=== PATIENT | male | born 1945 | race Caucasian/White ===

== ENCOUNTER → 2023-09-24 | Outpatient (CLI) | payer MEDICARE, SELFPAY ==
--- NOTE | 2023-09-24 07:38 | CT_ITS ---
STUDY: CT CHEST, ABDOMEN T PELVIS WITH CONTRAST REASON FOR EXAM: Male, 77 years old. STAGING BLADDER CANCER RADIATION DOSAGE (If Supplied By Facility): CTDIvol = ( 22.68 ) mGy, DLP = ( 3220.61 ) mGycm TECHNIQUE: Transaxial imaging was performed following intravenous administration of IV 100mL [id number], Oral-Readicat. Individualized dose optimization techniques were used for this CT. COMPARISON: No relevant prior comparison study available FINDINGS: CHEST Hyperinflated lungs and centrilobular emphysema. No focal infiltrate is seen. No evidence of pulmonary nodules. There is no demonstrated pleural abnormality. Normal heart and pericardium. There are calcifications of the coronary arteries. Normal mediastinum. Normal hilar regions. Grossly unremarkable pulmonary arteries. There is atherosclerotic calcification of the aortic arch with mild tortuosity and elongation of the aortic arch and descending thoracic aorta without evidence of aneurysm. There are multi-level degenerative changes of the thoracic spine. ABDOMEN Normal liver. There is non-visualization of the gallbladder, which may be secondary to either contraction or a prior cholecystectomy. Normal spleen. Normal pancreas. Normal bilateral adrenal glands. Moderate right hydronephrosis and hydroureter extending to the right ureterovesical junction with mild right perinephric stranding. Small low-density lesion/cyst in right kidney for which no further follow-up is needed. Unremarkable left kidney. Normal visualized stomach. Normal small intestine. Diffuse colonic diverticulosis without evidence of acute diverticulitis. Mild thickening of the transverse colon. The appendix is visualized and appears normal. There is diffuse atherosclerotic calcification of the abdominal aorta with elongation and tortuosity, but without a demonstrated aneurysm. Normal inferior vena cava. Normal retroperitoneum. Small umbilical hernia containing fat. Degenerative changes of the spine. PELVIS The bladder is not well distended. Thickening of the right lateral wall of the bladder and the bladder base which may reflect a normal bladder cancer. There is no pelvic fluid. There is no pelvic lymphadenopathy or mass lesion. There is enlargement of the prostate gland. CT/CT Chest, Abd, Pel w/Contrast IMPRESSION: 1. Thickening of the base and right lateral wall of the bladder which may reflect the known bladder cancer. 2. Obstruction of the distal right ureter likely due to the bladder mass associated with moderate right hydronephrosis and hydroureter. 3. No evidence of metastatic disease. 4. Prostatomegaly. 5. Diffuse diverticulosis without evidence of acute diverticulitis. Electronically Signed: Alo Rowell MD at 9:35 EST ,
--- OUTSIDE RECORDS SUMMARY | 2023-09-24 07:46 | XMS RPT_ITS | CCD ---
Author Name Unknown Address [address] [place] [address] Organization [facility] Care Team Providers Care Electrical Engineering Professor Name Role Phone AAMIR LEVIN DO Primary Care Physician AAMIR LEVIN DO Primary Care Unavailable AAMIR LEVIN DO Attending Unavailable AAMIR LEVIN DO Primary Care Unavailable EDMUNDO MARIANO, DR LINCOLN JONES Attending AAMIR Espinoza DO Primary Care Unavailable EDMUNDO MARIANO, DR LINCOLN JONES Referring Obie WYATT MD, DR LINCOLN JONES Attending Obie WYATT MD, DR LINCOLN JONES Admitting Obie ALDRICH MD FACP, HELGA Duron Consulting Unavail able AAMIR LEVIN DO Primary Care Unavailable BO SCHULER MD Attending Unavailable AAMIR LEVIN DO Primary Care Unavailable AAMIR LEVIN DO Attending Unavailable AAMIR LEVIN DO Primary Care Unavailable AAMIR LEVIN DO Attending Unavailable AAMIR LEVIN DO Primary Care Unavailable FIELDING JASMINA LUZ Attending MARYSE Ray MD Attending Unavailable AAMIR LEVIN DO Primary Care Unavailable AAMIR LEVIN DO Primary Care Unavailable FIELDING JASMINA LUZ Attending UnavailAAMIR Young DO Primary Care Unavailable AAMIR LEVIN DO Attending Unavailable Allergies Allergy Classification Reported Allergen(s) Allergy Type Date of Onset Reaction(s) Facility (11 sources) metFORMIN; Translations: [metformin] Drug Allergy Abdominal pain [facility] Medications Current Medications Medication Drug Class(es) Dates Sig (Normalized) Sig (Original) acetaminophen 500 mg oral tablet (1 source) Start: 08-30-2022 End: 09-13-2022 take 1 tablet by mouth once daily acetaminophen 500 mg oral tablet Dose : 1,000 mg = 2 tab(s), Oral, TID, PRN as needed for pain, not to exceed 3000 mg/day, # 100 tab(s), 0 Refill(s), 09/13/22 8:02:00 EST, Pharmacy: [facility]/pharmacy #[id number], 172.7, cm, 08/29/22 12:22:00 EST, Height Start Date: 08/30/22 Stop Date: 09/13/22 Status: Ordered Allergy (Diphenhydramine HCl) 25 mg oral capsule (9 sources) Start: 08-14-2022 Allergy (Diphenhydramine HCl) 25 mg oral capsule Dose : 25 mg = 1 cap(s), Oral, qAM, 0 Refill(s) Start Date: 08/14/22 Status: Ordered Completed/Discontinued Medications Medication Drug Class(es) Dates Sig (Normalized) Sig (Original) aspirin 81 mg delayed release oral tablet (6 sources) Platelet Aggregation Inhibitor, Nonsteroidal Anti-inflammatory Drug Start: 08-30-2022 End: 09-29-2022 take 1 tablet by mouth twice daily aspirin 81 mg oral delayed release tablet Dose : 81 mg = 1 tab(s), Oral, BID, Take 81 mg aspirin twice daily with food for 4 weeks postoperatively for DVT prophylaxis., # 60 tab(s), 0 Refill(s), Pharmacy: [facility]/pharmacy #[id number], 172.7, cm, 08/29/22 12:22:00 EST, Height Start Date: 08/30/22 Stop Date: 09/29/22 Status: Ordered atorvastatin 10 mg oral tablet (1 source) HMG-CoA Reductase Inhibitor Start: 08-31-2023 atorvastatin 10 mg oral tablet Dose : 10 mg = 1 tab(s), Oral, qHS, 0 Refill(s), Hyperlipidemia Type 2 diabetes mellitus with hyperlipidemia Start Date: 08/31/23 Status: Ordered meloxicam 7.5 mg oral tablet (2 sources) Nonsteroidal Anti-inflammatory Drug Start: 08-30-2022 End: 09-29-2022 Mobic 7.5 mg oral tablet Dose : 7.5 mg = 1 tab(s), Oral, BIDM, Do not take any other nonsteroidal anti-inflammatories while on meloxicam/Mobic, # 60 tab(s), 0 Refill(s), Pharmacy: [facility]/pharmacy #[id number], 172.7, cm, 08/29/22 12:22:00 EST, Height Start Date: 08/30/22 Stop Date: 09/29/22 Status: Ordered metoprolol tartrate 50 mg oral tablet (19 sources) beta-Adrenergic Bridger Start: 09-01-2023 End: 09-01-2023 metoprolol tartrate 50 mg oral tablet Start: 09/01/23 8:00:00 AM EST, Dose = 100 mg, = 2 tab(s), Oral, 0, 08/31/23 15:55:00 EST Start Date: 09/01/23 Stop Date: 09/01/23 Status: Completed Problems Active Problems Problem Classification Problem Date Documented Date Episodic/Chronic Cancer of bladder (1 source) Malignant tumor of urinary bladder; Translations: [Malignant neoplasm of bladder, unspecified] Onset: 08-31-2023 Chronic Cardiac dysrhythmias (1 source) Cardiac arrhythmia; Translations: [Cardiac arrhythmia, unspecified] Onset: 09-01-2023 Chronic Chronic kidney disease (7 sources) Chronic kidney disease stage 3 02-06-2023 Chronic Chronic obstructive pulmonary disease and bronchiectasis (15 sources) Chronic obstructive lung disease; Translations: [Chronic obstructive pulmonary disease, unspecified] Onset: 08-29-2022 10-21-2020 Chronic Diabetes mellitus without complication (20 sources) Diabetes mellitus; Translations: [Type 2 diabetes mellitus without complication] Onset: 08-29-2022 10-13-2019 Chronic Disorders of lipid metabolism (16 sources) Hyperlipidemia; Translations: [Hyperlipidemia, unspecified] Onset: 08-29-2022 10-13-2019 Chronic Esophageal disorders (14 sources) Gastroesophageal reflux disease without esophagitis 10-21-2020 Chronic Essential hypertension (20 sources) Hypertensive disorder; Translations: [Essential (primary) hypertension] Onset: 10-10-2022 10-13-2019 Chronic Mood disorders (14 sources) Mild depression 07-30-2020 Chronic Neoplasms of unspecified nature or uncertain behavior (1 source) Neoplasm of bladder 09-04-2023 Episodic Osteoarthritis (1 source) Osteoarthritis; Translations: [Unspecified osteoarthritis, unspecified site] Onset: 08-29-2022 Chronic Other connective tissue disease (1 source) Artificial knee joint present; Translations: [Presence of unspecified artificial knee joint] Onset: 08-29-2022 Chronic Other lower respiratory disease (14 sources) Dyspnea on exertion 08-13-2020 Episodic Other non-traumatic joint disorders (13 sources) Knee pain 08-08-2022 Episodic Other nutritional; endocrine; and metabolic disorders (20 sources) Body mass index 30+ - obesity 04-25-2022 Chronic Other nutritional; endocrine; and metabolic disorders (13 sources) Obesity 08-08-2022 Chronic Other nutritional; endocrine; and metabolic disorders (6 sources) Morbid obesity 05-09-2023 Chronic Other screening for suspected conditions (not mental disorders or infectious disease) (13 sources) Viral screening status 04-25-2022 Episodic Peripheral and visceral atherosclerosis (13 sources) Peripheral vascular disease 10-21-2021 Chronic Residual codes; unclassified (13 sources) Needs influenza immunization 07-14-2021 Episodic Screening and history of mental health and substance abuse codes (14 sources) Ex-cigarette smoker 04-22-2021 Episodic Unclassified (20 sources) Patient encounter status 04-21-2021 Unclassified (13 sources) Influenza vaccination status 06-29-2022 Urinary tract infections (6 sources) Urinary tract infectious disease 05-09-2023 Episodic Past or Other Problems Problem Classification Problem Date Documented Da te Episodic/Chronic Genitourinary symptoms and ill-defined conditions (8 sources) Blood in urine; Translations: [Hematuria, unspecified] Onset: 05-09-2023 05-09-2023 Episodic Results Test Name Value Interpretation Reference Range Facil ity Vital Signs Date Time Vital Sign Value Performing Clinician Faci lity 09-01-2023 10:28-0500 Body temperature 97.52 [degF] DR LINCOLN WYATT MD [facility] 09-01-2023 10:28-0500 Diastolic Blood Pressure Non-Invasive 57 mm[Hg] DR LINCOLN WYATT MD [facility] 09-01-2023 10:28-0500 Heart rate 64 /min DR LINCOLN WYATT MD [facility] 09-01-2023 10:28-0500 Respiratory rate 18 /min DR LINCOLN WYATT MD [facility] 09-01-2023 10:28-0500 Systolic Blood Pressure Non-Invasive 114 mm[Hg] DR LINCOLN WYATT MD [facility] 09-01-2023 09:19-0500 Heart rate 61 /min DR LINCOLN WYATT MD [facility] 09-01-2023 08:06-0500 Heart rate 67 /min DR LINCOLN WYATT MD [facility] 09-01-2023 06:55-0500 Body temperature 98.06 [degF] DR LINCOLN WYATT MD [facility] 09-01-2023 06:55-0500 Diastolic Blood Pressure Non-Invasive 63 mm[Hg] DR LINCOLN WYATT MD [facility] 09-01-2023 06:55-0500 Heart rate 74 /min DR LINCOLN WYATT MD [facility] 09-01-2023 06:55-0500 Respiratory rate 16 /min DR LINCOLN WYATT MD [facility] 09-01-2023 06:55-0500 Systolic Blood Pressure Non-Invasive 121 mm[Hg] DR LINCOLN WYATT MD [facility] 09-01-2023 04:00-0500 Body temperature 98.24 [degF] DR LINCOLN WYATT MD [facility] 09-01-2023 04:00-0500 Diastolic Blood Pressure Non-Invasive 59 mm[Hg] DR LINCOLN WYATT MD [facility] 09-01-2023 04:00-0500 Heart rate 75 /min DR LINCOLN WYATT MD [facility] 09-01-2023 04:00-0500 Systolic Blood Pressure Non-Invasive 111 mm[Hg] DR LINCOLN WYATT MD [facility] 08-31-2023 18:32-0500 Body height 172.[address] LINCOLN WYATT MD [facility] 08-31-2023 18:32-0500 Body weight [address] LINCOLN WYATT MD [facility] 08-31-2023 18:32-0500 Body weight 36.88 kg/m2 DR LINCOLN WYATT MD [facility] 08-31-2023 18:21-0500 Heart rate 87 /min DR LINCOLN WYATT MD [facility] 08-31-2023 17:39-0500 Heart rate 87 /min DR LINCOLN WYATT MD [facility] 08-31-2023 17:00-0500 Heart rate 90 /min DR LINCOLN WYATT MD [facility] 08-31-2023 17:00-0500 Heart rate 75 /min DR LINCOLN WYATT MD [facility] 08-31-2023 16:10-0500 Body temperature 97.7 [degF] DR LINCOLN WYATT MD [facility] 08-31-2023 16:00-0500 Respiratory Rate - Anes 7 br/min DR LINCOLN WYATT MD [facility] 08-31-2023 15:55-0500 Respiratory Rate - Anes 18 br/min DR LINCOLN WYATT MD [facility] 08-31-2023 15:50-0500 Respiratory Rate - Anes 10 br/min DR LINCOLN WYATT MD [facility] 08-31-2023 15:45-0500 Body temperature 96.8 [degF] DR LINCOLN WYATT MD [facility] 08-31-2023 15:30-0500 Body temperature 96.8 [degF] DR LINCOLN WYATT MD [facility] 08-31-2023 12:28-0500 Body height 172.[address] LINCOLN WYATT MD [facility] 08-31-2023 12:28-0500 Body temperature 98.06 [degF] DR LINCOLN WYATT MD [facility] 08-31-2023 12:28-0500 Body weight [address] LINCOLN WYATT MD [facility] 08-21-2023 13:09-[address] LINCOLN WYATT MD [facility] 08-21-2023 13:09-0500 Body height 172.[address] LINCOLN WYATT MD [facility] 08-21-2023 13:09-0500 Body weight 118.[address] LINCOLN WYATT MD [facility] 08-21-2023 13:09-0500 Body weight 39.63 kg/m2 DR LINCOLN WYATT MD [facility] 08-21-2023 13:09-0500 Diastolic Blood Pressure Non-Invasive 58 mm[Hg] DR LINCOLN WYATT MD [facility] 08-21-2023 13:09-0500 Heart rate 60 /min DR LINCOLN WYATT MD [facility] 08-21-2023 13:09-0500 Respiratory rate 20 /min DR LINCOLN WYATT MD [facility] 08-21-2023 13:09-0500 Systolic Blood Pressure Non-Invasive 114 mm[Hg] DR LINCOLN WYATT MD [facility] 08-30-2022 11:51-0500 Body temperature 97.88 [degF] DR EVELYNE GONZALEZ MD [facility] 08-30-2022 11:51-0500 Diastolic Blood Pressure Non-Invasive [address] EVELYNE GONZALEZ MD [facility] 08-30-2022 11:51-0500 Heart rate 60 /min DR EVELYNE GONZALEZ MD [facility] 08-30-2022 11:51-0500 Reason For Taking VItal Signs DR EVELYNE GONZALEZ MD [facility] 08-30-2022 11:51-0500 Respiratory rate 18 /min DR EVELYNE GONZALEZ MD [facility] 08-30-2022 11:51-0500 Systolic Blood Pressure Non-Invasive [address] EVELYNE GONZALEZ MD [facility] 08-30-2022 08:21-0500 Heart rate 64 /min DR EVELYNE GONZALEZ MD [facility] 08-30-2022 07:45-0500 Body temperature 97.52 [degF] DR EVELYNE GONZALEZ MD [facility] 08-30-2022 07:45-0500 Diastolic Blood Pressure Non-Invasive [address] EVELYNE GONZALEZ MD [facility] 08-30-2022 07:45-0500 Heart rate 64 /min DR EVELYNE GONZALEZ MD [facility] 08-30-2022 07:45-0500 Reason For Taking VItal Signs DR EVELYNE GONZALEZ MD [facility] 08-30-2022 07:45-0500 Respiratory rate 18 /min DR EVELYNE GONZALEZ MD [facility] 08-30-2022 07:45-0500 Systolic Blood Pressure Non-Invasive [address] EVELYNE GONZALEZ MD [facility] 08-30-2022 04:38-0500 Body temperature 97.34 [degF] DR EVELYNE GONZALEZ MD [facility] 08-30-2022 04:38-0500 Diastolic Blood Pressure Non-Invasive [address] EVELYNE GONZALEZ MD [facility] 08-30-2022 04:38-0500 Heart rate 59 /min DR EVELYNE GONZALEZ MD [facility] 08-30-2022 04:38-0500 Reason For Taking VItal Signs DR EVELYNE GONZALEZ MD [facility] 08-30-2022 04:38-0500 Respiratory rate 18 /min DR EVELYNE GONZALEZ MD [facility] 08-30-2022 04:38-0500 Systolic Blood Pressure Non-Invasive [address] EVELYNE GONZALEZ MD [facility] 08-30-2022 00:37-0500 Heart rate 77 /min DR EVELYNE GONZALEZ MD [facility] 02-07-2023 17:00-0500 Heart rate 72 /min DR EVELYNE GONZALEZ MD [facility] 08-29-2022 12:23-0500 Body temperature 96.8 [degF] DR EVELYNE GONZALEZ MD [facility] 08-29-2022 12:22-0500 Body height 172.[address] EVELYNE GONZALEZ MD [facility] 08-29-2022 12:22-0500 Body weight 113.[address] EVELYNE GONZALEZ MD [facility] 08-29-2022 12:22-0500 Body weight 38.09 kg/m2 DR EVELYNE GONZALEZ MD [facility] 08-29-2022 11:02-0500 Body temperature 96.44 [degF] DR EVELYNE GONZALZE MD [facility] 08-29-2022 10:55-0500 Respiratory Rate - Anes 0 br/min DR EVELYNE GONZALEZ MD [facility] 08-29-2022 10:50-0500 Respiratory Rate - Anes 4 br/min DR EVELYNE GONZALEZ MD [facility] 08-29-2022 10:45-0500 Respiratory Rate - Anes 15 br/min DR EVELYNE GONZALEZ MD [facility] 08-29-2022 07:47-0500 Blood Pressure Cuff Size DR EVELYNE GONZALEZ MD [facility] 08-29-2022 07:47-[address] EVELYNE GONZALEZ MD [facility] 08-29-2022 07:47-[address] EVELYNE Adrian [facility] 08-29-2022 07:47-0500 Body height 172.[address] EVELYNE GONZALEZ MD [facility] 08-29-2022 07:47-0500 Body temperature 97.52 [degF] DR EVELYNE GONZALEZ MD [facility] 08-29-2022 07:47-0500 Body weight 113.[address] EVELYNE GONZALEZ MD [facility] 08-29-2022 07:47-0500 Body weight 38.09 kg/m2 DR EVELYNE GONZALEZ MD [facility] 08-14-2022 10:05-[address] EVELYNE GONZALEZ MD [facility] 08-14-2022 10:05-[address] EVELYNE Adrian [facility] 08-14-2022 10:05-0500 Body height 172.[address] EVELYNE GONZALEZ MD [facility] 08-14-2022 10:05-0500 Body weight 117.[address] EVELYNE GONZALEZ MD [facility] 08-14-2022 10:05-0500 Body weight 39.3 kg/m2 DR EVELYNE GONZALEZ MD [facility] 08-14-2022 10:05-0500 Diastolic Blood Pressure Non-Invasive [address] EVELYNE GONZALEZ MD [facility] 08-14-2022 10:05-0500 Heart rate 66 /min DR EVELYNE GONZALEZ MD [facility] 08-14-2022 10:05-0500 Respiratory rate 18 /min DR EVELYNE GONZALEZ MD [facility] 08-14-2022 10:05-0500 Systolic Blood Pressure Non-Invasive [address] EVELYNE GONZALEZ MD [facility] Encounters Encounter Date Encounter Type Care Provider Facility Start: 09-20-2023 ambulatory MARYSE HALEY MD Facility :A Start: 09-05-2023 End: 09-10-2023 ambulatory AAMIR OLLIE DO Facility:B Start: 09-05-2023 End: 09-09-2023 Outreach Lab AAMIR OLLIE DO [facility] Start: 08-31-2023 End: 09-01-2023 ambulatory AAMIR OLLIE DO Facility:B Start: 08-31-2023 End: 09-01-[address] LINCOLN WYATT MD [facility] Start: 08-21-2023 End: 08-22-2023 ambulatory AAMIR OLLIE DO Facility:B Start: 08-21-2023 End: 08-21-[address] LINCOLN WYATT MD [facility] Start: 08-08-2023 End: 08-09-2023 ambulatory AAMIR OLLIE DO Facility:B Start: 08-08-2023 End: 08-08-2023 Patient encounter procedure 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 [facility] Start: 08-02-2023 End: 08-03-2023 ambulatory AAMIR OLLIE DO Facility:B Start: 08-02-2023 End: 08-02-2023 Patient encounter procedure 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 [facility] Start: 07-20-2023 End: 07-20-2023 Emergency department patient visit AAMIR LEVIN DO Facility:B Start: 05-09-2023 ambulatory AAMIR LEVIN DO Facil ity:B Start: 05-09-2023 End: 05-13-2023 Outreach Lab AAMIR LEVIN DO [facility] Start: 04-23-2023 End: 04-24-2023 ambulatory AAMIR LEVIN DO Facility:B Start: 04-23-2023 End: 04-23-2023 Patient encounter procedure AAMIR LEVIN DO [facility] Start: 10-10-2022 End: 10-15-2022 ambulatory AAMIR LEVIN DO Facility:B Start: 10-10-2022 End: 10-14-2022 Outreach Lab AAMIR LEVIN DO [facility] Start: 08-29-2022 End: 08-30-[address] EVELYNE GONZALEZ MD [facility] Start: 08-23-2022 End: 08-23-2022 Patient encounter procedure 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 [facility] Start: 08-14-2022 End: 08-14-[address] EVELYNE GONZALEZ MD [facility] Start: 08-14-2022 End: 08-14-[address] EVELYNE GONZALEZ MD [facility] Start: 08-08-2022 End: 08-08-2022 Patient encounter procedure AAMIR Vitale OLLIE DO [facility] Start: 05-12-2021 End: 05-12-2021 Patient encounter procedure AAMIR LEVIN DO [facility] Procedures Date Procedure Procedure Detail Performing Clinician Start: 08-31-2023 Cystoscopy and biops y of bladder AAMIR OLLIE DO Start: 08-29-[address] EVELYNE GONZALEZ MD Immunizations Immunization Date Immunization Notes Care Provider [facility] 05-09-2023 influenza, high dose seasonal, preservative-free; Translations: [Fluad Quadrivalent PF ] AAMIR LEVIN DO [facility] 04-25-2022 influenza, high dose seasonal, preservative-free AAMIR LEVIN DO [facility] 06-28-2021 COVID-19, mRNA, LNP- S, PF, 100 mcg or 50 mcg dose; Translations: [Moderna COVID-19 Vaccine] AAMIR LEVIN DO [facility] 04-22-2021 influenza, high dose seasonal, preservative-free; Translations: [Fluad Quadrivalent PF ] AAMIR LEVIN DO [facility] 12-23-2020 SARS-CoV-2 (COVID-19 ) mRNA-[id number] vaccine AAMIR LEVIN DO [facility] Payers Date Payer Category Payer Unknown [id number] 1945 Unknown [id number] 2.16.8 [id number] 1945 Unknown [id number] 2.16.8 [id number] 1945 Unknown [id number] 2.16.8 [id number] 1945 Unknown [id number] 2.16.8 [id number] 1945 Unknown [id number] 2.16.8 [id number] 1945 Unknown [id number] 2.16.8 [id number] 1945 Unknown [id number] 2.16.8 [id number] 1945 Unknown [id number] 2.16.8 [id number] 1945 Unknown [id number] 2.16.8 [id number] 1945 Unknown [id number] 2.16.8 [id number] Social History Date Type Detail Facility Start: 08-26-2019 End: 08-21-2023 Ex-smoker (finding) [facility] Assigned At [facility] Functional Status Date Assessment Result Facility 09-01-2023 Functional Status Other: 7am-1130am [facility] 09-01-2023 Functional Status 80 [facility] 09-01-2023 Functional Status Door open, Non-Slip footwear, Room check performed [facility] 09-01-2023 Functional Status [facility] 09-01-2023 Functional Status Gustavo ma [facility] 08-31-2023 Functional Status bilateral knee high tawny lied/on [facility] 08-31-2023 Functional Status Gustavo ma [facility] 08-31-2023 Functional Status Independent Gustavo ma [facility] 08-31-2023 [facility] Functional Status Sensory Deficits None A [facility] 08-30-2022 Functional Status Door open, Room check performed [facility] 08-30-2022 Functional Status Gsutavo ma [facility] 08-30-2022 Functional Status Independent Gustavo ma [facility] 08-30-2022 [facility] 08-30-2022 Functional Status Gustavo ma [facility] 08-29-2022 Functional Status 100 Gustavo ma [facility] 08-29-2022 Functional Status Gustavo ma [facility] 08-29-2022 Functional Status Mobile home Gustavo ma [facility] 08-29-2022 [facility] 08-29-2022 Functional Status Demonstrates C orrect Call Light Use Yes [facility] 08-29-2022 Functional Status Maintained Gustavo [facility] 08-14-2022 Functional Status Sensory Deficits None A [facility] Mental Status Date Assessment Result Facility 09-01-2023 Mental Status Oriented x 4 [facility] 08-31-2023 Mental Status [facility] 08-30-2022 Mental Status Oriented x 4 [facility] 08-30-2022 Mental Status Oriented x 4 [facility] 08-30-2022 Mental Status [facility] 08-29-2022 [facility]-30-[facility]21 to 09-01-2023 RadiologyRadiologyRadiology Note Date & Type Note Facility 09-01-2023 Hospital Discharge instructions Patient Education 09/01/2023 09:27:15 5- Guerra Care (04/2018)(CUSTOM) Guerra Catheter Care, Adult A Guerra catheter is a soft, flexible tube that is placed into the bladder to drain urine. A Guerra catheter may be inserted if: You leak urine or are not able to control when you urinate (urinary incontinence). You are not able to urinate when you need to (urinary retention). You had prostate surgery or surgery on the genitals. You have certain medical conditions, such as multiple sclerosis, dementia, or a spinal cord injury. If you are going home with a Guerra catheter in place, follow the instructions below. TAKING CARE OF THE CATHETER 1.Wash your hands with soap and water. 2.Using mild soap and warm water on a clean washcloth: Clean the area on your body closest to the catheter insertion site using a circular motion, moving away from the catheter. Never wipe toward the catheter because this could sweep bacteria up into the urethra and cause infection. 3.Remove all traces of soap. Pat the area dry with a clean towel. For males, reposition the foreskin. 4.Attach the catheter to your leg so there is no tension on the catheter. Use adhesive tape or a leg strap. If you are using adhesive tape, remove any sticky residue left behind by the previous tape you used. 5.Keep the drainage bag below the level of the bladder, but keep it off the floor. 6.Check throughout the day to be sure the catheter is working and urine is draining freely. Make sure the tubing does not become kinked. 7.Do not pull on the catheter or try to remove it. Pulling could damage internal tissues. TAKING CARE OF THE DRAINAGE BAGS You will be given two drainage bags to take home. One is a large overnight drainage bag, and the other is a smaller leg bag that fits underneath clothing. You may wear the overnight bag at any time, but you should never wear the smaller leg bag at night. Follow the instructions below for how to empty, change, and clean your drainage bags. Emptying the Drainage Bag You must empty your drainage bag when it is ? full or at least 2 3 times a day. 1.Wash your hands with soap and water. 2.Keep the drainage bag below your hips, below the level of your bladder. This stops urine from going back into the tubing and into your bladder. 3.Hold the dirty bag over the toilet or a clean container. 4.Open the pour spout at the bottom of the bag and empty the urine into the toilet or container. Do not let the pour spout touch the toilet, container, or any other surface. Doing so can place bacteria on the bag, which can cause an infection. 5.Clean the pour spout with a gauze pad or cotton ball that has rubbing alcohol on it. 6.Close the pour spout. 7.Attach the bag to your leg with adhesive tape or a leg strap. 8.Wash your hands well. Changing the Drainage Bag Change your drainage bag once a month or sooner if it starts to smell bad or look dirty. Below are steps to follow when changing the drainage bag. 1.Wash your hands with soap and water. 2. Pinch off the rubber catheter so that urine does not spill out. 3.Disconnect the catheter tube from the drainage tube at the connection valve. Do not let the tubes touch any surface. 4.Clean the end of the catheter tube with an alcohol wipe. Use a different alcohol wipe to clean the end of the drainage tube. 5.Connect the catheter tube to the drainage tube of the clean drainage bag. 6.Attach the new bag to the leg with adhesive tape or a leg strap. Avoid attaching the new bag too tightly. 7.Wash your hands well. Cleaning the Drainage Bag 1.Wash your hands with soap and water. 2.Wash the bag in warm, soapy water. 3.Rinse the bag thoroughly with warm water. 4.Fill the bag with a solution of white vinegar and water (1 cup vinegar to 3 cups of warm water. Close the bag and soak it for 30 minutes in the solution. 5.Rinse the bag with warm water. 6.Hang the bag to dry with the pour spout open and hanging downward. 7.Store the clean bag (once it is dry) in a clean plastic bag. 8.Wash your hands well. PREVENTING INFECTION Wash your hands before and after handling your catheter. Take showers daily and wash the area where the catheter enters your body. Do not take baths. Replace wet leg straps with dry ones, if this applies. Do not use powders, sprays, or lotions on the genital area. Only use creams, lotions, or ointments as directed by your caregiver. For females, wipe from front to back after each bowel movement. Drink enough fluids to keep your urine clear or pale yellow unless you have a fluid restriction. Do not let the drainage bag or tubing touch or lie on the floor. Wear cotton underwear to absorb moisture and to keep your soap drier tender. SEEK MEDICAL CARE IF: Your urine is cloudy or smells unusually bad. Your catheter becomes clogged. You are not draining urine into the bag or your bladder feels full. Your catheter starts to leak. SEEK IMMEDIATE MEDICAL CARE IF: You have pain, swelling, redness, or pus where the catheter enters the body. You have pain in the abdomen, legs, lower back, or bladder. You have a fever. You see blood fill the catheter, or your urine is pink or red. You have nausea, vomiting, or chills. Your catheter gets pulled out. MAKE SURE YOU: Understand these instructions. Will watch your condition. Will get help right away if you are not doing well or get worse. Document Released: 07/09/2006 Document Revised: 06/25/2013 Document Reviewed: 07/10/2014 Exit[employer] Patient Information 2015 [employer]. This information is not intended to replace advice given to you by your health care provider. Make sure you discuss any questions you have with your health care provider. 09/01/2023 09:27:05 Transurethral Resection of Bladder Tumor, Care After Transurethral Resection of Bladder Tumor, Care After This sheet gives you information about how to care for yourself after your procedure. Your health care provider may also give you more specific instructions. If you have problems or questions, contact your health care provider. What can I expect after the procedure? After the procedure, it is common to have: A small amount of blood in your urine for up to 2 weeks. Soreness or mild pain from your catheter. After your catheter is removed, you may have mild soreness, especially when urinating. Pain in your lower abdomen. Follow these instructions at home: Medicines Take ccoh-mcd-kdzdztm and prescription medicines only as told by your health care provider. If you were prescribed an antibiotic medicine, take it as told by your health care provider. Do not stop taking the antibiotic even if you start to feel better. Do not drive for 24 hours if you were given a sedative during your procedure. Ask your health care provider if the medicine prescribed to you: ?Requires you to avoid driving or using heavy machinery. ?Can cause constipation. You may need to take these actions to prevent or treat constipation: ?Take smyh-wny-tfxzmce or prescription medicines. ?Eat foods that are high in fiber, such as beans, whole grains, and fresh fruits and vegetables. ?Limit foods that are high in fat and processed sugars, such as fried or sweet foods. Activity Return to your normal activities as told by your health care provider. Ask your health care provider what activities are safe for you. Do not lift anything that is heavier than 10 lb (4.5 kg), or the limit that you are told, until your health care provider says that it is safe. Avoid intense physical activity for as long as told by your health care provider. Rest as told by your health care provider. Avoid sitting for a long time without moving. Get up to take short walks every 1 2 hours. This is important to improve blood flow and breathing. Ask for help if you feel weak or unsteady. General instructions Do not drink alcohol for as long as told by your health care provider. This is especially important if you are taking prescription pain medicines. Do not take baths, swim, or use a hot tub until your health care provider approves. Ask your health care provider if you may take showers. You may only be allowed to take sponge baths. If you have a catheter, follow instructions from your health care provider about caring for your catheter and your drainage bag. Drink enough fluid to keep your urine pale yellow. Wear compression stockings as told by your health care provider. These stockings help to prevent blood clots and reduce swelling in your legs. Keep all follow-up visits as told by your health care provider. This is important. ?You will need to be followed closely with regular checks of your bladder and urethra (cystoscopies) to make sure that the cancer does not come back. Contact a health care provider if: You have pain that gets worse or does not improve with medicine. You have blood in your urine for more than 2 weeks. You have cloudy or bad-smelling urine. You become constipated. Signs of constipation may include having: ?Fewer than three bowel movements in a week. ?Difficulty having a bowel movement. ?Stools that are dry, hard, or larger than normal. You have a fever. Get help right away if: You have: ?Severe pain. ?Bright red blood in your urine. ?Blood clots in your urine. ?A lot of blood in your urine. Your catheter has been removed and you are not able to urinate. You have a catheter in place and the catheter is not draining urine. Summary After your procedure, it is common to have a small amount of blood in your urine, soreness or mild pain from your catheter, and pain in your lower abdomen. Take owbe-ufi-dgjervw and prescription medicines only as told by your health care provider. Rest as told by your health care provider. Follow your health care provider's instructions about returning to normal activities. Ask what activities are safe for you. If you have a catheter, follow instructions from your health care provider about caring for your catheter and your drainage bag. Get help right away if you cannot urinate, you have severe pain, or you have bright red blood or blood clots in your urine. This information is not intended to replace advice given to you by your health care provider. Make sure you discuss any questions you have with your health care provider. Document Released: 06/19/2016 Document Revised: 02/06/2019 Document Reviewed: 02/06/2019 [employer] Patient Education 2020 [employer] 09/01/2023 09:25:27 Indwelling Urinary Catheter Care, Adult, Xgxh-[id number]-[id number] Indwelling Urinary Catheter Care, Adult An indwelling urinary catheter is a thin tube that is put into your bladder. The tube helps to drain pee (urine) out of your body. The tube goes in through your urethra. Your urethra is where pee comes out of your body. Your pee will come out through the catheter, then it will go into a bag (drainage bag). Take good care of your catheter so it will work well. How to wear your catheter and bag Supplies needed Sticky tape (adhesive tape) or a leg strap. Alcohol wipe or soap and water (if you use tape). A clean towel (if you use tape). Large overnight bag. Smaller bag (leg bag). Wearing your catheter Attach your catheter to your leg with tape or a leg strap. Make sure the catheter is not pulled tight. If a leg strap gets wet, take it off and put on a dry strap. If you use tape to hold the bag on your le.Use an alcohol wipe or soap and water to wash your skin where the tape made it sticky before. 2.Use a clean towel to pat-dry that skin. 3.Use new tape to make the bag stay on your leg. Wearing your bags You should have been given a large overnight bag. You may wear the overnight bag in the day or night. Always have the overnight bag lower than your bladder. Do not let the bag touch the floor. Before you go to sleep, put a clean plastic bag in a wastebasket. Then hang the overnight bag inside the wastebasket. You should also have a smaller leg bag that fits under your clothes. Always wear the leg bag below your knee. Do not wear your leg bag at night. How to care for your skin and catheter Supplies needed A clean washcloth. Water and mild soap. A clean towel. Caring for your skin and catheter Clean the skin around your catheter every day: 1.Wash your hands with soap and water. 2.Wet a clean washcloth in warm water and mild soap. 3.Clean the skin around your urethra. ?If you are female: ?Gently spread the folds of skin around your vagina (labia). ?With the washcloth in your other hand, wipe the inner side of your labia on each side. Wipe from front to back. ?If you are male: ?Pull back any skin that covers the end of your penis (foreskin). ?With the washcloth in your other hand, wipe your penis in small circles. Start wiping at the tip of your penis, then move away from the catheter. ?Move the foreskin back in place, if needed. 4.With your free hand, hold the catheter close to where it goes into your body. ?Keep holding the catheter during cleaning so it does not get pulled out. 5.With the washcloth in your other hand, clean the catheter. ?Only wipe downward on the catheter. ?Do not wipe upward toward your body. Doing this may push germs into your urethra and cause infection. 6.Use a clean towel to pat-dry the catheter and the skin around it. Make sure to wipe off all soap. 7.Wash your hands with soap and water. Shower every day. Do not take baths. Do not use cream, ointment, or lotion on the area where the catheter goes into your body, unless your doctor tells you to. Do not use powders, sprays, or lotions on your genital area. Check your skin around the catheter every day for signs of infection. Check for: ?Redness, swelling, or pain. ?Fluid or blood. ?Warmth. ?Pus or a bad smell. How to empty the bag Supplies needed Rubbing alcohol. Gauze pad or cotton ball. Tape or a leg strap. Emptying the bag Pour the pee out of your bag when it is ? full, or at least 2 3 times a day. Do this for your overnight bag and your leg bag. 1.Wash your hands with soap and water. 2.Separate (detach) the bag from your leg. 3.Hold the bag over the toilet or a clean pail. Keep the bag lower than your hips and bladder. This is so the pee (urine) does not go back into the tube. 4.Open the pour spout. It is at the bottom of the bag. 5.Empty the pee into the toilet or pail. Do not let the pour spout touch any surface. 6.Put rubbing alcohol on a gauze pad or cotton ball. 7.Use the gauze pad or cotton ball to clean the pour spout. 8.Close the pour spout. 9.Attach the bag to your leg with tape or a leg strap. 10.Wash your hands with soap and water. Follow instructions for cleaning the drainage bag: From the product maker. As told by your doctor. How to change the bag Supplies needed Alcohol wipes. A clean bag. Tape or a leg strap. Changing the bag Replace your bag when it starts to leak, smell bad, or look dirty. 1.Wash your hands with soap and water. 2.Separate the dirty bag from your leg. 3.Pinch the catheter with your fingers so that pee does not spill out. 4.Separate the catheter tube from the bag tube where these tubes connect (at the connection valve). Do not let the tubes touch any surface. 5.Clean the end of the catheter tube with an alcohol wipe. Use a different alcohol wipe to clean the end of the bag tube. 6.Connect the catheter tube to the tube of the clean bag. 7.Attach the clean bag to your leg with tape or a leg strap. Do not make the bag tight on your leg. 8.Wash your hands with soap and water. General rules Never pull on your catheter. Never try to take it out. Doing that can hurt you. Always wash your hands before and after you touch your catheter or bag. Use a mild, fragrance-free soap. If you do not have soap and water, use hand branch general manager. Always make sure there are no twists or bends (kinks) in the catheter tube. Always make sure there are no leaks in the catheter or bag. Drink enough fluid to keep your pee pale yellow. Do not take baths, swim, or use a hot tub. If you are female, wipe from front to back after you poop (have a bowel movement). Contact a doctor if: Your pee is cloudy. Your pee smells worse than usual. Your catheter gets clogged. Your catheter leaks. Your bladder feels full. Get help right away if: You have redness, swelling, or pain where the catheter goes into your body. You have fluid, blood, pus, or a bad smell coming from the area where the catheter goes into your body. Your skin feels warm where the catheter goes into your body. You have a fever. You have pain in your: ?Belly (abdomen). ?Legs. ?Lower back. ?Bladder. You see blood in the catheter. Your pee is pink or red. You feel sick to your stomach (nauseous). You throw up (vomit). You have chills. Your pee is not draining into the bag. Your catheter gets pulled out. Summary An indwelling urinary catheter is a thin tube that is placed into the bladder to help drain pee (urine) out of the body. The catheter is placed into the part of the body that drains pee from the bladder (urethra). Taking good care of your catheter will keep it working properly and help prevent problems. Always wash your hands before and after touching your catheter or bag. Never pull on your catheter or try to take it out. This information is not intended to replace advice given to you by your health care provider. Make sure you discuss any questions you have with your health care provider. Document Released: 11/03/2013 Document Revised: 10/31/2019 Document Reviewed: 02/22/2018 [employer] Patient Education 2020 [employer]. 09/01/2023 09:25:19 6- FAQ about Catheter-Associated UTI (10/01 IC)(CUSTOM) FAQs (frequently asked questions) about Catheter-Associated Urinary Tract Infection What is catheter-associated urinary tract infection ? A urinary tract infection (also called UTI ) is an infection in the urinary system, which includes the bladder (which stores the urine) and the kid neys (which filter the blood to make urine). Germs (for example, bacteria or yeasts) do not normally live in these areas; but if germs are introduced, an infection can occur. If you have a urinary catheter, germs can travel along the catheter and cause an infection in your bladder or your kidney; in that case it is called a catheter-associated urinary tract infection (or CA-UTI ). What is a urinary catheter? A urinary catheter is a thin tube placed in the bladder to drain urine. Urine drains through the tube into a bag that collects the urine. A urinary catheter may be used: If you are not able to urinate on your own To measure the amount of urine that you make, for example, during intensive care During and after some types of surgery During some tests of the kidneys and bladder People with urinary catheters have a much higher chance of getting a urinary tract infection than people who don t have a catheter. How do I get a catheter-associated urinary tract infection (CA-UTI)? If germs enter the urinary tract, they may cause an infection. Many of the germs that cause a catheter-associated urinary tract infection are com mon germs found in your intestines that do not usually cause an infection there. Germs can enter the urinary tract when the catheter is being put in or while the catheter remains in the bladder. What are the symptoms of a urinary tract infection? Some of the common symptoms of a urinary tract infection are: Burning or pain in the lower abdomen (that is, below the stomach) Fever Bloody urine may be a sign of infection, but is also caused by other problems Burning during urination or an increase in the frequency of urination after the catheter is removed. Sometimes people with catheter-associated urinary tract infections do not have these symptoms of infection. Can catheter-associated urinary tract infections be treated? Yes, most catheter-associated urinary tract infections can be treated with antibiotics and removal or change of the catheter. Your doctor will deter mine which antibiotic is best for you. What are some of the things that hospitals are doing to prevent catheter-associated urinary tract infections? To prevent urinary tract infections, doctors and nurses take the following actions. Catheter insertion * Catheters are put in only when necessary and they are removed as soon as possible. * Only properly trained persons insert catheters using sterile ( clean ) technique. * The skin in the area where the catheter will be inserted is cleaned before inserting the catheter. * Other methods to drain the urine are sometimes used, such as External catheters in men (these look like condoms and are placed over the penis rather than into the penis) Putting a temporary catheter in to drain the urine and removing it right away. This is called intermittent urethral catheterization. Catheter care * Healthcare providers clean their hands by washing them with soap and water or using an alcohol-based hand rub before and after touching your catheter. a * Avoid disconnecting the catheter and drain tube. This helps to pre vent germs from getting into the catheter tube. * The catheter is secured to the leg to prevent pulling on the catheter. * Avoid twisting or kinking the catheter. * Keep the bag lower than the bladder to prevent urine from backflow ing to the bladder. * Empty the bag regularly. The drainage spout should not touch any thing while emptying the bag. What can I do to help prevent catheter-associated urinary tract infections if I have a catheter? Always clean your hands before and after doing catheter care. Always keep your urine bag below the level of your bladder. Do not tug or pull on the tubing. Do not twist or kink the catheter tubing. Ask your healthcare provider each day if you still need the catheter. What do I need to do when I go home from the hospital? If you will be going home with a catheter, your doctor or nurse should explain everything you need to know about taking care of the catheter. Make sure you understand how to care for it before you leave the hospital. If you develop any of the symptoms of a urinary tract infection, such as burning or pain in the lower abdomen, fever, or an increase in the frequency of urination, contact your doctor or nurse immediately. Before you go home, make sure you know who to contact if you have questions or problems after you get home. If you have questions, please ask your doctor or nurse. Co-sponsered by: PATRICIO, IDSA, AHA, APIC, CDC, The Joint Commission Follow Up Care 08/17/2023 08:20:22 With:LINCOLN WYATT Address: [address] [place] [phone] [facility] (1) When: Unknown Comments:Dr. Wyatt's office will call you with a follow-up appointment. If you do not hear from them, call into the office early next week. [facility] 09-01-2023 Note Discharge Instructions Thank you for allowing [facility] to assist you with your healthcare needs. The following is important discharge information regarding your hospital visit. Your Care Team Dr. [facility] Your Diagnosis Bladder cancer Diabetes mellitus Hyperlipidemia Hypertension Hypertension associated with type 2 diabetes mellitus Type 2 diabetes mellitus with hyperlipidemia What to do next Scheduled Follow-Up Appointments Appointment Type When With Where Contact InformationPC OV 09/05/2023 09:00 AM AAMIR ORONA DO [facility] [address] [phone] Follow Up Appointments Follow Up with LINCOLN WYATT When Why: Dr. Wyatt's office will call you with a follow-up appointment. If you do not hear from them, call into the office early next week. Where: [address] [place] [address] [phone] [facility] (1) The Following Activity and Diet Have Been Ordered for You No qualifying data available. No qualifying data available. The Following Equipment Has Been Ordered for You Home Equipment - Other: order for event monitor No qualifying data available. The Following Treatments Have Been Ordered for You Discharge Labs No qualifying data available. Discharge Radiology No qualifying data available. Other Therapies Discharge Event Monitor Instructions - Ordered -- 09/01/23 10:08:14 EST, You have been ordered mobile outpatient telemetry. You should receive a device in the mail with further instructions. If you have not received a device within 7 days after discharge, please call [facility] at [phone]. Post Acute Orders No qualifying data available. Allergies [facility] Medications Please ask your primary doctor or pharmacist before taking any other medication not listed, including over the counter drugs, herbal medications, vitamins and or supplements as they may interact with your home medications. What How Much When Why Instructions Last Dose New atorvastatin (atorvastatin 10 mg oral tablet) 1 tab(s) by mouth Daily at bedtime Hyperlipidemia Type 2 diabetes mellitus with hyperlipidemia 08/31/23 New ciprofloxacin (Cipro 500 mg oral tablet) 1 tab(s) by mouth Every 12 hours Infection Prevention Duration: 10 Days Pickup at [facility]/pharmacy #[id number] START TODAY None New oxyCODONE (oxyCODONE 5 mg oral tablet ( IMMEDIATE release )) 2 tab(s) by mouth Every 6 hours as needed for for pain Bladder cancer Duration: 7 Days Pickup at [facility]/pharmacy #[id number] None Changed cholecalciferol (Vitamin D3 10 mcg (400 intl units) oral tablet) 1 tab(s) by mouth Once a day (in the evening) 08/31/23 Changed cholecalciferol (Vitamin D3 10 mcg (400 intl units) oral tablet) 1 tab(s) by mouth Once a day (in the evening) N/A Duplicate Changed fenofibrate (fenofibrate 145 mg oral tablet) 1 tab(s) by mouth Once a day Hyperlipidemia New medicine 09/01/23 Changed fenofibrate (fenofibrate 145 mg oral tablet) 1 tab(s) by mouth Once a day Hyperlipidemia N/A Duplicate Changed glipiZIDE (glipiZIDE 2.5 mg oral tablet, extended release) 1 tab(s) by mouth Once a day Diabetes mellitus 09/01/23 Changed glipiZIDE (glipiZIDE 2.5 mg oral tablet, extended release) 1 tab(s) by mouth Once a day Diabetes mellitus N/A Duplicate Changed hydroCHLOROthiazide (hydroCHLOROthiazide 25 mg oral tablet) 1 tab(s) by mouth Once a day Hypertension Hypertension associated with type 2 diabetes mellitus 09/01/23 Changed hydroCHLOROthiazide (hydroCHLOROthiazide 25 mg oral tablet) 1 tab(s) by mouth Once a day Hypertension Hypertension associated with type 2 diabetes mellitus TAKE 1 TABLET BY MOUTH EVERY DAY N/A Duplicate Changed lisinopril (Zestril 5 mg oral tablet) 1 tab(s) by mouth Once a day (in the evening) Hypertension associated with type 2 diabetes mellitus 08/31/23 Changed lisinopril (Zestril 5 mg oral tablet) 1 tab(s) by mouth Once a day (in the evening) Hypertension associated with type 2 diabetes mellitus N/A Duplicate Changed metoprolol (Metoprolol Tartrate 100 mg oral tablet) 1 tab(s) by mouth Two (2) times a day Hypertension 09/01/23 0920am Changed metoprolol (Metoprolol Tartrate 100 mg oral tablet) 1 tab(s) by mouth Two (2) times a day Hypertension TAKE 1 TABLET BY MOUTH TWICE A DAY N/A Duplicate Changed multivitamin (Multivitamin) 1 tab(s) by mouth Once a day (in the evening) 08/31/23 Changed multivitamin (Multivitamin) 1 tab(s) by mouth Once a day (in the evening) N/A Duplicate Unchanged simvastatin (simvastatin 10 mg oral tablet) 1 tab(s) by mouth Daily at bedtime Hyperlipidemia Type 2 diabetes mellitus with hyperlipidemia TAKE 1 TABLET IN THE EVENING 08/31/23 Pharmacy Information [facility]/pharmacy #[id number]: [address], [place] [phone] [phone] Please take this list to your next doctor s visit. Bring all medications you take, including over the counter medications, herbals and other supplements with you to your doctor s visit. Patients and families are reminded to discard old lists and to update any records with all medication providers or retail pharmacies. Education Materials Guerra Catheter Care, Adult A Guerra catheter is a soft, flexible tube that is placed into the bladder to drain urine. A Guerra catheter may be inserted if: You leak urine or are not able to control when you urinate (urinary incontinence). You are not able to urinate when you need to (urinary retention). You had prostate surgery or surgery on the genitals. You have certain medical conditions, such as multiple sclerosis, dementia, or a spinal cord injury. If you are going home with a Guerra catheter in place, follow the instructions below. TAKING CARE OF THE CATHETER 1. Wash your hands with soap and water. 2. Using mild soap and warm water on a clean washcloth: Clean the area on your body closest to the catheter insertion site using a circular motion, moving away from the catheter. Never wipe toward the catheter because this could sweep bacteria up into the urethra and cause infection. 3. Remove all traces of soap. Pat the area dry with a clean towel. For males, reposition the foreskin. 4. Attach the catheter to your leg so there is no tension on the catheter. Use adhesive tape or a leg strap. If you are using adhesive tape, remove any sticky residue left behind by the previous tape you used. 5. Keep the drainage bag below the level of the bladder, but keep it off the floor. 6. Check throughout the day to be sure the catheter is working and urine is draining freely. Make sure the tubing does not become kinked. 7. Do not pull on the catheter or try to remove it. Pulling could damage internal tissues. TAKING CARE OF THE DRAINAGE BAGS You will be given two drainage bags to take home. One is a large overnight drainage bag, and the other is a smaller leg bag that fits underneath clothing. You may wear the overnight bag at any time, but you should never wear the smaller leg bag at night. Follow the instructions below for how to empty, change, and clean your drainage bags. Emptying the Drainage Bag You must empty your drainage bag when it is ? full or at least 2 3 times a day. 1. Wash your hands with soap and water. 2. Keep the drainage bag below your hips, below the level of your bladder. This stops urine from going back into the tubing and into your bladder. 3. Hold the dirty bag over the toilet or a clean container. 4. Open the pour spout at the bottom of the bag and empty the urine into the toilet or container. Do not let the pour spout touch the toilet, container, or any other surface. Doing so can place bacteria on the bag, which can cause an infection. 5. Clean the pour spout with a gauze pad or cotton ball that has rubbing alcohol on it. 6. Close the pour spout. 7. Attach the bag to your leg with adhesive tape or a leg strap. 8. Wash your hands well. Changing the Drainage Bag Change your drainage bag once a month or sooner if it starts to smell bad or look dirty. Below are steps to follow when changing the drainage bag. 1. Wash your hands with soap and water. 2. Pinch off the rubber catheter so that urine does not spill out. 3. Disconnect the catheter tube from the drainage tube at the connection valve. Do not let the tubes touch any surface. 4. Clean the end of the catheter tube with an alcohol wipe. Use a different alcohol wipe to clean the end of the drainage tube. 5. Connect the catheter tube to the drainage tube of the clean drainage bag. 6. Attach the new bag to the leg with adhesive tape or a leg strap. Avoid attaching the new bag too tightly. 7. Wash your hands well. Cleaning the Drainage Bag 1. Wash your hands with soap and water. 2. Wash the bag in warm, soapy water. 3. Rinse the bag thoroughly with warm water. 4. Fill the bag with a solution of white vinegar and water (1 cup vinegar to 3 cups of warm water. Close the bag and soak it for 30 minutes in the solution. 5. Rinse the bag with warm water. 6. Hang the bag to dry with the pour spout open and hanging downward. 7. Store the clean bag (once it is dry) in a clean plastic bag. 8. Wash your hands well. PREVENTING INFECTION Wash your hands before and after handling your catheter. Take showers daily and wash the area where the catheter enters your body. Do not take baths. Replace wet leg straps with dry ones, if this applies. Do not use powders, sprays, or lotions on the genital area. Only use creams, lotions, or ointments as directed by your caregiver. For females, wipe from front to back after each bowel movement. Drink enough fluids to keep your urine clear or pale yellow unless you have a fluid restriction. Do not let the drainage bag or tubing touch or lie on the floor. Wear cotton underwear to absorb moisture and to keep your soap drier tender. SEEK MEDICAL CARE IF: Your urine is cloudy or smells unusually bad. Your catheter becomes clogged. You are not draining urine into the bag or your bladder feels full. Your catheter starts to leak. SEEK IMMEDIATE MEDICAL CARE IF: You have pain, swelling, redness, or pus where the catheter enters the body. You have pain in the abdomen, legs, lower back, or bladder. You have a fever. You see blood fill the catheter, or your urine is pink or red. You have nausea, vomiting, or chills. Your catheter gets pulled out. MAKE SURE YOU: Understand these instructions. Will watch your condition. Will get help right away if you are not doing well or get worse. Document Released: 07/09/2006 Document Revised: 06/25/2013 Document Reviewed: 07/10/2014 [employer] Patient Information 2015 [employer]. This information is not intended to replace advice given to you by your health care provider. Make sure you discuss any questions you have with your health care provider. Transurethral Resection of Bladder Tumor, Care After This sheet gives you information about how to care for yourself after your procedure. Your health care provider may also give you more specific instructions. If you have problems or questions, contact your health care provider. What can I expect after the procedure? After the procedure, it is common to have: A small amount of blood in your urine for up to 2 weeks. Soreness or mild pain from your catheter. After your catheter is removed, you may have mild soreness, especially when urinating. Pain in your lower abdomen. Follow these instructions at home: Medicines Take qdui-due-vrbojnd and prescription medicines only as told by your health care provider. If you were prescribed an antibiotic medicine, take it as told by your health care provider. Do not stop taking the antibiotic even if you start to feel better. Do not drive for 24 hours if you were given a sedative during your procedure. Ask your health care provider if the medicine prescribed to you: ? Requires you to avoid driving or using heavy machinery. ? Can cause constipation. You may need to take these actions to prevent or treat constipation: ? Take qrvo-qad-ovakyxq or prescription medicines. ? Eat foods that are high in fiber, such as beans, whole grains, and fresh fruits and vegetables. ? Limit foods that are high in fat and processed sugars, such as fried or sweet foods. Activity Return to your normal activities as told by your health care provider. Ask your health care provider what activities are safe for you. Do not lift anything that is heavier than 10 lb (4.5 kg), or the limit that you are told, until your health care provider says that it is safe. Avoid intense physical activity for as long as told by your health care provider. Rest as told by your health care provider. Avoid sitting for a long time without moving. Get up to take short walks every 1 2 hours. This is important to improve blood flow and breathing. Ask for help if you feel weak or unsteady. General instructions Do not drink alcohol for as long as told by your health care provider. This is especially important if you are taking prescription pain medicines. Do not take baths, swim, or use a hot tub until your health care provider approves. Ask your health care provider if you may take showers. You may only be allowed to take sponge baths. If you have a catheter, follow instructions from your health care provider about caring for your catheter and your drainage bag. Drink enough fluid to keep your urine pale yellow. Wear compression stockings as told by your health care provider. These stockings help to prevent blood clots and reduce swelling in your legs. Keep all follow-up visits as told by your health care provider. This is important. ? You will need to be followed closely with regular checks of your bladder and urethra (cystoscopies) to make sure that the cancer does not come back. Contact a health care provider if: You have pain that gets worse or does not improve with medicine. You have blood in your urine for more than 2 weeks. You have cloudy or bad-smelling urine. You become constipated. Signs of constipation may include having: ? Fewer than three bowel movements in a week. ? Difficulty having a bowel movement. ? Stools that are dry, hard, or larger than normal. You have a fever. Get help right away if: You have: ? Severe pain. ? Bright red blood in your urine. ? Blood clots in your urine. ? A lot of blood in your urine. Your catheter has been removed and you are not able to urinate. You have a catheter in place and the catheter is not draining urine. Summary After your procedure, it is common to have a small amount of blood in your urine, soreness or mild pain from your catheter, and pain in your lower abdomen. Take osfg-icu-zritqfb and prescription medicines only as told by your health care provider. Rest as told by your health care provider. Follow your health care provider's instructions about returning to normal activities. Ask what activities are safe for you. If you have a catheter, follow instructions from your health care provider about caring for your catheter and your drainage bag. Get help right away if you cannot urinate, you have severe pain, or you have bright red blood or blood clots in your urine. This information is not intended to replace advice given to you by your health care provider. Make sure you discuss any questions you have with your health care provider. Document Released: 06/19/2016 Document Revised: 02/06/2019 Document Reviewed: 02/06/2019 [employer] Patient Education 2020 [employer] Indwelling Urinary Catheter Care, Adult An indwelling urinary catheter is a thin tube that is put into your bladder. The tube helps to drain pee (urine) out of your body. The tube goes in through your urethra. Your urethra is where pee comes out of your body. Your pee will come out through the catheter, then it will go into a bag (drainage bag). Take good care of your catheter so it will work well. How to wear your catheter and bag Supplies needed Sticky tape (adhesive tape) or a leg strap. Alcohol wipe or soap and water (if you use tape). A clean towel (if you use tape). Large overnight bag. Smaller bag (leg bag). Wearing your catheter Attach your catheter to your leg with tape or a leg strap. Make sure the catheter is not pulled tight. If a leg strap gets wet, take it off and put on a dry strap. If you use tape to hold the bag on your le. Use an alcohol wipe or soap and water to wash your skin where the tape made it sticky before. 2. Use a clean towel to pat-dry that skin. 3. Use new tape to make the bag stay on your leg. Wearing your bags You should have been given a large overnight bag. You may wear the overnight bag in the day or night. Always have the overnight bag lower than your bladder. Do not let the bag touch the floor. Before you go to sleep, put a clean plastic bag in a wastebasket. Then hang the overnight bag inside the wastebasket. You should also have a smaller leg bag that fits under your clothes. Always wear the leg bag below your knee. Do not wear your leg bag at night. How to care for your skin and catheter Supplies needed A clean washcloth. Water and mild soap. A clean towel. Caring for your skin and catheter Clean the skin around your catheter every day: 1. Wash your hands with soap and water. 2. Wet a clean washcloth in warm water and mild soap. 3. Clean the skin around your urethra. ? If you are female: ? Gently spread the folds of skin around your vagina (labia). ? With the washcloth in your other hand, wipe the inner side of your labia on each side. Wipe from front to back. ? If you are male: ? Pull back any skin that covers the end of your penis (foreskin). ? With the washcloth in your other hand, wipe your penis in small circles. Start wiping at the tip of your penis, then move away from the catheter. ? Move the foreskin back in place, if needed. 4. With your free hand, hold the catheter close to where it goes into your body. ? Keep holding the catheter during cleaning so it does not get pulled out. 5. With the washcloth in your other hand, clean the catheter. ? Only wipe downward on the catheter. ? Do not wipe upward toward your body. Doing this may push germs into your urethra and cause infection. 6. Use a clean towel to pat-dry the catheter and the skin around it. Make sure to wipe off all soap. 7. Wash your hands with soap and water. Shower every day. Do not take baths. Do not use cream, ointment, or lotion on the area where the catheter goes into your body, unless your doctor tells you to. Do not use powders, sprays, or lotions on your genital area. Check your skin around the catheter every day for signs of infection. Check for: ? Redness, swelling, or pain. ? Fluid or blood. ? Warmth. ? Pus or a bad smell. How to empty the bag Supplies needed Rubbing alcohol. Gauze pad or cotton ball. Tape or a leg strap. Emptying the bag Pour the pee out of your bag when it is ? full, or at least 2 3 times a day. Do this for your overnight bag and your leg bag. 1. Wash your hands with soap and water. 2. Separate (detach) the bag from your leg. 3. Hold the bag over the toilet or a clean pail. Keep the bag lower than your hips and bladder. This is so the pee (urine) does not go back into the tube. 4. Open the pour spout. It is at the bottom of the bag. 5. Empty the pee into the toilet or pail. Do not let the pour spout touch any surface. 6. Put rubbing alcohol on a gauze pad or cotton ball. 7. Use the gauze pad or cotton ball to clean the pour spout. 8. Close the pour spout. 9. Attach the bag to your leg with tape or a leg strap. 10. Wash your hands with soap and water. Follow instructions for cleaning the drainage bag: From the product maker. As told by your doctor. How to change the bag Supplies needed Alcohol wipes. A clean bag. Tape or a leg strap. Changing the bag Replace your bag when it starts to leak, smell bad, or look dirty. 1. Wash your hands with soap and water. 2. Separate the dirty bag from your leg. 3. Pinch the catheter with your fingers so that pee does not spill out. 4. Separate the catheter tube from the bag tube where these tubes connect (at the connection valve). Do not let the tubes touch any surface. 5. Clean the end of the catheter tube with an alcohol wipe. Use a different alcohol wipe to clean the end of the bag tube. 6. Connect the catheter tube to the tube of the clean bag. 7. Attach the clean bag to your leg with tape or a leg strap. Do not make the bag tight on your leg. 8. Wash your hands with soap and water. General rules Never pull on your catheter. Never try to take it out. Doing that can hurt you. Always wash your hands before and after you touch your catheter or bag. Use a mild, fragrance-free soap. If you do not have soap and water, use hand branch general manager. Always make sure there are no twists or bends (kinks) in the catheter tube. Always make sure there are no leaks in the catheter or bag. Drink enough fluid to keep your pee pale yellow. Do not take baths, swim, or use a hot tub. If you are female, wipe from front to back after you poop (have a bowel movement). Contact a doctor if: Your pee is cloudy. Your pee smells worse than usual. Your catheter gets clogged. Your catheter leaks. Your bladder feels full. Get help right away if: You have redness, swelling, or pain where the catheter goes into your body. You have fluid, blood, pus, or a bad smell coming from the area where the catheter goes into your body. Your skin feels warm where the catheter goes into your body. You have a fever. You have pain in your: ? Belly (abdomen). ? Legs. ? Lower back. ? Bladder. You see blood in the catheter. Your pee is pink or red. You feel sick to your stomach (nauseous). You throw up (vomit). You have chills. Your pee is not draining into the bag. Your catheter gets pulled out. Summary An indwelling urinary catheter is a thin tube that is placed into the bladder to help drain pee (urine) out of the body. The catheter is placed into the part of the body that drains pee from the bladder (urethra). Taking good care of your catheter will keep it working properly and help prevent problems. Always wash your hands before and after touching your catheter or bag. Never pull on your catheter or try to take it out. This information is not intended to replace advice given to you by your health care provider. Make sure you discuss any questions you have with your health care provider. Document Released: 11/03/2013 Document Revised: 10/31/2019 Document Reviewed: 02/22/2018 [employer] Patient Education 2020 [employer]. FAQs (frequently asked questions) about Catheter-Associated Urinary Tract Infection What is catheter-associated urinary tract infection ? A urinary tract infection (also called UTI ) is an infection in the urinary system, which includes the bladder (which stores the urine) and the kid neys (which filter the blood to make urine). Germs (for example, bacteria or yeasts) do not normally live in these areas; but if germs are introduced, an infection can occur. If you have a urinary catheter, germs can travel along the catheter and cause an infection in your bladder or your kidney; in that case it is called a catheter-associated urinary tract infection (or CA-UTI ). What is a urinary catheter? A urinary catheter is a thin tube placed in the bladder to drain urine. Urine drains through the tube into a bag that collects the urine. A urinary catheter may be used: If you are not able to urinate on your own To measure the amount of urine that you make, for example, during intensive care During and after some types of surgery During some tests of the kidneys and bladder People with urinary catheters have a much higher chance of getting a urinary tract infection than people who don t have a catheter. How do I get a catheter-associated urinary tract infection (CA-UTI)? If germs enter the urinary tract, they may cause an infection. Many of the germs that cause a catheter-associated urinary tract infection are com mon germs found in your intestines that do not usually cause an infection there. Germs can enter the urinary tract when the catheter is being put in or while the catheter remains in the bladder. What are the symptoms of a urinary tract infection? Some of the common symptoms of a urinary tract infection are: Burning or pain in the lower abdomen (that is, below the stomach) Fever Bloody urine may be a sign of infection, but is also caused by other problems Burning during urination or an increase in the frequency of urination after the catheter is removed. Sometimes people with catheter-associated urinary tract infections do not have these symptoms of infection. Can catheter-associated urinary tract infections be treated? Yes, most catheter-associated urinary tract infections can be treated with antibiotics and removal or change of the catheter. Your doctor will deter mine which antibiotic is best for you. What are some of the things that hospitals are doing to prevent catheter-associated urinary tract infections? To prevent urinary tract infections, doctors and nurses take the following actions. Catheter insertion * Catheters are put in only when necessary and they are removed as soon as possible. * Only properly trained persons insert catheters using sterile ( clean ) technique. * The skin in the area where the catheter will be inserted is cleaned before inserting the catheter. * Other methods to drain the urine are sometimes used, such as External catheters in men (these look like condoms and are placed over the penis rather than into the penis) Putting a temporary catheter in to drain the urine and removing it right away. This is called intermittent urethral catheterization. Catheter care * Healthcare providers clean their hands by washing them with soap and water or using an alcohol-based hand rub before and after touching your catheter. a * Avoid disconnecting the catheter and drain tube. This helps to pre vent germs from getting into the catheter tube. * The catheter is secured to the leg to prevent pulling on the catheter. * Avoid twisting or kinking the catheter. * Keep the bag lower than the bladder to prevent urine from backflow ing to the bladder. * Empty the bag regularly. The drainage spout should not touch any thing while emptying the bag. What can I do to help prevent catheter-associated urinary tract infections if I have a catheter? Always clean your hands before and after doing catheter care. Always keep your urine bag below the level of your bladder. Do not tug or pull on the tubing. Do not twist or kink the catheter tubing. Ask your healthcare provider each day if you still need the catheter. What do I need to do when I go home from the hospital? If you will be going home with a catheter, your doctor or nurse should explain everything you need to know about taking care of the catheter. Make sure you understand how to care for it before you leave the hospital. If you develop any of the symptoms of a urinary tract infection, such as burning or pain in the lower abdomen, fever, or an increase in the frequency of urination, contact your doctor or nurse immediately. Before you go home, make sure you know who to contact if you have questions or problems after you get home. If you have questions, please ask your doctor or nurse. Co-sponsered by: SINTIA, IDSA, AHA, APIC, CDC, The Joint Commission Additional Information VACCINATE! IT SAVES LIVES! Members of the community who have not yet received the COVID-19 vaccine and would like to receive it can visit one of [facility] vaccine clinics. There are many vaccine clinic locations within the [facility]. For locations and available times, please visit https://[email or web address].[place].gov/. It is important to note that some COVID mobile vaccine clinics are held outdoors and may be canceled in rainy or stormy conditions. To learn more about pediatric vaccinations (ages 5-11), we invite you to visit the [facility] webpage. [email or web address] To learn more about the COVID-19 vaccine, we invite you to visit the CDC website for a list of frequently asked questions.https://www.cdc.gov/cor onavirus/2019-ncov/vaccines/faq.h tml [facility] Patient Portal Access Instructions: Stay connected with your healthcare team and access your personal medical information anytime with the [facility] Patient Portal. Please follow the directions below to create your [facility] account: 1.Access the email account you provided upon registration to the hospital/physician office.2.Look for an invitation email from [facility].3.Open the email and access the invitation link: Accept Invitation to [facility].4.Fill in the required rodriguez to create your account. To access your account, visit [email or web address] Bloom[employer]te[facility]. Click the blue button labeled Access Patient Portal and then log in with the username and password that you created in the steps above. You will be able to view your test results, lab results, a summary of your visits, upcoming appointments and more. There is also a convenient messaging option where you can send secure messages to your provider. In addition, you will have the ability to download any documents or summaries to your computer and/or send the information securely to a physician. Remember that your healthcare information is confidential, so carefully consider who you will allow to register on the [facility] Patient Portal for access to your information. You can also access the [facility] Patient Portal on the [facility] tawny. Simply click on Patient Portal and then log into your account. If you would like to receive a full copy of your medical records, please contact the [facility] Medical Records Department by calling [phone], Sunday through Sunday between 8 a.m. and 4:30 p.m. HOW TO SAFELY DISPOSE OF PRESCRIPTION MEDICATIONS Please use one of the following methods to safely dispose of your unused medications. 1.Use a drug disposal kit: the drug disposal pouch allows you to safely discard your old and unused drugs. Ask your nurse to give you one when you are discharged.2.Visit a local take-back location: Many local pharmacies and police departments have programs that collect old and unwanted prescription drugs. Call your local pharmacy or go to http://bit.[employer]poseMatch (formerly SPARXlife)/8W9Zk7x to find one close to you.3.Make use of household items: Use cat litter or old coffee grounds to dispose medications if other options are not available. Mix your drugs with these household products, seal them in an airtight container and throw it into the garbage. Call [facility]: [phone] to be sure your drugs can be disposed of in this way. Some medicines may require a different approach.4.Never flush your medications down the toilet. IF YOU HAVE BEEN PRESCRIBED AN OPIOID FOR PAIN If you have been prescribed an opioid (such as hydrocodone, oxycodone or morphine), it is critical to understand the possible side effects and risks of opioid pain medications. Even when taken as directed, opioids can have several side effects including: Tolerance, meaning you might need to take more of a medication for the same pain relief. Nausea, vomiting and/or constipation. Sleepiness, dizziness, dry mouth, confusion, depression or itching. Physical dependence, meaning you have withdrawal symptoms when a medication is stopped, can develop within a few days. KNOW YOUR RESPONSIBILITIES It is important to know exactly how much and how often to take the opioid pain medications you are prescribed. Never take opioids in higher amounts or more often than prescribed. Do not combine opioids with alcohol or other drugs that cause drowsiness, such as benzodiazepines, also known as benzos, including diazepam and alprazolam, muscle relaxants or sleep aids. Never sell or share prescription opioids. This is illegal. Store opioids in a secure place and out of reach of others (including children, family, friends and visitors). The last page of this document has been signed and retained as a CHART COPY. Signatures Patient Education Materials 5- Guerra Care (04/2018)(CUSTOM) Transurethral Resection of Bladder Tumor, Care After Indwelling Urinary Catheter Care, Adult, [id number] 6- FAQ about Catheter-Associated UTI (10/01 IC)(CUSTOM) Medication Leaflets My discharge plan and instructions have been reviewed and explained to me and I,JULIO JARRELL understand my current condition and have read and understand these discharge instructions. I have received a written copy of the plan/instructions. If I have questions, I am aware that I should contact my doctor. 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 Signature: Date/Time: Relationship to Patient: ____ Witness Name/Signature: Date/Time: [facility] 08-31-2023 Anesthesiology Consult note Patient: JULIO JARRELL Age: 77 years Sex: Male : 1945 Associated Diagnoses: None Author: MARYSE HART OCCUPATIONAL THERAPIST ASSISTANTS-AUDIO VISUAL SPECIALIST Assessment Postanesthesia assessment Vitals: Vital signs from flowsheet : Vital Signs 08/31/2023 16:10 EST Heart Rate Monitored 93 bpm Respiratory Rate 21 br/min HI Systolic Blood Pressure Non-Invasive 112 mmHg Diastolic Blood Pressure Non-Invasive 63 mmHg 08/31/2023 16:05 EST Heart Rate Monitored 123 bpm HI Respiratory Rate 16 br/min Systolic Blood Pressure Non-Invasive 132 mmHg Diastolic Blood Pressure Non-Invasive 112 mmHg >HHI 08/31/2023 16:00 EST Heart Rate Monitored 105 bpm bpm Respiratory Rate - Anes 7 br/min br/min Systolic Blood Pressure Non-Invasive 110 mmHg mmHg Diastolic Blood Pressure Non-Invasive 64 mmHg mmHg 08/31/2023 15:55 EST Heart Rate Monitored 89 bpm bpm Respiratory Rate - Anes 18 br/min br/min Systolic Blood Pressure Non-Invasive 86 mmHg mmHg Diastolic Blood Pressure Non-Invasive 51 mmHg mmHg 08/31/2023 15:53 EST Systolic Blood Pressure Non-Invasive 92 mmHg mmHg Diastolic Blood Pressure Non-Invasive 51 mmHg mmHg 08/31/2023 15:50 EST Heart Rate Monitored 79 bpm bpm Respiratory Rate - Anes 10 br/min br/min Systolic Blood Pressure Non-Invasive 64 mmHg mmHg Diastolic Blood Pressure Non-Invasive 23 mmHg mmHg 08/31/2023 15:45 EST Temperature (Route Not Specified) 36 DegC DegC Heart Rate Monitored 81 bpm bpm Respiratory Rate - Anes 14 br/min br/min Systolic Blood Pressure Non-Invasive 117 mmHg mmHg Diastolic Blood Pressure Non-Invasive 57 mmHg mmHg 08/31/2023 15:40 EST Heart Rate Monitored 81 bpm bpm Respiratory Rate - Anes 14 br/min br/min Systolic Blood Pressure Non-Invasive 146 mmHg mmHg Diastolic Blood Pressure Non-Invasive 87 mmHg mmHg 08/31/2023 15:35 EST Heart Rate Monitored 87 bpm bpm Respiratory Rate - Anes 14 br/min br/min Systolic Blood Pressure Non-Invasive 135 mmHg mmHg Diastolic Blood Pressure Non-Invasive 75 mmHg mmHg 08/31/2023 15:30 EST Temperature (Route Not Specified) 36 DegC DegC Heart Rate Monitored 86 bpm bpm Respiratory Rate - Anes 10 br/min br/min Systolic Blood Pressure Non-Invasive 138 mmHg mmHg Diastolic Blood Pressure Non-Invasive 70 mmHg mmHg 08/31/2023 15:25 EST Heart Rate Monitored 89 bpm bpm Respiratory Rate - Anes 10 br/min br/min Systolic Blood Pressure Non-Invasive 133 mmHg mmHg Diastolic Blood Pressure Non-Invasive 65 mmHg mmHg 08/31/2023 15:20 EST Heart Rate Monitored 81 bpm bpm Respiratory Rate - Anes 8 br/min br/min Systolic Blood Pressure Non-Invasive 189 mmHg mmHg Diastolic Blood Pressure Non-Invasive 100 mmHg mmHg 08/31/2023 15:16 EST Systolic Blood Pressure Non-Invasive 161 mmHg mmHg Diastolic Blood Pressure Non-Invasive 80 mmHg mmHg 08/31/2023 15:15 EST Heart Rate Monitored 82 bpm bpm Respiratory Rate - Anes 7 br/min br/min Systolic Blood Pressure Non-Invasive 161 mmHg mmHg Diastolic Blood Pressure Non-Invasive 86 mmHg mmHg 08/31/2023 15:10 EST Heart Rate Monitored 83 bpm bpm Respiratory Rate - Anes 2 br/min br/min Systolic Blood Pressure Non-Invasive 147 mmHg mmHg Diastolic Blood Pressure Non-Invasive 64 mmHg mmHg 08/31/2023 12:28 EST Temperature Temporal Artery 36.7 DegC Peripheral Pulse Rate 65 bpm Respiratory Rate 17 br/min Systolic Blood Pressure Non-Invasive 112 mmHg Diastolic Blood Pressure Non-Invasive 59 mmHg LOW , Measurements from flowsheet . Mental status: alert & oriented x 4. Respiratory function: respirations are non-labored. Respiratory support: none. CV function: Normal rate. Cardiovascular support: none. Pain. Nausea status: see nursing documentation of medications. Postoperative hydration status: within normal limits. Notes: called hospitalist regarding pt's new onset afib in pacu. pt without cp or sob, he does not notice anything, pain is fine . HR 80-100. labs sent, BS is OK. Digitally Signed by MARYSE HART on 08/31/2023 04:17 PM Digitally Signed by MARYSE HART on 08/31/2023 07:22 PM [facility] 08-31-2023 Anesthesiology Consult note Patient: JULIO JARRELL Age: 77 years Sex: Male : 1945 Associated Diagnoses: None Author: MARYSE HART APRN-AUDIO VISUAL SPECIALIST Preoperative Information Time of last solid food intake: 08/31/2023 08:00:00 Time of last clear liquid intake: 08/31/2023 08:00:00 small bite of a indonesian - discussed this at length regarding story. Anesthesia history Patient's history: negative. Family's history: negative. Health Status Allergies: Allergic Reactions (Selected) NKA, Allergies (1) ActiveReaction NKANone Documented Current medications: (Selected) Inpatient Medications Ordered NS 1,000 mL: 50 mL/hr, Intravenous, Stop: 08/31/23 23:59:00 EST ceFAZolin: 2 gram(s), 200 mL/hr, IV Piggyback, PREOP pharm Prescriptions Prescribed Metoprolol Tartrate 100 mg oral tablet: 100 mg, 1 tab(s), Oral, BID, TAKE 1 TABLET BY MOUTH TWICE A DAY, 180 tab(s), 3 Refill(s) Zestril 5 mg oral tablet: 5 mg, 1 tab(s), Oral, qPM, 90 tab(s), 1 Refill(s) fenofibrate 145 mg oral tablet: 145 mg, 1 tab(s), Oral, qDay, New medicine, 90 tab(s), 1 Refill(s) glipiZIDE 2.5 mg oral tablet, extended release: 2.5 mg, 1 tab(s), Oral, qDay, 90 tab(s), 3 Refill(s) hydroCHLOROthiazide 25 mg oral tablet: 25 mg, 1 tab(s), Oral, qDay, TAKE 1 TABLET BY MOUTH EVERY DAY, 90 tab(s), 3 Refill(s) simvastatin 10 mg oral tablet: 10 mg, 1 tab(s), Oral, qHS, TAKE 1 TABLET IN THE EVENING, 90 tab(s), 3 Refill(s) Documented Medications Documented Multivitamin: 1 tab(s), Oral, qPM, 0 Refill(s) Vitamin D3 10 mcg (400 intl units) oral tablet: 10 mcg, 1 tab(s), Oral, qPM, 30 tab(s), 0 Refill(s), Medications (2) Active Scheduled: (1) ceFAZolin 2 gram(s), IV Piggyback, PREOP pharm Continuous: (1) NS (0.9% nacl) 1,000 mL 1,000 mL, Intravenous, 50 mL/hr PRN: (0) Problem list: Medical Hematuria / SNOMED CT 780012007 / Confirmed BMI 39.0-39.9,adult / SNOMED CT 641956685 / Confirmed BMI 38.0-38.9,adult / SNOMED CT 402529826 / Confirmed BMI 37.0-37.9, adult / SNOMED CT 702872862 / Confirmed Chronic kidney disease, stage III (moderate) / SNOMED CT 5032806258 / Confirmed COPD without exacerbation / SNOMED CT 37799912 / Confirmed Diabetes mellitus / SNOMED CT 424140846 / Confirmed Shortness of breath on exertion / SNOMED CT 838213292 / Confirmed Former cigarette smoker / SNOMED CT 602691896 / Confirmed GERD without esophagitis / SNOMED CT 7553327265 / Confirmed Hyperlipidemia / SNOMED CT 63242906 / Confirmed Hypertension / SNOMED CT 24267524 / Confirmed Hypertension associated with type 2 diabetes mellitus / SNOMED CT 1362871579 / Confirmed Has received influenza vaccination in current influenza season / SNOMED CT 817607813 / Confirmed Mild depression / SNOMED CT 267379299 / Confirmed Morbid obesity / SNOMED CT 168004454 / Confirmed Need for influenza vaccination / SNOMED CT 354539240 / Confirmed Obesity due to excess calories / SNOMED CT 5536452631 / Confirmed Left knee pain / SNOMED CT 0544111099 / Confirmed Screening for prostate cancer / SNOMED CT 112446559 / Confirmed Screening for colon cancer / SNOMED CT 773860714 / Confirmed Medicare annual wellness visit, subsequent / SNOMED CT 975988239 / Confirmed Screening for ischemic heart disease / SNOMED CT 239392640 / Confirmed Screening for diabetes mellitus / SNOMED CT 734225270 / Confirmed Risk and functional assessment / SNOMED CT 630848483 / Confirmed Preop examination / SNOMED CT 629064390 / Confirmed Peripheral vascular disease / SNOMED CT 1881170701 / Confirmed Type 2 diabetes mellitus with hyperlipidemia / SNOMED CT 462539561 / Confirmed Type 2 diabetes with stage 3 chronic kidney disease GFR 30-59 / SNOMED CT 090220556 / Confirmed Type 2 diabetes mellitus with peripheral vascular disease / SNOMED CT 797349051 / Confirmed UTI (urinary tract infection) / SNOMED CT 767164448 / Confirmed Need for hepatitis C screening test / SNOMED CT 358337877 / Confirmed, Active Problems (33) BMI 37.0-37.9, adult BMI 38.0-38.9,adult BMI 39.0-39.9,adult Chronic kidney disease, stage III (moderate) COPD without exacerbation Diabetes mellitus Former cigarette smoker GERD without esophagitis Has received influenza vaccination in current influenza season Hematuria Hyperlipidemia Hypertension Hypertension associated with type 2 diabetes mellitus Left knee pain Medicare annual wellness visit, subsequent Mild depression Morbid obesity Need for hepatitis C screening test Need for influenza vaccination OA (osteoarthritis) Obesity due to excess calories Peripheral vascular disease Preop examination Risk and functional assessment Screening for colon cancer Screening for diabetes mellitus Screening for ischemic heart disease Screening for prostate cancer Shortness of breath on exertion Type 2 diabetes mellitus with hyperlipidemia Type 2 diabetes mellitus with peripheral vascular disease Type 2 diabetes with stage 3 chronic kidney disease GFR 30-59 UTI (urinary tract infection) Histories Past Medical History: No active or resolved past medical history items have been selected or recorded. Family History: Hypertension Mother Stroke Mother Diabetes Mother Sister Procedure history: Knee arthroplasty ([id number]) on 08/29/2022 at 76 Years. Comments: 08/29/2022 11:07 RYLAND Do LEFT Cholecystectomy ([id number]) on 03/30/2021 at 75 Years. Varicose vein ligation and stripping ([id number]). Comments: 04/22/2019 8:04 Jessi Levin LPN left leg Social History Social & Psychosocial Habits Alcohol 4Risk Assessment: No Risk 08/31/2023 Use: Current Frequency: 1-2 times per month Substance Abuse 08/31/2023 Use: Never 4Risk Assessment: No Risk Tobacco 4Risk Assessment: No Risk 08/31/2023 Tobacco Use: Former smoker, quit more Type: Cigarettes Number of years: 10 Stopped at age: 22 Years Exposure to Tobacco Smoke Lives in non-smoking home Home/Environment 08/31/2023 Living situation: Home/Independent Domestic Concerns None Primary Striker Out: Self Lives In Single level home Current Home Treatments None Special Services and Community Resources None Spouse Name PATSY Marital Status of Patient if Patient Independent Adult: Nutrition/Health 08/31/2023 Type of diet: Regular Caffeine intake amount: 2 daily Appetite Good Eating Difficulties None . Physical Examination Vital Signs 08/31/2023 12:28 EST Temperature Temporal Artery 36.7 DegC Peripheral Pulse Rate 65 bpm Respiratory Rate 17 br/min Systolic Blood Pressure Non-Invasive 112 mmHg Diastolic Blood Pressure Non-Invasive 59 mmHg LOW Vital Signs(last 24 hrs) Last Charted YPN506 mmHg (AUG 31 12:28) DBPL 59mmHg (AUG 31 12:28) Measurements from flowsheet : Measurements 08/31/2023 12:28 EST Height 172.7 cm Height in inches 68 inch(es) Admission Weight 110 kg Weight Lbs 242 lb Weight Method Stated [place] Body Weight 68.38 kg Admission Body Mass Index 36.88 m2 Pain assessment: Pain Assessment 08/31/2023 12:28 EST Primary Pain Intensity 0 Pain Scale Type 0-10 Pain scale . General: Alert and oriented. Airway: Normal temporomandibular joint mobility, Normal mouth, Normal neck range of motion. Mallampati classification: II (soft palate, fauces, uvula visible). Dentition Evaluation: Denies loose/chipped teeth. Respiratory: Respirations are non-labored. Cardiovascular: Normal rate. Neurologic: Alert, Oriented. Review / Management Results review: No qualifying data available , Lab results 08/31/2023 13:29 EST SN - CAt - Case Attendee SN - CAt - Case Attendee SN - CAt - Case Attendee SN - CAt - Case Attendee SN - CAt - Case Attendee SN - CAt - Case Attendee SN - CAt - Case Attendee SN - CAt - Case Attendee SN - CAt - Case Attendee SN - CAt - Case Attendee SN - CAt - Role Performed Primary Surgeon SN - CAt - Role Performed Customer Success Specialist 1 SN - CAt - Role Performed AUDIO VISUAL SPECIALIST SN - CAt - Role Performed Scrub 1 SN - CAt - Role Performed Delivery Analyst 1 08/31/2023 13:28 EST SN - Preop - CTm Pt in SDS Room 08/31/2023 12:00 SN - Preop - CTm Pt Ready for OR/Proced 08/31/2023 12:35 08/31/2023 12:31 EST Sodium Chloride 0.9% Begin Bag 1,000 mL mL 08/31/2023 12:28 EST Blood Glucose, Capillary 145 mg/dL HI Height 172.7 cm Height in inches 68 inch(es) Admission Weight 110 kg Weight Lbs 242 lb Weight Method Stated [place] Body Weight 68.38 kg Admission Body Mass Index 36.88 m2 Temperature Temporal Artery 36.7 DegC Peripheral Pulse Rate 65 bpm Respiratory Rate 17 br/min Systolic Blood Pressure Non-Invasive 112 mmHg Diastolic Blood Pressure Non-Invasive 59 mmHg LOW Primary Pain Intensity 0 Pain Scale Type 0-10 Pain scale Monitor Alarms On and Limits Checked Heart Sounds ICU S1S2 Heart Rhythm Regular Oxygen Therapy Room air Oxygen Saturation 96 % Abdomen Description Distended, Symmetric, Soft Abdomen Palpation Non-Tender, Soft Bowel Sounds All Quadrants Present Urinary Elimination Voiding with difficulties Skin Temperature Warm Skin Description [place] Skin Integrity Intact Skin Moisture General Dry IV Present Present Extremity Movement Equal Characteristics of Speech Clear Level of Consciousness Alert AZIZA Yes Strength All Extremities Strong Affect/Behavior Appropriate, Calm, Cooperative Orientation Oriented x 4 Allergies Yes Anesthesia Extension Set Applied Yes Associate Dean On Yes Consent Form Signed Yes Patient Dressed In Hospital gown, No undergarments Preop Nasal Swab Povidone-Iodine History & Physical Update On Chart Yes History & Physical On Chart Yes Obstructive Sleep Apnea Assess Completed Yes Orientation Assessment Oriented x 4 Assistive Device None Positioning Repositions self Mobility Assistance Level Independent Sequential Compression Device bilateral knee high applied/on NPO Status Less than 8 hours Standard Safety ID band on, Call device within reach, Bed in low position, Wheels locked, Upper/Half-Length side-rails up, Safety level maintained, Non-Slip footwear Demonstrates Correct Call Light Use Yes Allergy Band on and Verified Yes Blood Band on and Verified Yes Patient ID Band on and Verified Yes Implants Verified Yes Pacemaker/AICD Verified Yes Site Verified by Patient/Family Yes Anesthesia Consent Signed Yes Blood Consent Signed Yes Last Fluid Intake 07/23/2023 8:00 Last Food Intake 08/31/2023 8:00 Last Void 08/31/2023 12:00 08/31/2023 12:22 EST ABO/Rh Interp A POS Antibody Screen Gel Negative ABSC 08/31/2023 12:08 EST Designated Person #1 We May Share PHI Patsy Jarrell [phone] Designated Person #1 Relationship Spouse Designated Person #2 We May Share PHI Maddie Henderson [phone] Designated Person #2 Relationship Daughter Privacy Restrictions Requested None Status N/A Sensory Deficits None Sleep Apnea Snore No Sleep Apnea Tired No Sleep Apnea Obstruction No Sleep Apnea Pressure Yes Sleep Apnea BMI Yes Sleep Apnea Age Yes Sleep Apnea Neck Yes Sleep Apnea Gender Yes Sleep Apnea Score 5 HI Diagnosed With Sleep Apnea No Advanced Directives No - refuses information Infectious Disease Symptoms Patient states no symptoms Infectious Disease Recent Exposure No Alcohol and Drug Use No Employee of Institutional Living No Health Care Employee No History of Exposure to TB No History of Positive Chest X-Ray for TB No History of Positive TB Skin Test No Homeless No Known Immunosuppression No Recent Immigrant No Resident of Institutional Living No Bloody Sputum No Fatigue No Fever No Loss of Appetite No Night Sweats No Persistent Cough > 3 Weeks No Weight Loss No Pre-Op Patient Education NPO after midnight, No jewelry, Responsible Libertarian, Aware of surgery location, Pre-op education done, Instructed to take ordered medications, SSI prevention handout given SN - Preprocedure Comments Spoke with patient, Verbalizes/Nonverbally indicates understanding, Other: Metoprolol Barriers to Learning None evident Teaching Method Explanation, Printed materials Preferred Spoken Language Scottish Preferred Written Language Scottish Teaching Evaluation No further teaching needed Safety Brochure Information Reviewed Unable to complete [facility] Video Viewed No Information Given by Patient Patient's Current Physicians Patient's Current Physicians Discharge To, Anticipated Home with family care Prev Test Positive/Diagnosis w/COVID-19 No Current Quarantine/Isolated any Illness No Any Contact with Sick Animals/Birds No Traveled Anywhere in Last 30 Days No Lost Weight Unintentionally Recently No Eat Poorly Due to Decreased Appetite No Total MST Score 0 N/A Personal Devices, Patient Valuables Glasses Anesthesia/Transfusions Prior anesthesia Admission Note-Nursing Same Day Patient History . Assessment and Plan [place] [employer] Anesthesiologists (ASA) physical status classification: Class III. Anesthetic Preoperative Plan Anesthetic technique: General. Informed consent: signed by patient. Digitally Signed by MARYSE HART on 08/31/2023 01:50 PM [facility] 08-08-2023 Note ORIGINAL EXAMINATION: CT UROGRAM 08/08/2023 10:17 am TECHNIQUE: CT of the abdomen and pelvis was performed with and without the administration of intravenous contrast. Multiplanar reformatted images are provided for review. MIP urogram images were performed. Automated exposure control, iterative reconstruction, and/or weight based adjustment of the mA/kV was utilized to reduce the radiation dose to as low as reasonably achievable. Multiplanar sagittal, axial, coronal, and 3D reconstructions were created and reviewed. COMPARISON: None HISTORY: ORDERING SYSTEM PROVIDED HISTORY: Reason for Exam: R31.0 GROSS HEMATURIA FINDINGS: Three phase study of the genitourinary system 1. Noncontrast Phase: No ureteral, renal, or bladder calculi are identified. 2. Parenchymal Nephrogram Phase: The kidneys are symmetric in size, and the renal parenchyma is unremarkable. 3. Pyelogram Phase (delayed): No obstructive uropathy or renal masses are identified. The ureters are segmentally opacified and normal in course and caliber. No blunting or deformity of the calyces is identified. There is asymmetric irregular wall thickening along the right posterolateral urinary bladder wall measuring 4.7 x 2.9 by 2.9 cm. ABDOMEN/PELVIS: The liver, spleen, pancreas, and adrenal glands are unremarkable. There has been prior cholecystectomy. The small and large bowel are normal in caliber. No abdominal or pelvic ascites is present. No lymphadenopathy is identified. There is stable prostatomegaly There is stable extensive atherosclerosis of the abdominal aorta. There are stable degenerative changes in the spine and hips. There are no suspicious osseous lesions. No suspicious findings seen in the visualized thorax. IMPRESSION: Asymmetric irregular thickening along the right posterolateral urinary bladder wall is suspicious for neoplasm. Interpreted by: Kurtis Luis Preliminary Report By: Kurtis Luis Electronically signed By Kurtis Luis Dictated Date: 08/08/2023 11:20:53 AM Prelim Date: 08/08/2023 11:27:32 AM Sign Date: 08/08/2023 11:27:32 AM Ordering Provider: JASMINA TRAN [facility] 07-21-2023 Note . MICRO - Microbiology PROCEDURE: Urine Culture [*1] SOURCE: Urine, Clean Catch BODY SITE: COLLECTED DATE/TIME: 07/20/2023 11:00 EST RECEIVED DATE/TIME: 07/20/2023 15:54 EST START DATE/TIME: 07/20/2023 15:54 EST FREE TEXT SOURCE: FINAL REPORTS Final Report [] Verified Date/Time/Personnel: 07/21/2023 14:00 EST 10,000 - 50,000 cfu/ml Mixed growth consistent with normal urogenital jeff. Performing Locations *1: This test was performed at: [address], [address] , [facility] ([place]) 05-10-2023 Note . MICRO - Microbiology PROCEDURE: Urine Culture [*1] SOURCE: Urine, Clean Catch BODY SITE: COLLECTED DATE/TIME: 05/09/2023 15:06 EDT RECEIVED DATE/TIME: 05/09/2023 19:12 EDT START DATE/TIME: 05/09/2023 19:13 EDT FREE TEXT SOURCE: FINAL REPORTS Final Report [] Verified Date/Time/Personnel: 05/10/2023 13:55 EDT <10,000 cfu/ml. No Significant growth. Sensitivity not indicated. Performing Locations *1: This test was performed at: [facility], [address] [place] [address], [id number] , [facility] ([place]) 08-30-2022 Note Discharge Instructions Thank you for allowing [facility] to assist you with your healthcare needs. The following is important discharge information regarding your hospital visit. Your Care Team Dr Augustina Hardin, GABY Your Diagnosis Osteoarthritis S/P total knee arthroplasty Hypertension Hyperlipidemia COPD without exacerbation Diabetes mellitus What to do next Scheduled Follow-Up Appointments Appointment Type When With Where Contact InformationPT Outpatient Evaluation 08/31/2022 09:00 AM EST [facility] OV 10/10/2022 08:00 AM EDT AAMIR LEVINlap [address] [id number] Follow Up Appointments Follow Up with AUGUST PORTILLO PA-C, Orthopedic When 09/11/2022 09:45 AM EST Why: This is your post-op appointment. Follow-up as scheduled. Where: [facility] [address] [place] [phone] Follow Up with [facility] When 08/31/2022 09:00 AM EST Why: This is your first physical therapy appointment. Follow-up as scheduled. Where: [address] [place] [phone] The Following Activity and Diet Have Been Ordered for You Diet: No changes were made to your diet. Activity: Full weight bearing as tolerated. The Following Equipment Has Been Ordered for You Your walker should be delivered to your house. The Following Treatments Have Been Ordered for You Discharge Labs Discharge Outpatient Labwork - Ordered -- BMP, Renal insufficiency, Your appointment is: 09/02/22 8:00:00 EST, 08/30/22 11:29:00 EST Discharge Radiology No qualifying data available. Other Therapies No qualifying data available. Post Acute Orders No qualifying data available. Allergies metFORMIN (Abdominal pain) Medications Please ask your primary doctor or pharmacist before taking any other medication not listed, including over the counter drugs, herbal medications, vitamins and or supplements as they may interact with your home medications. What How Much When Why Instructions Last Dose New acetaminophen (acetaminophen 500 mg oral tablet) 2 tab(s) by mouth Three (3) times a day as needed for as needed for pain not to exceed 3000 mg/ day Pickup at [facility]/pharmacy #[id number] 08/30/22 at 0821 New aspirin (aspirin 81 mg oral delayed release tablet) 1 tab(s) by mouth Two (2) times a day Duration: 30 Days Take 81 mg aspirin twice daily with food for 4 weeks postoperatively for DVT prophylaxis. Pickup at [facility]/pharmacy #[id number] 08/30/22 at 0821 New docusate-senna (Senokot S 50 mg-8.6 mg oral tablet) 2 tab(s) by mouth Two (2) times a day Duration: 3 Days Take until first bowel movement, then as needed Pickup at [facility]/pharmacy #[id number] 08/30/22 at 0821 New famotidine (Pepcid 20 mg oral tablet) 1 tab(s) by mouth Once a day Pickup at [facility]/pharmacy #[id number] 08/30/22 at 0821 New meloxicam (Mobic 7.5 mg oral tablet) 1 tab(s) by mouth Twice daily with meals Duration: 30 Days Do not take any other nonsteroidal anti-inflammatories while on meloxicam/ Mobic Pickup at [facility]/pharmacy #[id number] start tomorrow New oxyCODONE (oxyCODONE 5 mg oral tablet ( IMMEDIATE release )) See instructions S/P total knee arthroplasty 1-2 tab(s) Oral q4h Pickup at [facility]/pharmacy #[id number] 08/30/22 at 0821 Changed cholecalciferol (Vitamin D3 10 mcg (400 intl units) oral tablet) 1 tab(s) by mouth Once a day (in the evening) none today Changed diphenhydrAMINE (Allergy (Diphenhydramine HCl) 25 mg oral capsule) 1 cap by mouth Once a day (in the morning) none today Changed lisinopril (Zestril 5 mg oral tablet) 1 tab(s) by mouth Once a day (in the evening) 08/30/22 at 0821 Changed multivitamin (Multivitamin) 1 tab(s) by mouth Once a day (in the evening) 08/30/22 at 1150 Unchanged glipiZIDE (glipiZIDE 2.5 mg oral tablet, extended release) 1 tab(s) by mouth Once a day Diabetes mellitus Decreased dose none today Unchanged hydroCHLOROthiazide (hydroCHLOROthiazide 25 mg oral tablet) 1 tab(s) by mouth Once a day Hypertension TAKE 1 TABLET BY MOUTH EVERY DAY none today Unchanged metoprolol (Metoprolol Tartrate 100 mg oral tablet) 1 tab(s) by mouth Two (2) times a day Hypertension TAKE 1 TABLET BY MOUTH TWICE A DAY 08/30/22 at 0821 Unchanged simvastatin (simvastatin 10 mg oral tablet) 1 tab(s) by mouth Daily at bedtime Hyperlipidemia TAKE 1 TABLET IN THE EVENING none today Pharmacy Information [facility]/pharmacy #[id number]: [address], [place] [id number] [phone] Please take this list to your next doctor s visit. Bring all medications you take, including over the counter medications, herbals and other supplements with you to your doctor s visit. Patients and families are reminded to discard old lists and to update any records with all medication providers or retail pharmacies. Education Materials [facility] Post-operative Instructions PLEASE FOLLOW [facility] POST-OP INSTRUCTIONS GIVEN WATCH FOR SIGNS OF INFECTION: call the office ([phone]) if experencing any of the following: (Usually appears 36-48 hours after surgery) Increased temperature (101 degrees Fahrenheit or higher) Redness or swelling Increased uncontrolled pain Foul odor or drainage Calf discomfort Significant swelling Or if having any chest pain, shortness of breath, or difficulty breathing or swallowing call the office or go the nearest Emergency Room. If you have any questions, please call your doctor at the number listed on your follow up instructions. Form: 338A (90237) R: 11/26 Additional Information VACCINATE! IT SAVES LIVES! Members of the community who have not yet received the COVID-19 vaccine and would like to receive it can visit one of [facility] vaccine clinics. There are many vaccine clinic locations within the [facility]. For locations and available times, please visit https://gettheshot.coronavirus.dc io.gov/. It is important to note that some COVID mobile vaccine clinics are held outdoors and may be canceled in rainy or stormy conditions. To learn more about pediatric vaccinations (ages 5-11), we invite you to visit the [facility] webpage. [email or web address] [email or web address] To learn more about the COVID-19 vaccine, we invite you to visit the [facility] website for a list of frequently asked questions. [email or web address] [email or web address] [facility] Patient Portal Access Instructions: Stay connected with your healthcare team and access your personal medical information anytime with the [facility] [facility] Patient Portal.If you would like a full copy of your medical records, please contact the [facility] Medical Records Department, Sunday through Sunday between 8a.m. and 4:30p.m. Please follow the directions below to access the portal: 1.Access the email account you provided upon [facility].2.Look for an invitation email from [facility].3.Open the email and access the invitation link: Accept Invitation to [facility]4.Fill in the required rodriguez to create your account. Sign into [email or web address].Engrade with your username and password that you created in the above steps to stay up to date. You can then view a summary of results, a summary of your visits, and the ability to download your summaries to your computer or send the information securely to a physician. Remember that your healthcare information is confidential, so carefully consider who you will allow to register on the [facility] Patient Portal for access to your information. You can also access the [facility] Patient Portal on the [employer] tawny. Simply click on Health Records under Health Data and then click on the [employer] Messenger logo. HOW TO SAFELY DISPOSE OF PRESCRIPTION MEDICATIONS Please use one of the following methods to safely dispose of your unused medications. 1.Use a drug disposal kit: the drug disposal pouch allows you to safely discard your old and unused drugs. Ask your nurse to give you one when you are discharged.2.Visit a local take-back location: Many local pharmacies and police departments have programs that collect old and unwanted prescription drugs. Call your local pharmacy or go to http://Web Africa.PurposeMatch (formerly SPARXlife)/8R8Kx2a to find one close to you.3.Make use of household items: Use cat litter or old coffee grounds to dispose medications if other options are not available. Mix your drugs with these household products, seal them in an airtight container and throw it into the garbage. Call [facility]: [phone] to be sure your drugs can be disposed of in this way. Some medicines may require a different approach.4.Never flush your medications down the toilet. IF YOU HAVE BEEN PRESCRIBED AN OPIOID FOR PAIN If you have been prescribed an opioid (such as hydrocodone, oxycodone or morphine), it is critical to understand the possible side effects and risks of opioid pain medications. Even when taken as directed, opioids can have several side effects including: Tolerance, meaning you might need to take more of a medication for the same pain relief. Nausea, vomiting and/or constipation. Sleepiness, dizziness, dry mouth, confusion, depression or itching. Physical dependence, meaning you have withdrawal symptoms when a medication is stopped, can develop within a few days. KNOW YOUR RESPONSIBILITIES It is important to know exactly how much and how often to take the opioid pain medications you are prescribed. Never take opioids in higher amounts or more often than prescribed. Do not combine opioids with alcohol or other drugs that cause drowsiness, such as benzodiazepines, also known as benzos, including diazepam and alprazolam, muscle relaxants or sleep aids. Never sell or share prescription opioids. This is illegal. Store opioids in a secure place and out of reach of others (including children, family, friends and visitors). The last page of this document has been signed and retained as a CHART COPY. Signatures Patient Education Materials 5 - [facility] Post-op Instruction 02/2017 (71584) Medication Leaflets My discharge plan and instructions have been reviewed and explained to me and I,JULIO JARRELL understand my current condition and have read and understand these discharge instructions. I have received a written copy of the plan/instructions. If I have questions, I am aware that I should contact my doctor. 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 Patient does postop day #1 for left total knee arthroplasty. Overnight patient remained afebrile and hemodynamically stable with adequate oxygen saturations on room air. Labs reviewed, H&H stable. Renal insufficiency. Patient is voiding adequately. On exam today, pt denies any fever or chills. No headache or dizziness. Denies chest pain, palpitations. No cough, dyspnea, sputum production. Denies N/V/D/C. No melena/hematochezia. No dysuria or hematuria. No new paresthesias. Objective Vitals and Measurements T: 36.4 C (Oral) TMIN: 36.0 C (Temporal Artery) TMAX: 36.9 C (Oral) HR: 64(Apical) RR: 18 BP: 135/62 SpO2: 96% HT: 172.7 cm WT: 113.6 kg BMI: 38.09 Intake and Output 7AM Yesterday to 7AM Today Intake and Output (Last 24 hours) Intake Oral Intake 1220.00 Supplement Intake 400.00 Output Urine Voided 900.00 Urine Count 5.00 Total Summary Total Intake 1620.00 Total Output 900.00 Fluid Balance 720.00 Physical Exam GEN: Appears chronically ill EYES: No conjunctival erythema, drainage. EOMI EARS: Hearing grossly intact. NOSE: No nasal discharge. THROAT: Oral cavity and pharynx pink and moist. CHEST: Normal S1 and S2. Rhythm is regular. Clear to auscultation, without rales, rhonchi, wheezing. ABD: Positive bowel sounds x 4 quads. Soft, nondistended, nontender. EXT: No significant deformity or joint abnormality. No edema. Peripheral pulses intact. NEURO: Sensation grossly intact SKIN: Surgical dressing in place PSYCH: The mental examination revealed the patient was alert and oriented x 4 Weight Dosing Weight: 113.6 kg (08/29/22) Dosing Weight: 113.6 kg (08/29/22) Medications Medications (26) Active Scheduled: (13) acetaminophen 500 mg Tablet 1,000 mg 2 tab(s), Oral, q8h aspirin 81 mg Chewable 81 mg 1 tab(s), Oral, BIDM atorvastatin 10 mg tablet 10 mg 1 tab(s), Oral, qHS docusate sodium 100 mg Capsule 100 mg 1 cap(s), Oral, BID docusate-senna (Senokot S) 50 mg-8.6 mg Tablet 2 tab(s), Oral, BID famotidine 20 mg tablet 20 mg 1 tab(s), Oral, qDay insulin lispro 100 units/mL Soln (3 mL) Give 0-5 units/dose, Subcutaneous, TIDAC lisinopril 5 mg tablet 5 mg 1 tab(s), Oral, qDay magnesium hydroxide 8% Suspension 30 mL UD 30 mL, Oral, Daily meloxicam 7.5 mg tablet 7.5 mg 1 tab(s), Oral, BIDM metoprolol tartrate 50 mg tablet 100 mg 2 tab(s), Oral, BID multivitamin (Myadec) with minerals Therapeutic Multiple Vitamins with Minerals Tablet 1 tab(s), Oral, qDayM tranexamic acid PMX 1 gram(s) 100 mL, IV Piggyback, AsDirected Continuous: (0) PRN: (13) acetaminophen 325 mg Tablet 650 mg 2 tab(s), Oral, q4h albuterol - ipratropium 2.5 mg-0.5 mg/3 mL Inhal Martha UD 3 mL, Inhalation, q4hRT diphenhydramine 25 mg tablet 25 mg 1 tab(s), Oral, q6h diphenhyDRAMINE 50 mg/mL (1 mL) INJ 25 mg 0.5 mL, IV Push, q6h ketorolac 30 mg/mL (1 mL) vial 15 mg 0.5 mL, IV Push, q6h morphine 2 mg/mL 1 mL syringe 2 mg 1 mL, IV Push, q1h morphine 2 mg/mL 1 mL syringe 2 mg 1 mL, IV Push, q5min ondansetron 2 mg/ 1 mL 2 mL INJ 4 mg 2 mL, IV Push, q8h ondansetron 2 mg/ 1 mL 2 mL INJ 4 mg 2 mL, IV Push, AsDirected oxycodone 5 mg tablet (immediate release) 5 mg 1 tab(s), Oral, q4h oxycodone 5 mg tablet (immediate release) 10 mg 2 tab(s), Oral, q4h prochlorperazine 10 mg/2 mL vial 5 mg 1 mL, IV Push, q6h sodium biphosphate-sodium phosphate 19 gm-7 gm Enema 133 mL, Rectal, qDay Lab Results 08/30 05:19 WBC: 12.7 H Hgb: 12.6 L Hct: 36.9 L Platelet: 288 Neutrophil %: 71.3 Glucose Level: 157 H Sodium Level: 136 Potassium Level: 4.9 BUN: 34 H Creatinine Lvl (s): 1.58 H Assessment/Plan 1. Osteoarthritis 2. S/P total knee arthroplasty 3. Hypertension Ordered: 4. Hyperlipidemia Ordered: 5. COPD without exacerbation 6. Diabetes mellitus Osteoarthritis s/p left totalknee arthroplasty. Postoperative day #1. Management per primary team. Pain well controlled. HTN- SBP goal 140 or less. Continue home antihypertensives. Hyperlipidemia continue statin COPD not in acute exacerbation. Patient is not on any inhaled bronchodilators. Add as needed DuoNebs and add continuous pulse oximetry monitoring. Type 2 diabetes mellitus- Glucose goal 180 or less and avoid hypoglycemia. Hold oral agents. Add corrective sliding scale insulin. ADA diet. A1c 6.8%. Renal insufficiency creatinine is mildly elevated. Patient will be discharged with an order for BMP to be completed within the next 3 to 5 days. Patient is medically optimized for discharge. We will sign off. DVT prophylaxis: SCDs Labs, diagnostics, and progress notes reviewed as noted in HPI Code Status: Full code Plan of care discussed with patient. All questions answered. Patient verbalizes understanding is agreeable to plan of care. Thank you for requesting our participation in the care of your patient. We will continue to follow during their hospitalization. This dictation was performed using voice recognition software and may include grammatical and/or spelling errors. Digitally Signed by VIKY HARDIN on 08/30/2022 11:32 AM [facility] 08-30-2022 Hospital Discharge instructions Patient Education 08/30/2022 08:02:05 5 - [facility] Post-op Instruction 02/2017 (52656) [facility] Post-operative Instructions PLEASE FOLLOW [facility] POST-OP INSTRUCTIONS GIVEN WATCH FOR SIGNS OF INFECTION: call the office ([phone]) if experencing any of the following: (Usually appears 36-48 hours after surgery) Increased temperature (101 degrees Fahrenheit or higher) Redness or swelling Increased uncontrolled pain Foul odor or drainage Calf discomfort Significant swelling Or if having any chest pain, shortness of breath, or difficulty breathing or swallowing call the office or go the nearest Emergency Room. If you have any questions, please call your doctor at the number listed on your follow up instructions. Form: 338A (22469) R: 11/26 Follow Up Care 06/08/2022 12:56:29 With:[facility] Address: [address] [place] [phone] When:08/31/2022 09:00:00 Comments:This is your first physical therapy appointment. Follow-up as scheduled. With:AUGUST PORTILLO PA-C, Orthopedic Address: [facility] [address] [place] [phone] When:09/11/2022 09:45:00 Comments:This is your post-op appointment. Follow-up as scheduled. [facility] 08-30-2022 Note Date of Service August 30, 2022 Subjective The patient was sitting in bed upon examination. Patient denies any chest pain, shortness of breath, dizziness, lightheadedness, nausea or vomiting, or calf pain. No adverse overnight events. Pain has been controlled on medications. Patient did have some drop in O2 saturation overnight. He has listed COPD/emphysema on medical history. However he does not think he has this. Patient currently on room air is saturating at 95-96%. Denies any shortness of breath or chest pain. Patient is overall doing well. He has been up walking on the knee tolerating it very well. We did discuss postoperatively the block he received which can be controlling some of his pain at this time. Objective Vitals and Measurements T: 36.4 C (Oral) TMIN: 35.8 C (Temporal Artery) TMAX: 36.9 C (Oral) HR: 64(Monitored) RR: 18 BP: 135/62 SpO2: 96% HT: 172.7 cm WT: 113.6 kg BMI: 38.09 Intake and Output 7AM Yesterday to 7AM Today Intake and Output (Last 24 hours) Intake Administration Information 1694.52 Oral Intake 820.00 Supplement Intake 200.00 Output Urine Voided 900.00 Intra-Op EBL 50.00 Urine Count 3.00 Total Summary Total Intake 2714.52 Total Output 950.00 Fluid Balance 1764.52 Physical Exam Vital signs stable, afebrile: Patient currently saturating at 95-96% O2 saturation NIXON hose and SCDs are in place bilaterally Patient is able to plantarflex and dorsiflex actively Sensation is intact to saphenous, sural, superficial and deep peroneal, and tibial distribution Dressing is clean dry and intact Negative signs and symptoms of DVT, negative Homans bilaterally Weight Dosing Weight: 113.6 kg (08/29/22) Dosing Weight: 113.6 kg (08/29/22) Medications Medications (29) Active Scheduled: (14) acetaminophen 500 mg Tablet 1,000 mg 2 tab(s), Oral, q8h aspirin 81 mg Chewable 81 mg 1 tab(s), Oral, BIDM atorvastatin 10 mg tablet 10 mg 1 tab(s), Oral, qHS bisacodyl 5 mg EC tablet 10 mg 2 tab(s), Oral, Once docusate sodium 100 mg Capsule 100 mg 1 cap(s), Oral, BID docusate-senna (Senokot S) 50 mg-8.6 mg Tablet 2 tab(s), Oral, BID famotidine 20 mg tablet 20 mg 1 tab(s), Oral, qDay insulin lispro 100 units/mL Soln (3 mL) Give 0-5 units/dose, Subcutaneous, TIDAC lisinopril 5 mg tablet 5 mg 1 tab(s), Oral, qDay magnesium hydroxide 8% Suspension 30 mL UD 30 mL, Oral, Daily meloxicam 7.5 mg tablet 7.5 mg 1 tab(s), Oral, BIDM metoprolol tartrate 50 mg tablet 100 mg 2 tab(s), Oral, BID multivitamin (Myadec) with minerals Therapeutic Multiple Vitamins with Minerals Tablet 1 tab(s), Oral, qDayM tranexamic acid PMX 1 gram(s) 100 mL, IV Piggyback, AsDirected Continuous: (2) Lactated Ringers 1,000 mL 1,000 mL, Intravenous, 100 mL/hr Lactated Ringers 1,000 mL 1,000 mL, Intravenous, 20 mL/hr PRN: (13) acetaminophen 325 mg Tablet 650 mg 2 tab(s), Oral, q4h albuterol - ipratropium 2.5 mg-0.5 mg/3 mL Inhal Martha UD 3 mL, Inhalation, q4hRT diphenhydramine 25 mg tablet 25 mg 1 tab(s), Oral, q6h diphenhyDRAMINE 50 mg/mL (1 mL) INJ 25 mg 0.5 mL, IV Push, q6h ketorolac 30 mg/mL (1 mL) vial 15 mg 0.5 mL, IV Push, q6h morphine 2 mg/mL 1 mL syringe 2 mg 1 mL, IV Push, q1h morphine 2 mg/mL 1 mL syringe 2 mg 1 mL, IV Push, q5min ondansetron 2 mg/ 1 mL 2 mL INJ 4 mg 2 mL, IV Push, q8h ondansetron 2 mg/ 1 mL 2 mL INJ 4 mg 2 mL, IV Push, AsDirected oxycodone 5 mg tablet (immediate release) 5 mg 1 tab(s), Oral, q4h oxycodone 5 mg tablet (immediate release) 10 mg 2 tab(s), Oral, q4h prochlorperazine 10 mg/2 mL vial 5 mg 1 mL, IV Push, q6h sodium biphosphate-sodium phosphate 19 gm-7 gm Enema 133 mL, Rectal, qDay Lab Results 08/30 05:19 WBC: 12.7 H Hgb: 12.6 L Hct: 36.9 L Platelet: 288 Neutrophil %: 71.3 Glucose Level: 157 H Sodium Level: 136 Potassium Level: 4.9 BUN: 34 H Creatinine Lvl (s): 1.58 H EKG No qualifying data available. Assessment/Plan 1. Osteoarthritis 2. S/P total knee arthroplasty 1. Status post left total knee arthroplasty postop day #1 2. Continue pain medications: Tylenol, meloxicam, oxycodone. Do not take any other nonsteroidal anti-inflammatories while on meloxicam/Mobic 3. DVT prophylaxis: Take 81 mg aspirin twice daily with food for 4 weeks postoperatively for DVT prophylaxis. 4. Physical therapy: Weightbearing as tolerated with walker 5. H & H: 12.6/36.9, asymptomatic. Postoperative anemia secondary to acute blood loss from surgery without intraoperative complications. 6. Reactive leukocytosis: Currently 12.7, afebrile. Patient did receive Decadron intraoperatively 7. Encouraged incentive spirometry 8. Continue postoperative medical management per medicine 9. 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 Currently saturating on room air at 95-96%. Encouraged incentive spirometer. 10. Disposition: Plan will be for probable discharge home today as long as patient is medically stable, tolerates therapy, and pain is well controlled. Case was discussed with medicine and at this time as long as his O2 saturation is stable we will plan for discharge home. Patient has not required O2 at home. He would like his prescriptions E scribed to [facility] in [facility]. He will follow-up per postop instructions. He has outpatient physical therapy established. Upon discharge he will contact her office with any concerns or questions. I have reviewed the [place] Automated Rx Reporting System (OARRS) report for this patient for refill pattern and other prescriber involvement as part of the appropriate surveillance for the provision of acute and chronic controlled medications. The report was requested and reviewed on the date of this entry, and was considered in the prescribing process This dictation was created using voice recognition software. Phonetic and/or grammatical errors may exist. 3. Hypertension 4. Hyperlipidemia 5. COPD without exacerbation 6. Diabetes mellitus Digitally Signed by AUGUST PORTILLO PA-C on 08/30/2022 08:01 AM [facility] 08-29-2022 Note Date of Service 08/29/2022 Reason for Consultation Medical management Referring Physician Dr. Gonzalez History of Present Illness 76-year-old male with past medical history significant for hypertension, hyperlipidemia, COPD, type 2 diabetes mellitus, GERD, depression, PVD. Patient presents to [facility] on 08/29/2022 for elective left total knee arthroplasty. Patient is being seen in consultation for medical management of the above. Preoperative labs reviewed from 08/08/2022. No leukocytosis. H&H stable at 14.1 and 40% respectively. CMP reviewed with no electrolyte abnormalities. GFR 65. Hemoglobin A1c 6.8%. Stress test done on 08/23/2022 which was negative for ischemia. On exam today, pt denies any fever or chills. No headache or dizziness. Denies chest pain, palpitations. No cough, dyspnea, sputum production. Denies N/V/D/C. No melena/hematochezia. No dysuria or hematuria. No new paresthesias. Review of Systems See HPI for specific ROS. All other systems reviewed and negative. Physical Exam Vitals and Measurements T: 36.6 C (Oral) TMIN: 35.8 C (Temporal Artery) TMAX: 36.6 C (Oral) HR: 74(Monitored) RR: 18 BP: 157/84 SpO2: 92% HT: 172.7 cm WT: 113.6 kg BMI: 38.09 Weight Dosing Weight: 113.6 kg (08/29/22) Dosing Weight: 113.6 kg (08/29/22) GEN: Appears chronically ill EYES: No conjunctival erythema, drainage. EOMI EARS: Hearing grossly intact. NOSE: No nasal discharge. THROAT: Oral cavity and pharynx pink and moist. CHEST: Normal S1 and S2. Rhythm is regular. Clear to auscultation, without rales, rhonchi, wheezing. ABD: Positive bowel sounds x 4 quads. Soft, nondistended, nontender. EXT: No significant deformity or joint abnormality. No edema. Peripheral pulses intact. NEURO: Sensation grossly intact SKIN: Surgical dressing in place PSYCH: The mental examination revealed the patient was alert and oriented x 4 Assessment/Plan 1. Osteoarthritis 2. S/P total knee arthroplasty 3. Hypertension Ordered: 4. Hyperlipidemia Ordered: 5. COPD without exacerbation 6. Diabetes mellitus Osteoarthritis s/p left totalknee arthroplasty. Management per primary team. Pain well controlled. HTN- SBP goal 140 or less. Continue home antihypertensives. Hyperlipidemia resume statin COPD not in acute exacerbation. Patient is not on any inhaled bronchodilators. Add as needed DuoNebs and add continuous pulse oximetry monitoring. Type 2 diabetes mellitus- Glucose goal 180 or less and avoid hypoglycemia. Hold oral agents. Add corrective sliding scale insulin. ADA diet. A1c 6.8%. DVT prophylaxis: SCDs Labs, diagnostics, and progress notes reviewed as noted in HPI Code Status: Full code Plan of care discussed with patient. All questions answered. Patient verbalizes understanding is agreeable to plan of care. Thank you for requesting our participation in the care of your patient. We will continue to follow during their hospitalization. This dictation was performed using voice recognition software and may include grammatical and/or spelling errors. Problem List/Past Medical History Ongoing BMI 38.0-38.9,adult BMI 39.0-39.9,adult COPD without exacerbation Diabetes mellitus Former cigarette smoker GERD without esophagitis Has received influenza vaccination in current influenza season Hyperlipidemia Hypertension Left knee pain Medicare annual wellness visit, subsequent Mild depression Need for hepatitis C screening test Need for influenza vaccination Obesity due to excess calories Peripheral vascular disease Preop examination Risk and functional assessment Screening for colon cancer Screening for diabetes mellitus Screening for ischemic heart disease Screening for prostate cancer Shortness of breath on exertion Historical No qualifying data Procedure/Surgical History Knee arthroplasty: 08/29/22 Cholecystectomy: 03/30/21 Varicose vein ligation and stripping Medications Inpatient atorvastatin, 10 mg= 1 tab(s), Oral, qHS Katiana Aspirin, 81 mg= 1 tab(s), Oral, BIDM Benadryl, 25 mg= 1 tab(s), Oral, q6h, PRN Benadryl, 25 mg= 0.5 mL, IV Push, q6h, PRN Cerovite Advanced Formula, 1 tab(s), Oral, qDayM Colace, 100 mg= 1 cap(s), Oral, BID Dulcolax Laxative, 10 mg= 2 tab(s), Oral, Once DuoNeb, 3 mL, Inhalation, q4hRT, PRN Fleet Enema, 133 mL, Rectal, qDay, PRN HumaLOG 100 units/mL subcutaneous solution, Give 0-5 units/dose, Subcutaneous, TIDAC Kefzol lisinopril, 5 mg= 1 tab(s), Oral, qDay LR 1,000 mL, 1000 mL, Intravenous LR 1,000 mL, 1000 mL, Intravenous LR 1,000 mL, 1000 mL, Intravenous metoprolol tartrate 50 mg oral tablet, 100 mg= 2 tab(s), Oral, BID Milk of Magnesia, 30 mL, Oral, Daily Mobic, 7.5 mg= 1 tab(s), Oral, BIDM morphine, 2 mg= 1 mL, IV Push, q1h, PRN morphine ( PACU ), 2 mg= 1 mL, IV Push, q5min, PRN oxyCODONE 5 mg oral tablet ( IMMEDIATE release ), 5 mg= 1 tab(s), Oral, q4h, PRN oxyCODONE 5 mg oral tablet ( IMMEDIATE release ), 10 mg= 2 tab(s), Oral, q4h, PRN Pepcid, 20 mg= 1 tab(s), Oral, qDay prochlorperazine, 5 mg= 1 mL, IV Push, q6h, PRN Senokot S, 2 tab(s), Oral, BID Toradol, 15 mg= 0.5 mL, IV Push, q6h, PRN tranexamic acid 1 g / 100 mL 0.7% NaCl PMX, 1 gram(s)= 100 mL, IV Piggyback, AsDirected Tylenol, 1000 mg= 2 tab(s), Oral, q8h Tylenol, 650 mg= 2 tab(s), Oral, q4h, PRN Zofran, 4 mg= 2 mL, IV Push, q8h Zofran, 4 mg= 2 mL, IV Push, q8h, PRN Zofran ( PACU ), 4 mg= 2 mL, IV Push, AsDirected, PRN Home Allergy (Diphenhydramine HCl) 25 mg oral capsule, 25 mg= 1 cap(s), Oral, qAM glipiZIDE 2.5 mg oral tablet, extended release, 2.5 mg= 1 tab(s), Oral, qDay, 3 refills hydroCHLOROthiazide 25 mg oral tablet, 25 mg= 1 tab(s), Oral, qDay, 3 refills Metoprolol Tartrate 100 mg oral tablet, 100 mg= 1 tab(s), Oral, BID, 3 refills Multivitamin, 1 tab(s), Oral, qPM simvastatin 10 mg oral tablet, 10 mg= 1 tab(s), Oral, qHS, 3 refills Vitamin D3 10 mcg (400 intl units) oral tablet, 10 mcg= 1 tab(s), Oral, qPM Zestril 5 mg oral tablet, 5 mg= 1 tab(s), Oral, qPM Allergies metFORMIN (Abdominal pain) Social History Alcohol - No Risk, 03/26/2021 Use: Current. Frequency: Daily., 08/14/2022 Home/Environment Domestic Concerns: None. Living situation: Home/Independent. Lives In: Mobile home, Single level home., 08/29/2022 Domestic Concerns: None. Living situation: Home/Independent. Lives In: Single level home. Spouse Name: PATSY. Marital Status: ., 08/14/2022 Nutrition/Health Type of diet: Regular. Eating Difficulties None. Caffeine intake amount: 2 daily., 08/14/2022 Substance Abuse - No Risk, 03/26/2021 Use: Never., 04/22/2019 Tobacco - No Risk, 03/26/2021 Nicotine Use: Former smoker, quit more than 30 days ago. Exposure to Tobacco Smoke Lives in non-smoking home., 08/26/2019 Family History Diabetes: Mother and Sister. Hypertension: Mother. Stroke: Mother. Immunizations pneumococcal 13-valent conjugate vaccine: 0 unknown unit (10/18/17) pneumococcal 23-valent vaccine(Pneumovax: 0 unknown unit (04/18/13) SARS-CoV-2 (COVID-19) mRNA-1273 vaccine: 50 mcg (06/28/21) SARS-CoV-2 (COVID-19) mRNA-1273 vaccine: 0.5 unknown unit (12/23/20) SARS-CoV-2 (COVID-19) mRNA-1273 vaccine: 0.5 unknown unit (11/25/20) tetanus/diphth/pertuss (Tdap) adult/adol: 0 unknown unit (07/28/08) Digitally Signed by VIKY HARDIN APRN-NATTY on 08/29/2022 03:36 PM [facility] 08-29-2022 Note ORIGINAL EXAMINATION: TWO XRAY VIEWS OF THE LEFT KNEE 08/29/2022 11:22 am COMPARISON: None. HISTORY: ORDERING SYSTEM PROVIDED HISTORY: Reason for Exam: Status Post Arthroplasty FINDINGS: There is a complete knee prosthesis. The components appear well seated and intact. Gas and fluid in the soft tissues is likely postoperative. There are surgical cj overlying the skin anteriorly. No acute fracture or dislocation. IMPRESSION: Surgical changes. Interpreted by: Torrie Moreau MD Preliminary Report By: Torrie Moreau MD Electronically signed By Torrie Moreau MD Dictated Date: 08/29/2022 12:09:46 PM Prelim Date: 08/29/2022 12:10:26 PM Sign Date: 08/29/2022 12:10:26 PM Ordering Provider: [facility] 08-29-2022 Note ORIGINAL EXAMINATION: TWO XRAY VIEWS OF THE LEFT KNEE 08/29/2022 11:22 am COMPARISON: None. HISTORY: ORDERING SYSTEM PROVIDED HISTORY: Reason for Exam: Status Post Arthroplasty FINDINGS: There is a complete knee prosthesis. The components appear well seated and intact. Gas and fluid in the soft tissues is likely postoperative. There are surgical cj overlying the skin anteriorly. No acute fracture or dislocation. IMPRESSION: Surgical changes. Interpreted by: Torrie Moreau MD Preliminary Report By: Torrie Moreau MD Electronically signed By Torrie Moreau MD Dictated Date: 08/29/2022 12:09:46 PM Prelim Date: 08/29/2022 12:10:26 PM Sign Date: 08/29/2022 12:10:26 PM Ordering Provider: [facility] 08-29-2022 Anesthesiology Consult note Patient: JULIO JARRELL Age: 76 years Sex: Male : 1945 Associated Diagnoses: None Author: JOSE ALFREDO LÓPEZ APRN-AUDIO VISUAL SPECIALIST Preoperative Information Time of last food or liquid consumption: 08/29/2022 00:00:00 Anesthesia history Patient's history: negative. Family's history: negative. Review of Systems Ear/Nose/Mouth/Throat: Negative. Respiratory: Shortness of breath, copd. Cardiovascular: htn. Gastrointestinal: Reflux, MO. Genitourinary: Negative. Endocrine: DM. Musculoskeletal: OA. Integumentary: Negative. Neurologic: depression. Health Status Allergies: Allergic Reactions (Selected) Severity Not Documented MetFORMIN- Abdominal pain., Allergies (1) ActiveReaction metFORMINAbdominal pain Current medications: (Selected) Inpatient Medications Ordered Betadine 10% topical solution: 17.5 mL, mL/hr, Topical (INT), PREOP pharm Bicitra: 30 mL, Oral, PREOP pharm Bolus LR 1000 mL: 1,000 mL, IV Bolus, PREOP pharm CeleBREX: 400 mg, 2 cap(s), Oral, PREOP pharm Decadron: 10 mg, 1 mL, IV Push, AsDirected Kefzol: 2 gram(s), 200 mL/hr, IV Piggyback, PREOP pharm LR 1,000 mL: 20 mL/hr, Intravenous, Stop: 08/29/22 23:59:00 EST Naropin 25 mg + Toradol 15 mg + EPINEPHrine 1 mg/mL injectable solution 0.3 mg + morphine 2.5 mg...: 25 mg, 5 mL, mL/hr, Other, PREOP pharm Naropin 25 mg + Toradol 15 mg + EPINEPHrine 1 mg/mL injectable solution 0.3 mg + morphine 2.5 mg...: 25 mg, 5 mL, mL/hr, Other, PREOP pharm Pepcid IV: 20 mg, 2 mL, IV Push, PREOP pharm tranexamic acid 1 g / 100 mL 0.7% NaCl PMX: 1 gram(s), 100 mL, 300 mL/hr, IV Piggyback, AsDirected tranexamic acid 1 g / 100 mL 0.7% NaCl PMX: 1 gram(s), 100 mL, 300 mL/hr, IV Piggyback, AsDirected Prescriptions Prescribed Metoprolol Tartrate 100 mg oral tablet: 100 mg, 1 tab(s), Oral, BID, TAKE 1 TABLET BY MOUTH TWICE A DAY, 180 tab(s), 3 Refill(s) glipiZIDE 2.5 mg oral tablet, extended release: 2.5 mg, 1 tab(s), Oral, qDay, Decreased dose, 90 tab(s), 3 Refill(s) hydroCHLOROthiazide 25 mg oral tablet: 25 mg, 1 tab(s), Oral, qDay, TAKE 1 TABLET BY MOUTH EVERY DAY, 90 tab(s), 3 Refill(s) lisinopril 5 mg oral tablet: 5 mg, 1 tab(s), Oral, qDay, TAKE ONE TABLET BY MOUTH DAILY, 90 tab(s), 3 Refill(s) simvastatin 10 mg oral tablet: 10 mg, 1 tab(s), Oral, qHS, TAKE 1 TABLET IN THE EVENING, 90 tab(s), 3 Refill(s) Documented Medications Documented Allergy (Diphenhydramine HCl) 25 mg oral capsule: 25 mg, 1 cap(s), Oral, TID, PRN: as needed for allergy symptoms, 30 cap(s), 0 Refill(s) Motrin Arthritis Pain: See Instructions, 2 tabs daily, 0 Refill(s) Multivitamin: 1 tab(s), Oral, Daily, 0 Refill(s) Vitamin D3 10 mcg (400 intl units) oral tablet: 10 mcg, 1 tab(s), Oral, qDay, 30 tab(s), 0 Refill(s), Medications (12) Active Scheduled: (11) ceFAZolin 2 gram(s), IV Piggyback, PREOP pharm celecoxib 200 mg capsule 400 mg 2 cap(s), Oral, PREOP pharm citric acid-sodium citrate 334 mg-500 mg/5 mL (30 mL) Martha UD 30 mL, Oral, PREOP pharm dexamethasone 10 mg/mL (1mL) SDV 10 mg 1 mL, IV Push, AsDirected famotidine 20 mg/2 mL vial 20 mg 2 mL, IV Push, PREOP pharm Lactated Ringers Injection 1000 mL * Bolus * 1,000 mL, IV Bolus, PREOP pharm povidone iodine topical 17.5 mL, Topical (INT), PREOP pharm ropivacaine 25 mg + ketorolac 15 mg + epinephrine 0.3 mg + morphine 2.5 mg 25 mg 5 mL, Other, PREOP pharm ropivacaine 25 mg + ketorolac 15 mg + epinephrine 0.3 mg + morphine 2.5 mg 25 mg 5 mL, Other, PREOP pharm tranexamic acid PMX 1 gram(s) 100 mL, IV Piggyback, AsDirected tranexamic acid PMX 1 gram(s) 100 mL, IV Piggyback, AsDirected Continuous: (1) Lactated Ringers 1,000 mL 1,000 mL, Intravenous, 20 mL/hr PRN: (0) Problem list: Medical BMI 39.0-39.9,adult / SNOMED CT 998691627 / Confirmed BMI 38.0-38.9,adult / SNOMED CT 670338527 / Confirmed COPD without exacerbation / SNOMED CT 33906964 / Confirmed Diabetes mellitus / SNOMED CT 045358151 / Confirmed Shortness of breath on exertion / SNOMED CT 080144747 / Confirmed Former cigarette smoker / SNOMED CT 046206140 / Confirmed GERD without esophagitis / SNOMED CT 0857359297 / Confirmed Hyperlipidemia / SNOMED CT 52847855 / Confirmed Hypertension / SNOMED CT 42356501 / Confirmed Has received influenza vaccination in current influenza season / SNOMED CT 904165634 / Confirmed Mild depression / SNOMED CT 095478076 / Confirmed Need for influenza vaccination / SNOMED CT 010613223 / Confirmed Obesity due to excess calories / SNOMED CT 6999650411 / Confirmed Left knee pain / SNOMED CT 9156080738 / Confirmed Screening for prostate cancer / SNOMED CT 247092654 / Confirmed Screening for colon cancer / SNOMED CT 422727735 / Confirmed Medicare annual wellness visit, subsequent / SNOMED CT 138607697 / Confirmed Screening for ischemic heart disease / SNOMED CT 402943270 / Confirmed Screening for diabetes mellitus / SNOMED CT 577479392 / Confirmed Risk and functional assessment / SNOMED CT 945055049 / Confirmed Preop examination / SNOMED CT 460859445 / Confirmed Peripheral vascular disease / SNOMED CT 6929506305 / Confirmed Need for hepatitis C screening test / SNOMED CT 217666176 / Confirmed, Active Problems (23) BMI 38.0-38.9,adult BMI 39.0-39.9,adult COPD without exacerbation Diabetes mellitus Former cigarette smoker GERD without esophagitis Has received influenza vaccination in current influenza season Hyperlipidemia Hypertension Left knee pain Medicare annual wellness visit, subsequent Mild depression Need for hepatitis C screening test Need for influenza vaccination Obesity due to excess calories Peripheral vascular disease Preop examination Risk and functional assessment Screening for colon cancer Screening for diabetes mellitus Screening for ischemic heart disease Screening for prostate cancer Shortness of breath on exertion Histories Past Medical History: No active or resolved past medical history items have been selected or recorded. Family History: Hypertension Mother Stroke Mother Diabetes Mother Sister Procedure history: Cholecystectomy ([id number]) on 03/30/2021 at 75 Years. Varicose vein ligation and stripping ([id number]). Comments: 04/22/2019 8:04 Jessi Levin LPN left leg Social History Social & Psychosocial Habits Alcohol 03/26/2021isk Assessment: No Risk 08/14/2022 Use: Current Frequency: Daily Substance Abuse 04/22/2019 Use: Never 03/26/2021isk Assessment: No Risk Tobacco 08/26/2019 Tobacco Use: Former smoker, quit more Exposure to Tobacco Smoke Lives in non-smoking home 03/26/2021 Assessment: No Risk Home/Environment 08/14/2022 Domestic Concerns None Living situation: Home/Independent Lives In Single level home Spouse Name PATSY Marital Status of Patient if Patient Independent Adult: Nutrition/Health 08/14/2022 Type of diet: Regular Eating Difficulties None Caffeine intake amount: 2 daily . Physical Examination Vital Signs 08/29/2022 7:47 EST Temperature Temporal Artery 36.4 DegC Apical Heart Rate 67 bpm Respiratory Rate 18 br/min Systolic Blood Pressure Non-Invasive 127 mmHg Diastolic Blood Pressure Non-Invasive 55 mmHg LOW Blood Pressure Method Automatic Blood Pressure Location Left arm Blood Pressure Cuff Size Large Vital Signs(last 24 hrs) Last Charted Resp Rate 18 br/min (AUG 29 07:47) FKR591 mmHg (AUG 29 07:47) DBPL 55mmHg (AUG 29 07:47) BMI38.09 (AUG 29 07:47) Measurements from flowsheet : Measurements 08/29/2022 7:47 EST Height 172.7 cm Admission Weight 113.6 kg Weight Method Stated [place] Body Weight 68.38 kg Body Mass Index 38.09 kg/m2 Body Mass Index 38.09 kg/m2 General: Alert and oriented. Airway: Normal temporomandibular joint mobility. Mallampati classification: III (soft palate, base of uvula visible). Head: Normocephalic. Dentition Evaluation: Own teeth. Neck: Supple. Respiratory: diminished. Cardiovascular: Normal rate. Heart Sounds: Normal. Gastrointestinal: Soft. Musculoskeletal Normal range of motion. Integumentary: Intact. Neurologic: Alert, Oriented. Review / Management Results review: No qualifying data available , Lab results 08/29/2022 7:52 EST SN - Preop - CTm Pt in SDS Room 08/29/2022 7:45 08/29/2022 7:47 EST Designated Person #1 We May Share MADYSON STACK [phone] Designated Person #1 Relationship Spouse Privacy Restrictions Requested None Height 172.7 cm Admission Weight 113.6 kg Weight Method Stated [place] Body Weight 68.38 kg Body Mass Index 38.09 kg/m2 Body Mass Index 38.09 kg/m2 Temperature Temporal Artery 36.4 DegC Apical Heart Rate 67 bpm Respiratory Rate 18 br/min Systolic Blood Pressure Non-Invasive 127 mmHg Diastolic Blood Pressure Non-Invasive 55 mmHg LOW Blood Pressure Method Automatic Blood Pressure Location Left arm Blood Pressure Cuff Size Large Oxygen Saturation 95 % Status N/A Sensory Deficits None Sleep Apnea Snore Yes Sleep Apnea Tired No Sleep Apnea Obstruction No Sleep Apnea Pressure Yes Sleep Apnea BMI Yes Sleep Apnea Age Yes Sleep Apnea Neck No Sleep Apnea Gender Yes Sleep Apnea Score 5 HI High Risk for Sleep Apnea Yes Diagnosed With Sleep Apnea No Advanced Directives No - refuses information Infectious Disease Symptoms Patient states no symptoms Infectious Disease Recent Exposure No Alcohol and Drug Use No Employee of Institutional Living No Health Care Employee No History of Exposure to TB No History of Positive Chest X-Ray for TB No History of Positive TB Skin Test No Homeless No Known Immunosuppression No Recent Immigrant No Resident of Institutional Living No Bloody Sputum No Fatigue No Fever No Loss of Appetite No Night Sweats No Persistent Cough > 3 Weeks No Weight Loss No Safety Brochure Information Reviewed Unable to complete Gustavo Phillip Video Viewed No Barriers to Learning None evident Teaching Method Explanation, Printed materials Teaching Evaluation Verbalizes/Nonverbally indicates understanding Preferred Written Language Scottish Preferred Spoken Language Scottish Information Given by Patient Patient's Current Physicians Patient's Current Physicians Discharge To, Anticipated Home independently Prev Test Positive/Diagnosis w/COVID-19 No Current Quarantine/Isolated any Illness No Any Contact with Sick Animals/Birds No Traveled Anywhere in Last 30 Days No Lost Weight Unintentionally Recently No Eat Poorly Due to Decreased Appetite No Total MST Score 0 N/A Personal Devices, Patient Valuables Glasses Anesthesia/Transfusions Prior anesthesia Admission Note-Nursing Same Day Patient History . Assessment and Plan [place] [employer] (ASA) physical status classification: Class III. Anesthetic Preoperative Plan Premedication: intravenous. Anesthetic technique: Spinal. Induction: intravenously. Maintenance airway: 40% FM. Postoperative pain management: Per surgeon. Informed consent: signed by patient. Digitally Signed by JOSE ALFREDO LÓPEZ on 08/29/2022 08:10 AM [facility] 08-23-2022 Note ORIGINAL NM MYOCARDIAL SPECT STRESS/REST CLINICAL STATEMENT: SOB, pre op TECHNIQUE: Lexiscan dose:0.4 mg Radiopharmaceutical (stress): Tc-99m Sestamibi Dose:32.1 mCi Radiopharmaceutical (rest): Tc-99m Sestamibi Dose:10.7 mCi SPECT acquisition and processing Reconstruction and reorientation of SPECT images into short axis, vertical and horizontal long axis planes Quantitative LVEF assessment COMPARISON:2020 REPORT: Post stress myocardial perfusion images showed ordered severe perfusion defect at inferior wall and mid basal inferior lateral wall Resting images showed similar perfusion LVEF 56% with hypokinesis at inferior septal wall and inferior wall IMPRESSION: Positive for moderate size infarct/hibernation at inferior and part of inferior lateral wall No perfusion mismatch to suggest ischemia. Diaphragmatic attenuation interfering image interpretation LVEF 56% with focal wall motion abnormality 2020 patient had similar perfusion Interpreted By: Joselito Garcia Preliminary Report By: Joselito Garcia Electronically Signed By: Joselito Garcia Dictated Date: 08/23/2022 12:06:22 PM Prelim Date: 08/23/2022 12:06:22 PM Sign Date: 08/23/2022 12:11:00 PM Ordering Provider:Troy Norman [facility] 08-23-2022 Note ORIGINAL NM MYOCARDIAL SPECT STRESS/REST CLINICAL STATEMENT: SOB, pre op TECHNIQUE: Lexiscan dose:0.4 mg Radiopharmaceutical (stress): Tc-99m Sestamibi Dose:32.1 mCi Radiopharmaceutical (rest): Tc-99m Sestamibi Dose:10.7 mCi SPECT acquisition and processing Reconstruction and reorientation of SPECT images into short axis, vertical and horizontal long axis planes Quantitative LVEF assessment COMPARISON:2020 REPORT: Post stress myocardial perfusion images showed ordered severe perfusion defect at inferior wall and mid basal inferior lateral wall Resting images showed similar perfusion LVEF 56% with hypokinesis at inferior septal wall and inferior wall IMPRESSION: Positive for moderate size infarct/hibernation at inferior and part of inferior lateral wall No perfusion mismatch to suggest ischemia. Diaphragmatic attenuation interfering image interpretation LVEF 56% with focal wall motion abnormality 2020 patient had similar perfusion Interpreted By: Joselito Garcia Preliminary Report By: Joselito Garcia Electronically Signed By: Joselito Garcia Dictated Date: 08/23/2022 12:06:22 PM Prelim Date: 08/23/2022 12:06:22 PM Sign Date: 08/23/2022 12:11:00 PM Ordering Provider:Troy Norman [facility] 08-23-2022 Note Lexiscan nuclear stress test Patient was stressed according to Lexiscan protocol. Resting heart rate [57] bpm tiana to maximum heart rate of [78] bpm. Resting blood pressure of [130/70] mmHg tiana to maximum blood pressure of [140/76] mmHg. The test was stopped due to protocol completed. Patient complains of []shortness of breath. Symptoms resolved and patient proceeded to imaging part. Baseline EKG shows normal sinus rhythm with second degree AVB mobitz type 1. During the stress test AVB resolved but came back in recovery; first degree AVB was noted. no ischemic ST depressions were noted no arrhythmia was noted. Impression: Patient had negative for ischemia EKG part of Lexiscan nuclear stress test, imaging part will be dictated in separate report Second degree AVB was noted pre test and in recovery EKG; suggest holter monitor Digitally Signed by JOSELITO GARCIA MD on 08/23/2022 08:42 AM [facility] 08-14-2022 Note ORIGINAL EXAMINATION: CT OF THE LEFT KNEE WITHOUT CONTRAST 08/14/2022 10:59 am TECHNIQUE: CT of the left knee was performed without the administration of intravenous contrast. Multiplanar reformatted images are provided for review. Automated exposure control, iterative reconstruction, and/or weight based adjustment of the mA/kV was utilized to reduce the radiation dose to as low as reasonably achievable. COMPARISON: None. HISTORY ORDERING SYSTEM PROVIDED HISTORY: Reason for Exam: OSTEOARTHRITIS LEFT KNEE. FINDINGS: No acute fracture or dislocation. A mild diffuse decrease in osseous mineralization is seen. No visible aggressive osseous lesions. Moderate to severe medial femorotibial compartment joint space narrowing is noted with subchondral cysts, subchondral sclerosis, and sizable marginal osteophytes. Intracapsular bodies posteriorly of the medial compartment measure up to 0.8 cm. Moderate lateral femorotibial compartment joint space narrowing is noted with sizable marginal osteophytes. Mild patellofemoral compartment joint space narrowing is noted with marginal osteophytes. An intracapsular body of the suprapatellar recess measures up to 3.2 cm transverse dimension additional tinier intracapsular bodies are present in this region. Trace volume joint effusion. Large multilobulated Solano's cyst. Mild proximal tibiofibular degenerative changes. The visible tendons appear grossly intact. Ligaments are poorly evaluated on this examination. Mild gastrocnemius in solace muscle atrophy. Provided images the hip exhibit mild to moderate osteoarthrosis. No visible aggressive osseous lesions. There is no visible acute intrapelvic process. Mild gluteus medius and minimus muscle atrophy also. Provided images of the ankle exhibit no acute osseous abnormalities or aggressive osseous lesions. Mild lateral malleolar subcutaneous edema. Diffuse atherosclerosis. Scattered subcutaneous venous varices are also evident. IMPRESSION: 1. No acute osseous abnormalities or aggressive osseous lesions. 2. Advanced tricompartmental osteoarthrosis, most advanced of the medial femorotibial compartment. Small volume effusion. Multiple intracapsular osteochondral bodies. 3. Large volume multilobulated Solano's cyst. Interpreted by: Mj Rutledge DO Preliminary Report By: Mj Rutledge DO Electronically signed By Mj Rutledge DO Dictated Date: 08/14/2022 11:35:21 AM Prelim Date: 08/14/2022 11:44:52 AM Sign Date: 08/14/2022 11:44:52 AM Ordering Provider: EVELYNE GONZALEZ [facility] 08-14-2022 Note ORIGINAL EXAMINATION: CT OF THE LEFT KNEE WITHOUT CONTRAST 08/14/2022 10:59 am TECHNIQUE: CT of the left knee was performed without the administration of intravenous contrast. Multiplanar reformatted images are provided for review. Automated exposure control, iterative reconstruction, and/or weight based adjustment of the mA/kV was utilized to reduce the radiation dose to as low as reasonably achievable. COMPARISON: None. HISTORY ORDERING SYSTEM PROVIDED HISTORY: Reason for Exam: OSTEOARTHRITIS LEFT KNEE. FINDINGS: No acute fracture or dislocation. A mild diffuse decrease in osseous mineralization is seen. No visible aggressive osseous lesions. Moderate to severe medial femorotibial compartment joint space narrowing is noted with subchondral cysts, subchondral sclerosis, and sizable marginal osteophytes. Intracapsular bodies posteriorly of the medial compartment measure up to 0.8 cm. Moderate lateral femorotibial compartment joint space narrowing is noted with sizable marginal osteophytes. Mild patellofemoral compartment joint space narrowing is noted with marginal osteophytes. An intracapsular body of the suprapatellar recess measures up to 3.2 cm transverse dimension additional tinier intracapsular bodies are present in this region. Trace volume joint effusion. Large multilobulated Solano's cyst. Mild proximal tibiofibular degenerative changes. The visible tendons appear grossly intact. Ligaments are poorly evaluated on this examination. Mild gastrocnemius in solace muscle atrophy. Provided images the hip exhibit mild to moderate osteoarthrosis. No visible aggressive osseous lesions. There is no visible acute intrapelvic process. Mild gluteus medius and minimus muscle atrophy also. Provided images of the ankle exhibit no acute osseous abnormalities or aggressive osseous lesions. Mild lateral malleolar subcutaneous edema. Diffuse atherosclerosis. Scattered subcutaneous venous varices are also evident. IMPRESSION: 1. No acute osseous abnormalities or aggressive osseous lesions. 2. Advanced tricompartmental osteoarthrosis, most advanced of the medial femorotibial compartment. Small volume effusion. Multiple intracapsular osteochondral bodies. 3. Large volume multilobulated Solano's cyst. Interpreted by: Mj Rutledge DO Preliminary Report By: Mj Rutledge DO Electronically signed By Mj Rutledge DO Dictated Date: 08/14/2022 11:35:21 AM Prelim Date: 08/14/2022 11:44:52 AM Sign Date: 08/14/2022 11:44:52 AM Ordering Provider: EVELYNE GONZALEZ [facility] 04-01-2021 Note Debby Tomlinson 03-30-2021 Note Debby Tomlinson Evaluation + Plan note Future Appointments Appointment Date:06/24/2021 08:00:00 AM Scheduled Provider:AAMIR LEVIN DO Location:[facility] Appointment Type:PC OV Future Scheduled TestsXR Chest 2 Views (PA & Lateral) 08/27/20 [facility] Evaluation + Plan note Future Appointments Appointment Date:08/14/2022 11:00:00 AM Scheduled Provider: Location:[facility] Appointment Type:CT Knee w/o Contrast Left Appointment Date:10/10/2022 08:00:00 AM Scheduled Provider:AAMIR LEVIN DO Location:[facility] Appointment Type:PC OV Future Scheduled TestsCT Knee w/o Contrast Left 08/14/22 [facility] Evaluation + Plan note Future Appointments Appointment Date:08/16/2022 02:00:00 PM Scheduled Provider:TROY NORMAN Location:[facility] Appointment Type:CV CANCER REGISTRY COORDINATOR Appointment Date:08/31/2022 09:00:00 AM Scheduled Provider: Location:[facility] Appointment Type:PT Outpatient Evaluation Appointment Date:10/10/2022 08:00:00 AM Scheduled Provider:AAMIR LEVIN DO Location:[facility] Appointment Type:PC [facility] Evaluation + Plan note Future Appointments Appointment Date:08/31/2022 09:00:00 AM Scheduled Provider: Location:[facility] Appointment Type:PT Outpatient Evaluation Appointment Date:10/10/2022 08:00:00 AM Scheduled Provider:AAMIR LEVIN DO Location:[facility] Appointment Type:PC OV [facility] Evaluation + Plan note Future Appointments Appointment Date:02/06/2023 09:00:00 AM Scheduled Provider:AAMIR LEVIN DO Location:[facility] Appointment Type:PC OV [facility] Evaluation + Plan note Future Appointments Appointment Date:05/09/2023 08:30:00 AM Scheduled Provider:AAMIR LEVIN DO Location:[facility] Appointment Type:PC [facility] Evaluation + Plan note Future Appointments Appointment Date:09/05/2023 09:00:00 AM Scheduled Provider:AAMIR LEVIN DO Location:[facility] Appointment Type:PC OV [facility] Evaluation + Plan note Future Appointments Appointment Date:08/08/2023 10:30:00 AM Scheduled Provider: Location:[facility] Appointment Type:CT Abd/Pelvis w/ IV Contrast Only Appointment Date:09/05/2023 09:00:00 AM Scheduled Provider:AAMIR LEVIN DO Location:[facility] Appointment Type:PC OV Future Scheduled TestsCT Abd/Pelvis w/ IV Contrast Only 08/08/23 [facility] Evaluation + Plan note Future Appointments Appointment Date:09/05/2023 09:00:00 AM Scheduled Provider:AAMIR LEVIN DO Location:[facility] Appointment Type:PC OV [facility] Evaluation + Plan note Future Appointments Appointment Date:12/26/2023 10:00:00 AM Scheduled Provider:AAMIR LEVIN DO Location:[facility] Appointment Type:PC OV [facility] Hospital course Narrative No data available for this section [facility] Hospital Discharge instructions No data available for this section [facility] Progress note No data available for this section [facility] Summary Purpose Family History No Family History Records Found No data available for this section No data available for this section No data available for this section No data available for this section No data available for this section No data available for this section No data available for this section No Family History Records Found Advance Directives No Advanced Directives Records FoundNo Advanced Directives Records Found Additional Source Comments (unrecognized sect ion and content) No Status Records FoundNo Status Records Found INFORMATION SOURCE (unrecogn ized section and content) DATE CREATED AUTHOR AUTHOR'S ORGANCONY ATION 09/23/2023 [facility] ([place]) Care Team (unrecognized sect ion and content) Care Team Personnel Name: OLLIE, AAMIR M DO Position: P4 Physician - Primary Care Member Role: Primary Care Physician Address: Address: [address] [place] [address]- Name: ADRYAN ESCALONA MD Member Role: [employer] Driver Address: Address: [address] [place], [place] [id number] Name: EVELYNE GONZALEZ MD Position: P3 Physician - Orthopedics Member Role: Orthopaedist Address: Address: [address] [place], [place] [address]Y [facility] [address] [place] [facility] [place], [facility]- Care Team Related Persons Name: PATSY JARRELL Address: Home [address], [phone] Care Team Personnel Name: AAMIR LEVIN DO Position: P4 Physician - Primary Care Member Role: Primary Care Physician Address: Address: [address] [place] [address] Name: ADRYAN ESCALONA MD Member Role: [employer] Driver Address: Address: [address] [place], [place] [id number] [place] Name: EVELYNE GONZALEZ MD Position: P3 Physician - Orthopedics Member Role: Orthopaedist Address: Address: [address] [place] [address] [address] [place] [facility] [place], [facility]- Care Team Related Persons Name: PATSY JARRELL Address: Home [address], [phone] Care Team Personnel Name: AAMIR LEVIN DO Position: P4 Physician - Primary Care Member Role: Primary Care Physician Address: Address: [address] [place] [address]- Name: ADRYAN ESCALONA MD Member Role: [employer] Driver Address: Address: [address] [place], [place] [id number] [place] Name: EVELYNE GONZALEZ MD Position: P3 Physician - Orthopedics Member Role: Orthopaedist Address: Address: [address] [place], [place] [address] [facility] [address] [place] [facility] [place], [facility]- [place] Care Team Related Persons Name: PATSY JARRELL Address: Home [address] [place], [phone] Care Team Personnel Name: AAMIR LEVIN DO Position: P4 Physician - Primary Care Member Role: Primary Care Physician Address: Address: [address] [place] [address] Name: ADRYAN ESCALONA MD Member Role: [employer] Driver Address: Address: [address] [place] [address] [place] Name: EVELYNE GONZALEZ MD Position: P3 Physician - Orthopedics Member Role: Orthopaedist Address: Address: [address] [place] [address] [facility] [place] [address]- Care Team Related Persons Name: PATSY JARRELL Address: Home [address], [phone] Care Team Personnel Name: AAMIR LEVIN DO Position: P4 Physician - Primary Care Member Role: Primary Care Physician Address: Address: [address] [place] [address] Name: ADRYAN ESCALONA MD Member Role: [employer] Address: Address: [address] [place] [address] [place] Name: EVELYNE GONZALEZ MD Position: P3 Physician - Orthopedics Member Role: Orthopaedist Address: Address: [address] [place] [address] [facility] [address]- Care Team Related Persons Name: PATSY JARRELL Address: Home [address], [phone] Patient Care team informatio n (unrecognized section and content) Care Team Personnel Name: AAMIR LEVIN DO Position: P4 Physician - Primary Care Member Role: Primary Care Physician Address: Address: [address] [place] [address] Name: ADRYAN ESCALONA MD Member Role: [employer] Driver Address: Address: [address] [place] [address] [place] Name: EVELYNE GONZALEZ MD Position: P3 Physician - Orthopedics Member Role: Orthopaedist Address: Address: [address] [place] [address] [address] [place] [facility] [place] [id number]- [place] Care Team Related Persons Name: PATSY JARRELL Address: [address] [place], [place] [phone] Care Team Personnel Name: AAMIR LEVIN DO Position: P4 Physician - Primary Care Member Role: Primary Care Physician Address: Address: [address] [place] [address]- Name: ADRYAN ESCALONA MD Member Role: [employer] Driver Address: Address: [address] [place], [place] [address] [place] Name: EVELYNE GONZALEZ MD Position: P3 Physician - Orthopedics Member Role: Orthopaedist Address: Address: [address] [place] [address] [address] [facility] [address] [place] [facility] [place] [id number]- Care Team Related Persons Name: PATSY JARRELL Address: Home [address] [facility] [address] [facility] [address], [place] [phone] Care Team Personnel Name: AAMIR LEVIN DO Position: P4 Physician - Primary Care Member Role: Primary Care Physician Address: Address: [address] [place] [address]- Name: ADRYAN ESCALONA MD Member Role: [employer] Address: Address: [address] [place], [place] [address] [place] Name: EVELYNE GONZALEZ MD Position: P3 Physician - Orthopedics Member Role: Orthopaedist Address: Address: [address] [place], [place] [address] [facility] [address] [place] [facility] [place] [address]- Care Team Related Persons Name: PATSY JARRELL Address: Home [address] [facility] [address] [facility] [address], [place] [phone] Care Team Personnel Name: AAMIR LEVIN DO Position: P4 Physician - Primary Care Member Role: Primary Care Physician Address: Address: [address] [place] [address]- Name: ADRYAN ESCALONA MD Member Role: [employer] Address: Address: [address] [place] [phone] [place] Name: EVELYNE GONZALEZ MD Position: P3 Physician - Orthopedics Member Role: Orthopaedist Address: Address: [address] [place] [address] [address] [facility] [address] [place] [address]- Care Team Related Persons Name: PATSY JARRELL Address: Home [address] [facility] [address] [place] [phone] Care Team Personnel Name: AAMIR LEVIN DO Position: P4 Physician - Primary Care Member Role: Primary Care Physician Address: Address: [address] [place] [id number] [place] [address] Name: ADRYAN ESCALONA MD Member Role: [employer] Address: Address: [address] [place] [address] [place] Name: EVELYNE GONZALEZ MD Position: P3 Physician - Orthopedics Member Role: Orthopaedist Address: Address: [address] [place] [address] [facility] [address] [address] Care Team Related Persons Name: PATSY JARRELL Address: Home [address] [phone] Care Team Personnel Name: AAMIR LEVIN DO Position: P4 Physician - Primary Care Member Role: Primary Care Physician Address: Address: [address] [place] [address] Name: ADRYAN ESCALONA MD Member Role: [employer] Address: Address: [address] [place] [address] [place] Name: EVELYNE GONZALEZ MD Position: P3 Physician - Orthopedics Member Role: Orthopaedist Address: Address: [address] [place] [address] [facility] [place] [address]- Care Team Related Persons Name: PATSY JARRELL Address: Home [address] [facility] [address] [place] [phone] Care Team Personnel Name: AAMIR LEVIN DO Position: P4 Physician - Primary Care Member Role: Primary Care Physician Address: Address: [address] [place] [address] Name: ADRYAN ESCALONA MD Member Role: [employer] Address: Address: [address] [place], [place] [id number] [place] Name: EVELYNE GONZALEZ MD Position: P3 Physician - Orthopedics Member Role: Orthopaedist Address: Address: [address] [place] [address] 2 [place] [address]- [place] Care Team Related Persons Name: PATSY JARRELL Address: Home [address], [place] [phone] Care Team Personnel Name: AAMIR LEVIN DO Position: P4 Physician - Primary Care Member Role: Primary Care Physician Address: Address: [address] [place] [address] [place] [address]- [place] Name: ADRYAN ESCALONA MD Member Role: [employer] Address: Address: [address] [place] [phone] [place] Name: EVELYNE GONZALEZ MD Position: P3 Physician - Orthopedics Member Role: Orthopaedist Address: Address: [address] [place] [address] [facility] [address] [place] Care Team Related Persons Name: PATSY JARRELL Address: Home [address] [place] [phone] FOR RECORDS PERTAINING TO PATIENTS WHO ARE OR HAVE BEEN ENROLLED IN A CHEMICAL DEPENDENCY/SUBSTANCEABUSE PROGRAM, SOME INFORMATION MAY BE OMITTED. This clinical summary was aggregated from multiple sources. Caution should be exercised in using it in the provision of clinical care. This summary normalizes information from multiple sources, and as a consequence, information in this document may materially change the coding, format and clinical context of patient data. In addition, data may be omitted in some cases. CLINICAL DECISIONS SHOULD BE BASED ON THE PRIMARY CLINICAL RECORDS. [facility] [employer] provides no warranty or guarantee of the accuracy or completeness of information in this document.
== END | disposition home or self-care (01) ==
LOC: CT 07:38
PROVIDERS: PCP Family Medicine; Referring Provider Internal Medicine Medical Oncology; Visit Provider Internal Medicine Medical Oncology
DX: C67.8 Malignant neoplasm of overlapping sites of bladder (principal)
CPT/HCPCS: 71260; 74177; Q9967

== ENCOUNTER 2023-10-23 10:16 | Day surgery (SDC) | payer MEDICARE, SELFPAY ==
[2023-10-23] VITALS (7 sets, daily range): BP systolic 104–129; BP diastolic 60–71; PULSE 63–80; RESP 14–18; TEMP 36.6; O2SAT 92–97; BMI 35.2
[2023-10-23] MEDS: Lactated Ringers 1,000 ML 15 ML IV (11:07)
--- NOTE | 2023-10-23 12:34 | HP.PCM_ITS ---
History and Physical Date of Admission: 10/23/23 Date of Service: 10/18/23 MR#: [id number] Acct: [id number] Name: JULIO MORALES Rep #: [id number] : 1945 Provider: Dr. Meghan Coelho MD Age/Sex: 77/M Location: [facility] Status: Signed Intake Vital Signs 10/10/2413:47 10/17/2412:32 Height 5 ft 8 in 5 ft 8 in Weight: 246 lb BMI 37.4 BP 124/73 H Blood Pressure Location Rt brachial Position Sitting Respiration 17 Pulse 62 Pulse Source Monitor Temp 97.2 F L Temp Source Temporal Pulse Oximetry (%) 97 Oxygen Delivery Method room air Intake Visit Reasons: PORT PLACEMENT Chief Complaint: port placement Is patient in pain?: No Allergies No Known Drug Allergies Allergy (Verified 10/18/23 13:33) unknown Medications cholecalciferol (vitamin D3) 50 mcg (2,000 unit) capsule 50 mcg PO DAILY 09/18/23 [History Confirmed 10/18/23] diphenhydramine HCl 25 mg capsule (Allergy (diphenhydramine)) 25 mg PO QHS PRN 09/18/23 [History Confirmed 10/18/23] fenofibrate nanocrystallized 145 mg tablet 145 mg PO DAILY 09/18/23 [History Confirmed 10/18/23] glipizide 2.5 mg tablet 2.5 mg PO DAILY 09/18/23 [History Confirmed 10/18/23] hydrochlorothiazide 25 mg tablet 25 mg PO DAILY 09/18/23 [History Confirmed 10/18/23] lisinopril 5 mg tablet 5 mg PO DAILY 09/18/23 [History Confirmed 10/18/23] metoprolol tartrate 100 mg tablet 100 mg PO BID 09/18/23 [History Confirmed 10/18/23] multivitamin 1 tab PO DAILY 09/18/23 [History Confirmed 10/18/23] simvastatin 10 mg tablet 10 mg PO DAILY 09/18/23 [History Confirmed 10/18/23] PFSH Medical History Dysuria Frequency of micturition Gross hematuria Hematuria Neoplasm of uncertain behavior of bladder Nocturia Painful micturition Secondary hypertension Type 2 diabetes mellitus Surgical History H/O cystoscopy H/O left knee surgery History of cholecystectomy History of transurethral resection of bladder tumor (TURBT) Social History household members: spouse Smoking Status: Former smoker alcohol intake: current HPI HPI HPI: 77-year-old male presents for port placement due to bladder cancer. Patient is planned to start radiation and chemotherapy on October 29, 2023 ROS General General: Yes fatigue; No weight change, appetite, colon cancer or breast cancer HEENT HEENT: No difficulty swallowing, eye injury, eye surgery, swollen glands or hoarseness Endo Endocrine: Yes diabetes mellitus; No thyroid disease, thyroid cancer, Hair loss, heat intolerance or cold intolerance Skin Skin: No rash or changing moles Musc Musculoskeletal: No back problems, arthritis, rheumatoid arthritis, gout or joint pain Cardio Cardiovascular: Yes high blood pressure; No murmur, pacemaker, heart disease, atrial fibrillation, heart attack, heart stent, palpitations, shortness of breat with exertion or chest pain Psych Psychiatric: No depression, anxiety or hearing voices Resp Respiratory: Yes shortness of breath, No sleep apnea, No cough, No COPD, No asthma, No emphysema and No wheezing Gastro Gastrointestinal: Yes abdominal pain, No nausea or vomiting, No diarrhea, Yes constipation, No blood in stool, Yes acid reflux, No hemorrhoids, No ulcers, No gallbladder problem and No black,tarry stools [place] Hematologic: No blood thinners, No blood disorders, No bleeding, No anemia and No blood clots Neuro Neurologic: No numbness and No tingling Exam Const General: cooperative, healthy appearing, comfortable and no acute distress [facility] Head: normocephalic and atraumatic Neck Neck: supple Chest Other: Palpation of bilateral upper chest normal Resp Effort & Inspection: normal respiratory effort Cardio Rate: regular rate GI Palpation: soft Skin General: no rashes or lesions noted Neuro General: CN's II-XI intact bilaterally Extrem General: normal to inspection Psych Mental Status: mental status grossly normal Attitude: cooperative Assessment and Plan Assessment and Plan (1) Encounter for insertion of venous access port: Status: Acute (2) Bladder cancer: Status: Acute Qualifiers: Bladder location: overlapping sites Qualified Code(s): C67.8 - Malignant neoplasm of overlapping sites of bladder Comment: Invasive bladder cancer T2. CT 09/24/2023 shows Bladder wall thickening and R Hydronephrosis. Comes for F/U. PET/CT reviewed. Cr is high than 1.5 so will use Gemzar instead of Cisplatin. Discussed bladder cancer management, Pt does not want surgery so chemo-radiation for Bladder preservation. Plan I have discussed above with the patient- Port-a-Cath placement. Right possible left IJ Patient has been counseled as to the risks/benefits of the procedure. I have explained the risks of the surgery, including but not limited to: infection, bleeding, injury to any blood vessels/nerves, injury to lungs (such as pneumothorax or hemothorax and need for chest tube), not having any access, nonfunctioning of port due to thrombosis, infection of port, etc. the patient understands and agrees to proceed. I have answered all the patient's questions to the patient?s satisfaction and the patient has no further questions. I have examined the patient the following changes are noted: Patient was previously notified that I will be doing the case in the lieu of Dr. Coelho who became acutely ill today. I have had the opportunity to confirm, however, both his past medical history as well as the present indication for proceeding with port placement to be bladder cancer and an intent to start chemotherapy on 10/29/2023. Patient states that he agrees with everything other than his diagnosis with atrial fibrillation which was simply given during a recent hospital stay and telemetry monitoring/review of that monitoring is ongoing. Thus he is not on any blood thinners for this diagnosis and does not consider this a formal diagnosis at his present stage. The procedure and post procedure expectations were reviewed in detail and I have clarified that he is able to shower starting tomorrow given that the pocket will be sealed with Dermabond. Neither he nor his spouse have any further questions we will plan to proceed as previously planned for right versus left Port-A-Cath placement.
[2023-10-23] MEDS: Cefazolin 2 GM in 0.9% Normal Saline (100mL Bag) 100 ML IV (12:40)
[2023-10-23] MEDS: Bupivacaine Mpf 0.5% 30 ML VIAL (13:52)
--- NOTE | 2023-10-23 14:03 | OP.PCM_ITS ---
Report of Operation Date of Procedure: 10/23/23 Pre-Operative Diagnosis: Bladder cancer Post-Operative Diagnosis: Same Surgery/Procedure Performed:: Insertion of ultrasound/fluoroscopic guided right internal jugular 8 [place] Port-A-Cath Description of Surgical Findings:: ? Normal vascular anatomy with widely patent right internal jugular vein Surgeon: Oscar Ta residential real estate agent: None Type of Anesthesia: MAC/Supplemental Anesthesiologist: Ray Hagen Estimated Blood Loss (mL): 5 Description of Procedure: After appropriate identification in the preoperative holding area the patient was brought to the operating room. There [he/she] was administered preoperative antibiotics and positioned supine on the operating room table. Once sedation was begun, the upper chest and lower cervical region were prepped and draped in usual sterile fashion. A formal timeout was then conducted to confirm both the patient and procedure. Ultrasound was used to localize the right internal jugular vein. Then a wheal of local anesthetic was raised superficially in this location and the vein was accessed under direct ultrasound guidance using a Seldinger technique and micro access kit to place a guidewire. The position of the guidewire was confirmed with fluoroscopy. The micro access guidewire was exchanged for standard 035 guidewire using provided sheath. Next the position of the port pocket was determined and again local anesthetic was used to anesthetize the area of both the pocket and the tunneling tract cephalad. A transverse incision 3 cm in width was made down through the subcutaneous tissue. Selective electrocautery was used to obtain hemostasis and developed this port pocket along with blunt dissection. The catheter was connected to the tunneler and was tunneled up to the position of the guidewire. Here the dilator and peel-away sheath were placed over the guidewire and the guidewire was removed. Position was again confirmed with fluoroscopy. The catheter length was estimated based on the external placement of a hemostat to approximate the level of the deepa and the cavoatrial junction. The catheter was then fed into the sheath and slowly the sheath was peeled away as the catheter was inserted fully into the neck. Back in the chest the excess catheter was trimmed and the port was connected to the catheter. The port was tied into the pocket using 3-0 Vicryl. Function was then tested using sterile saline on a Peng needle. It was locked with 3 mL of heparinized saline (concentration 50U/5mL). The port pocket was closed with a deep dermal stitch using a running 3-0 Vicryl followed by 4-0 Monocryl subcuticular stitch. The 1 cm incision in the neck was closed with a single interrupted subcuticular stitch using 4-0 Monocryl. Dermabond was applied as a dressing. Patient was then aroused from the sedation and taken to PACU for ongoing recovery were a portable chest x-ray was obtained to confirm port positioning and exclude any pneumothorax. Grafts/Implants Used: PowerPort ISP port reference [id number], lot [id number] Complications None Procedures Cardiovascular CF Procedures [id number]: [id number] Insert tunneled cv cath
--- NOTE | 2023-10-23 14:22 | RAD_ITS ---
STUDY: X-RAY CHEST REASON FOR EXAM: Male, 77 years old. Status post line placement TECHNIQUE: Single AP portable view of the chest. COMPARISON: None. FINDINGS: A right-sided Port-A-Cath has been placed with the tip at the junction of the superior vena cava and right atrium. There is hyperinflation of the lungs consistent with chronic obstructive lung disease (COPD). There is no demonstrated pleural abnormality. Normal size heart. Normal mediastinum and amie. Normal visualized pulmonary arteries. There is atherosclerotic calcification of the aortic arch with tortuosity. There are diffuse degenerative changes of the visualized thoracic spine. There is degenerative osteoarthritis of the bilateral shoulders. There is no demonstrated abnormality of the visualized soft tissue structures of the upper abdomen. RAD/CXR for Line Placement IMPRESSION: The tip of the right-sided joseph catheter is at the junction of the superior vena cava and right atrium. Hyperinflation. Electronically Signed: Faraz Cope MD at 14:46 EDT ,
--- NOTE | 2023-10-23 15:08 | DCINST_ITS ---
Discharge Instructions Diet Discharge Diet: No restrictions Activity Discharge Activity: May Shower May shower in (days): 1 Ice area for (Minutes): 20 Additional Activity Instructions:: Limit the activity by the nearest upper extremity for 48 hours postop Dressing / Incision Call your doctor if your incision/area has: Increased Pain/ Swelling, Increased Redness, Foul Smelling Discharge and Swelling at the incision site Call your doctor if you observe: Fever of 101 or Higher Remove Dressing in: do not remove dressing (Dermabond (surgical glue) expected to dissolve spontaneously within 7 to 10 days postop using regular showering) Cleanse incision/area with: Soap & Water Follow Up Care Test Results: Test results from this visit will be discussed in further detail at your follow- up appointment, if applicable. Discharge Plan Admission Primary Reason for Your Visit: Port placement Attending Provider: Oscar Ta Primary Care Provider: Pura Rodriguez Discharge Orders/Prescriptions Prescriptions: No Action hydrochlorothiazide 25 mg tablet 25 mg PO DAILY cholecalciferol (vitamin D3) 50 mcg (2,000 unit) capsule 50 mcg PO DAILY diphenhydramine HCl [Allergy (diphenhydramine)] 25 mg capsule 25 mg PO QHS PRN (Reason: allergy symptoms) fenofibrate nanocrystallized 145 mg tablet 145 mg PO DAILY glipizide 2.5 mg tablet 2.5 mg PO DAILY lisinopril 5 mg tablet 5 mg PO DAILY metoprolol tartrate 100 mg tablet 100 mg PO BID multivitamin Tablet 1 tab PO DAILY simvastatin 10 mg tablet 10 mg PO DAILY hydrocodone-acetaminophen 5-300 mg tablet 1 tab PO Q8H PRN (Reason: pain) lidocaine-prilocaine 2.5-2.5 % cream 1 applic topical ONCE PRN (Reason: port access) 30 Days Qty: 30 2RF Patient Comments: HAVE NOT STARTED YET ondansetron 8 mg tablet,disintegrating 8 mg PO Q8H PRN (Reason: nausea and vomiting) Qty: 30 2RF Patient Comments: HAVE NOT PICKED UP AT PHARMACY YET Referrals / Follow Up: Pura Rodriguez DO [Primary Care Provider] - Disposition Disposition (needs filled in before D/C Order can be placed): Home, Self Care
== END 2023-10-23 15:36 | disposition home or self-care (01) ==
LOC: SDC 10:17 → AC 10:19
PROVIDERS: PCP Family Medicine; Referring Provider Surgery; Visit Provider Surgery
PROC: (CPT 36561; principal; 2023-10-23 13:00)
DX: Z45.2 Encounter for adjustment and management of vascular access device (principal); C67.8 Malignant neoplasm of overlapping sites of bladder; E11.9 Type 2 diabetes mellitus without complications; Z79.84 Long term (current) use of oral hypoglycemic drugs; N13.30 Unspecified hydronephrosis; Z87.891 Personal history of nicotine dependence; N32.89 Other specified disorders of bladder; Z90.49 Acquired absence of other specified parts of digestive tract; R93.89 Abnormal findings on diagnostic imaging of other specified body structures
CPT/HCPCS: 36561; 00532; 71045; 77001; C1894; J7120; C1788; J2405

== ENCOUNTER 2023-11-28 12:32 | Emergency (ER) | payer MEDICARE, SELFPAY ==
[2023-11-28 12:32] VITALS: BP 102/49; PULSE 75; RESP 16; TEMP 35.9; O2SAT 98
--- NOTE | 2023-11-28 13:40 | EKG12_ITS ---
Test Reason : DIZZINESS Blood Pressure : / mmHG Vent. Rate : 065 BPM Atrial Rate : 065 BPM P-R Int : 290 ms QRS Dur : 100 ms QT Int : 428 ms P-R-T Axes : 034 040 060 degrees QTc Int : 445 ms Sinus rhythm with 1st degree A-V block Septal infarct , age undetermined Abnormal ECG Confirmed by PIO MARIANO, RED ([id number]), editor in chief IDALMIS MONTAÑO ([id number]) on 11/29/2023 10:14:30 AM Referred By: Confirmed By:RED SUERO MD
--- NOTE | 2023-11-28 13:41 | EDS_ITS ---
HPI History of Present Illness Chief Complaint: Dizziness Detail of Chief Complaint: I feel like crap Informant: patient Onset/Context/Timing Onset: Days Context: Gradual Onset Timing: Continuous Current Severity: Mild Maximum Severity: Mild Narrative Narrative: 78-year-old male history of bladder cancer under treatment Dr. Carine Benitez from radiation oncology, Dr. Min and also receiving chemotherapy. He has had 18 radiation treatments and 4 chemotherapy treatments since October. Just that he feels weak and lightheaded. He is tired. He denies vomiting but has had some recent diarrhea. Says I have no energy. Dry cough. No dysuria. No hematuria. No chest pain or abdominal pain. Prior similar symptoms: Yes Recent Illness/Hospitalization: No PFSH PFSH Medical History Arthritis Dysuria Elevated BUN Encounter for chemotherapy management Encounter for education Former smoker Frequency of micturition Gastric reflux Gross hematuria Hematuria High cholesterol History of atrial fibrillation History of echocardiogram History of edema History of stress test Hypokalemia Neoplasm of uncertain behavior of bladder Nocturia Painful micturition Seasonal allergies Secondary hypertension Shortness of breath on exertion Type 2 diabetes mellitus Wears glasses Home Medications cholecalciferol (vitamin D3) 50 mcg (2,000 unit) capsule 50 mcg PO DAILY 09/18/23 [History Last Taken 10/22/23] diphenhydramine HCl 25 mg capsule (Allergy (diphenhydramine)) 25 mg PO QHS PRN allergy symptoms 09/18/23 [History Last Taken Unknown] fenofibrate nanocrystallized 145 mg tablet 145 mg PO DAILY 09/18/23 [History Last Taken 10/22/23] glipizide 2.5 mg tablet 2.5 mg PO DAILY 09/18/23 [History Last Taken 10/22/23] hydrochlorothiazide 25 mg tablet 25 mg PO DAILY 09/18/23 [History Last Taken 10/22/23] lisinopril 5 mg tablet 5 mg PO DAILY 09/18/23 [History Last Taken 10/23/23 08:30] metoprolol tartrate 100 mg tablet 100 mg PO BID 09/18/23 [History Last Taken 10/23/23 08:30] multivitamin 1 tab PO DAILY 09/18/23 [History Last Taken 10/22/23] simvastatin 10 mg tablet 10 mg PO DAILY 09/18/23 [History Last Taken 10/22/23] hydrocodone 5 mg-acetaminophen 300 mg tablet 1 tab PO Q8H PRN pain 10/22/23 [History Last Taken 10/22/23] lidocaine-prilocaine 2.5 %-2.5 % topical cream 1 applic topical ONCE PRN port access 30 days #30 grams 10/22/23 [Rx Last Taken Unknown] ondansetron 8 mg disintegrating tablet 8 mg PO Q8H PRN nausea and vomiting #30 tabs 10/22/23 [Rx Last Taken Unknown] Allergy/AdvReac Type Severity Reaction Status Date / Time No Known Drug Allergies Allergy unknown Verified 11/22/23 15:09 Surgical History H/O cystoscopy H/O left knee surgery History of cholecystectomy History of transurethral resection of bladder tumor (TURBT) Social History household members: spouse Smoking Status: Former smoker alcohol intake: current ROS ROS ED ROS Narrative Generalized weakness. Fatigue. No energy. Diarrhea. No vomiting. Review of Systems ROS Unobtainable: Denies due to encephalopathy Constitutional Constitutional ED: Reports fever(s) and subjective; Denies chills Eyes Eyes: Denies blurry vision ENT ENT ED: Denies ear pain Cardiovascular Cardiovascular: Denies chest pain or palpitations Respiratory/Chest Respiratory/Chest: Denies cough or dyspnea Gastrointestinal Gastrointestinal: Reports diarrhea; Denies abdominal pain, constipation, melena, nausea or vomiting Genitourinary Genitourinary ED: Denies dysuria or hematuria Musculoskeletal Musculoskeletal: Denies arthralgias or back pain Integumentary Denies abscess or Abrasions Neurologic Neurologic: Denies headache(s) Psychiatric Psychiatric: Denies anxiety or depression Endocrine Endocrinology: Denies cold intolerance or heat intolerance Hematologic/Lymphatic Hematologic/Lymphatic: Reports none Allergic/Immunologic Allergic/Immunologic ED: Denies mouth swelling, tongue swelling or urticaria EXAM Physical Exam Narrative Exam Narrative: Well-appearing 78-year-old male. Vital signs stable with blood pressure is low 102/49. Pulse ox 90% on room air. He is afebrile. He does not look septic toxic. He is no distress. H EENT exam mildly dry mucous members. Neck nontender. Lungs clear to auscultation bilateral. Heart regular rhythm rate of about 75 no murmur. Chest wall and ribs nontender. Abdomen soft nontender. Moving all 4 extremities. Calves are nontender without edema or cords. Neurologically is awake and alert with no focal motor deficits. Answering questions and following commands. Const Vital Signs: 11/28/23 12:32 11/28/23 12:47 11/28/23 14:32 Temperature 96.7 F L Temperature Source Temporal Pulse Rate 75 57 L Respiratory Rate 16 16 Respiratory Effort Normal Non-Labored Blood Pressure 102/49 L 111/97 H Blood Pressure Mean 66 101 Pulse Ox 98 100 Oxygen Delivery Method Room Air Room Air Positive well nourished and well developed; Negative for cachectic, contractures or unkempt General Appearance ED: well developed and NAD; Negative for unkempt, cachectic, contractures, cyanotic, diaphoretic or pallor Nutritional Appearance: Negative for cachectic HEENT Reports dry mucous membranes; Denies moist mucous membranes Negative for trauma or tenderness Mouth ED: Yes dry mucous membranes Mouth: dry mucous membranes Eyes PERRL and EOMs intact bilaterally General Eye ED: Negative for pale conjunctiva or scleral icterus Neck no lymphadenopathy, supple and no JVD General: Negative for tenderness Lymph Lymphatic: Negative for other Chest Wall inspection of chest normal and palpation of chest normal Resp normal respiratory effort and clear to auscultation bilaterally Effort and Inspection: Negative for retractions or pain with movement Auscultation: Negative for rales, rhonchi, wheezes or diminished lung sounds Cardio regular rate, regular rhythm, S1 normal heart sound, S2 normal heart sound and no murmurs Palpation: Negative for palpable S3 or palpable S4 Rate: Negative for bradycardia or tachycardic Rhythm: Negative for abnormal rhythm GI normal to inspection, nondistended, normoactive bowel sounds, non-tender, non- distended and no masses Inspection: Negative for abdominal distention Auscultation: normoactive bowel sounds Palpation: soft; Negative for tender, guarding or rebound tenderness present Back/Spine no CVA tenderness General Back: Negative for CVA tenderness Cervical Spine: Negative for cervical spine tenderness Thoracic Spine / Upper Back: Negative for thoracic spinal tenderness or paraspinal muscle tenderness Lumbar Spine / Lower Back: Negative for lumbar spinal tenderness Extremity normal to inspection General Extremety ED: Negative for edema, tenderness or other findings General Extremity: Negative for edema or other findings Neuro oriented x3 and CN's II-XII intact bilaterally Sensorium / Orientation: alert; Negative for orientation impaired, lethargic or stuporous Motor Exam: strength 5/5 throughout; Negative for general weakness or strength abnormal Psych mental status grossly normal Appearance: Negative for unkempt Attitude: No agitated Mood & Affect: Negative for depressed, anxious or tearful Skin no rashes or lesions noted and no wounds General Skin Exam: Negative for jaundice or pallor Lesions: No lesion noted Rashes: No rashes noted Trauma: Negative for abrasion Wounds: Negative for wounds noted MDM MDM MDM Narrative Medical decision making narrative: 78-year-old male undergoing chemo and radiation therapy for bladder cancer. Just fells weak without energy. He has been having diarrhea. Clinically he may be dehydrated. Screening labs to be obtained. Rule out anemia. Versus infection. He will be treated with a liter normal saline. Repeat exam no change. Patient receiving IV fluids. Nothing needs to be admitted to the hospital for his labs are basically his baseline. The urine has white cells examined no urinary symptoms. I will send a culture. I do not think he needs started on antibiotics. He is probably mildly dehydrated from his diarrhea and also does not feeling well from his chemotherapy and radiation. He is due to follow-up with his radiation oncologist to discuss further treatments. He and his are comfortable with him being discharged home. History & Record Review Discussion w/independent historian: Patient and Family Additional record(s) reviewed:: Prior inpatient record, Prior outpatient record, Prior ED visit and Prior labs Lab Data Attestation: I reviewed the patient's lab results. Lab results narrative: CBC shows a white count 10.8. H&H 22 and 33.6. Consistent with his baseline anemia.11 platelets 446. Urinalysis shows 25-50 white cells no bacteria. No nitrates. Culture will be sent. Chemistry shows sodium 133. Gap 10. BUN 33 creatinine 1.81 consistent with his chronic renal insufficiency. Glucose 175. Labs: Laboratory Results - last 24 hr 11/28/23 14:15 WBC 10.8 RBC 3.58 L Hgb 11.2 L Hct 33.6 L MCV 93.9 MCH 31.3 MCHC 33.3 RDW Std Deviation 48.2 H RDW Coeff of Chen 14.6 Plt Count 446 MPV 8.7 Immature Gran % (Auto) 2.400 H Neut % (Auto) 80.2 H Lymph % (Auto) 7.7 L Bracken % (Auto) 8.3 Eos % (Auto) 1.0 Baso % (Auto) 0.4 Absolute Neuts (auto) 8.6 H Absolute Lymphs (auto) 0.83 Nucleated RBC % 0 Sodium 133 L Potassium 3.8 Chloride 97 L Carbon Dioxide 26.0 Anion Gap 10 BUN 33 H Creatinine 1.81 H Est GFR (MDRD) Af Amer 47 L Est GFR (MDRD) Non-Af 39 L BUN/Creatinine Ratio 18.2 Glucose 175 H Calcium 9.3 Troponin I High Sens 12 Urine Color Yellow Urine Clarity Clear Urine pH 7.0 Ur Specific [place] 1.010 Urine Protein Negative Urine Glucose (UA) Normal Urine Ketones Negative Urine Occult Blood Negative Urine Nitrite Negative Urine Bilirubin Negative Urine Urobilinogen Normal Ur Leukocyte Esterase 500 H Urine RBC 0 SEEN Urine WBC 25-50 SEEN Ur Squamous Epith Cells 0-5 SEEN Urine Bacteria 0 SEEN Urine Mucus 0 SEEN Radiography Chest X-Ray - ED: 1 View, Read by ED Physician, Heart, Lungs, Mediastinum, Bony Structures, No Acute Disease and Chronic Changes Diagnostic Testing: Chest x-ray, portable, interpreted by myself shows no acute abnormality. Chronic changes. Normal cardiac silhouette. Normal lung rodriguez. Rhythm Strip Rhythm Strip: Sinus Rhythm Rate: 65 Ectopy: None EKG Initial EKG: Attestation: I personally reviewed and interpreted this EKG as follows: Interpretation: Sinus Rhythm and No Acute Injury Pattern Comments: Normal sinus rhythm rate of 65 no acute signs of NH or ischemia. First-degree AV block with DE interval of 290. Discharge Plan Triage Chief Complaint: Dizziness ED Provider: Trev Holguin Dx/Rx/DC Orders Clinical Impression: Acute dehydration, History of chronic kidney disease, Generalized weakness, Diarrhea, History of bladder cancer, Chronic anemia, History of diabetes mellitus Instructions: ED Dehydration (Adult) Prescriptions: No Action hydrochlorothiazide 25 mg tablet 25 mg PO DAILY cholecalciferol (vitamin D3) 50 mcg (2,000 unit) capsule 50 mcg PO DAILY diphenhydramine HCl [Allergy (diphenhydramine)] 25 mg capsule 25 mg PO QHS PRN (Reason: allergy symptoms) fenofibrate nanocrystallized 145 mg tablet 145 mg PO DAILY glipizide 2.5 mg tablet 2.5 mg PO DAILY lisinopril 5 mg tablet 5 mg PO DAILY metoprolol tartrate 100 mg tablet 100 mg PO BID multivitamin Tablet 1 tab PO DAILY simvastatin 10 mg tablet 10 mg PO DAILY hydrocodone-acetaminophen 5-300 mg tablet 1 tab PO Q8H PRN (Reason: pain) lidocaine-prilocaine 2.5-2.5 % cream 1 applic topical ONCE PRN (Reason: port access) 30 Days Qty: 30 2RF Patient Comments: HAVE NOT STARTED YET ondansetron 8 mg tablet,disintegrating 8 mg PO Q8H PRN (Reason: nausea and vomiting) Qty: 30 2RF Patient Comments: HAVE NOT PICKED UP AT PHARMACY YET Primary Care Provider: Pura Rodriguez Referrals: Pura Rodriguez, [Primary Care Provider] - 3-5 Days if not improving Activity Restrictions/Additional Instructions: Plenty of fluids and rest. Follow-up with your doctors if not improving. Follow-up with your radiation oncologist to discuss with him further radiation treatments. Disposition Disposition: Home, Self Care
[2023-11-28 14:31] LABS: Bacteria 0 SEEN /hpf (None Seen); Mucous, Urine 0 SEEN /hpf (<or=2+); Red Blood Cells-Urine 0 SEEN /hpf (0-5)
[2023-11-28 14:32] VITALS: BP 111/97; PULSE 57; RESP 16; O2SAT 100
[2023-11-28 14:34] LABS: Color, Urine Yellow (Yellow); Glucose, Dipstick Normal (Normal); Ketone-Dipstick Negative (Negative); Leukocyte Esterase-Dipstick 500 /ul (Negative); Nitrite-Dipstick Negative (Negative); Occult Blood-Urine Negative /ul (Negative); Protein-Dipstick Negative (Negative); Urine Bilirubin Dipstick Negative (Negative); Urine Clarity Clear (Clear); Urine Urobilinogen Normal (Normal)
[2023-11-28 14:36] LABS: Absolute Lymphocyte Count 0.83 X10^3/uL (0.83-4.51); Absolute Neutrophil Count 8.6 X10^3/uL (2.0-7.7); Basophil# 0.04 X10^3/uL; Basophil% 0.4 % (0-1); Eosinophil# 0.11 X10^3/uL; Hematocrit 33.6 % (40-54); Hemoglobin 11.2 g/dL (13.0-16.5); Lymphocyte # 0.83 X10^3/ul (0.83-4.51); Lymphocyte % 7.7 % (19-41); Mean Corp Hgb Conc 33.3 g/dL (32-36); Mean Corpuscular Hgb 31.3 pg (27.0-32.0); Mean Corpuscular Volume 93.9 fL (80-94); Mean Platelet Vol. 8.7 fl (6.2-12.0); Monocyte# 0.89 X10^3/uL; Monocyte% 8.3 % (0-10); NRBC Flagged by Analyzer 0 % (0-5); Neutrophil # 8.64 X10^3/uL (2.7-7.7); Neutrophil % 80.2 % (47-70); Platelet Count 446 K/mm3 (150-450); RBC Distribution Width CV 14.6 % (11.6-14.6); RBC Distribution Width SD 48.2 fl (35.1-43.9); Red Blood Count 3.58 M/mm3 (4.6-6.2); White Blood Count 10.8 K/mm3 (4.4-11.0)
[2023-11-28] MEDS: 0.9% Normal Saline (1000mL) 1,000 ML 1000 ML IV (14:39)
[2023-11-28 14:40] LABS: Squamous Epithelial Cells - UA 0-5 SEEN /hpf (0-5); White Blood Cells 25-50 SEEN /hpf (0-5)
--- NOTE | 2023-11-28 14:50 | RAD_ITS ---
STUDY: X-RAY CHEST REASON FOR EXAM: Male, 78 years old. Weakness TECHNIQUE: Single AP portable view of the chest. COMPARISON: Comparison is made with prior study dated October 23, 2023. FINDINGS: A right-sided portacatheter is seen with the tip at the junction of the superior vena cava and right atrium. Scattered calcified granulomas. Hyperinflation. Stable mild increased markings at the left lung base suggestive of scarring. There is no demonstrated pleural abnormality. Normal size heart. Normal mediastinum and amie. Normal visualized pulmonary arteries. There is atherosclerotic calcification of the aortic arch with tortuosity. There are diffuse degenerative changes of the visualized thoracic spine. There is degenerative osteoarthritis of the bilateral shoulders. There is no demonstrated abnormality of the visualized soft tissue structures of the upper abdomen. RAD/Chest 1 View (Portable) IMPRESSION: No acute abnormality is seen. Electronically Signed: Faraz Cope MD at 15:08 EDT ,
[2023-11-28 15:04] LABS: Anion Gap 10 (5-15); BUN 33 mg/dL (7-18); BUN/Creat Ratio 18.2 RATIO (10-20); Calcium,Total 9.3 mg/dL (8.5-10.1); Chloride 97 mmol/L (98-107); Creatinine, Serum 1.81 mg/dL (0.70-1.30); EST Glomerular Filtration Rate 39 mL/min (>60); Est Glom Filt Rate - Afr Amer 47 mL/min (>60); Glucose 175 mg/dL (74-106); Potassium 3.8 mmol/L (3.5-5.1); Sodium Level 133 mmol/L (136-145); Troponin-I HS 12 pg/mL (3.0-78.0)
[2023-11-28 16:00] VITALS: BP 109/59; PULSE 71; RESP 18; O2SAT 98
[2023-11-28 16:42] VITALS: BP 114/80; PULSE 87; RESP 18; TEMP 36.4; O2SAT 95
== END 2023-11-28 16:43 | disposition home or self-care (01) ==
PROVIDERS: Emergency Provider Emergency Medicine; PCP Family Medicine; Visit Provider Emergency Medicine
DX: R42 Dizziness and giddiness (principal); I48.91 Unspecified atrial fibrillation; E11.22 Type 2 diabetes mellitus with diabetic chronic kidney disease; E86.0 Dehydration; Z87.891 Personal history of nicotine dependence; R19.7 Diarrhea, unspecified; N18.9 Chronic kidney disease, unspecified; R53.1 Weakness; D64.9 Anemia, unspecified; Z85.51 Personal history of malignant neoplasm of bladder; Z92.21 Personal history of antineoplastic chemotherapy; Z92.3 Personal history of irradiation; E78.00 Pure hypercholesterolemia, unspecified; Z79.899 Other long term (current) drug therapy; Z79.84 Long term (current) use of oral hypoglycemic drugs; Z90.49 Acquired absence of other specified parts of digestive tract
CPT/HCPCS: 71045; 80048; 81001; 84484; 85025; 87086; 87088; 93005; 96360; 99284; J7030; A4216

== ENCOUNTER → 2024-02-06 | Outpatient (CLI) | payer MEDICARE, SELFPAY ==
--- NOTE | 2024-02-06 10:23 | NM_ITS ---
CLINICAL: 78-year-old male with history of urinary bladder carcinoma. WHOLE BODY 99m Tc MDP RADIONUCLIDE BONE SCINTIGRAPHY COMPARISON: None available FINDINGS: Following the intravenous administration of 27.1 mCi of 99m Tc MDP, whole body bone images reveal: 1. Enhanced radiopharmaceutical concentration is defined in the glenohumeral, sternoclavicular compartments of both shoulders, the acromioclavicular compartment of the right shoulder, the visualized left wrist, right hip involving the inferior posterior acetabulum, the medial tibial compartment of the right knee, the dorsal medial and posterior compartment of the right ankle, heterogeneously defined in the thoracic and lumbar spine. 2. The remaining skeletal structures are scintigraphically unremarkable with normal-appearing renal images and urinary bladder activity identified. The visualized left knee arthroplasty appears scintigraphically unremarkable. Mild uptake noted in the left proximal tibial metaphysis laterally most likely represents periostitis. NM/Bone Scan Whole Body IMPRESSION: 1. The increase in radiopharmaceutical concentration identified in the bilateral shoulders, the left wrist, right hip, the right knee, the right ankle, the thoracic and lumbar spine is commensurate with degenerative arthritis. Plain film radiography may be of benefit in the thoracic and lumbar spine. 2. Facilitated uptake demonstrated in the left proximal tibial metaphysis laterally may be further investigated with plain film x-ray correlation if clinically indicated. 3. There is no definitive scintigraphic evidence of diffuse axial skeletal metastatic disease. Electronically Signed: Carlos Alberto Stephenson DO at 10:37 EDT ,
== END | disposition home or self-care (01) ==
LOC: NM 10:15
PROVIDERS: PCP Family Medicine; Referring Provider Internal Medicine Medical Oncology; Visit Provider Internal Medicine Medical Oncology
DX: C67.8 Malignant neoplasm of overlapping sites of bladder (principal)
CPT/HCPCS: 78306; A9503

== ENCOUNTER → 2024-03-04 | Outpatient (CLI) | payer MEDICARE, SELFPAY ==
--- NOTE | 2024-03-04 08:11 | CT_ITS ---
STUDY: CT CHEST, ABDOMEN T PELVIS WITH CONTRAST REASON FOR EXAM: Male, 78 years old. Follow up bladder cancer RADIATION DOSAGE (If Supplied By Facility): CTDIvol = ( 19.47 ) mGy, DLP = ( 1937.66 ) mGycm TECHNIQUE: Transaxial imaging was performed following intravenous administration of IV 100mL Isovue-370. Individualized dose optimization techniques were used for this CT. COMPARISON: Comparison is made with prior CT scan of the thorax dated September 24, 2023. FINDINGS: CHEST A right-sided joseph catheter is seen with the tip in the superior vena cava. There is a 1 cm nodule in the anterior aspect of the left upper lobe as seen on axial image #38. There is a 4.3 mm noncalcified nodule in the lateral aspect of the right middle lobe as seen on axial image #47. Slightly lobulated nodule in the peripheral lateral aspect of the right lower lobe measuring 1.1 cm. There is a 1.1 cm nodule in the anterior aspect of the left lower lobe abutting the left major fissure as seen on axial image #94. There is also evidence of scarring at the lung bases. There is no demonstrated pleural abnormality. Normal heart and pericardium. Mild coronary artery calcification. Normal mediastinum. Normal hilar regions. There is evidence of a intraluminal thrombus in the proximal portion of the left main pulmonary artery extending into branches of the left lower pulmonary artery as well as the left upper lobe pulmonary artery branches. Smaller filling defects are also seen in the right upper lobe pulmonary arterial branches and branches of the right lower lobe. There is atherosclerotic calcification of the aortic arch. There are degenerative changes of the thoracic spine. ABDOMEN Normal liver. The patient is status post cholecystectomy. Normal spleen. Normal pancreas. Normal bilateral adrenal glands. Normal right kidney. Normal left kidney. Incidental note is made of the retroaortic left renal vein. Normal visualized stomach. Normal small intestine. There are multiple colonic diverticula consistent with diverticulosis. The appendix is visualized and appears normal. There is diffuse atherosclerotic calcification of the abdominal aorta and its major visceral branches, without a demonstrated aneurysm. Normal inferior vena cava. Normal retroperitoneum. There is a small umbilical hernia containing fat. There are diffuse degenerative changes of the visualized lumbar spine. PELVIS Diffuse bladder wall thickening or pronounced in the right base of the bladder. Prostatic enlargement. Normal visualized small intestine. Normal visualized colon. There is no pelvic fluid. There is no pelvic lymphadenopathy or mass lesion. There is diffuse atherosclerotic calcification of the pelvic arteries. CT/CT Chest, Abd, Pel w/Contrast IMPRESSION: Bilateral pulmonary emboli more prominent in the left hemithorax. New bilateral pulmonary nodules in keeping with metastatic deposits. Irregular thickening of the bladder or prominent at right side of the base of the bladder. Sigmoid diverticulosis. Electronically Signed: Faraz Cope MD at 9:14 EDT ,
== END | disposition home or self-care (01) ==
PROVIDERS: PCP Family Medicine; Referring Provider Student in an Organized Health Care Education/Training Program; Visit Provider Student in an Organized Health Care Education/Training Program
DX: C67.8 Malignant neoplasm of overlapping sites of bladder (principal)
CPT/HCPCS: 71260; 74177; Q9967; A4216

== ENCOUNTER → 2024-03-27 | Outpatient (CLI) | payer MEDICARE, SELFPAY ==
[2024-03-27] VITALS (19 sets, daily range): BP systolic 95–172; BP diastolic 31–79; PULSE 55–59; RESP 11–26; TEMP 36.1; O2SAT 92–99; BMI 32.0
[2024-03-27 08:23] LABS: Platelet Count 289 K/mm3 (150-450)
[2024-03-27 09:00] LABS: International Normalized Ratio 1.1; Prothrombin Time (Protime)PT. 13.9 SECONDS (11.7-14.9)
[2024-03-27] MEDS: Midazolam 2 MG/2 ML Syringe IV (09:19)
[2024-03-27] MEDS: fentaNYL 100 MCG/2 ML Ampul IV (09:20)
[2024-03-27] MEDS: 0.9% Normal Saline (250mL Bag) 250 ML 15 ML IV (09:21)
--- NOTE | 2024-03-27 09:30 | RAD_ITS ---
STUDY: X-RAY CHEST REASON FOR EXAM: Male, 78 years old. Post lung biopsy -- Immediately post lung biopsy TECHNIQUE: AP inspiration and expiration views. COMPARISON: Comparison is made with prior study of November 28, 2023. FINDINGS: A right-sided portacatheter is seen with the tip at the junction of the superior vena cava and right atrium. EKG electrodes are seen. The patient is status post left lung biopsy. No evidence of pneumothorax. RAD/Chest Insp/Exp 2 View IMPRESSION: Status post left lung biopsy. No evidence of pneumothorax on the immediate post left lung biopsy radiographs. Electronically Signed: Faraz Cope MD at 10:30 EDT ,
[2024-03-27] MEDS: Lidocaine 2% (20 ml mdv) 20 ML Vial INFILT (09:46)
--- NOTE | 2024-03-27 09:50 | ASPIGT_PTH ---
PATIENT: JULIO MORALES LOC: CT U#:[id number] AGE/SX: 78/M ROOM: RE03/27/[address]: Dr. Danny Plummer DO : 1945 BED: DIS: 03/27/2024 SPEC #: [id number] RECD: 03/27/24 10:00 STATUS: USHA RASHAWN #: [id number] KWAME: 03/27/24 09:[address]: Danny Plummer DEPT: SURGICAL PATHOLOGY RECD BY: Emily Shea ENTERED: 03/27/24 10:32 SP TYPE: ASP RAD OTHR DR: MD Dr. Pura Baker DO Julia A Hanshaw, JACK PRIZER-C Tissues: Lung, NOS Procedures: FNA Specimen Adequacy Special Stain Group II Surgery Specimen Level IV Imprint (control) HEADER OPERATION: CT guided lung biopsy PRE-OP DIAGNOSIS: New lung nodules, history of bladder cancer TISSUE SUBMITTED: 20 gauge x 6 cores MICROSCOPIC DIAGNOSIS Left lung, CT guided core biopsy: Lung parenchymal tissue with interstitial fibrosis, chronic inflammation and focal non-necrotizing granulomatous inflammation. Negative for malignancy. See comment. SJ: 03/28/2024 COMMENT The specimen is evaluated at the time of biopsy by Dr. Rodas. Immediate Evaluation = Negative for malignant cells. Epithelioid cells consistent with granulomas are noted. Special stains for acid fast bacilli and fungi are negative for organisms; matched controls are appropriate. Correlation with clinical, radiologic findings and appropriate follow up are necessary. Case has been reviewed in consultation with Dr. León who concurs with the above diagnosis. IDC:AM MICROSCOPIC DESCRIPTION Slides are reviewed. GROSS DESCRIPTION Received in fixative is one container labeled with the patient's name and designated Left lung biopsy. The specimen consists of multiple irregular fragments of santillan soft tissue that in aggregate measure 0.5 x 0.1 x <0.1 cm. The specimen is totally submitted in one cassette. Three touch imprints are prepared at the time of core biopsy. 03/27/2024 TC:3 CPT:68715,64011, 88214 x2
--- NOTE | 2024-03-27 11:17 | PCM.OP.PRO ---
Procedure Report Date of Procedure: 03/27/24 Assessment & Plan Assessment/Plan (1) Lung nodule seen on imaging study: PLAN: PROCEDURE: CT GUIDED CORE NEEDLE LUNG BIOPSY ORDERING PROVIDER: Dr. Danny Plummer INDICATION: Male, 78 years old. New lung nodules. PROVIDER: MARCIANO Shen CONSENT: Written informed consent was obtained having explained the risks, benefits and alternatives in detail with the patient who accepted the risks and agreed to proceed. Laboratory review and clinical assessment was performed. PRE-PROCEDURE SEDATION ASSESSMENT: Current history and physical dictated by referring physician and reviewed. No clinical changes since date of exam. Patient has a Mallampati Score of Class 1 and ASA Class of 3. PROCEDURAL SEDATION PROTOCOL: The Drugs used were: 2 mg Versed, IV, and 50 mcg Fentanyl, IV. The sedation time was: 43 minutes, starting at 9:19 AM and terminated at 10:03 AM. The procedural sedation protocol was independently monitored by the department nurse. RADIATION DOSAGE (Supplied By Facility): CTDIvol = 18.6 mGy, DLP = 3137.28 mGycm Individualized dose optimization techniques were used for this CT. TECHNIQUE: The patient was placed initially in a supine position. A noncontrast CT was performed to localize the lesion in the left upper lobe. The accessibility of this lesion however was obstructed by a rib. The patient was repositioned left decubitus position. The left lower lobe lesion was localized and targeted. The skin surface was prepped with chlorhexidine and draped in a sterile fashion. 2% lidocaine was used for local anesthesia. An initial attempt to place the biopsy needle, due to the patient's breathing, the biopsy needle was inferior to the lesion and within the peritoneal fat. This needle was withdrawn and discarded. On a second attempt, using CT guidance, a 20-gauge coaxial biopsy device was advanced to the periphery of the lesion. A total of 6 core specimens were obtained. Specimens were microscopically reviewed by pathology in the CT suite and placed in formalin solution. BioSentry tract sealant system was deployed at the biopsy site, and the biopsy needle was removed. A sterile occlusive dressing was applied to the biopsy site. The patient tolerated the procedure well. An immediate chest xray was ordered, per protocol. A negative biopsy does not exclude malignancy. Further imaging or clinical followup based on patient condition and degree of clinical suspicion for malignancy. Suggest rebiopsy, if biopsy results do not match with clinical scenario. IMPRESSION: CT directed core needle biopsy of left lower lobe nodule using CT image guidance with image documentation as described. Pathology results are pending. Procedural Sedation protocol utilized with independent monitoring by the department nurse. Procedures Radiology Radiology CT Procedures: 89332 Biopsy Lung
--- NOTE | 2024-03-27 12:08 | RAD_ITS ---
STUDY: X-RAY CHEST REASON FOR EXAM: Male, 78 years old. 2 hr post lung biopsy -- 2 hours post lung biopsy TECHNIQUE: AP inspiration and expiration views. COMPARISON: Comparison is made with prior chest radiograph done earlier today. FINDINGS: No evidence of pneumothorax on the two-hour post left lung biopsy radiographs. RAD/Chest Insp/Exp 2 View IMPRESSION: No evidence of pneumothorax on the 2 hour post left lung biopsy radiographs. Electronically Signed: Faraz Cope MD at 11:54 EDT ,
[2024-03-27] MEDS: 0.9 % NaCl (Sterile) Posiflush 10 mL IV (12:39)
== END | disposition home or self-care (01) ==
LOC: CT 07:33
PROVIDERS: Nurse Practitioner Acute Care; PCP Family Medicine; Referring Provider Student in an Organized Health Care Education/Training Program; Visit Provider Student in an Organized Health Care Education/Training Program
DX: R91.8 Other nonspecific abnormal finding of lung field (principal); C67.8 Malignant neoplasm of overlapping sites of bladder; Z01.818 Encounter for other preprocedural examination
CPT/HCPCS: 32408; 71046; 77012; 85049; 85610; 85730; 88172; 88305; 88313; 99156; 99157; J7050; A4216; C2613

== ENCOUNTER → 2024-05-16 | Outpatient (CLI) | payer MEDICARE, SELFPAY ==
--- NOTE | 2024-05-16 07:45 | CT_ITS ---
STUDY: CT CHEST, ABDOMEN T PELVIS WITH CONTRAST REASON FOR EXAM: Male, 78 years old. 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 Multiplanar coronal and sagittal images were reformatted. Individualized dose optimization techniques were used for this CT. COMPARISON: Comparison is made with prior study March 04, 2024. FINDINGS: CHEST The previously seen left upper lobe nodule has decreased in size. It presently measures 9.1 mm. Minimally decreased in size of the previously seen noncalcified nodule along the lateral aspect of right middle lobe as seen on axial image #49. Stable 1 cm nodule in the anterior aspect of the left lower lobe abutting the left major fissure as seen on axial image #103. Stable scarring at the left lung base. Stable 7.6 mm noncalcified nodule in the superior medial aspect of the right upper lobe as seen on axial image #67. The previously seen nodule in the posterior lateral aspect of the right lower lobe as clear. There is no demonstrated pleural abnormality. Coronary artery calcification. Since prior and examination, there has been enlargement of the lymph node in the left precarinal region. Slightly enlarged left hilar lymph node. Normal hilar regions. Intraluminal filling defects are seen in the left main pulmonary artery extending into the left lower lobe interlobar artery. This is in keeping with pulmonary embolism. This has decreased in size as compared to prior study. Mild residual intraluminal filling defect seen in the proximal portion of the right upper lobe pulmonary artery branches. There is atherosclerotic calcification of the aortic arch. There are degenerative changes of the thoracic spine. ABDOMEN Normal liver. Normal gallbladder and extrahepatic biliary system. Normal spleen. Normal pancreas. Normal bilateral adrenal glands. Normal right kidney. Normal left kidney. There is a small hiatal hernia. Normal small intestine. There are multiple colonic diverticula consistent with diverticulosis. The appendix is visualized and appears normal. There is diffuse atherosclerotic calcification of the abdominal aorta, without a demonstrated aneurysm. Normal inferior vena cava. Normal retroperitoneum. There is a small umbilical hernia containing fat. There are diffuse degenerative changes of the visualized lumbar spine. PELVIS Diffuse bladder wall thickening with the heterogeneous appearance. Increased markings in the surrounding peritoneal fat. Inflammatory change in the ruled out. Prostatic enlargement. The prostate measures 4.4 cm x 5.9 cm. This causes indentation of the bladder base. There is no pelvic fluid. There is no pelvic lymphadenopathy or mass lesion. There is diffuse atherosclerotic calcification of the pelvic arteries. CT/CT Chest, Abd, Pel w/Contrast IMPRESSION: Persistent bilateral pulmonary emboli as described although they have decreased in size as compared to prior study. The previously seen lung nodules have decreased in size. Slight enlargement of the left hilar lymph node and mediastinal lymph nodes. Electronically Signed: Faraz Cope MD at 9:04 EDT ,
--- OUTSIDE RECORDS SUMMARY | 2024-05-16 07:45 | XMS RPT_ITS | CCD ---
Author Organization [facility] Care Team Providers Care Housekeeping/Laundry Name Role Phone AAMIR LEVIN DO Primary Care Physician [phone] BELGICA MARIANO, ANDERSON Nieto Attending Unavailable OLLIE MINOR, AAMIR Primary Care Unavailable BLESSING THOMAS MD Attending Unavailable OLLIE MINOR, AAMIR Primary Care Unavailable OLLIE MINOR, AAMIR Attending Unavailable OLLIE MINOR, AAMIR Primary Care Unavailable OLLIE DO, AAMIR Primary Care Unavailable FIELDING NATTY, JASMINA Vitale Attending Unavaila gosia LEVIN DO, AAMIR Primary Care Unavailable MARYSE HALEY MD Attending Unavailable OLLIE MINOR, AAMIR Primary Care Unavailable MARYSE HALEY MD Attending Unavailable FIELDING TESTER REGULATOR, JASMINA Vitale Attending Unavaila ble OLLIE MINOR, AAMIR Primary Care Unavailable OLLIE MINOR, AAMIR Attending Unavailable OLLIE MINOR, AAMIR Primary Care Unavailable OLLIE DO, AAMIR Primary Care Unavailable OLLIE MINOR, AAMIR Attending Unavailable EDMUNDO MARIANO, DR LINCOLN JONES Attending Obie LEVIN DO, AAMIR Primary Care Unavailable EDMUNDO MARIANO, DR LINCOLN JONES Referring Obie WYATT MD, DR LINCOLN JONES Attending Obie LEVIN DO, AAMIR Primary Care Unavailable EDMUNDO MARIANO, DR LINCOLN JONES Admitting Obie ALDRICH MD FACP, HELGA Duron Consulting Unavail BO Pop MD Attending Unavailable OLLIE MINOR, AAMIR Primary Care Unavailable SINA FELIZ DO Attending Unavailable OLLIE MINOR, AAMIR Primary Care Unavailable Allergies Allergy Classification Reported Allergen(s) Allergy Type Date of Onset Reaction(s) Facility (11 sources) metFORMIN; Translations: [metformin] Drug Allergy Abdominal pain [facility] Medications Current Medications Medication Drug Class(es) Dates Sig (Normalized) Sig (Original) acetaminophen 500 mg oral tablet (1 source) Start: 08-30-2022 End: 09-13-2022 take 1 tablet by mouth once daily acetaminophen 500 mg oral tablet Dose : 1,000 mg = 2 tab(s), Oral, TID, PRN as needed for pain, not to exceed 3000 mg/day, # 100 tab(s), 0 Refill(s), 09/13/22 8:02:00 EST, Pharmacy: [facility]/pharmacy #[id number], 172.7, cm, 08/29/22 12:22:00 EST, Height Start Date: 08/30/22 Stop Date: 09/13/22 Status: Ordered Allergy (Diphenhydramine HCl) 25 mg oral capsule (9 sources) Start: 08-14-2022 Allergy (Diphenhydramine HCl) 25 mg oral capsule Dose : 25 mg = 1 cap(s), Oral, qAM, 0 Refill(s) Start Date: 08/14/22 Status: Ordered Start: 08-14-2022 Allergy (Diphe nhydramine HCl) 25 mg oral capsule Dose : 25 mg = 1 cap(s), Oral, TID, PRN as needed for allergy symptoms, # 30 cap(s), 0 Refill(s) Start Date: 08/14/22 Status: Ordered amoxicillin 500 mg / clavulanate 125 mg oral tablet (1 source) Penicillin-class Antibacterial Start: 12-01-2023 End: 12-15-2023 take 1 tablet by mouth every eight hours amoxicillin-clavulanate 500 mg-125 mg oral tablet 1 tab(s), Oral, q8h, X 14 day(s), # 42 tab(s), 0 Refill(s), 12/15/23 4:30:00 PM EDT, 111.7 Start Date: 12/01/23 Stop Date: 12/15/23 Status: Ordered ciprofloxacin 500 mg oral tablet (2 sources) Quinolone Antimicrobial Start: 08-31-2023 End: 09-10-2023 Cipro 500 mg oral tablet Dose : 500 mg = 1 tab(s), Oral, q12h, X 10 day(s), # 20 tab(s), 0 Refill(s), 09/10/23 3:56:00 PM EST, Pharmacy: [facility]/pharmacy #[id number], 172.7, cm, 08/31/23 12:31:00 EST, Height, 110, kg, 08/31/23 12:31:00 EST, Dosing Weight Start Date: 08/31/23 Stop Date: 09/10/23 Status: Ordered docusate sodium 100 mg oral capsule (1 source) Start: 12-26-2023 Colace 100 mg oral capsule Dose : 100 mg = 1 cap(s), Oral, BID, # 60 cap(s), 5 Refill(s), Pharmacy: [facility]/pharmacy #[id number], Constipation, 172.9, cm, 12/26/23 9:57:00 EDT, Height, kg, 12/26/23 9:57:00 EDT, Dosing Weight Start Date: 12/26/23 Status: Ordered docusate sodium 50 mg / sennosides, residential 8.6 mg oral tablet (1 source) Start: 08-30-2022 End: 09-02-2022 take 1 tablet by mouth twice daily Senokot S 50 mg-8.6 mg oral tablet Dose = 2 tab(s), Oral, BID, Take until first bowel movement, then as needed, X 3 day(s), # 12 tab(s), 0 Refill(s), [id number], 172.7, cm, 08/29/22 12:22:00 EST, Height Start Date: 08/30/22 Stop Date: 09/02/22 Status: Ordered famotidine 20 mg oral tablet (3 sources) Histamine-2 Receptor Antagonist Start: 08-30-2022 Pepcid 20 mg oral tablet Dose : 20 mg = 1 tab(s), Oral, qDay, # 30 tab(s), 0 Refill(s), [id number], 172.7, cm, 08/29/22 12:22:00 EST, Height Start Date: 08/30/22 Status: Ordered fenofibrate 145 mg oral tablet (9 sources) Peroxisome Proliferator Receptor alpha Agonist Start: 09-05-2023 fenofibrate 145 mg oral tablet Dose : 145 mg = 1 tab(s), Oral, qDay, # 90 tab(s), 3 Refill(s), Pharmacy: [facility]/pharmacy #[id number], Hyperlipidemia Type 2 diabetes mellitus with hyperlipidemia, 174, cm, 09/05/23 8:54:00 EST, Height, kg, 09/05/23 8:54:00 EST, Dosing Weight Start Date: 09/05/23 Status: Ordered Start: 05-09-2023 fenofibrate 14 5 mg oral tablet Dose : 145 mg = 1 tab(s), Oral, qDay, 0 Refill(s), Hyperlipidemia Start Date: 08/31/23 Status: Ordered furosemide 20 mg oral tablet (1 source) Loop Diuretic Start: 01-28-2024 End: 01-31-2024 Lasix 20 mg oral tablet Dose : 20 mg = 1 tab(s), Oral, Daily, # 3 tab(s), 0 Refill(s) Start Date: 01/28/24 Stop Date: 01/31/24 Status: Ordered glipiZIDE er 2.5 mg 24 hr extended release oral tablet (16 sources) Sulfonylurea Start: 02-06-2023 glipiZIDE 2.5 mg oral tablet, extended release Dose : 2.5 mg = 1 tab(s), Oral, qDay, # 90 tab(s), 3 Refill(s), [id number], Diabetes mellitus, 174, cm, 02/06/23 9:02:00 EDT, Height, kg, 02/06/23 9:02:00 EDT, Dosing Weight Start Date: 02/06/23 Status: Ordered Start: 02-21-2022 glipiZIDE 2.5 mg oral tablet, extended release Dose : 2.5 mg = 1 tab(s), Oral, qDay, Decreased dose, # 90 tab(s), 3 Refill(s), Pharmacy: [facility]/pharmacy #[id number], Diabetes mellitus, 173, cm, 02/21/22 8:30:00 EDT, Height Start Date: 02/21/22 Status: Ordered Start: 02-22-2021 glipiZIDE 5 mg oral tablet Dose : 5 mg = 1 tab(s), Oral, qDay, TAKE 1 TABLET BY MOUTH EVERY DAY, # 90 tab(s), 3 Refill(s), Pharmacy: [facility]/pharmacy #[id number], Diabetes Diabetes mellitus, 174, cm, 02/22/21 8:15:00 EDT, Height, kg, 02/22/21 8:15:00 EDT, Dosing Weight Start Date: 02/22/21 Status: Ordered hydroCHLOROthiazide 25 mg oral tablet (17 sources) Thiazide Diuretic Start: 12-26-2023 hydroCHLOROthiazide 25 mg oral tablet Dose : 25 mg = 1 tab(s), Oral, qDay, TAKE 1 TABLET BY MOUTH EVERY DAY Please cancel glipizide prescription, # 90 tab(s), 3 Refill(s), Pharmacy: [facility]/pharmacy #[id number], Hypertension Hypertension associated with type 2 diabetes mellitus, 172.9, cm, 12/26/23 9:57:00 EDT, Height, kg, 12/26/23 9:57:00 EDT, Dosing Weight Start Date: 12/26/23 Status: Ordered Start: 02-06-2023 hydroCHLOROthi azide 25 mg oral tablet Dose : 25 mg = 1 tab(s), Oral, qDay, TAKE 1 TABLET BY MOUTH EVERY DAY, # 90 tab(s), 3 Refill(s), Pharmacy: [facility]/pharmacy #[id number], Hypertension Hypertension associated with type 2 diabetes mellitus, 174, cm, 02/06/23 9:02:00 EDT, Height, kg, 02/06/23 9:02:00 EDT, Dosing Weight Start Date: 02/06/23 Status: Ordered Start: 02-21-2022 hydroCHLOROthi azide 25 mg oral tablet Dose : 25 mg = 1 tab(s), Oral, qDay, TAKE 1 TABLET BY MOUTH EVERY DAY, # 90 tab(s), 3 Refill(s), Pharmacy: [facility]/pharmacy #[id number], Hypertension, 173, cm, 02/21/22 8:30:00 EDT, Height, kg, 02/21/22 8:30:00 EDT, Dosing Weight Start Date: 02/21/22 Status: Ordered Start: 02-22-2021 hydroCHLOROthi azide 25 mg oral tablet Dose : 25 mg = 1 tab(s), Oral, qDay, TAKE 1 TABLET BY MOUTH EVERY DAY, # 90 tab(s), 3 Refill(s), Pharmacy: [facility] #[id number], Hypertension, 174, cm, 02/22/21 8:15:00 EDT, Height, kg, 02/22/21 8:15:00 EDT, Dosing Weight Start Date: 02/22/21 Status: Ordered lisinopril 5 mg oral tablet (17 sources) Angiotensin Converting Enzyme Inhibitor Start: 12-26-2023 Zestril 5 mg oral tablet Dose : 5 mg = 1 tab(s), Oral, qPM, # 90 tab(s), 3 Refill(s), Pharmacy: [facility] #[id number], Hypertension associated with type 2 diabetes mellitus, 172.9, cm, 12/26/23 9:57:00 EDT, Height, kg, 12/26/23 9:57:00 EDT, Dosing Weight Start Date: 12/26/23 Status: Ordered Start: 02-06-2023 Zestril 5 mg o ral tablet Dose : 5 mg = 1 tab(s), Oral, qPM, # 90 tab(s), 1 Refill(s), [id number], Hypertension associated with type 2 diabetes mellitus, 172.5, cm, 05/09/23 8:14:00 EDT, Height, kg, 05/09/23 8:14:00 EDT, Dosing Weight Start Date: 08/09/23 Status: Ordered Start: 10-10-2022 Zestril 5 mg o ral tablet Dose : 5 mg = 1 tab(s), Oral, qPM, # 90 tab(s), 1 Refill(s), Pharmacy: [facility]acy #[id number], Hypertension Diabetes mellitus, 174.5, cm, 10/10/22 8:03:00 EDT, Height Start Date: 10/10/22 Status: Ordered Start: 08-29-2022 Zestril 5 mg o ral tablet Dose : 5 mg = 1 tab(s), Oral, qPM Start Date: 08/29/22 Status: Ordered Start: 02-21-2022 lisinopril 5 m g oral tablet Dose : 5 mg = 1 tab(s), Oral, qDay, TAKE ONE TABLET BY MOUTH DAILY, # 90 tab(s), 3 Refill(s), Pharmacy: [facility]acy #[id number], Hypertension, 173, cm, 02/21/22 8:30:00 EDT, Height, kg, 02/21/22 8:30:00 EDT, Dosing Weight Start Date: 02/21/22 Status: Ordered Start: 02-22-2021 lisinopril 5 m g oral tablet Dose : 5 mg = 1 tab(s), Oral, qDay, TAKE ONE TABLET BY MOUTH DAILY, # 90 tab(s), 3 Refill(s), Pharmacy: [facility]acy #[id number], Hypertension, 174, cm, 02/22/21 8:15:00 EDT, Height, kg, 02/22/21 8:15:00 EDT, Dosing Weight Start Date: 02/22/21 Status: Ordered meclizine hydrochloride 12.5 mg oral tablet (1 source) Antiemetic Start: 01-28-2024 End: 02-02-2024 meclizine 12.5 mg oral tablet Dose : 12.5 mg = 1 tab(s), Oral, TID, PRN as needed for dizziness, X 5 day(s), # 12 tab(s), 0 Refill(s), 02/02/24 3:04:00 PM EDT Start Date: 01/28/24 Stop Date: 02/02/24 Status: Ordered metoprolol tartrate 100 mg oral tablet (20 sources) beta-Adrenergic Bridger Start: 12-26-2023 Metoprolol Tartrate 100 mg oral tablet Dose : 100 mg = 1 tab(s), Oral, BID, TAKE 1 TABLET BY MOUTH TWICE A DAY, # 180 tab(s), 3 Refill(s), Pharmacy: [facility]/pharmacy #[id number], Hypertension, 172.9, cm, 12/26/23 9:57:00 EDT, Height, kg, 12/26/23 9:57:00 EDT, Dosing Weight Start Date: 12/26/23 Status: Ordered Start: 09-01-2023 End: 09-01-2023 metoprolol tartrate 50 mg or al tablet Start: 09/01/23 8:00:00 AM EST, Dose = 100 mg, = 2 tab(s), Oral, 0, 08/31/23 15:55:00 EST Start Date: 09/01/23 Stop Date: 09/01/23 Status: Completed Start: 08-31-2023 End: 08-31-2023 Metoprolol Tartrate 100 mg o ral tablet Start: 08/31/23 5:00:00 PM EST, Dose = 100 mg, = 1 tab(s), Oral, 08/31/23 15:55:00 EST Start Date: 08/31/23 Stop Date: 08/31/23 Status: Completed Start: 02-06-2023 Metoprolol Tar trate 100 mg oral tablet Dose : 100 mg = 1 tab(s), Oral, BID, TAKE 1 TABLET BY MOUTH TWICE A DAY, # 180 tab(s), 3 Refill(s), Pharmacy: [facility] #[id number], Hypertension, 174, cm, 02/06/23 9:02:00 EDT, Height, kg, 02/06/23 9:02:00 EDT, Dosing Weight Start Date: 02/06/23 Status: Ordered Start: 08-29-2022 End: 08-30-2022 metoprolol tartrate 50 mg or al tablet Start: 08/30/22 8:00:00 EST, Dose = 100 mg, = 2 tab(s), Oral, 0, 08/29/22 12:36:00 EST Start Date: 08/30/22 Stop Date: 08/30/22 Status: Completed Start: 02-21-2022 Metoprolol Tar trate 100 mg oral tablet Dose : 100 mg = 1 tab(s), Oral, BID, TAKE 1 TABLET BY MOUTH TWICE A DAY, # 180 tab(s), 3 Refill(s), Pharmacy: [facility] #[id number], Hypertension, 173, cm, 02/21/22 8:30:00 EDT, Height, kg, 02/21/22 8:30:00 EDT, Dosing Weight Start Date: 02/21/22 Status: Ordered Start: 02-22-2021 Metoprolol Tar trate 100 mg oral tablet Dose : 100 mg = 1 tab(s), Oral, BID, TAKE 1 TABLET BY MOUTH TWICE A DAY, # 180 tab(s), 3 Refill(s), Pharmacy: [facility] #[id number], Hypertension, 174, cm, 02/22/21 8:15:00 EDT, Height, kg, 02/22/21 8:15:00 EDT, Dosing Weight Start Date: 02/22/21 Status: Ordered Motrin Arthritis Pain (4 sources) Start: 08-08-2022 Sergio Ibanez is Pain See Instructions, 2 tabs daily, 0 Refill(s) Start Date: 08/08/22 Status: Ordered Multivitamin preparation (17 sources) Start: 08-31-2023 take 1 tablet by mouth once daily in the evening Multivitamin Dose = 1 tab(s), Oral, qPM, 0 Refill(s) Start Date: 08/31/23 Status: Ordered Start: 04-22-2019 take 1 tablet by simon th once daily in the evening Multivitamin Dose = 1 tab(s), Oral, qPM, 0 Refill(s) Start Date: 04/22/19 Status: Ordered Start: 04-22-2019 take 1 tablet by simon th once daily Multivitamin Dose = 1 tab(s), Oral, Daily, 0 Refill(s) Start Date: 04/22/19 Status: Ordered nitrofurantoin, macrocrystals 25 mg / nitrofurantoin, monohydrate 75 mg oral capsule (1 source) Nitrofuran Antibacterial Start: 05-09-2023 End: 05-19-2023 Macrobid 100 mg oral capsule Dose : 100 mg = 1 cap(s), Oral, BID, Take with food, X 10 day(s), # 20 cap(s), 0 Refill(s), 05/19/23 9:18:00 AM EDT, Pharmacy: [facility] #[id number], UTI (urinary tract infection) Hematuria, 172.5, cm, 05/09/23 8:14:00 EDT, Height, 114.4, kg, 05/09/23 8:14:00 EDT, Dosing Weight Start Date: 05/09/23 Stop Date: 05/19/23 Status: Ordered oxyCODONE hydrochloride 5 mg oral tablet (2 sources) Opioid Agonist Start: 08-31-2023 End: 09-07-2023 oxyCODONE 5 mg oral tablet ( IMMEDIATE release ) Dose : 10 mg = 2 tab(s), Oral, q6h, PRN for pain, X 7 day(s), # 20 tab(s), 0 Refill(s), 09/07/23 3:56:00 PM EST, Pharmacy: [facility] #[id number], Bladder cancer, 172.7, cm, 08/31/23 12:31:00 EST, Height, 110, kg, 08/31/23 12:31:00 EST, Dosing Weight Start Date: 08/31/23 Stop Date: 09/07/23 Status: Ordered Start: 08-30-2022 End: 09-06-2022 take 1-2 tablets by mouth every four hours as needed for pain oxyCODONE 5 mg oral tablet ( IMMEDIATE release ) See Instructions, PRN as needed for pain, 1-2 tab(s) Oral q4h, # 60 tab(s), 0 Refill(s), 09/06/22 8:04:00 EST, Pharmacy: [facility] #[id number], S/P total knee arthroplasty, 172.7, cm, 08/29/22 12:22:00 EST, Height, 113.6 Start Date: 08/30/22 Stop Date: 09/06/22 Status: Ordered simvastatin 10 mg oral tablet (16 sources) HMG-CoA Reductase Inhibitor Start: 12-26-2023 simvastatin 10 mg or al tablet Dose : 10 mg = 1 tab(s), Oral, qHS, TAKE 1 TABLET IN THE EVENING, # 90 tab(s), 3 Refill(s), Pharmacy: [facility] #[id number], Hyperlipidemia Type 2 diabetes mellitus with hyperlipidemia, 172.9, cm, 12/26/23 9:57:00 EDT, Height, kg, 12/26/23 9:57:00 EDT, Dosing Weight Start Date: 12/26/23 Status: Ordered Start: 02-06-2023 simvastatin 10 mg oral tablet Dose : 10 mg = 1 tab(s), Oral, qHS, TAKE 1 TABLET IN THE EVENING, # 90 tab(s), 3 Refill(s), Pharmacy: [facility] #[id number], Hyperlipidemia Type 2 diabetes mellitus with hyperlipidemia, 174, cm, 02/06/23 9:02:00 EDT, Height, kg, 02/06/23 9:02:00 EDT, Dosing Weight Start Date: 02/06/23 Status: Ordered Start: 02-21-2022 simvastatin 10 mg oral tablet Dose : 10 mg = 1 tab(s), Oral, qHS, TAKE 1 TABLET IN THE EVENING, # 90 tab(s), 3 Refill(s), Pharmacy: [facility] #[id number], Hyperlipidemia, 173, cm, 02/21/22 8:30:00 EDT, Height, kg, 02/21/22 8:30:00 EDT, Dosing Weight Start Date: 02/21/22 Status: Ordered Start: 02-22-2021 simvastatin 10 mg oral tablet Dose : 10 mg = 1 tab(s), Oral, qHS, TAKE 1 TABLET IN THE EVENING, # 90 tab(s), 3 Refill(s), Pharmacy: [facility] #[id number], Hyperlipidemia, 174, cm, 02/22/21 8:15:00 EDT, Height, kg, 02/22/21 8:15:00 EDT, Dosing Weight Start Date: 02/22/21 Status: Ordered Vitamin D3 10 mcg (400 intl units) oral tablet (16 sources) Start: 08-31-2023 Vitamin D3 10 mcg (400 intl units) oral tablet Dose : 10 mcg = 1 tab(s), Oral, qPM, 0 Refill(s) Start Date: 08/31/23 Status: Ordered Start: 08-08-2022 Vitamin D3 10 mcg (400 intl units) oral tablet Dose : 10 mcg = 1 tab(s), Oral, qPM, # 30 tab(s), 0 Refill(s) Start Date: 08/08/22 Status: Ordered Start: 08-08-2022 Vitamin D3 10 mcg (400 intl units) oral tablet Dose : 10 mcg = 1 tab(s), Oral, qDay, # 30 tab(s), 0 Refill(s) Start Date: 08/08/22 Status: Ordered Completed/Discontinued Medications Medication Drug Class(es) [...] prophylaxis., # 60 tab(s), 0 Refill(s), Pharmacy: [facility] #[id number], 172.7, cm, 08/29/22 12:22:00 EST, Height [...] meloxicam/Mobic, # 60 tab(s), 0 Refill(s), Pharmacy: [facility]acy #[id number], 172.7, cm, 08/29/22 12:22:00 EST, Height Start Date: 08/30/22 Stop Date: 09/29/22 Status: Ordered Problems Active Problems Problem Classification Problem Date Documented Da te Episodic/Chronic Cancer of bladder (2 sources) Malignant tumor of urinary bladder; Translations: [Malignant neoplasm of bladder, unspecified] Onset: 4 Chronic Cardiac dysrhythmias (1 source) Cardiac arrhythmia; Translations: [Cardiac arrhythmia, unspecified] Onset: 4 Chronic Chronic kidney disease (9 sources) Chronic kidney disease stage 3 02-06-2023 Chronic Chronic obstructive pulmonary disease and bronchiectasis (17 sources) Chronic obstructive lung disease; Translations: [Chronic obstructive pulmonary disease, unspecified] Onset: 3 10-21-2020 Chronic Conditions associated with dizziness or vertigo (1 source) Dizziness and giddiness; Translations: [Dizziness and giddiness] Onset: 4 Episodic Deficiency and other anemia (1 source) Anemia; Translations: [Anemia, unspecified] Onset: 4 Episodic Diabetes mellitus without complication (20 sources) Diabetes mellitus; Translations: [Type 2 diabetes mellitus without complication] Onset: 3 10-13-2019 Chronic Disorders of lipid metabolism (18 sources) Hyperlipidemia; Translations: [Hyperlipidemia, unspecified] Onset: 3 10-13-2019 Chronic Diverticulosis and diverticulitis (1 source) Diverticula of intestine; Translations: [Diverticulitis of intestine, part unspecified, without perforation or abscess without bleeding] Onset: 4 Chronic Esophageal disorders (16 sources) Gastroesophageal reflux disease without esophagitis 10-21-2020 Chronic Essential hypertension (20 sources) Hypertensive disorder; Translations: [Essential (primary) hypertension] Onset: 4 10-13-2019 Chronic Malaise and fatigue (1 source) Asthenia; Translations: [Weakness] Onset: 4 Episodic Mood disorders (16 sources) Mild depression 07-30-2020 Chronic Neoplasms of unspecified nature or uncertain behavior (3 sources) Neoplasm of bladder 09-04-2023 Episodic Osteoarthritis (1 source) Osteoarthritis; Translations: [Unspecified osteoarthritis, unspecified site] Onset: 3 Chronic Other connective tissue disease (1 source) Artificial knee joint present; Translations: [Presence of unspecified artificial knee joint] Onset: 3 Chronic Other diseases of kidney and ureters (1 source) Disorder of kidney and/or ureter; Translations: [Disorder of kidney and ureter, unspecified] Onset: 4 Episodic Other gastrointestinal disorders (1 source) Constipation 12-26-2023 Episodic Other lower respiratory disease (16 sources) Dyspnea on exertion 08-13-2020 Episodic Other lower respiratory disease (1 source) Dyspnea; Translations: [Shortness of breath] Onset: 4 Episodic Other non-traumatic joint disorders (15 sources) Knee pain 08-08-2022 Episodic Other nutritional; endocrine; and metabolic disorders (20 sources) Body mass index 30+ - obesity 04-25-2022 Chronic Other nutritional; endocrine; and metabolic disorders (15 sources) Obesity 08-08-2022 Chronic Other nutritional; endocrine; and metabolic disorders (8 sources) Morbid obesity 05-09-2023 Chronic Other screening for suspected conditions (not mental disorders or infectious disease) (15 sources) Viral screening status 04-25-2022 Episodic Peripheral and visceral atherosclerosis (15 sources) Peripheral vascular disease 10-21-2021 Chronic Residual codes; unclassified (15 sources) Needs influenza immunization 07-14-2021 Episodic Residual codes; unclassified (1 source) Edema; Translations: [Edema, unspecified] Onset: 4 Episodic Screening and history of mental health and substance abuse codes (16 sources) Ex-cigarette smoker 04-22-2021 Episodic Spondylosis; intervertebral disc disorders; other back problems (1 source) Low back pain 12-26-2023 Episodic Unclassified (20 sources) Patient encounter status 04-21-2021 Unclassified (15 sources) Influenza vaccination status 06-29-2022 Urinary tract infections (8 sources) Urinary tract infectious disease 05-09-2023 Episodic Past or Other Problems Problem Classification Problem Date Documented Da te Episodic/Chronic Genitourinary symptoms and ill-defined conditions (10 sources) Blood in urine; Translations: [Hematuria, unspecified] Onset: 05-09-2023 05-09-2023 Episodic Results Test Name Value Interpretation Reference Range Facility .Auto Diffon 04-03-2024 Basophil, Absolute 0.0 10 3/mcL Normal 0.0-0.2 [facility] Comment on above: Performed By: #### C BC, APTT, PRO, MDW, ADIFF, BMP, ANEU, GFR #### [address] [address] Basophils/100 WBC (Bld) 0.8 % Normal 0.0-2.5 [facility] Comment on above: Performed By: #### C BC, APTT, PRO, MDW, ADIFF, BMP, ANEU, GFR #### [address] [address] Eosinophil, Absolute 0.2 10 3/mcL Normal 0.0-0.4 [facility] Comment on above: Performed By: #### C BC, APTT, PRO, MDW, ADIFF, BMP, ANEU, GFR #### [address] [address] Eosinophils/100 WBC (Bld) 3.7 % Normal 0.0-7.0 [facility] Comment on above: Performed By: #### C BC, APTT, PRO, MDW, ADIFF, BMP, ANEU, GFR #### [address] [address] Lymphocyte, Absolute 1.4 10 3/mcL Normal 0.8-3.9 [facility] Comment on above: Performed By: #### C BC, APTT, PRO, MDW, ADIFF, BMP, ANEU, GFR #### [address] [address] Lymphocytes/100 WBC (Bld) 27.4 % Normal 10.0-50.0 [facility] Comment on above: Performed By: #### C BC, APTT, PRO, MDW, ADIFF, BMP, ANEU, GFR #### [address] [address] Monocyte, Absolute 0.6 10 3/mcL Normal 0.2-1.0 [facility] Comment on above: Performed By: #### C BC, APTT, PRO, MDW, ADIFF, BMP, ANEU, GFR #### [address] [address] Monocytes/100 WBC (Bld) 11.5 % Normal 1.7-13.0 [facility] Comment on above: Performed By: #### C BC, APTT, PRO, MDW, ADIFF, BMP, ANEU, GFR #### [address] [address] Neutrophils/100 WBC (Bld) 56.6 % Normal 37.0-80.0 [facility] Comment on above: Performed By: #### C BC, APTT, PRO, MDW, ADIFF, BMP, ANEU, GFR #### [address] [address] .GFRon 04-03-2024 GFR Non- 39 ml/min/1.73sqm Normal [facility] Comment on above: Result Comment: GFR Population mean for , Non- Americans Ages 20-29 = 116 mL/min/1.73 sq.m. Ages 30-39 = 107 mL/min/1.73 sq.m. Ages 40-49 = 99 mL/min/1.73 sq.m. Ages 50-59 = 93 mL/min/1.73 sq.m. Ages 60-69 = 85 mL/min/1.73 sq.m. Ages 70+ = 75 mL/min/1.73 sq.m. Chronic Kidney Disease: Less than 60 mL/min/1.73 square meters End Stage Renal Disease: Less than 15 mL/min/1.73 square meters Performed By: #### C BC, APTT, PRO, MDW, ADIFF, BMP, ANEU, GFR #### [address] [address] GFR 47 ml/min/1.73sqm Normal [facility] Comment on above: Result Comment: GFR Population mean for , Non- Americans Ages 20-29 = 116 mL/min/1.73 sq.m. Ages 30-39 = 107 mL/min/1.73 sq.m. Ages 40-49 = 99 mL/min/1.73 sq.m. Ages 50-59 = 93 mL/min/1.73 sq.m. Ages 60-69 = 85 mL/min/1.73 sq.m. Ages 70+ = 75 mL/min/1.73 sq.m. Chronic Kidney Disease: Less than 60 mL/min/1.73 square meters End Stage Renal Disease: Less than 15 mL/min/1.73 square meters Performed By: #### C BC, APTT, PRO, MDW, ADIFF, BMP, ANEU, GFR #### [address] [address] .MDWon 04-03-2024 Monocyte Distribution Width 18.61 Normal 0.00-20.00 [facility] Comment on above: Result Comment: For ED adult patients suspected of sepsis, MDW<=20.0 does not rule out sepsis or risk of sepsis Performed By: #### C BC, APTT, PRO, MDW, ADIFF, BMP, ANEU, GFR #### [address] [id number] .NEUABSon 04-03-2024 Neutrophil, Absolute 2.8 10 3/mcL Low 2.9-6.2 [facility] Comment on above: Performed By: #### C BC, APTT, PRO, MDW, ADIFF, BMP, ANEU, GFR #### [address] [address] .Urinalysis Microscopic (AO) on 04-03-2024 UA RBC LOADED Abnormal None Seen [facility] Comment on above: Performed By: #### U A, UAMICAO #### [address] [address] UA Squam Epithelial 0-5 Abnormal None Seen [facility] Comment on above: Performed By: #### U A, UAMICAO #### [address] [address] UA WBC 0-5 Abnormal None Seen [facility] Comment on above: Performed By: #### U A UAMICAO #### [address] [address] APTTon 04-03-2024 aPTT Coag (Bld) [Time] 39.3 s High 25.0-35.0 [facility] Comment on above: Result Comment: For Heparin anticoagulation therapy, the recommended therapeutic range is: 45.4-75.9 seconds. Patients on heparin therapy may have an extreme result. Performed By: #### C BC, APTT, PRO, MDW, ADIFF, BMP, ANEU, GFR #### [address] [address] BMPon 04-03-2024 BUN/Creatinine Ratio 16 ratio Normal 7-27 [facility] Comment on above: Performed By: #### C BC, APTT, PRO, MDW, ADIFF, BMP, ANEU, GFR #### [address] [address] Calcium [Mass/Vol] 9.0 mg/dL Normal 8.4-10.2 [facility] Comment on above: Performed By: #### C BC, APTT, PRO, MDW, ADIFF, BMP, ANEU, GFR #### [address] [address] Chloride [Moles/Vol] 101 mmol/L Normal 98-107 [facility] Comment on above: Performed By: #### C BC, APTT, PRO, MDW, ADIFF, BMP, ANEU, GFR #### [address] [address] CO2 [Moles/Vol] 25 mmol/L Normal 23-31 [facility] Comment on above: Performed By: #### C BC, APTT, PRO, MDW, ADIFF, BMP, ANEU, GFR #### [address] [address] Creatinine [Mass/Vol] 1.70 mg/dL High 0.70-1.30 [facility] Comment on above: Result Comment: Test ing performed on Simple [employer] Dimension EXL analyzer using a modified kinetic Jamari technique. Performed By: #### C BC, APTT, PRO, MDW, ADIFF, BMP, ANEU, GFR #### [address] [address] Electrolyte Balance 10.0 mEq/L Normal 4.0-15.0 [facility] Comment on above: Performed By: #### C BC, APTT, PRO, MDW, ADIFF, BMP, ANEU, GFR #### [address] [address] Glucose [Mass/Vol] 237 mg/dL High 83-110 [facility] Comment on above: Performed By: #### C BC, APTT, PRO, MDW, ADIFF, BMP, ANEU, GFR #### [address] [address] Potassium [Moles/Vol] 3.3 mmol/L Low 3.5-5.1 [facility] Comment on above: Performed By: #### C BC, APTT, PRO, MDW, ADIFF, BMP, ANEU, GFR #### [address] [address] Sodium [Moles/Vol] 136 mmol/L Normal 136-145 [facility] Comment on above: Performed By: #### C BC, APTT, PRO, MDW, ADIFF, BMP, ANEU, GFR #### [address] [address] Urea nitrogen [Mass/Vol] 27 mg/dL High 7-18 [facility] Comment on above: Performed By: #### C BC, APTT, PRO, MDW, ADIFF, BMP, ANEU, GFR #### [place] [id number] CBCon 04-03-2024 Erythrocyte distribution width (RBC) [Ratio] 13.3 % Normal 11.5-14.5 [facility] Comment on above: Performed By: #### C BC, APTT, PRO, MDW, ADIFF, BMP, ANEU, GFR #### [place] [address] Hematocrit (Bld) [Volume fraction] 36.8 % Low 42.0-52.0 [facility] Comment on above: Performed By: #### C BC, APTT, PRO, MDW, ADIFF, BMP, ANEU, GFR #### [place] [address] Hgb 12.6 G/dL Low 14.0-18.0 [facility] Comment on above: Performed By: #### C BC, APTT, PRO, MDW, ADIFF, BMP, ANEU, GFR #### [place] [address] MCH (RBC) [Entitic mass] 31.2 pg Normal 27.0-31.2 [facility] Comment on above: Performed By: #### C BC, APTT, PRO, MDW, ADIFF, BMP, ANEU, GFR #### [place] [address] MCHC 34.3 G/dL Normal 31.8-35.4 [facility] Comment on above: Performed By: #### C BC, APTT, PRO, MDW, ADIFF, BMP, ANEU, GFR #### [place] [address] MCV (RBC) [Entitic vol] 90.8 fL Normal 80.0-94.0 [facility] Comment on above: Performed By: #### C BC, APTT, PRO, MDW, ADIFF, BMP, ANEU, GFR #### [address] [place] [address] Platelet 276 10 3/mcL Normal 130-400 [facility] Comment on above: Performed By: #### C BC, APTT, PRO, MDW, ADIFF, BMP, ANEU, GFR #### [address] [address] Platelet mean volume (Bld) [Entitic vol] 7.2 fL Low 7.4-10.4 [facility] Comment on above: Performed By: #### C BC, APTT, PRO, MDW, ADIFF, BMP, ANEU, GFR #### [place] [address] RBC 4.05 10 6/mcL Normal 4.04-6.13 [facility] Comment on above: Performed By: #### C BC, APTT, PRO, MDW, ADIFF, BMP, ANEU, GFR #### [place] [id number] WBC 5.0 10 3/mcL Normal 4.6-10.8 [facility] Comment on above: Performed By: #### C BC, APTT, PRO, MDW, ADIFF, BMP, ANEU, GFR #### [address] [address] [address] ABD/PELVIS W/ IV CONTRAST ONLYon 04-03-2024 CT ABD/PELVIS W/ IV CONTRAST ONLY ORIGINAL EXAMINATION: CT OF THE ABDOMEN AND PELVIS WITH CONTRAST04/03/2024 10:10 pm TECHNIQUE: CT of the abdomen and pelvis was performed with the administration of intravenous contrast. Multiplanar reformatted images are provided for review. Automated exposure control, iterative reconstruction, and/or weight based adjustment of the mA/kV was utilized to reduce the radiation dose to as low as reasonably achievable. COMPARISON: CT abdomen pelvis 12/01/2023, 08/08/2023, and 03/26/2021. HISTORY: ORDERING SYSTEM PROVIDED HISTORY: Reason for Exam: Hx of bladder CA pain, hematuria, FINDINGS: There is a 1.3 cm left lower lobe pulmonary nodule abutting the major fissure, increased in size from 6 mm on the prior study. 4 mm irregular density seen within the right lower lobe which may represent increase in size from prior small 2 mm nodule. Scattered pleural and parenchymal scarring in the visualized lungs. The liver, spleen, adrenal glands, and pancreas are within normal limits. The gallbladder is surgically absent. Symmetric nephrograms. Subcentimeter right renal cortical hypodensity too small to characterize but may represent a cyst. No hydronephrosis. Prominent and tortuous appearing ureters with mild periureteric stranding are similar to previous exam. Eccentric posterior right urinary bladder wall thickening appears similar to exam 12/01/2023 and improved from 08/08/2023. Punctate calcification seen at the anterior right urinary bladder. Prostatomegaly. The large and small bowel demonstrate no obstruction. The appendix is normal. Colonic diverticulosis without evidence of acute diverticulitis. No free intraperitoneal fluid or gas is identified. The aorta is normal in caliber. There is moderate atherosclerosis of the larger arteries. No abdominopelvic lymphadenopathy. There is no acute osseous abnormality. There is severe degenerative changes present throughout the spine, greatest inferiorly. The vertebral body heights are similar to prior exam. There is minimal retrolisthesis of L1 on L2 and L2 on L3. There is degenerative grade 1 anterolisthesis of L5 on S1. Sclerotic lesion seen at the left iliac bone is similar to previous exams. No acute soft tissue abnormality. Tiny fat containing umbilical hernia. There are 2 soft tissue nodular densities seen within the left lateral subcutaneous soft tissues at the level of the hip, the largest measures 1.5 cm in longest axial dimension. These may represent epidermoid inclusion cysts and/or injection granulomas. IMPRESSION: Interval increase in size of a left lower lobe pulmonary nodule which measures up to 1.3 cm from prior 6 mm. Given doubling in size over the course of 4 months, this lesion is highly suspicious for metastatic disease given the patient's history of cancer. Additional 8 x 3 mm right lower lobe spiculated density may represent increase in size of previous micronodule, also concerning for malignancy. Eccentric posterior right urinary bladder wall thickening compatible with patient's history of bladder cancer and is similar to exam 12/01/2023. Surrounding inflammatory changes are appreciated which may represent cystitis versus sequela of prior radiotherapy. Diverticulosis without evidence of acute diverticulitis. REPORT CORRECTION CORRECTION: Interval short-term doubling of lung base pulmonary nodularity highly suspicious for metastatic disease. Query cystitis. I have personally reviewed the images of this examination and edited the preliminary report. Interpreted by: Jay Jackson Preliminary Report By: Nathanael Horan Electronically signed By Jay Jackson Dictated Date: 04/03/2024 10:14:08 PM Prelim Date: 04/03/2024 10:43:29 PM Sign Date: 04/03/2024 11:01:50 PM Ordering Provider: SINA FELIZ Normal [facility] PROon 04-03-2024 PT Coag (PPP) [Time] 15.7 s High 9.0-14.4 [facility] Comment on above: Performed By: #### C BC, APTT, PRO, MDW, ADIFF, BMP, ANEU, GFR #### [address] [address] PT International Ratio 1.4 Normal [facility] Comment on above: Result Comment: [employer] (CHEST, 1992, 102:312S-25S) recommended therapeutic range for oral anticoagulant therapy is: LOW RISK: Prophylaxis of venous thrombosis INR: 2.0-3.0 Treatment of pulmonary embolism 2.0-3.0 Prevention of systemic embolism 2.0-3.0 HIGH RISK: Mechanical prosthetic valves 2.5-3.5 Performed By: #### C BC, APTT, PRO, MDW, ADIFF, BMP, ANEU, GFR #### [address] [address] UAon 04-03-2024 Color (U) Red Abnormal [facility] Comment on above: Performed By: #### U A, UAMICAO #### [address] [address] Glucose (U) [Mass/Vol] 100 mg/dL Abnormal Negative [facility] Comment on above: Performed By: #### U A, UAMICAO #### [address] [address] Ketones Ql (U) Negative Normal Negative [facility] Comment on above: Performed By: #### U A, UAMICAO #### [address] [address] UA Appear Cloudy Abnormal Clear [facility] Comment on above: Performed By: #### U A, UAMICAO #### [address] [address] UA Blood Large Abnormal Negative [facility] Comment on above: Performed By: #### U A, UAMICAO #### [place] [address] UA Leuk Est Negative Normal Negative [facility] Comment on above: Performed By: #### U A, UAMICAO #### [place] [address] UA Nitrite Negative Normal Negative [facility] Comment on above: Performed By: #### U A, UAMICAO #### [place] [address] UA pH 5.5 Normal 5.0 - 8.0 [facility] Comment on above: Performed By: #### U A, UAMICAO #### [address] [address] UA Protein 100 mg/dL Abnormal Negative [facility] Comment on above: Performed By: #### U A, UAMICAO #### [address] [address] UA Spec Grav >=1.030 Abnormal 1.015-1.02 5 [facility] Comment on above: Performed By: #### U A, UAMICAO #### [address] [address] UA Specimen Type Clean Catch Normal [facility] Comment on above: Performed By: #### U A, UAMICAO #### [place] [address] UA Urobilinogen 1.0 E.U./dL Normal 0.2-1.0 [facility] Comment on above: Performed By: #### U A, UAMICAO #### [place] [address] [place], [place] [address] Urobilinogen (U) [Mass/Vol] Negative Normal Negative [facility] Comment on above: Performed By: #### CRISTIAN Grey #### [place] [address] [place], [place] [address] .Auto Diffon 01-28-2024 Basophil, Absolute 0.1 10 3/mcL Normal 0.0-0.2 [facility] ([place]) Comment on above: Performed By: #### M DW, ADIFF, GFR, ANEU, BMP, CBC, PRO, TROPHS ####[facility] [place] [address] Basophils/100 WBC (Bld) 0.9 % Normal 0.0-2.5 [facility] ([place]) Comment on above: Performed By: #### M DW, ADIFF, GFR, ANEU, BMP, CBC, PRO, TROPHS ####[address] [address] Eosinophil, Absolute 0.2 10 3/mcL Normal 0.0-0.4 [facility] ([place]) Comment on above: Performed By: #### M DW, ADIFF, GFR, ANEU, BMP, CBC, PRO, TROPHS ####[address] [address] Eosinophils/100 WBC (Bld) 3.4 % Normal 0.0-7.0 [facility] ([place]) Comment on above: Performed By: #### M DW, ADIFF, GFR, ANEU, BMP, CBC, PRO, TROPHS ####[facility] [place] [address] Lymphocyte, Absolute 1.6 10 3/mcL Normal 0.8-3.9 [facility] ([place]) Comment on above: Performed By: #### M DW, ADIFF, GFR, ANEU, BMP, CBC, PRO, TROPHS ####Gust[place] [address] [address] Lymphocytes/100 WBC (Bld) 23.3 % Normal 10.0-50.0 [facility] ([place]) Comment on above: Performed By: #### M DW, ADIFF, GFR, ANEU, BMP, CBC, PRO, TROPHS ####[address] [place], [place] [address] Monocyte, Absolute 0.7 10 3/mcL Normal 0.2-1.0 [facility] ([place]) Comment on above: Performed By: #### M DW, ADIFF, GFR, ANEU, BMP, CBC, PRO, TROPHS ####[address] [place], [place] [address] Monocytes/100 WBC (Bld) 9.5 % Normal 1.7-13.0 [facility] ([place]) Comment on above: Performed By: #### M DW, ADIFF, GFR, ANEU, BMP, CBC, PRO, TROPHS ####[address] [place], [place] [address] Neutrophils/100 WBC (Bld) 62.9 % Normal 37.0-80.0 [facility] ([place]) Comment on above: Performed By: #### M DW, ADIFF, GFR, ANEU, BMP, CBC, PRO, TROPHS ####[address] [place], [place] [address] .GFRon 01-28-2024 GFR 54 ml/min/1.73sqm Normal [facility] ([place]) Comment on above: Result Comment: GFR Population mean for , Non- Americans Ages 20-29 = 116 mL/min/1.73 sq.m. Ages 30-39 = 107 mL/min/1.73 sq.m. Ages 40-49 = 99 mL/min/1.73 sq.m. Ages 50-59 = 93 mL/min/1.73 sq.m. Ages 60-69 = 85 mL/min/1.73 sq.m. Ages 70+ = 75 mL/min/1.73 sq.m. Chronic Kidney Disease: Less than 60 mL/min/1.73 square meters End Stage Renal Disease: Less than 15 mL/min/1.73 square meters Performed By: #### U A, UAMICAO #### [place] [address] [place], [place] [address] GFR Non- 45 ml/min/1.73sqm Normal [facility] ([place]) Comment on above: Result Comment: GFR Population mean for , Non- Americans Ages 20-29 = 116 mL/min/1.73 sq.m. Ages 30-39 = 107 mL/min/1.73 sq.m. Ages 40-49 = 99 mL/min/1.73 sq.m. Ages 50-59 = 93 mL/min/1.73 sq.m. Ages 60-69 = 85 mL/min/1.73 sq.m. Ages 70+ = 75 mL/min/1.73 sq.m. Chronic Kidney Disease: Less than 60 mL/min/1.73 square meters End Stage Renal Disease: Less than 15 mL/min/1.73 square meters Performed By: #### CRISTIAN Grey #### [address] [address] .MDWon 01-28-2024 Monocyte Distribution Width 17.97 Normal 0.00-20.00 [facility] ([place]) Comment on above: Result Comment: For ED adult patients suspected of sepsis, MDW<=20.0 does not rule out sepsis or risk of sepsis Performed By: #### M DW, ADIFF, GFR, ANEU, BMP, CBC, PRO, TROPHS ####[address] [place], [place] [address] .NEUABSon 01-28-2024 Neutrophil, Absolute 4.3 10 3/mcL Normal 2.9-6.2 [facility] ([place]) Comment on above: Performed By: #### M DW, ADIFF, GFR, ANEU, BMP, CBC, PRO, TROPHS ####[address] [place], [place] [address] APTTon 01-28-2024 aPTT Coag (Bld) [Time] 33.2 s Normal 25.0-35.0 [facility] ([place]) Comment on above: Result Comment: For Heparin anticoagulation therapy, the recommended therapeutic range is: 45.4-75.9 seconds. Patients on heparin therapy may have an extreme result. Performed By: #### CRISTIAN Grey #### Gust[place] [address] [address] Heparin dose (APTT) Unknown Normal [facility] ([place]) Comment on above: Performed By: #### U Myke UAMICAO #### [place] [address] [place], [place] [address] BMPon 01-28-2024 BUN/Creatinine Ratio 22 ratio Normal 7-27 [facility] ([place]) Comment on above: Performed By: #### M DW, ADIFF, GFR, ANEU, BMP, CBC, PRO, TROPHS ####[address] [place], [place] [address] Calcium [Mass/Vol] 9.3 mg/dL Normal 8.4-10.2 [facility] ([place]) Comment on above: Performed By: #### M DW, ADIFF, GFR, ANEU, BMP, CBC, PRO, TROPHS ####[address] [place], [place] [address] Chloride [Moles/Vol] 101 mmol/L Normal 98-107 [facility] ([place]) Comment on above: Performed By: #### M DW, ADIFF, GFR, ANEU, BMP, CBC, PRO, TROPHS ####G[address] [address] CO2 [Moles/Vol] 26 mmol/L Normal 23-31 [facility] ([place]) Comment on above: Performed By: #### M DW, ADIFF, GFR, ANEU, BMP, CBC, PRO, TROPHS ####[place] [address] Creatinine [Mass/Vol] 1.52 mg/dL High 0.70-1.30 [facility] ([place]) Comment on above: Performed By: #### M DW, ADIFF, GFR, ANEU, BMP, CBC, PRO, TROPHS ####[address] [place], [place] [address] Electrolyte Balance 9.0 mEq/L Normal 4.0-15.0 [facility] ([place]) Comment on above: Performed By: #### M DW, ADIFF, GFR, ANEU, BMP, CBC, PRO, TROPHS ####G[address] [address] Glucose [Mass/Vol] 139 mg/dL High 83-110 [facility] ([place]) Comment on above: Performed By: #### M DW, ADIFF, GFR, ANEU, BMP, CBC, PRO, TROPHS ####[address] [place], [place] [address] Potassium [Moles/Vol] 4.3 mmol/L Normal 3.5-5.1 [facility] ([place]) Comment on above: Performed By: #### M DW, ADIFF, GFR, ANEU, BMP, CBC, PRO, TROPHS ####[address] [place], [place] [address] Sodium [Moles/Vol] 136 mmol/L Normal 136-145 [facility] ([place]) Comment on above: Performed By: #### M DW, ADIFF, GFR, ANEU, BMP, CBC, PRO, TROPHS ####[address] [place], [place] [address] Urea nitrogen [Mass/Vol] 33 mg/dL High 7-18 [facility] ([place]) Comment on above: Performed By: #### M DW, ADIFF, GFR, ANEU, BMP, CBC, PRO, TROPHS ####[address] [place], [place] [address] CBCon 01-28-2024 Erythrocyte distribution width (RBC) [Ratio] 14.4 % Normal 11.5-14.5 [facility] ([place]) Comment on above: Performed By: #### M DW, ADIFF, GFR, ANEU, BMP, CBC, PRO, TROPHS ####[address] [place], [place] [address] Hematocrit (Bld) [Volume fraction] 35.0 % Low 42.0-52.0 [facility] ([place]) Comment on above: Performed By: #### M DW, ADIFF, GFR, ANEU, BMP, CBC, PRO, TROPHS ####[address] [place], [place] [address] Hgb 11.8 G/dL Low 14.0-18.0 [facility] ([place]) Comment on above: Performed By: #### M DW, ADIFF, GFR, ANEU, BMP, CBC, PRO, TROPHS ####[address] [place], [place] [address] MCH (RBC) [Entitic mass] 31.8 pg High 27.0-31.2 [facility] ([place]) Comment on above: Performed By: #### M DW, ADIFF, GFR, ANEU, BMP, CBC, PRO, TROPHS ####[address] [place], [place] [address] MCHC 33.8 G/dL Normal 31.8-35.4 [facility] ([place]) Comment on above: Performed By: #### M DW, ADIFF, GFR, ANEU, BMP, CBC, PRO, TROPHS ####[address] [place], [place] [address] MCV (RBC) [Entitic vol] 94.1 fL High 80.0-94.0 [facility] ([place]) Comment on above: Performed By: #### M DW, ADIFF, GFR, ANEU, BMP, CBC, PRO, TROPHS ####[address] [place], [place] [address] Platelet 314 10 3/mcL Normal 130-400 [facility] ([place]) Comment on above: Performed By: #### M DW, ADIFF, GFR, ANEU, BMP, CBC, PRO, TROPHS ####[address] [place], [place] [address] Platelet mean volume (Bld) [Entitic vol] 7.3 fL Low 7.4-10.4 [facility] ([place]) Comment on above: Performed By: #### M DW, ADIFF, GFR, ANEU, BMP, CBC, PRO, TROPHS ####[address] [place], [place] [address] RBC 3.72 10 6/mcL Low 4.04-6.13 [facility] ([place]) Comment on above: Performed By: #### M DW, ADIFF, GFR, ANEU, BMP, CBC, PRO, TROPHS ####[place] [place], [place] [address] WBC 6.9 10 3/mcL Normal 4.6-10.8 [facility] ([place]) Comment on above: Performed By: #### M DW, ADIFF, GFR, ANEU, BMP, CBC, PRO, TROPHS ####G[address] [place], [place] [address] CT ANGIOGRAPHY HEAD W/ CONTR Mercedes 01-28-2024 CT ANGIOGRAPHY HEAD W/ CONTRAST ORIGINAL HISTORY: Stroke COMPARISON: No TECHNIQUE: Routine noncontrast head CT, with sagittal and coronal reconstructions. This exam was performed according to our departmental dose optimization program, and includes the following measures where applicable: automated exposure control, adjustment of the mAs and/or kVp according to patient size and/or exam, and an iterative reconstruction algorithm. FINDINGS: The study is of fair technical quality. Of note, partial images of the neck are included but not evaluated here. There are atherosclerotic changes to the cavernous internal carotid arteries, possibly with mild stenosis. The internal carotid arteries and their major branches are otherwise patent without occlusion or aneurysm. The major vessels of the posterior circulation are unremarkable in appearance. There is a circulatory pattern on the left. IMPRESSION: No large vessel occlusion. Preliminary report: No large vessel occlusion Interpreted by: Chapo Carrera MD Preliminary Report By: Chapo Carrera MD Electronically signed By Chapo Carrera MD Dictated Date: 01/28/2024 2:42:32 PM Prelim Date: 01/28/2024 2:45:47 PM Sign Date: 01/28/2024 4:31:30 PM Ordering Provider: ANGELA Pfeiffer [facility]) CT ANGIOGRAPHY NECK W/CONTRA STon 01-28-2024 CT ANGIOGRAPHY NECK W/CONTRAST ORIGINAL HISTORY: Mental status changes. COMPARISON: No TECHNIQUE: CT angiogram of the neck following uncomplicated administration of intravenous contrast, with 3-D post acquisition processing and with results displayed in source images, rotational reconstructions centered on the carotid bifurcations and in maximum intensity projection. Percent stenosis is calculated using NASCET criteria. This exam was performed according to our departmental dose optimization program, and includes the following measures where applicable: automated exposure control, adjustment of the mAs and/or kVp according to patient size and/or exam, and an iterative reconstruction algorithm. FINDINGS: There are atherosclerotic changes to the right distal common and proximal internal carotid artery, mainly calcified plaque. There is no hemodynamically significant stenosis of the right internal carotid artery. There are atherosclerotic changes to the left distal common and proximal internal carotid artery, a combination of calcified and noncalcified plaque. There is no hemodynamically significant stenosis of the left internal carotid artery. The left vertebral artery is dominant. Both vertebral arteries are visualized from origin through skull base. IMPRESSION: No hemodynamically significant stenosis of either internal carotid artery. Interpreted by: Chapo Carrera MD Preliminary Report By: Chapo Carrera MD Electronically signed By Chapo Carrera MD Dictated Date: 01/28/2024 2:39:00 PM Prelim Date: 01/28/2024 2:41:51 PM Sign Date: 01/28/2024 2:41:51 PM Ordering Provider: ANGELA MORALES [facility] ([place]) CT HEAD OR BRAIN W/O CONTRAS Ton 01-28-2024 CT HEAD OR BRAIN W/O CONTRAST ORIGINAL HISTORY: Change in mental status COMPARISON: 01 Dec 2023 TECHNIQUE: Routine noncontrast head CT, with sagittal and coronal reconstructions. This exam was performed according to our departmental dose optimization program, and includes the following measures where applicable: automated exposure control, adjustment of the mAs and/or kVp according to patient size and/or exam, and an iterative reconstruction algorithm. FINDINGS: The ventricles and sulci are mildly enlarged. There are no abnormal intra or extra-axial fluid collections. There is mild irregular decreased attenuation in the cerebral white matter. Ricci-white matter differentiation is maintained. The calvaria and the bones of the base of the skull are intact. IMPRESSION: Mild volume loss and small vessel ischemic disease. Interpreted by: Chapo Carrera MD Preliminary Report By: Chapo Carrera MD Electronically signed By Chapo Carrera MD Dictated Date: 01/28/2024 2:36:53 PM Prelim Date: 01/28/2024 2:38:50 PM Sign Date: 01/28/2024 2:38:50 PM Ordering Provider: ANGELA MORALES [facility] ([place]) LABORATORYOrdered By: David arellano on 01-28-2024 aPTT Coag (PPP) [Time] 33.2 s Normal 25.0 - 35.0 seconds AO [facility] Comment on above: Interpretive Data: F or Heparin anticoagulation therapy, the recommended therapeutic range is: 45.4-75.9 seconds. Patients on heparin therapy may have an extreme result. Heparin dose (APTT) Unknown (01/28/24 1:35 PM) Normal AO Coagulation S INR Coag (PPP) [Relative time] 1.0 {INR} Invalid Interpretation Code AO [facility] Comment on above: Interpretive Data: Fabby pompa [employer] (CHEST, 1991, 102:[id number]) recommended therapeutic range for oral anticoagulant therapy is: LOW RISK: Prophylaxis of venous thrombosis INR: 2.0-3.0 Treatment of pulmonary embolism 2.0-3.0 Prevention of systemic embolism 2.0-3.0 HIGH RISK: Mechanical prosthetic valves 2.5-3.5 PT Coag (PPP) [Time] 11.9 s Normal 9.0 - 14.4 seconds AO [facility] LABORATORYOrdered By: SYSTEM SYSTEM on 01-28-2024 Basophil, Absolute 0.1 103/mcL Normal 0.0 - 0.2 10^3/mcL [facility] Basophils/100 WBC (Bld) 0.9 % Normal 0.0 - 2.5 % AO [facility] Calcium [Mass/Vol] 9.3 mg/dL Normal 8.4 - 10. 2 mg/dL AO AD[facility] SS Chloride [Moles/Vol] 101 mmol/L Normal 98 - 107 mmol/L AO ADM SS CO2 [Moles/Vol] 26 mmol/L Normal 23 - 31 mmol/L AO ADM SS Creatinine [Mass/Vol] 1.52 mg/dL High 0.70 - 1.30 mg/dL AO ADM SS Electrolyte Balance 9.0 mEq/L Normal 4.0 - 15.0 mEq/L AO ADM SS Eosinophil, Absolute 0.2 103/mcL Normal 0.0 - 0.4 10^3/mcL AO Workflow SS Eosinophils/100 WBC (Bld) 3.4 % Normal 0.0 - 7.0 % AO Workflow SS Erythrocyte distribution width (RBC) [Ratio] 14.4 % Normal 11.5 - 14.5 % AO Workflow SS GFR/1.73 sq M.predicted among blacks MDRD (S/P/Bld) [Vol rate/Area] 54 ml/min/1.73sqm Invalid Interpretation Code AO Chemistry S Comment on above: Interpretive Data: GFR Population mean for , Non- Americans Ages 20-29 = 116 mL/min/1.73 sq.m. Ages 30-39 = 107 mL/min/1.73 sq.m. Ages 40-49 = 99 mL/min/1.73 sq.m. Ages 50-59 = 93 mL/min/1.73 sq.m. Ages 60-69 = 85 mL/min/1.73 sq.m. Ages 70+ = 75 mL/min/1.73 sq.m. Chronic Kidney Disease: Less than 60 mL/min/1.73 square meters End Stage Renal Disease: Less than 15 mL/min/1.73 square meters GFR/1.73 sq M.predicted among non-blacks MDRD (S/P/Bld) [Vol rate/Area] 45 ml/min/1.73sqm Invalid Interpretation Code AO Chemistry S Comment on above: Interpretive Data: GFR Population mean for , Non- Americans Ages 20-29 = 116 mL/min/1.73 sq.m. Ages 30-39 = 107 mL/min/1.73 sq.m. Ages 40-49 = 99 mL/min/1.73 sq.m. Ages 50-59 = 93 mL/min/1.73 sq.m. Ages 60-69 = 85 mL/min/1.73 sq.m. Ages 70+ = 75 mL/min/1.73 sq.m. Chronic Kidney Disease: Less than 60 mL/min/1.73 square meters End Stage Renal Disease: Less than 15 mL/min/1.73 square meters Glucose [Mass/Vol] 139 mg/dL High 83 - 110 mg/dL AO ADM SS Hematocrit (Bld) [Volume fraction] 35.0 % Low 42.0 - 52.0 % AO Workflow SS Hemoglobin (Bld) [Mass/Vol] 11.8 G/dL Low 14.0 - 18.0 G/dL AO Workflow SS Lymphocyte, Absolute 1.6 103/mcL Normal 0.8 - 3.9 10^3/mcL AO Workflow SS Lymphocytes/100 WBC (Bld) 23.3 % Normal 10.0 - 50.0 % AO Workflow SS MCH (RBC) [Entitic mass] 31.8 pg High 27.0 - 31.2 pg AO Workflow SS MCHC 33.8 G/dL Normal 31.8 - 35.4 G/dL AO Workflow SS MCV (RBC) [Entitic vol] 94.1 fL High 80.0 - 94.0 fL AO Workflow SS Monocyte distribution width Auto (Bld) [Entitic vol] 17.97 1 Normal 0.00 - 20.00 AO Workflow SS Comment on above: Result Comment: For ED adult patients suspected of sepsis, MDW<=20.0 does not rule out sepsis or risk of sepsis Monocyte, Absolute 0.7 103/mcL Normal 0.2 - 1.0 10^3/mcL AO Workflow SS Monocytes/100 WBC (Bld) 9.5 % Normal 1.7 - 13.0 % AO Workflow SS Natriuretic peptide.B prohormone N-Terminal [Mass/Vol] 7254 pg/mL High 0 - 450 pg/mL AO ADM SS Comment on above: Interpretive Data: N T-proBNP results of less than 300 pg/mL effectively rules out acute congestive heart failure with 99% negative predictive value. Neutrophil, Absolute 4.3 103/mcL Normal 2.9 - 6.2 10^3/mcL AO Workflow SS Neutrophils/100 WBC (Bld) 62.9 % Normal 37.0 - 80.0 % AO Workflow SS Platelet mean volume (Bld) [Entitic vol] 7.3 fL Low 7.4 - 10.4 fL AO Workflow SS Platelets (Bld) [#/Vol] 314 103/mcL Normal 130 - 400 10^3/mcL AO Workflow SS Potassium [Moles/Vol] 4.3 mmol/L Normal 3.5 - 5.1 mmol/L AO ADM SS RBC (Bld) [#/Vol] 3.72 106/mcL Low 4.04 - 6.13 10^6/mcL AO Workflow SS Sodium [Moles/Vol] 136 mmol/L Normal 136 - 145 mmol/L AO ADM SS Troponin I.cardiac DL <= 0.01 ng/mL [Mass/Vol] 26 ng/L Normal 0 - 76 ng/L AO ADM SS Comment on above: Interpretive Data: H igh Sensitive Troponin I Reference Ranges: Female: 0-51 ng/L Male: 0-76 ng/L Testing performed on 66. com using a homogeneous sandwich chemiluminescent immunoassay based on [employer] technology. Urea nitrogen [Mass/Vol] 33 mg/dL High 7 - 18 mg/dL AO ADM SS Urea nitrogen/Creatinin e [Mass ratio] 22 ratio Normal 7 - 27 ratio AO ADM SS WBC (Bld) [#/Vol] 6.9 103/mcL Normal 4.6 - 10.8 10^3/mcL AO Workflow SS PBNPon 01-28-2024 Natriuretic peptide B (Bld) [Mass/Vol] 7254 pg/mL High 0-450 [facility] ([place]) Comment on above: Result Comment: NT-p roBNP results of less than 300 pg/mL effectively rules out acute congestive heart failure with 99% negative predictive value. Performed By: #### C RP, ANEU, MORPH, GFR, TROPHS, MG, CBC, CMP, MDW, ADIFF, TSH #### [address] [address] PROon 01-28-2024 PT Coag (PPP) [Time] 11.9 s Normal 9.0-14.4 [facility] ([place]) Comment on above: Performed By: #### CRISTIAN Grey #### [address] [address] PT International Ratio 1.0 Normal [facility] ([place]) Comment on above: Result Comment: The [employer] (CHEST, 1992, 102:[id number]-25S) recommended therapeutic range for oral anticoagulant therapy is: LOW RISK: Prophylaxis of venous thrombosis INR: 2.0-3.0 Treatment of pulmonary embolism 2.0-3.0 Prevention of systemic embolism 2.0-3.0 HIGH RISK: Mechanical prosthetic valves 2.5-3.5 Performed By: #### CRISTIAN Grey #### [address] [address] TROPHSon 01-28-2024 High Sensitivity Troponin I 26 ng/L Normal 0-76 [facility] ([place]) Comment on above: Result Comment: High Sensitive Troponin I Reference Ranges: Female: 0-51 ng/L Male: 0-76 ng/L Testing performed on 66. com using a homogeneous sandwich chemiluminescent immunoassay based on [employer] technology. Performed By: #### CRISTIAN Grey #### [address] [address] XR CHEST 1 VIEWon 01-28-2024 XR CHEST 1 VIEW ORIGINAL EXAMINATION: ONE XRAY VIEW OF THE CHEST01/28/2024 12:56 pm COMPARISON: 08/14/2022. HISTORY: ORDERING SYSTEM PROVIDED HISTORY: Reason for Exam: chest pain/SOB FINDINGS: The heart size and pulmonary vascularity are within normal limits. There is no pleural effusion or pneumothorax. There is a 1.5 cm nodular density at the left lung base. Advanced degenerative changes are noted in the right shoulder. IMPRESSION: 1.5 cm nodular density at the left lung base. Follow-up chest CT is recommended. Interpreted by: Kurtis Luis Preliminary Report By: Kurtis Luis Electronically signed By Kurtis Luis Dictated Date: 01/28/2024 1:58:58 PM Prelim Date: 01/28/2024 2:02:15 PM Sign Date: 01/28/2024 2:02:15 PM Ordering Provider: ANGELA Pfeiffer [facility] ([place]) .Auto Diffon 12-01-2023 Basophil, Absolute 0.0 10 3/mcL Normal 0.0-0.2 [facility] ([place]) Comment on above: Performed By: #### C RP, ANEU, MORPH, GFR, TROPHS, MG, CBC, CMP, MDW, ADIFF, TSH ####[place] [address] [place], [place] [address] Basophils/100 WBC (Bld) 0.3 % Normal 0.0-2.5 [facility] ([place]) Comment on above: Performed By: #### C RP, ANEU, MORPH, GFR, TROPHS, MG, CBC, CMP, MDW, ADIFF, TSH ####[place] [address] [place], [place] [address] Eosinophil, Absolute 0.1 10 3/mcL Normal 0.0-0.4 [facility] ([place]) Comment on above: Performed By: #### C RP, ANEU, MORPH, GFR, TROPHS, MG, CBC, CMP, MDW, ADIFF, TSH ####[place] [address] [place], [place] [address] Eosinophils/100 WBC (Bld) 0.8 % Normal 0.0-7.0 [facility] ([place]) Comment on above: Performed By: #### C RP, ANEU, MORPH, GFR, TROPHS, MG, CBC, CMP, MDW, ADIFF, TSH ####[address] [place], [place] [address] Lymphocyte, Absolute 0.7 10 3/mcL Low 0.8-3.9 [facility] ([place]) Comment on above: Performed By: #### C RP, ANEU, MORPH, GFR, TROPHS, MG, CBC, CMP, MDW, ADIFF, TSH ####[address] [place], [place] [address] Lymphocytes/100 WBC (Bld) 7.2 % Low 10.0-50.0 [facility] ([place]) Comment on above: Performed By: #### C RP, ANEU, MORPH, GFR, TROPHS, MG, CBC, CMP, MDW, ADIFF, TSH ####[address] [place], [place] [address] Monocyte, Absolute 1.2 10 3/mcL High 0.2-1.0 [facility] ([place]) Comment on above: Performed By: #### C RP, ANEU, MORPH, GFR, TROPHS, MG, CBC, CMP, MDW, ADIFF, TSH ####[address] [place], [place] [address] Monocytes/100 WBC (Bld) 12.9 % Normal 1.7-13.0 [facility] ([place]) Comment on above: Performed By: #### C RP, ANEU, MORPH, GFR, TROPHS, MG, CBC, CMP, MDW, ADIFF, TSH ####[address] [place], [place] [address] Neutrophils/100 WBC (Bld) 78.8 % Normal 37.0-80.0 [facility] ([place]) Comment on above: Performed By: #### C RP, ANEU, MORPH, GFR, TROPHS, MG, CBC, CMP, MDW, ADIFF, TSH ####[address] [place], [place] [address] .GFRon 12-01-2023 GFR Non- 38 ml/min/1.73sqm Normal [facility] ([place]) Comment on above: Result Comment: GFR Population mean for , Non- Americans Ages 20-29 = 116 mL/min/1.73 sq.m. Ages 30-39 = 107 mL/min/1.73 sq.m. Ages 40-49 = 99 mL/min/1.73 sq.m. Ages 50-59 = 93 mL/min/1.73 sq.m. Ages 60-69 = 85 mL/min/1.73 sq.m. Ages 70+ = 75 mL/min/1.73 sq.m. Chronic Kidney Disease: Less than 60 mL/min/1.73 square meters End Stage Renal Disease: Less than 15 mL/min/1.73 square meters Performed By: #### C RP, ANEU, MORPH, GFR, TROPHS, MG, CBC, CMP, MDW, ADIFF, TSH ####[address] [place], [place] [address] GFR 47 ml/min/1.73sqm Normal [facility] ([place]) Comment on above: Result Comment: GFR Population mean for , Non- Americans Ages 20-29 = 116 mL/min/1.73 sq.m. Ages 30-39 = 107 mL/min/1.73 sq.m. Ages 40-49 = 99 mL/min/1.73 sq.m. Ages 50-59 = 93 mL/min/1.73 sq.m. Ages 60-69 = 85 mL/min/1.73 sq.m. Ages 70+ = 75 mL/min/1.73 sq.m. Chronic Kidney Disease: Less than 60 mL/min/1.73 square meters End Stage Renal Disease: Less than 15 mL/min/1.73 square meters Performed By: #### C RP, ANEU, MORPH, GFR, TROPHS, MG, CBC, CMP, MDW, ADIFF, TSH ####[address] [place], [place] [address] .MDWon 12-01-2023 Monocyte Distribution Width 22.29 High 0.00-20.00 [facility] ([place]) Comment on above: Result Comment: For adults in ED, MDW>20.0 may be associated with a higher risk of sepsis during the first 12hrs of hospital admission The predictive value of MDW for identifying sepsis in patients with hematological abnormalities has not been established Performed By: #### C RP, ANEU, MORPH, GFR, TROPHS, MG, CBC, CMP, MDW, ADIFF, TSH #### [place] [place] [address] .Morphon 12-01-2023 Platelet Estimate Normal Normal [facility]) Comment on above: Performed By: #### C RP, ANEU, MORPH, GFR, TROPHS, MG, CBC, CMP, MDW, ADIFF, TSH ####[place] [address] .NEUABSon 12-01-2023 Neutrophil, Absolute 7.3 10 3/mcL High 2.9-6.2 [facility] ([place]) Comment on above: Performed By: #### C RP, ANEU, MORPH, GFR, TROPHS, MG, CBC, CMP, MDW, ADIFF, TSH ####[place] [address] [place] [address] .Urinalysis Microscopic (AO) on 12-01-2023 UA RBC None Seen Normal None Seen [facility] ([place]) Comment on above: Performed By: #### U A, UAMICAO #### [place] [address] UA Squam Epithelial 0-5 Abnormal None Seen [facility] ([place]) Comment on above: Performed By: #### U A, UAMICAO #### [place] [address] UA WBC 0-5 Abnormal None Seen [facility] ([place]) Comment on above: Performed By: #### U A, UAMICAO #### [place] [address] CBCon 12-01-2023 Erythrocyte distribution width (RBC) [Ratio] 14.4 % Normal 11.5-14.5 [facility] ([place]) Comment on above: Performed By: #### C RP, ANEU, MORPH, GFR, TROPHS, MG, CBC, CMP, MDW, ADIFF, TSH #### [place] [address] [place], [place] [address] Hematocrit (Bld) [Volume fraction] 29.9 % Low 42.0-52.0 [facility] ([place]) Comment on above: Performed By: #### C RP, ANEU, MORPH, GFR, TROPHS, MG, CBC, CMP, MDW, ADIFF, TSH #### [address] [address] Hgb 10.6 G/dL Low 14.0-18.0 [facility] ([place]) Comment on above: Performed By: #### C RP, ANEU, MORPH, GFR, TROPHS, MG, CBC, CMP, MDW, ADIFF, TSH #### [address] [address] MCH (RBC) [Entitic mass] 31.9 pg High 27.0-31.2 [facility] ([place]) Comment on above: Performed By: #### C RP, ANEU, MORPH, GFR, TROPHS, MG, CBC, CMP, MDW, ADIFF, TSH #### [address] [address] MCHC 35.6 G/dL High 31.8-35.4 [facility] ([place]) Comment on above: Performed By: #### C RP, ANEU, MORPH, GFR, TROPHS, MG, CBC, CMP, MDW, ADIFF, TSH #### [address] [address] MCV (RBC) [Entitic vol] 89.7 fL Normal 80.0-94.0 [facility] ([place]) Comment on above: Performed By: #### C RP, ANEU, MORPH, GFR, TROPHS, MG, CBC, CMP, MDW, ADIFF, TSH #### [address] [address] Platelet 424 10 3/mcL High 130-400 [facility] ([place]) Comment on above: Performed By: #### C RP, ANEU, MORPH, GFR, TROPHS, MG, CBC, CMP, MDW, ADIFF, TSH #### [address] [address] Platelet mean volume (Bld) [Entitic vol] 6.4 fL Low 7.4-10.4 [facility] ([place]) Comment on above: Performed By: #### C RP, ANEU, MORPH, GFR, TROPHS, MG, CBC, CMP, MDW, ADIFF, TSH #### [address] [place] [address] [place], [place] [address] RBC 3.33 10 6/mcL Low 4.04-6.13 [facility] ([place]) Comment on above: Performed By: #### C RP, ANEU, MORPH, GFR, TROPHS, MG, CBC, CMP, MDW, ADIFF, TSH #### [place] [place] [address] [place], [place] [address] WBC 9.2 10 3/mcL Normal 4.6-10.8 [facility] ([place]) Comment on above: Performed By: #### C RP, ANEU, MORPH, GFR, TROPHS, MG, CBC, CMP, MDW, ADIFF, TSH #### [address] [address] CMPon 12-01-2023 Albumin Level 2.5 G/dL Low 3.4-4.8 [facility] ([place]) Comment on above: Performed By: #### C RP, ANEU, MORPH, GFR, TROPHS, MG, CBC, CMP, MDW, ADIFF, TSH ####[place] [address] [place], [place] [address] Albumin/Globulin [Mass ratio] 0.8 {ratio} Low 1.1-2.5 [facility] ([place]) Comment on above: Performed By: #### C RP, ANEU, MORPH, GFR, TROPHS, MG, CBC, CMP, MDW, ADIFF, TSH ####[address] [place], [place] [address] ALP [Catalytic activity/Vol] 66 U/L Normal 40-135 [facility] ([place]) Comment on above: Performed By: #### C RP, ANEU, MORPH, GFR, TROPHS, MG, CBC, CMP, MDW, ADIFF, TSH ####[address] [place], [place] [address] ALT [Catalytic activity/Vol] 58 U/L Normal 16-63 [facility] ([place]) Comment on above: Performed By: #### C RP, ANEU, MORPH, GFR, TROPHS, MG, CBC, CMP, MDW, ADIFF, TSH ####[address] [place], [place] [address] AST [Catalytic activity/Vol] 51 U/L High 10-40 [facility] ([place]) Comment on above: Performed By: #### C RP, ANEU, MORPH, GFR, TROPHS, MG, CBC, CMP, MDW, ADIFF, TSH ####[address] [place], [place] [address] Bili Total 0.5 mg/dL Normal 0.2-1.0 [facility] ([place]) Comment on above: Result Comment: Use of this assay is not recommended for patients undergoing treatment with eltrombopag due to the potential for falsely elevated results. Performed By: #### C RP, ANEU, MORPH, GFR, TROPHS, MG, CBC, CMP, MDW, ADIFF, TSH ####[address] [place], [place] [address] BUN/Creatinine Ratio 13 ratio Normal 7-27 [facility] ([place]) Comment on above: Performed By: #### C RP, ANEU, MORPH, GFR, TROPHS, MG, CBC, CMP, MDW, ADIFF, TSH ####[address] [place], [place] [address] Calcium [Mass/Vol] 8.3 mg/dL Low 8.4-10.2 [facility] ([place]) Comment on above: Performed By: #### C RP, ANEU, MORPH, GFR, TROPHS, MG, CBC, CMP, MDW, ADIFF, TSH ####[address] [place], [place] [address] Chloride [Moles/Vol] 97 mmol/L Low 98-107 [facility] ([place]) Comment on above: Performed By: #### C RP, ANEU, MORPH, GFR, TROPHS, MG, CBC, CMP, MDW, ADIFF, TSH ####[facility] [place], [place] [address] CO2 [Moles/Vol] 26 mmol/L Normal 23-31 [facility] ([place]) Comment on above: Performed By: #### C RP, ANEU, MORPH, GFR, TROPHS, MG, CBC, CMP, MDW, ADIFF, TSH ####[address] [place], [place] [address] Creatinine [Mass/Vol] 1.73 mg/dL High 0.70-1.30 [facility] ([place]) Comment on above: Performed By: #### C RP, ANEU, MORPH, GFR, TROPHS, MG, CBC, CMP, MDW, ADIFF, TSH ####[address] [place], [place] [address] Electrolyte Balance 11.0 mEq/L Normal 4.0-15.0 [facility] ([place]) Comment on above: Performed By: #### C RP, ANEU, MORPH, GFR, TROPHS, MG, CBC, CMP, MDW, ADIFF, TSH ####[address] [place], [place] [address] Globulin 3.3 G/dL Normal [facility] ([place]) Comment on above: Performed By: #### C RP, ANEU, MORPH, GFR, TROPHS, MG, CBC, CMP, MDW, ADIFF, TSH ####[address] [place], [place] [address] Glucose [Mass/Vol] 90 mg/dL Normal 83-110 [facility] ([place]) Comment on above: Performed By: #### C RP, ANEU, MORPH, GFR, TROPHS, MG, CBC, CMP, MDW, ADIFF, TSH ####[address] [place], [place] [address] Potassium [Moles/Vol] 4.1 mmol/L Normal 3.5-5.1 [facility] ([place]) Comment on above: Performed By: #### C RP, ANEU, MORPH, GFR, TROPHS, MG, CBC, CMP, MDW, ADIFF, TSH ####[address] [place], [place] [address] Sodium [Moles/Vol] 134 mmol/L Low 136-145 [facility] ([place]) Comment on above: Performed By: #### C RP, ANEU, MORPH, GFR, TROPHS, MG, CBC, CMP, MDW, ADIFF, TSH ####[address] [place], [place] [address] Total Protein 5.8 G/dL Low 6.4-8.2 [facility] ([place]) Comment on above: Performed By: #### C RP, ANEU, MORPH, GFR, TROPHS, MG, CBC, CMP, MDW, ADIFF, TSH ####[address] [place], [place] [address] Urea nitrogen [Mass/Vol] 23 mg/dL High 7-18 [facility] ([place]) Comment on above: Performed By: #### C RP, ANEU, MORPH, GFR, TROPHS, MG, CBC, CMP, MDW, ADIFF, TSH ####[address] [place], [place] [address] CRPon 12-01-2023 C-Reactive Protein 6.6 mg/dL High 0.0-0.3 [facility] ([place]) Comment on above: Performed By: #### C RP, ANEU, MORPH, GFR, TROPHS, MG, CBC, CMP, MDW, ADIFF, TSH #### [id number] [place], [place] [address] CT ABD/PELVIS W/ IV CONTRAST ONLYon 12-01-2023 CT ABD/PELVIS W/ IV CONTRAST ONLY ORIGINAL HISTORY: Pain COMPARISON: 08 August 2023 TECHNIQUE: CT of the Abdomen and Pelvis following uncomplicated administration of intravenous contrast, with sagittal and coronal reconstructions. This exam was performed according to our departmental dose optimization program, and includes the following measures where applicable: automated exposure control, adjustment of the mAs and/or kVp according to patient size and/or exam, and an iterative reconstruction algorithm. FINDINGS: There is a cholecystectomy. The remaining abdominal organs are unremarkable in appearance. Bowel is poorly evaluated in the absence of oral contrast. There is mild infiltration in the lower pelvis, mainly around the mid sigmoid colon, which is not well distinguished from the infiltration. There is underlying diverticulosis. A normal appendix is identified. There is no free fluid. IMPRESSION: Acute diverticulitis. Interpreted by: Chapo Carrera MD Preliminary Report By: Chapo Carrera MD Electronically signed By Chapo Carrera MD Dictated Date: 12/01/2023 2:09:59 PM Prelim Date: 12/01/2023 2:13:00 PM Sign Date: 12/01/2023 2:13:00 PM Ordering Provider: BLESSING THOMAS [facility]) CT HEAD OR BRAIN W/O CONTRAS Ton 12-01-2023 CT HEAD OR BRAIN W/O CONTRAST ORIGINAL EXAMINATION: CT OF THE HEAD WITHOUT CONTRAST 12/01/2023 3:21 pm TECHNIQUE: CT of the head was performed without the administration of intravenous contrast. Automated exposure control, iterative reconstruction, and/or weight based adjustment of the mA/kV was utilized to reduce the radiation dose to as low as reasonably achievable. COMPARISON: None. HISTORY: ORDERING SYSTEM PROVIDED HISTORY: Reason for Exam: dizziness FINDINGS: Examination compromised by motion artifact, particularly the posterior fossa. There is no acute intracranial hemorrhage, mass effect, or abnormal extra-axial fluid collection. There is no CT evidence of acute infarct. The density in the larger dural venous sinuses is grossly normal. 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 Atherosclerotic calcifications are present in the cavernous carotid arteries bilaterally. There is proportionate enlargement of the ventricular system and cortical sulci compatible with parenchymal volume loss. No acute bony findings. Partially opacified left maxillary sinus. Otherwise grossly clear paranasal sinuses and mastoid air cells. IMPRESSION: No acute intracranial abnormality identified. I have reviewed this report and agree with the resident findings and interpretation. Interpreted by: Chapo Carrera MD Preliminary Report By: Blessing Lamb Electronically signed By Chapo Carrera MD Dictated Date: 12/01/2023 3:31:02 PM Prelim Date: 12/01/2023 3:35:52 PM Sign Date: 12/01/2023 3:39:12 PM Ordering Provider: BLESSING THOMAS [facility] ([place]) LABORATORYOrdered By: Mabel Oshea on 12-01-2023 Appearance (U) Clear (12/01/23 1:25 PM) Normal Clear AO Auto Urine SS Bilirubin Ql (U) Negative (12/01/23 1:25 PM) Normal Negative AO Auto Urine SS Color (U) Yellow (12/01/23 1:25 PM) Normal AO Auto Urine SS Glucose Test strip (U) [Mass/Vol] Negative Normal Negative AO Auto Urine SS Hemoglobin Auto test strip (U) [Mass/Vol] Negative (12/01/23 1:25 PM) Normal Negative AO Auto Urine SS Ketones Ql (U) Negative Normal Negative AO Auto Urine SS UA Leuk Est Trace *ABN* (12/01/23 1:25 PM) Invalid Interpretation Code Negative AO Auto Urine SS UA Nitrite Negative (12/01/23 1:25 PM) Normal Negative AO Auto Urine SS UA pH 8.0 (12/01/23 1:25 PM) Normal 5.0 - 8.0 AO Auto Urine SS UA Protein Negative Normal Negative AO Auto Urine SS UA RBC None Seen /HPF Normal None Seen AO Auto Urine SS UA Spec Grav 1.015 (12/01/23 1:25 PM) Normal 1.015-1.02 5 AO Auto Urine SS UA Specimen Type Clean Catch (12/01/23 1:25 PM) Normal AO Auto Urine SS UA Squam Epithelial 0-5 /HPF Invalid Interpretation Code None Seen AO Auto Urine SS UA Urobilinogen 2.0 E.U./dL Invalid Interpretation Code 0.2-1.0 AO Auto Urine SS WBC LM.HPF (Urine sed) [#/Area] 0-5 /HPF Invalid Interpretation Code None Seen AO Auto Urine SS Platelet Estimate Normal (12/01/23 12:59 PM) Normal AO Hematology S LABORATORYOrdered By: SYSTEM SYSTEM on 12-01-2023 Albumin BCP dye [Mass/Vol] 2.5 G/dL Low 3.4 - 4.8 G/dL AO ADM SS Albumin/Globulin [Mass ratio] 0.8 {ratio} Low 1.1 - 2.5 ratio AO ADM SS ALP [Catalytic activity/Vol] 66 U/L Normal 40 - 135 U/L AO ADM SS ALT With P-5'-P [Catalytic activity/Vol] 58 U/L Normal 16 - 63 U/L AO ADM SS AST With P-5'-P [Catalytic activity/Vol] 51 U/L High 10 - 40 U/L AO ADM SS Basophil, Absolute 0.0 103/mcL Normal 0.0 - 0.2 10^3/mcL AO Workflow SS Basophils/100 WBC (Bld) 0.3 % Normal 0.0 - 2.5 % AO Workflow SS Bilirubin [Mass/Vol] 0.5 mg/dL Normal 0.2 - 1.0 mg/dL AO ADM SS Comment on above: Interpretive Data: U se of this assay is not recommended for patients undergoing treatment with eltrombopag due to the potential for falsely elevated results. Calcium [Mass/Vol] 8.3 mg/dL Low 8.4 - 10. 2 mg/dL AO ADM SS Chloride [Moles/Vol] 97 mmol/L Low 98 - 107 mmol/L AO ADM SS CO2 [Moles/Vol] 26 mmol/L Normal 23 - 31 mmol/L AO ADM SS Creatinine [Mass/Vol] 1.73 mg/dL High 0.70 - 1.30 mg/dL AO ADM SS CRP [Mass/Vol] 6.6 mg/dL High 0.0 - 0.3 mg/dL AO ADM SS Electrolyte Balance 11.0 mEq/L Normal 4.0 - 15.0 mEq/L AO ADM SS Eosinophil, Absolute 0.1 103/mcL Normal 0.0 - 0.4 10^3/mcL AO Workflow SS Eosinophils/100 WBC (Bld) 0.8 % Normal 0.0 - 7.0 % AO Workflow SS Erythrocyte distribution width (RBC) [Ratio] 14.4 % Normal 11.5 - 14.5 % AO Workflow SS GFR/1.73 sq M.predicted among blacks MDRD (S/P/Bld) [Vol rate/Area] 47 ml/min/1.73sqm Invalid Interpretation Code AO Chemistry S Comment on above: Interpretive Data: GFR Population mean for , Non- Americans Ages 20-29 = 116 mL/min/1.73 sq.m. Ages 30-39 = 107 mL/min/1.73 sq.m. Ages 40-49 = 99 mL/min/1.73 sq.m. Ages 50-59 = 93 mL/min/1.73 sq.m. Ages 60-69 = 85 mL/min/1.73 sq.m. Ages 70+ = 75 mL/min/1.73 sq.m. Chronic Kidney Disease: Less than 60 mL/min/1.73 square meters End Stage Renal Disease: Less than 15 mL/min/1.73 square meters GFR/1.73 sq M.predicted among non-blacks MDRD (S/P/Bld) [Vol rate/Area] 38 ml/min/1.73sqm Invalid Interpretation Code AO Chemistry S Comment on above: Interpretive Data: GFR Population mean for , Non- Americans Ages 20-29 = 116 mL/min/1.73 sq.m. Ages 30-39 = 107 mL/min/1.73 sq.m. Ages 40-49 = 99 mL/min/1.73 sq.m. Ages 50-59 = 93 mL/min/1.73 sq.m. Ages 60-69 = 85 mL/min/1.73 sq.m. Ages 70+ = 75 mL/min/1.73 sq.m. Chronic Kidney Disease: Less than 60 mL/min/1.73 square meters End Stage Renal Disease: Less than 15 mL/min/1.73 square meters Globulin 3.3 G/dL Invalid Interpretation Code AO ADM SS Glucose [Mass/Vol] 90 mg/dL Normal 83 - 110 mg/dL AO ADM SS Hematocrit (Bld) [Volume fraction] 29.9 % Low 42.0 - 52.0 % AO Workflow SS Hemoglobin (Bld) [Mass/Vol] 10.6 G/dL Low 14.0 - 18.0 G/dL AO Workflow SS Lymphocyte, Absolute 0.7 103/mcL Low 0.8 - 3.9 10^3/mcL AO Workflow SS Lymphocytes/100 WBC (Bld) 7.2 % Low 10.0 - 50.0 % AO Workflow SS Magnesium [Mass/Vol] 1.9 mg/dL Normal 1.8 - 2.4 mg/dL AO ADM SS MCH (RBC) [Entitic mass] 31.9 pg High 27.0 - 31.2 pg AO Workflow SS MCHC 35.6 G/dL High 31.8 - 35.4 G/dL AO Workflow SS MCV (RBC) [Entitic vol] 89.7 fL Normal 80.0 - 94.0 fL AO Workflow SS Monocyte distribution width Auto (Bld) [Entitic vol] 22.29 1 High 0.00 - 20.00 AO Workflow SS Comment on above: Result Comment: For adults in ED, MDW>20.0 may be associated with a higher risk of sepsis during the first 12hrs of hospital admission The predictive value of MDW for identifying sepsis in patients with hematological abnormalities has not been established Monocyte, Absolute 1.2 103/mcL High 0.2 - 1.0 10^3/mcL AO Workflow SS Monocytes/100 WBC (Bld) 12.9 % Normal 1.7 - 13.0 % AO Workflow SS Neutrophil, Absolute 7.3 103/mcL High 2.9 - 6.2 10^3/mcL AO Workflow SS Neutrophils/100 WBC (Bld) 78.8 % Normal 37.0 - 80.0 % AO Workflow SS Platelet mean volume (Bld) [Entitic vol] 6.4 fL Low 7.4 - 10.4 fL AO Workflow SS Platelets (Bld) [#/Vol] 424 103/mcL High 130 - 400 10^3/mcL AO Workflow SS Potassium [Moles/Vol] 4.1 mmol/L Normal 3.5 - 5.1 mmol/L AO ADM SS Protein [Mass/Vol] 5.8 G/dL Low 6.4 - 8.2 G/dL AO ADM SS RBC (Bld) [#/Vol] 3.33 106/mcL Low 4.04 - 6.13 10^6/mcL AO Workflow SS Sodium [Moles/Vol] 134 mmol/L Low 136 - 145 mmol/L AO ADM SS Troponin I.cardiac DL <= 0.01 ng/mL [Mass/Vol] 9 ng/L Normal 0 - 76 ng/L AO ADM SS Comment on above: Interpretive Data: H igh Sensitive Troponin I Reference Ranges: Female: 0-51 ng/L Male: 0-76 ng/L Testing performed on [employer] using a homogeneous sandwich chemiluminescent immunoassay based on [employer] technology. TSH Qn 2.36 m[IU]/L Normal 0.36 - 3.74 mcIU/mL AO ADM SS Urea nitrogen [Mass/Vol] 23 mg/dL High 7 - 18 mg/dL AO ADM SS Urea nitrogen/Creatinin e [Mass ratio] 13 ratio Normal 7 - 27 ratio AO ADM SS WBC (Bld) [#/Vol] 9.2 103/mcL Normal 4.6 - 10.8 10^3/mcL AO Workflow SS MGon 12-01-2023 Magnesium [Mass/Vol] 1.9 mg/dL Normal 1.8-2.4 [facility] ([place]) Comment on above: Performed By: #### C RP, ANEU, MORPH, GFR, TROPHS, MG, CBC, CMP, MDW, ADIFF, TSH #### [address] [address] TROPHSon 12-01-2023 High Sensitivity Troponin I 9 ng/L Normal 0-76 [facility] ([place]) Comment on above: Result Comment: High Sensitive Troponin I Reference Ranges: Female: 0-51 ng/L Male: 0-76 ng/L Testing performed on [employer] using a homogeneous sandwich chemiluminescent immunoassay based on [employer] technology. Performed By: #### C RP, ANEU, MORPH, GFR, TROPHS, MG, CBC, CMP, MDW, ADIFF, TSH #### [place] [address] TSHon 12-01-2023 TSH Qn 2.36 m[IU]/L Normal 0.36-3.74 [facility] ([place]) Comment on above: Performed By: #### C RP, ANEU, MORPH, GFR, TROPHS, MG, CBC, CMP, MDW, ADIFF, TSH #### [place] [id number] UAon 12-01-2023 Color (U) Yellow Normal [facility] ([place]) Comment on above: Performed By: #### U A, UAMICAO #### [address] [address] Glucose (U) [Mass/Vol] Negative Normal Negative [facility] ([place]) Comment on above: Performed By: #### U A, UAMICAO #### [address] [address] Ketones Ql (U) Negative Normal Negative [facility] ([place]) Comment on above: Performed By: #### U A, UAMICAO #### [address] [address] UA Appear Clear Normal Clear [facility] ([place]) Comment on above: Performed By: #### U A, UAMICAO #### [place] [id number] UA Blood Negative Normal Negative [facility] ([place]) Comment on above: Performed By: #### U A, UAMICAO #### [place]avo [address] [address] UA Leuk Est Trace Abnormal Negative [facility] ([place]) Comment on above: Performed By: #### U A, UAMICAO #### [place]avo [address] [address] UA Nitrite Negative Normal Negative [facility] ([place]) Comment on above: Performed By: #### U A, UAMICAO #### [place] [address] [address] UA pH 8.0 Normal 5.0 - 8.0 [facility] ([place]) Comment on above: Performed By: #### U A, UAMICAO #### [place]avo [place] [address] UA Protein Negative Normal Negative [facility] ([place]) Comment on above: Performed By: #### U A, UAMICAO #### [place] [address] UA Spec Grav 1.015 Normal 1.015-1.02 5 [facility] ([place]) Comment on above: Performed By: #### U A, UAMICAO #### [place] [address] UA Specimen Type Clean Catch Normal [facility] ([place]) Comment on above: Performed By: #### U A, UAMICAO #### Gustavo [place] [id number] UA Urobilinogen 2.0 E.U./dL Abnormal 0.2-1.0 [facility] ([place]) Comment on above: Performed By: #### U A, UAMICAO #### [place]avo [place] [id number] Urobilinogen (U) [Mass/Vol] Negative Normal Negative [facility] ([place]) Comment on above: Performed By: #### U A, UAMICAO #### [place] [id number] Supplemental Reporton 2023 Supplemental Report . Pathology Reports Accession: Collected Date/Time: Received Date/Time: Pathologist: [id number] 08/31/2023 15:43 EST 09/03/2023 09:00 MATEUSZ SILVER MD Supplemental Report SUPPLEMENTAL: [employer] [address] [place] [address], [address] [place] [address] [employer] Results: Positive MTM/mL: 8.65 Complete report scanned into chart. Electronically Signed by Pathology Report verified by [facility] MATEUSZ GOODWIN Sign out Date: 11/07/2023 08:12 Performing Lab: [facility], [address] [place] [address] Pathology Dept Supplemental Report SUPPLEMENTAL: [facility] [address] [place] [address] [address] [place] [address] Pertinent Positive Findings Tier IA TMB-High (12.3) Tier IB DPYD p.? Tier IIC APC p.Y1075*, ARID1A p.L1731*, FGFR1 Amplification Tier IID ERBB3 p.E332K, ERCC2 p.N238S, HRD positive (EDELMIRA-High), RB1 p.K574*, TERT p.?, TP53 p.A159V Pertinent Negative Findings Negative (Wild Type) Biomarkers BRAF, FGFR2, FGFR3, MLH1, MSH2, MSH6, MSI, PMS2, RET and NTRK 1,2,3 Clinical-Genomic Summary In this 77 year-old male with urothelial cancer, we detected the following tier-I actionable aberrations: Tumor mutational burden (TMB-High 12.3 Muts/Mb), DPYD p.? 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 Electronically Signed by Pathology Report verified by [facility] MATEUSZ GOODWIN Sign out Date: 10/08/2023 13:29 Performing Lab: [address] Pathology Dept Pathology Reports Accession: Collected Date/Time: Received Date/Time: Pathologist: [id number] 08/31/2023 15:43 EST 09/03/2023 09:00 MATEUSZ SILVER MD Final Surgical Pathology Report DIAGNOSIS: BLADDER TUMOR, TRANSURETHRAL RESECTION: - HIGH-GRADE UROTHELIAL CARCINOMA, WITH INVASION INTO MUSCULARIS PROPRIA Comment: A few fragments of muscularis propria available for evaluation, and show tumor invasion. CLINICAL INFORMATION: NEOPLASM OF UNCERTAIN BEHAVIOR, BLADDER Procedure: TRANSURETHRAL RESECTION BLADDER TUMOR Preoperative diagnosis: NEOPLASM OF UNCERTAIN BEHAVIOR, BLADDER Postoperative diagnosis: NEOPLASM OF UNCERTAIN BEHAVIOR, BLADDER SPECIMEN: A BLADDER TUMOR GROSS DESCRIPTION: All parts labelled with patient name and [id number] Received in formalin labelled bladder tumor Is a 11 g of santillan-ricci polypoid shaped bladder tumor fragments aggregating to 4.8 x 3.6 x 1.6 cm. TS-4 JESSY See Dictated by NOEMI ARCE MICROSCOPIC DESCRIPTION: The microscopic examination is performed, except in the case of Gross Only. Electronically Signed by Pathology Report verified by [facility] MATEUSZ GOODWIN Sign out Date: 09/04/2023 10:04 Performing Lab: [facility], [address] [place] [address] Pathology Dept Disclaimer If ancillary studies were utilized, the following Laboratory Developed Test (LDT) disclaimer will apply: Under CLIA requirements, [facility] is qualified to perform high complexity testing. For all ancillary stains, positive and negative controls stain appropriately. Performance characteristics of immunohistochemical and chromogenic in-situ hybridization tests have been determined by [facility]. These tests are used for clinical purposes, They should not be regarded as investigational or for research. Normal [facility] ([place]) Supplemental Reporton 2023 Supplemental Report . Pathology Reports Accession: Collected Date/Time: Received Date/Time: Pathologist: [id number] 08/31/2023 15:43 EST 09/03/2023 09:00 MATEUSZ SILVER MD Supplemental Report SUPPLEMENTAL: [facility] [address] [place] [address] [address] [place] [address] Pertinent Positive Findings Tier IA TMB-High (12.3) Tier IB DPYD p.? Tier IIC APC p.Y1075*, ARID1A p.L1731*, FGFR1 Amplification Tier IID ERBB3 p.E332K, ERCC2 p.N238S, HRD positive (EDELMIRA-High), RB1 p.K574*, TERT p.?, TP53 p.A159V Pertinent Negative Findings Negative (Wild Type) Biomarkers BRAF, FGFR2, FGFR3, MLH1, MSH2, MSH6, MSI, PMS2, RET and NTRK 1,2,3 Clinical-Genomic Summary In this 77 year-old male with urothelial cancer, we detected the following tier-I actionable aberrations: Tumor mutational burden (TMB-High 12.3 Muts/Mb), DPYD p.? 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 Electronically Signed by Pathology Report verified by [facility] MATEUSZ GOODWIN Sign out Date: 10/08/2023 13:29 Performing Lab: [facility], [address] [place] [address] Pathology Dept Final Surgical Pathology Report DIAGNOSIS: BLADDER TUMOR, TRANSURETHRAL RESECTION: - HIGH-GRADE UROTHELIAL CARCINOMA, WITH INVASION INTO MUSCULARIS PROPRIA Comment: A few fragments of muscularis propria available for evaluation, and show tumor invasion. CLINICAL INFORMATION: NEOPLASM OF UNCERTAIN BEHAVIOR, BLADDER Procedure: TRANSURETHRAL RESECTION BLADDER TUMOR Preoperative diagnosis: NEOPLASM OF UNCERTAIN BEHAVIOR, BLADDER Postoperative diagnosis: NEOPLASM OF UNCERTAIN BEHAVIOR, BLADDER SPECIMEN: A BLADDER TUMOR Pathology Reports Accession: Collected Date/Time: Received Date/Time: Pathologist: [id number] 08/31/2023 15:43 EST 09/03/2023 09:00 MATEUSZ SILVER MD GROSS DESCRIPTION: All parts labelled with patient name and [id number] Received in formalin labelled bladder tumor Is a 11 g of santillan-ricci polypoid shaped bladder tumor fragments aggregating to 4.8 x 3.6 x 1.6 cm. TS-4 JESSY See Dictated by NOEMI ARCE MICROSCOPIC DESCRIPTION: The microscopic examination is performed, except in the case of Gross Only. Electronically Signed by Pathology Report verified by [facility] MATEUSZ LINDSAYCHRISTA Sign out Date: 09/04/2023 10:04 Performing Lab: [facility], [address] [place] [address] Pathology Dept Disclaimer If ancillary studies were utilized, the following Laboratory Developed Test (LDT) disclaimer will apply: Under CLIA requirements, [facility] is qualified to perform high complexity testing. For all ancillary stains, positive and negative controls stain appropriately. Performance characteristics of immunohistochemical and chromogenic in-situ hybridization tests have been determined by [facility]. These tests are used for clinical purposes, They should not be regarded as investigational or for research. Normal [facility]) [facility] Creatinine 115.0 mg/dL Normal 39.0-259.0 [facility]) Comment on above: Performed By: #### C RP, ANEU, MORPH, GFR, TROPHS, MG, CBC, CMP, MDW, ADIFF, TSH #### [address] [address] U Microalb [address] mcg/dL Normal [facility]) Comment on above: Performed By: #### C RP, ANEU, MORPH, GFR, TROPHS, MG, CBC, CMP, MDW, ADIFF, TSH #### [address] [address] U Ratio Alb/Cre 231 mcg/mg High 0-30 [facility]) Comment on above: Performed By: #### C RP, ANEU, MORPH, GFR, TROPHS, MG, CBC, CMP, MDW, ADIFF, TSH #### [place] [address] [place], [place] [address] LABORATORYOrdered By: Avery Whaley on 09-05-2023 Albumin DL <= 20 mg/L (U) [Mass/Vol] [address] mcg/dL Invalid Interpretation Code AO ADM SS Albumin/Creatinine DL <= 20 mg/L (U) [Mass ratio] 231 mcg/mg High 0 - 30 mcg/mg AO ADM SS Creatinine (U) [Mass/Vol] 115.0 mg/dL Normal 39.0 - 259.0 mg/dL AO ADM SS Final Surgical Pathology Rep sahil 09-04-2023 Final Surgical Pathology Report . Pathology Reports Accession: Collected Date/Time: Received Date/Time: Pathologist: [id number] 08/31/2023 15:43 EST 09/03/2023 09:00 EST MATEUSZ GOODWIN MD Final Surgical Pathology Report DIAGNOSIS: BLADDER TUMOR, TRANSURETHRAL RESECTION: - HIGH-GRADE UROTHELIAL CARCINOMA, WITH INVASION INTO MUSCULARIS PROPRIA Comment: A few fragments of muscularis propria available for evaluation, and show tumor invasion. CLINICAL INFORMATION: NEOPLASM OF UNCERTAIN BEHAVIOR, BLADDER Procedure: TRANSURETHRAL RESECTION BLADDER TUMOR Preoperative diagnosis: NEOPLASM OF UNCERTAIN BEHAVIOR, BLADDER Postoperative diagnosis: NEOPLASM OF UNCERTAIN BEHAVIOR, BLADDER SPECIMEN: A BLADDER TUMOR GROSS DESCRIPTION: All parts labelled with patient name and [id number] Received in formalin labelled bladder tumor Is a 11 g of santillan-ricci polypoid shaped bladder tumor fragments aggregating to 4.8 x 3.6 x 1.6 cm. TS-4 JESSY See Dictated by NOEMI ARCE MICROSCOPIC DESCRIPTION: The microscopic examination is performed, except in the case of Gross Only. Electronically Signed by Pathology Report verified by [facility] MATEUSZ GOODWIN Sign out Date: 09/04/2023 10:04 Performing Lab: [facility], [address] [place] [address] Pathology Dept Disclaimer If ancillary studies were utilized, the following Laboratory Developed Test (LDT) disclaimer will apply: Under CLIA requirements, [facility] is qualified to perform high complexity testing. For all ancillary stains, positive and negative controls stain appropriately. Performance characteristics of immunohistochemical and chromogenic in-situ hybridization tests have been determined by [facility]. These tests are used for clinical purposes, They should not be regarded as investigational or for research. Normal [facility] ([place]) .Auto Diffon 09-01-2023 Basophil, Absolute 0.1 10 3/mcL Normal 0.0-0.2 [facility] ([place]) Comment on above: Performed By: #### C RP, ANEU, MORPH, GFR, TROPHS, MG, CBC, CMP, MDW, ADIFF, TSH #### [address] [address] Basophils/100 WBC (Bld) 0.7 % Normal 0.0-2.5 [facility] ([place]) Comment on above: Performed By: #### C RP, ANEU, MORPH, GFR, TROPHS, MG, CBC, CMP, MDW, ADIFF, TSH #### [address] [address] Eosinophil, Absolute 0.0 10 3/mcL Normal 0.0-0.4 [facility] ([place]) Comment on above: Performed By: #### C RP, ANEU, MORPH, GFR, TROPHS, MG, CBC, CMP, MDW, ADIFF, TSH #### [address] [address] Eosinophils/100 WBC (Bld) 0.0 % Normal 0.0-7.0 [facility] ([place]) Comment on above: Performed By: #### C RP, ANEU, MORPH, GFR, TROPHS, MG, CBC, CMP, MDW, ADIFF, TSH #### [address] [address] Lymphocyte, Absolute 1.7 10 3/mcL Normal 0.8-3.9 [facility] ([place]) Comment on above: Performed By: #### C RP, ANEU, MORPH, GFR, TROPHS, MG, CBC, CMP, MDW, ADIFF, TSH #### [address] [address] Lymphocytes/100 WBC (Bld) 13.9 % Normal 10.0-50.0 [facility] ([place]) Comment on above: Performed By: #### C RP, ANEU, MORPH, GFR, TROPHS, MG, CBC, CMP, MDW, ADIFF, TSH #### [address] [address] Monocyte, Absolute 0.6 10 3/mcL Normal 0.2-1.0 [facility] ([place]) Comment on above: Performed By: #### C RP, ANEU, MORPH, GFR, TROPHS, MG, CBC, CMP, MDW, ADIFF, TSH #### [address] [address] Monocytes/100 WBC (Bld) 4.7 % Normal 1.7-13.0 [facility] ([place]) Comment on above: Performed By: #### C RP, ANEU, MORPH, GFR, TROPHS, MG, CBC, CMP, MDW, ADIFF, TSH #### [address] [address] Neutrophils/100 WBC (Bld) 80.7 % High 37.0-80.0 [facility] ([place]) Comment on above: Performed By: #### C RP, ANEU, MORPH, GFR, TROPHS, MG, CBC, CMP, MDW, ADIFF, TSH #### [address] [address] .GFRon 09-01-2023 GFR 49 ml/min/1.73sqm Normal [facility] ([place]) Comment on above: Result Comment: GFR Population mean for , Non- Americans Ages 20-29 = 116 mL/min/1.73 sq.m. Ages 30-39 = 107 mL/min/1.73 sq.m. Ages 40-49 = 99 mL/min/1.73 sq.m. Ages 50-59 = 93 mL/min/1.73 sq.m. Ages 60-69 = 85 mL/min/1.73 sq.m. Ages 70+ = 75 mL/min/1.73 sq.m. Chronic Kidney Disease: Less than 60 mL/min/1.73 square meters End Stage Renal Disease: Less than 15 mL/min/1.73 square meters Performed By: #### C RP, ANEU, MORPH, GFR, TROPHS, MG, CBC, CMP, MDW, ADIFF, TSH #### [address] [address] GFR Non- 41 ml/min/1.73sqm Normal [facility] ([place]) Comment on above: Result Comment: GFR Population mean for , Non- Americans Ages 20-29 = 116 mL/min/1.73 sq.m. Ages 30-39 = 107 mL/min/1.73 sq.m. Ages 40-49 = 99 mL/min/1.73 sq.m. Ages 50-59 = 93 mL/min/1.73 sq.m. Ages 60-69 = 85 mL/min/1.73 sq.m. Ages 70+ = 75 mL/min/1.73 sq.m. Chronic Kidney Disease: Less than 60 mL/min/1.73 square meters End Stage Renal Disease: Less than 15 mL/min/1.73 square meters Performed By: #### C RP, ANEU, MORPH, GFR, TROPHS, MG, CBC, CMP, MDW, ADIFF, TSH #### [address] [address] .NEUABSon 09-01-2023 Neutrophil, Absolute 9.9 10 3/mcL High 2.9-6.2 [facility] ([place]) Comment on above: Performed By: #### C RP, ANEU, MORPH, GFR, TROPHS, MG, CBC, CMP, MDW, ADIFF, TSH #### [address] [address] BMPon 09-01-2023 BUN/Creatinine Ratio 18 ratio Normal 7-27 [facility] ([place]) Comment on above: Performed By: #### C RP, ANEU, MORPH, GFR, TROPHS, MG, CBC, CMP, MDW, ADIFF, TSH #### [address] [address] Calcium [Mass/Vol] 8.8 mg/dL Normal 8.4-10.2 [facility] ([place]) Comment on above: Performed By: #### C RP, ANEU, MORPH, GFR, TROPHS, MG, CBC, CMP, MDW, ADIFF, TSH #### [address] [address] Chloride [Moles/Vol] 104 mmol/L Normal 98-107 [facility] ([place]) Comment on above: Performed By: #### C RP, ANEU, MORPH, GFR, TROPHS, MG, CBC, CMP, MDW, ADIFF, TSH #### [address] [address] CO2 [Moles/Vol] 27 mmol/L Normal 23-31 [facility] ([place]) Comment on above: Performed By: #### C RP, ANEU, MORPH, GFR, TROPHS, MG, CBC, CMP, MDW, ADIFF, TSH #### [address] [address] Creatinine [Mass/Vol] 1.65 mg/dL High 0.70-1.30 [facility] ([place]) Comment on above: Performed By: #### C RP, ANEU, MORPH, GFR, TROPHS, MG, CBC, CMP, MDW, ADIFF, TSH #### [address] [address] Electrolyte Balance 14.0 mEq/L Normal 4.0-15.0 [facility] ([place]) Comment on above: Performed By: #### C RP, ANEU, MORPH, GFR, TROPHS, MG, CBC, CMP, MDW, ADIFF, TSH #### [address] [address] Glucose [Mass/Vol] 184 mg/dL High 83-110 [facility] ([place]) Comment on above: Performed By: #### C RP, ANEU, MORPH, GFR, TROPHS, MG, CBC, CMP, MDW, ADIFF, TSH #### [address] [address] Potassium [Moles/Vol] 4.8 mmol/L Normal 3.5-5.1 [facility] ([place]) Comment on above: Performed By: #### C RP, ANEU, MORPH, GFR, TROPHS, MG, CBC, CMP, MDW, ADIFF, TSH #### [address] [address] Sodium [Moles/Vol] 145 mmol/L Normal 136-145 [facility] ([place]) Comment on above: Performed By: #### C RP, ANEU, MORPH, GFR, TROPHS, MG, CBC, CMP, MDW, ADIFF, TSH #### [address] [address] Urea nitrogen [Mass/Vol] 29 mg/dL High 7-18 [facility] ([place]) Comment on above: Performed By: #### C RP, ANEU, MORPH, GFR, TROPHS, MG, CBC, CMP, MDW, ADIFF, TSH #### [address] [address] CBCon 09-01-2023 Erythrocyte distribution width (RBC) [Ratio] 12.8 % Normal 11.5-14.5 [facility] ([place]) Comment on above: Performed By: #### C RP, ANEU, MORPH, GFR, TROPHS, MG, CBC, CMP, MDW, ADIFF, TSH #### [address] [address] Hematocrit (Bld) [Volume fraction] 33.8 % Low 42.0-52.0 [facility] ([place]) Comment on above: Performed By: #### C RP, ANEU, MORPH, GFR, TROPHS, MG, CBC, CMP, MDW, ADIFF, TSH #### [address] [address] Hgb 11.5 G/dL Low 14.0-18.0 [facility] ([place]) Comment on above: Performed By: #### C RP, ANEU, MORPH, GFR, TROPHS, MG, CBC, CMP, MDW, ADIFF, TSH #### [address] [address] MCH (RBC) [Entitic mass] 31.0 pg Normal 27.0-31.2 [facility] ([place]) Comment on above: Performed By: #### C RP, ANEU, MORPH, GFR, TROPHS, MG, CBC, CMP, MDW, ADIFF, TSH #### [address] [address] MCHC 34.0 G/dL Normal 31.8-35.4 [facility] ([place]) Comment on above: Performed By: #### C RP, ANEU, MORPH, GFR, TROPHS, MG, CBC, CMP, MDW, ADIFF, TSH #### [address] [address] MCV (RBC) [Entitic vol] 91.3 fL Normal 80.0-94.0 [facility] ([place]) Comment on above: Performed By: #### C RP, ANEU, MORPH, GFR, TROPHS, MG, CBC, CMP, MDW, ADIFF, TSH #### [address] [address] Platelet 406 10 3/mcL High 130-400 [facility] ([place]) Comment on above: Performed By: #### C RP, ANEU, MORPH, GFR, TROPHS, MG, CBC, CMP, MDW, ADIFF, TSH #### [address] [address] Platelet mean volume (Bld) [Entitic vol] 7.3 fL Low 7.4-10.4 [facility] ([place]) Comment on above: Performed By: #### C RP, ANEU, MORPH, GFR, TROPHS, MG, CBC, CMP, MDW, ADIFF, TSH #### [address] [address] RBC 3.70 10 6/mcL Low 4.04-6.13 [facility] ([place]) Comment on above: Performed By: #### C RP, ANEU, MORPH, GFR, TROPHS, MG, CBC, CMP, MDW, ADIFF, TSH #### [address] [address] WBC 12.3 10 3/mcL High 4.6-10.8 [facility] ([place]) Comment on above: Performed By: #### C RP, ANEU, MORPH, GFR, TROPHS, MG, CBC, CMP, MDW, ADIFF, TSH #### [address] [address] LABORATORYOrdered By: Giovanny Underwood on 09-01-2023 Blood Glucose Testing Reason Routine (09/01/23 8:42 AM) [facility] Work Phone: Glucose [Mass/Vol] 163 mg/dL High 82 - 115 mg/dL [facility] Work Phone: LABORATORYOrdered By: SYSTEM SYSTEM on 09-01-2023 Basophil, Absolute 0.1 103/mcL Normal 0.0 - 0.2 10^3/mcL AO Workflow SS Basophils/100 WBC (Bld) 0.7 % Normal 0.0 - 2.5 % AO Workflow SS Calcium [Mass/Vol] 8.8 mg/dL Normal 8.4 - 10. 2 mg/dL AO ADM SS Chloride [Moles/Vol] 104 mmol/L Normal 98 - 107 mmol/L AO ADM SS CO2 [Moles/Vol] 27 mmol/L Normal 23 - 31 mmol/L AO ADM SS Creatinine [Mass/Vol] 1.65 mg/dL High 0.70 - 1.30 mg/dL AO ADM SS Electrolyte Balance 14.0 mEq/L Normal 4.0 - 15.0 mEq/L AO ADM SS Eosinophil, Absolute 0.0 103/mcL Normal 0.0 - 0.4 10^3/mcL AO Workflow SS Eosinophils/100 WBC (Bld) 0.0 % Normal 0.0 - 7.0 % AO Workflow SS Erythrocyte distribution width (RBC) [Ratio] 12.8 % Normal 11.5 - 14.5 % AO Workflow SS GFR/1.73 sq M.predicted among blacks MDRD (S/P/Bld) [Vol rate/Area] 49 ml/min/1.73sqm Invalid Interpretation Code AO Chemistry S Comment on above: Interpretive Data: GFR Population mean for , Non- Americans Ages 20-29 = 116 mL/min/1.73 sq.m. Ages 30-39 = 107 mL/min/1.73 sq.m. Ages 40-49 = 99 mL/min/1.73 sq.m. Ages 50-59 = 93 mL/min/1.73 sq.m. Ages 60-69 = 85 mL/min/1.73 sq.m. Ages 70+ = 75 mL/min/1.73 sq.m. Chronic Kidney Disease: Less than 60 mL/min/1.73 square meters End Stage Renal Disease: Less than 15 mL/min/1.73 square meters GFR/1.73 sq M.predicted among non-blacks MDRD (S/P/Bld) [Vol rate/Area] 41 ml/min/1.73sqm Invalid Interpretation Code AO Chemistry S Comment on above: Interpretive Data: GFR Population mean for , Non- Americans Ages 20-29 = 116 mL/min/1.73 sq.m. Ages 30-39 = 107 mL/min/1.73 sq.m. Ages 40-49 = 99 mL/min/1.73 sq.m. Ages 50-59 = 93 mL/min/1.73 sq.m. Ages 60-69 = 85 mL/min/1.73 sq.m. Ages 70+ = 75 mL/min/1.73 sq.m. Chronic Kidney Disease: Less than 60 mL/min/1.73 square meters End Stage Renal Disease: Less than 15 mL/min/1.73 square meters Glucose [Mass/Vol] 184 mg/dL High 83 - 110 mg/dL AO ADM SS Hematocrit (Bld) [Volume fraction] 33.8 % Low 42.0 - 52.0 % AO Workflow SS Hemoglobin (Bld) [Mass/Vol] 11.5 G/dL Low 14.0 - 18.0 G/dL AO Workflow SS Lymphocyte, Absolute 1.7 103/mcL Normal 0.8 - 3.9 10^3/mcL AO Workflow SS Lymphocytes/100 WBC (Bld) 13.9 % Normal 10.0 - 50.0 % AO Workflow SS Magnesium [Mass/Vol] 2.1 mg/dL Normal 1.8 - 2.4 mg/dL AO ADM SS MCH (RBC) [Entitic mass] 31.0 pg Normal 27.0 - 31.2 pg AO Workflow SS MCHC 34.0 G/dL Normal 31.8 - 35.4 G/dL AO Workflow SS MCV (RBC) [Entitic vol] 91.3 fL Normal 80.0 - 94.0 fL AO Workflow SS Monocyte, Absolute 0.6 103/mcL Normal 0.2 - 1.0 10^3/mcL AO Workflow SS Monocytes/100 WBC (Bld) 4.7 % Normal 1.7 - 13.0 % AO Workflow SS Neutrophil, Absolute 9.9 103/mcL High 2.9 - 6.2 10^3/mcL AO Workflow SS Neutrophils/100 WBC (Bld) 80.7 % High 37.0 - 80.0 % AO Workflow SS Platelet mean volume (Bld) [Entitic vol] 7.3 fL Low 7.4 - 10.4 fL AO Workflow SS Platelets (Bld) [#/Vol] 406 103/mcL High 130 - 400 10^3/mcL AO Workflow SS Potassium [Moles/Vol] 4.8 mmol/L Normal 3.5 - 5.1 mmol/L AO ADM SS RBC (Bld) [#/Vol] 3.70 106/mcL Low 4.04 - 6.13 10^6/mcL AO Workflow SS Sodium [Moles/Vol] 145 mmol/L Normal 136 - 145 mmol/L AO ADM SS Urea nitrogen [Mass/Vol] 29 mg/dL High 7 - 18 mg/dL AO ADM SS Urea nitrogen/Creatinin e [Mass ratio] 18 ratio Normal 7 - 27 ratio AO ADM SS WBC (Bld) [#/Vol] 12.3 103/mcL High 4.6 - 10.8 10^3/mcL AO Workflow SS MGon 09-01-2023 Magnesium [Mass/Vol] 2.1 mg/dL Normal 1.8-2.4 [facility] ([place]) Comment on above: Performed By: #### C RP, ANEU, MORPH, GFR, TROPHS, MG, CBC, CMP, MDW, ADIFF, TSH #### [address] [address] .GFRon 08-31-2023 GFR 48 ml/min/1.73sqm Normal [facility] ([place]) Comment on above: Result Comment: GFR Population mean for , Non- Americans Ages 20-29 = 116 mL/min/1.73 sq.m. Ages 30-39 = 107 mL/min/1.73 sq.m. Ages 40-49 = 99 mL/min/1.73 sq.m. Ages 50-59 = 93 mL/min/1.73 sq.m. Ages 60-69 = 85 mL/min/1.73 sq.m. Ages 70+ = 75 mL/min/1.73 sq.m. Chronic Kidney Disease: Less than 60 mL/min/1.73 square meters End Stage Renal Disease: Less than 15 mL/min/1.73 square meters Performed By: #### C RP, ANEU, MORPH, GFR, TROPHS, MG, CBC, CMP, MDW, ADIFF, TSH #### [address] [address] GFR Non- 40 ml/min/1.73sqm Normal [facility] ([place]) Comment on above: Result Comment: GFR Population mean for , Non- Americans Ages 20-29 = 116 mL/min/1.73 sq.m. Ages 30-39 = 107 mL/min/1.73 sq.m. Ages 40-49 = 99 mL/min/1.73 sq.m. Ages 50-59 = 93 mL/min/1.73 sq.m. Ages 60-69 = 85 mL/min/1.73 sq.m. Ages 70+ = 75 mL/min/1.73 sq.m. Chronic Kidney Disease: Less than 60 mL/min/1.73 square meters End Stage Renal Disease: Less than 15 mL/min/1.73 square meters Performed By: #### C RP, ANEU, MORPH, GFR, TROPHS, MG, CBC, CMP, MDW, ADIFF, TSH #### [address] [address] BMPon 08-31-2023 BUN/Creatinine Ratio 18 ratio Normal 7-27 [facility] ([place]) Comment on above: Performed By: #### C RP, ANEU, MORPH, GFR, TROPHS, MG, CBC, CMP, MDW, ADIFF, TSH #### [address] [address] Calcium [Mass/Vol] 8.7 mg/dL Normal 8.4-10.2 [facility] ([place]) Comment on above: Performed By: #### C RP, ANEU, MORPH, GFR, TROPHS, MG, CBC, CMP, MDW, ADIFF, TSH #### [address] [address] Chloride [Moles/Vol] 104 mmol/L Normal 98-107 [facility] ([place]) Comment on above: Performed By: #### C RP, ANEU, MORPH, GFR, TROPHS, MG, CBC, CMP, MDW, ADIFF, TSH #### [address] [address] CO2 [Moles/Vol] 25 mmol/L Normal 23-31 [facility] ([place]) Comment on above: Performed By: #### C RP, ANEU, MORPH, GFR, TROPHS, MG, CBC, CMP, MDW, ADIFF, TSH #### [address] [address] Creatinine [Mass/Vol] 1.69 mg/dL High 0.70-1.30 [facility] ([place]) Comment on above: Performed By: #### C RP, ANEU, MORPH, GFR, TROPHS, MG, CBC, CMP, MDW, ADIFF, TSH #### [address] [address] Electrolyte Balance 14.0 mEq/L Normal 4.0-15.0 [facility] ([place]) Comment on above: Performed By: #### C RP, ANEU, MORPH, GFR, TROPHS, MG, CBC, CMP, MDW, ADIFF, TSH #### [address] [address] Glucose [Mass/Vol] 210 mg/dL High 83-110 [facility] ([place]) Comment on above: Performed By: #### C RP, ANEU, MORPH, GFR, TROPHS, MG, CBC, CMP, MDW, ADIFF, TSH #### [address] [address] Potassium [Moles/Vol] 3.8 mmol/L Normal 3.5-5.1 [facility] ([place]) Comment on above: Performed By: #### C RP, ANEU, MORPH, GFR, TROPHS, MG, CBC, CMP, MDW, ADIFF, TSH #### [address] [address] Sodium [Moles/Vol] 143 mmol/L Normal 136-145 [facility] ([place]) Comment on above: Performed By: #### C RP, ANEU, MORPH, GFR, TROPHS, MG, CBC, CMP, MDW, ADIFF, TSH #### [address] [place], [place] [address] Urea nitrogen [Mass/Vol] 30 mg/dL High 7-18 [facility] ([place]) Comment on above: Performed By: #### C RP, ANEU, MORPH, GFR, TROPHS, MG, CBC, CMP, MDW, ADIFF, TSH #### [address] [place], [place] [address] Gel ABOon 08-31-2023 ABO/Rh Interp Positive Invalid Interpretation Code [facility] ([place]) Comment on above: Performed By: #### U A, UAMICAO #### [address] [address] Gel ABSon 08-31-2023 Antibody Screen Gel Negative Normal [facility] ([place]) Comment on above: Performed By: #### U A, UAMICAO #### [address] [address] LABORATORYOrdered By: SYSTEM SYSTEM on 08-31-2023 Calcium [Mass/Vol] 8.7 mg/dL Normal 8.4 - 10. 2 mg/dL AO ADM SS Chloride [Moles/Vol] 104 mmol/L Normal 98 - 107 mmol/L AO ADM SS CO2 [Moles/Vol] 25 mmol/L Normal 23 - 31 mmol/L AO ADM SS Creatinine [Mass/Vol] 1.69 mg/dL High 0.70 - 1.30 mg/dL AO ADM SS Electrolyte Balance 14.0 mEq/L Normal 4.0 - 15.0 mEq/L AO ADM SS GFR/1.73 sq M.predicted among blacks MDRD (S/P/Bld) [Vol rate/Area] 48 ml/min/1.73sqm Invalid Interpretation Code AO Chemistry S Comment on above: Interpretive Data: GFR Population mean for , Non- Americans Ages 20-29 = 116 mL/min/1.73 sq.m. Ages 30-39 = 107 mL/min/1.73 sq.m. Ages 40-49 = 99 mL/min/1.73 sq.m. Ages 50-59 = 93 mL/min/1.73 sq.m. Ages 60-69 = 85 mL/min/1.73 sq.m. Ages 70+ = 75 mL/min/1.73 sq.m. Chronic Kidney Disease: Less than 60 mL/min/1.73 square meters End Stage Renal Disease: Less than 15 mL/min/1.73 square meters GFR/1.73 sq M.predicted among non-blacks MDRD (S/P/Bld) [Vol rate/Area] 40 ml/min/1.73sqm Invalid Interpretation Code AO Chemistry S Comment on above: Interpretive Data: GFR Population mean for , Non- Americans Ages 20-29 = 116 mL/min/1.73 sq.m. Ages 30-39 = 107 mL/min/1.73 sq.m. Ages 40-49 = 99 mL/min/1.73 sq.m. Ages 50-59 = 93 mL/min/1.73 sq.m. Ages 60-69 = 85 mL/min/1.73 sq.m. Ages 70+ = 75 mL/min/1.73 sq.m. Chronic Kidney Disease: Less than 60 mL/min/1.73 square meters End Stage Renal Disease: Less than 15 mL/min/1.73 square meters Glucose [Mass/Vol] 210 mg/dL High 83 - 110 mg/dL AO ADM SS Magnesium [Mass/Vol] 1.7 mg/dL Low 1.8 - 2.4 mg/dL AO ADM SS Potassium [Moles/Vol] 3.8 mmol/L Normal 3.5 - 5.1 mmol/L AO ADM SS Sodium [Moles/Vol] 143 mmol/L Normal 136 - 145 mmol/L AO ADM SS Urea nitrogen [Mass/Vol] 30 mg/dL High 7 - 18 mg/dL AO ADM SS Urea nitrogen/Creatinin e [Mass ratio] 18 ratio Normal 7 - 27 ratio AO ADM SS LABORATORYOrdered By: Shar Maldonado on 08-31-2023 Glucose [Mass/Vol] 171 mg/dL High 82 - 115 mg/dL [facility] Work Phone: LABORATORYOrdered By: Nancy Cooley on 08-31-2023 Glucose [Mass/Vol] 145 mg/dL High 82 - 115 mg/dL [facility] Work Phone: LABORATORYOrdered By: Meg Cano on 08-31-2023 ABO/Rh Interp Positive Invalid Interpretation Code AO BB SS Antibody Screen Gel Negative ABSC (08/31/23 12:22 PM) Normal AO BB SS MGon 08-31-2023 Magnesium [Mass/Vol] 1.7 mg/dL Low 1.8-2.4 [facility] ([place]) Comment on above: Performed By: #### C RP, ANEU, MORPH, GFR, TROPHS, MG, CBC, CMP, MDW, ADIFF, TSH #### [facility] [address] [place], [place] [address] CT UROGRAMon 08-08-2023 CT UROGRAM ORIGINAL EXAMINATION: CT UROGRAM 08/08/2023 10:17 am [...] Date: 08/08/2023 11:27:32 AM Ordering Provider: JASMINA Pfeiffer [facility]) LABORATORYOrdered By: SYSTEM SYSTEM on 08-02-2023 Prostate specific Ag [Mass/Vol] 4.72 ng/mL High 0.00 - 4.00 ng/mL AO ADM SS PSAon 08-02-2023 Prostate Specific Antigen 4.72 ng/mL High 0.00-4.00 [facility]) Comment on above: Performed By: #### U A, UAMICAO #### [address] [address] .Auto Diffon 07-20-2023 Basophil, Absolute 0.1 10 3/mcL Normal 0.0-0.2 [facility]) Comment on above: Performed By: #### C RP, ANEU, MORPH, GFR, TROPHS, MG, CBC, CMP, MDW, ADIFF, TSH #### [address] [address] Basophils/100 WBC (Bld) 1.2 % Normal 0.0-2.5 [facility]) Comment on above: Performed By: #### C RP, ANEU, MORPH, GFR, TROPHS, MG, CBC, CMP, MDW, ADIFF, TSH #### [address] [address] Eosinophil, Absolute 0.4 10 3/mcL Normal 0.0-0.4 [facility]) Comment on above: Performed By: #### C RP, ANEU, MORPH, GFR, TROPHS, MG, CBC, CMP, MDW, ADIFF, TSH #### [address] [address] Eosinophils/100 WBC (Bld) 4.8 % Normal 0.0-7.0 [facility] ([place]) Comment on above: Performed By: #### C RP, ANEU, MORPH, GFR, TROPHS, MG, CBC, CMP, MDW, ADIFF, TSH #### [address] [address] Lymphocyte, Absolute 2.7 10 3/mcL Normal 0.8-3.9 [facility] ([place]) Comment on above: Performed By: #### C RP, ANEU, MORPH, GFR, TROPHS, MG, CBC, CMP, MDW, ADIFF, TSH #### [address] [address] Lymphocytes/100 WBC (Bld) 33.5 % Normal 10.0-50.0 [facility] ([place]) Comment on above: Performed By: #### C RP, ANEU, MORPH, GFR, TROPHS, MG, CBC, CMP, MDW, ADIFF, TSH #### [address] [address] Monocyte, Absolute 0.6 10 3/mcL Normal 0.2-1.0 [facility] ([place]) Comment on above: Performed By: #### C RP, ANEU, MORPH, GFR, TROPHS, MG, CBC, CMP, MDW, ADIFF, TSH #### [address] [address] Monocytes/100 WBC (Bld) 7.2 % Normal 1.7-13.0 [facility] ([place]) Comment on above: Performed By: #### C RP, ANEU, MORPH, GFR, TROPHS, MG, CBC, CMP, MDW, ADIFF, TSH #### [address] [address] Neutrophils/100 WBC (Bld) 53.3 % Normal 37.0-80.0 [facility] ([place]) Comment on above: Performed By: #### C RP, ANEU, MORPH, GFR, TROPHS, MG, CBC, CMP, MDW, ADIFF, TSH #### [address] [address] .GFRon 07-20-2023 GFR 57 ml/min/1.73sqm Normal [facility] ([place]) Comment on above: Result Comment: GFR Population mean for , Non- Americans Ages 20-29 = 116 mL/min/1.73 sq.m. Ages 30-39 = 107 mL/min/1.73 sq.m. Ages 40-49 = 99 mL/min/1.73 sq.m. Ages 50-59 = 93 mL/min/1.73 sq.m. Ages 60-69 = 85 mL/min/1.73 sq.m. Ages 70+ = 75 mL/min/1.73 sq.m. Chronic Kidney Disease: Less than 60 mL/min/1.73 square meters End Stage Renal Disease: Less than 15 mL/min/1.73 square meters Performed By: #### C RP, ANEU, MORPH, GFR, TROPHS, MG, CBC, CMP, MDW, ADIFF, TSH #### [address] [address] GFR Non- 47 ml/min/1.73sqm Normal [facility] ([place]) Comment on above: Result Comment: GFR Population mean for , Non- Americans Ages 20-29 = 116 mL/min/1.73 sq.m. Ages 30-39 = 107 mL/min/1.73 sq.m. Ages 40-49 = 99 mL/min/1.73 sq.m. Ages 50-59 = 93 mL/min/1.73 sq.m. Ages 60-69 = 85 mL/min/1.73 sq.m. Ages 70+ = 75 mL/min/1.73 sq.m. Chronic Kidney Disease: Less than 60 mL/min/1.73 square meters End Stage Renal Disease: Less than 15 mL/min/1.73 square meters Performed By: #### C RP, ANEU, MORPH, GFR, TROPHS, MG, CBC, CMP, MDW, ADIFF, TSH #### [address] [address] .MDWon 07-20-2023 Monocyte Distribution Width 19.50 Normal 0.00-20.00 [facility] ([place]) Comment on above: Result Comment: For ED adult patients suspected of sepsis, MDW<=20.0 does not rule out sepsis or risk of sepsis Performed By: #### C RP, ANEU, MORPH, GFR, TROPHS, MG, CBC, CMP, MDW, ADIFF, TSH #### [address] [address] .NEUABSon 07-20-2023 Neutrophil, Absolute 4.4 10 3/mcL Normal 2.9-6.2 [facility] ([place]) Comment on above: Performed By: #### C RP, ANEU, MORPH, GFR, TROPHS, MG, CBC, CMP, MDW, ADIFF, TSH #### [address] [address] .Urinalysis Microscopic (AO) on 07-20-2023 UA RBC LOADED Abnormal None Seen [facility] ([place]) Comment on above: Performed By: #### U A, UAMICAO #### [address] [address] UA Squam Epithelial 10-15 Abnormal None Seen [facility] ([place]) Comment on above: Performed By: #### U A, UAMICAO #### [address] [address] UA WBC None Seen Normal None Seen [facility] ([place]) Comment on above: Performed By: #### U A, UAMICAO #### [address] [address] BMPon 07-20-2023 BUN/Creatinine Ratio 16 ratio Normal 7-27 [facility] ([place]) Comment on above: Performed By: #### C RP, ANEU, MORPH, GFR, TROPHS, MG, CBC, CMP, MDW, ADIFF, TSH #### [address] [address] Calcium [Mass/Vol] 9.6 mg/dL Normal 8.4-10.2 [facility] ([place]) Comment on above: Performed By: #### C RP, ANEU, MORPH, GFR, TROPHS, MG, CBC, CMP, MDW, ADIFF, TSH #### [address] [address] Chloride [Moles/Vol] 103 mmol/L Normal 98-107 [facility] ([place]) Comment on above: Performed By: #### C RP, ANEU, MORPH, GFR, TROPHS, MG, CBC, CMP, MDW, ADIFF, TSH #### [address] [address] CO2 [Moles/Vol] 26 mmol/L Normal 23-31 [facility] ([place]) Comment on above: Performed By: #### C RP, ANEU, MORPH, GFR, TROPHS, MG, CBC, CMP, MDW, ADIFF, TSH #### [address] [address] Creatinine [Mass/Vol] 1.45 mg/dL High 0.70-1.30 [facility] ([place]) Comment on above: Performed By: #### C RP, ANEU, MORPH, GFR, TROPHS, MG, CBC, CMP, MDW, ADIFF, TSH #### [address] [address] Electrolyte Balance 10.0 mEq/L Normal 4.0-15.0 [facility] ([place]) Comment on above: Performed By: #### C RP, ANEU, MORPH, GFR, TROPHS, MG, CBC, CMP, MDW, ADIFF, TSH #### [address] [address] Glucose [Mass/Vol] 128 mg/dL High 83-110 [facility] ([place]) Comment on above: Performed By: #### C RP, ANEU, MORPH, GFR, TROPHS, MG, CBC, CMP, MDW, ADIFF, TSH #### [address] [address] Potassium [Moles/Vol] 4.1 mmol/L Normal 3.5-5.1 [facility] ([place]) Comment on above: Performed By: #### C RP, ANEU, MORPH, GFR, TROPHS, MG, CBC, CMP, MDW, ADIFF, TSH #### [address] [address] Sodium [Moles/Vol] 139 mmol/L Normal 136-145 [facility] ([place]) Comment on above: Performed By: #### C RP, ANEU, MORPH, GFR, TROPHS, MG, CBC, CMP, MDW, ADIFF, TSH #### [address] [address] Urea nitrogen [Mass/Vol] 23 mg/dL High 7-18 [facility] ([place]) Comment on above: Performed By: #### C RP, ANEU, MORPH, GFR, TROPHS, MG, CBC, CMP, MDW, ADIFF, TSH #### [address] [address] CBCon 07-20-2023 Erythrocyte distribution width (RBC) [Ratio] 12.9 % Normal 11.5-14.5 [facility] ([place]) Comment on above: Performed By: #### C RP, ANEU, MORPH, GFR, TROPHS, MG, CBC, CMP, MDW, ADIFF, TSH #### [address] [address] Hematocrit (Bld) [Volume fraction] 40.8 % Low 42.0-52.0 [facility] ([place]) Comment on above: Performed By: #### C RP, ANEU, MORPH, GFR, TROPHS, MG, CBC, CMP, MDW, ADIFF, TSH #### [address] [address] Hgb 13.8 G/dL Low 14.0-18.0 [facility] ([place]) Comment on above: Performed By: #### C RP, ANEU, MORPH, GFR, TROPHS, MG, CBC, CMP, MDW, ADIFF, TSH #### [address] [address] MCH (RBC) [Entitic mass] 30.8 pg Normal 27.0-31.2 [facility] ([place]) Comment on above: Performed By: #### C RP, ANEU, MORPH, GFR, TROPHS, MG, CBC, CMP, MDW, ADIFF, TSH #### [address] [address] MCHC 33.8 G/dL Normal 31.8-35.4 [facility] ([place]) Comment on above: Performed By: #### C RP, ANEU, MORPH, GFR, TROPHS, MG, CBC, CMP, MDW, ADIFF, TSH #### [address] [address] MCV (RBC) [Entitic vol] 91.1 fL Normal 80.0-94.0 [facility] ([place]) Comment on above: Performed By: #### C RP, ANEU, MORPH, GFR, TROPHS, MG, CBC, CMP, MDW, ADIFF, TSH #### [address] [address] Platelet 319 10 3/mcL Normal 130-400 [facility] ([place]) Comment on above: Performed By: #### C RP, ANEU, MORPH, GFR, TROPHS, MG, CBC, CMP, MDW, ADIFF, TSH #### [address] [address] Platelet mean volume (Bld) [Entitic vol] 7.8 fL Normal 7.4-10.4 [facility] ([place]) Comment on above: Performed By: #### C RP, ANEU, MORPH, GFR, TROPHS, MG, CBC, CMP, MDW, ADIFF, TSH #### [address] [address] RBC 4.48 10 6/mcL Normal 4.04-6.13 [facility] ([place]) Comment on above: Performed By: #### C RP, ANEU, MORPH, GFR, TROPHS, MG, CBC, CMP, MDW, ADIFF, TSH #### [id number] WBC 8.2 10 3/mcL Normal 4.6-10.8 [facility] ([place]) Comment on above: Performed By: #### C RP, ANEU, MORPH, GFR, TROPHS, MG, CBC, CMP, MDW, ADIFF, TSH #### [address] [address] UAon 07-20-2023 Color (U) Red Abnormal [facility] ([place]) Comment on above: Performed By: #### U A, UAMICAO #### [address] [address] Glucose (U) [Mass/Vol] Negative Normal Negative [facility] ([place]) Comment on above: Performed By: #### U A, UAMICAO #### [address] [address] Ketones Ql (U) Negative Normal Negative [facility] ([place]) Comment on above: Performed By: #### U A, UAMICAO #### [address] [address] UA Appear Cloudy Abnormal Clear [facility] ([place]) Comment on above: Performed By: #### U A, UAMICAO #### [address] [address] UA Blood Large Abnormal Negative [facility] ([place]) Comment on above: Performed By: #### U A, UAMICAO #### [address] [address] UA Leuk Est Negative Normal Negative [facility] ([place]) Comment on above: Performed By: #### U A, UAMICAO #### [address] [address] UA Nitrite Negative Normal Negative [facility] ([place]) Comment on above: Performed By: #### U A, UAMICAO #### [address] [address] UA pH 7.0 Normal 5.0 - 8.0 [facility] ([place]) Comment on above: Performed By: #### U A, UAMICAO #### [address] [address] UA Protein 100 mg/dL Abnormal Negative [facility] ([place]) Comment on above: Performed By: #### U A, UAMICAO #### [address] [address] UA Spec Grav 1.015 Normal 1.015-1.02 5 [facility] ([place]) Comment on above: Performed By: #### U A UAMICAO #### [address] [place], [place] [address] UA Specimen Type Clean Catch Normal [facility] ([place]) Comment on above: Performed By: #### U A, UAMICAO #### [address] [address] UA Urobilinogen 0.2 E.U./dL Normal 0.2-1.0 [facility] ([place]) Comment on above: Performed By: #### U A UAMICAO #### [address] [address] Urobilinogen (U) [Mass/Vol] Negative Normal Negative [facility] ([place]) Comment on above: Performed By: #### U A UAMICAO #### [address] [address] No Panel Informationon 05-09 Culture Urine <10,000 cfu/ml. No Significant growth. Sensitivity not indicated. [facility] Work Phone: .GFRon 04-23-2023 GFR Non- 54 ml/min/1.73sqm Normal [facility] ([place]) Comment on above: Result Comment: GFR Population mean for , Non- Americans Ages 20-29 = 116 mL/min/1.73 sq.m. Ages 30-39 = 107 mL/min/1.73 sq.m. Ages 40-49 = 99 mL/min/1.73 sq.m. Ages 50-59 = 93 mL/min/1.73 sq.m. Ages 60-69 = 85 mL/min/1.73 sq.m. Ages 70+ = 75 mL/min/1.73 sq.m. Chronic Kidney Disease: Less than 60 mL/min/1.73 square meters End Stage Renal Disease: Less than 15 mL/min/1.73 square meters Performed By: #### C RP, ANEU, MORPH, GFR, TROPHS, MG, CBC, CMP, MDW, COLE, TSH #### [address] [address] GFR 65 ml/min/1.73sqm Normal [facility] ([place]) Comment on above: Result Comment: GFR Population mean for , Non- Americans Ages 20-29 = 116 mL/min/1.73 sq.m. Ages 30-39 = 107 mL/min/1.73 sq.m. Ages 40-49 = 99 mL/min/1.73 sq.m. Ages 50-59 = 93 mL/min/1.73 sq.m. Ages 60-69 = 85 mL/min/1.73 sq.m. Ages 70+ = 75 mL/min/1.73 sq.m. Chronic Kidney Disease: Less than 60 mL/min/1.73 square meters End Stage Renal Disease: Less than 15 mL/min/1.73 square meters Performed By: #### C RP, ANEU, MORPH, GFR, TROPHS, MG, CBC, CMP, MDW, ADIFF, TSH #### [address] [address] A1Con 04-23-2023 HbA1c (Bld) [Mass fraction] 6.8 % High 4.3-6.4 [facility] ([place]) Comment on above: Performed By: #### Lashell Stringer UAMICAO #### [address] [address] CMPon 04-23-2023 Albumin Level 3.7 G/dL Normal 3.4-4.8 [facility] ([place]) Comment on above: Performed By: #### U A UAMICAO #### [address] [address] Albumin/Globulin [Mass ratio] 1.1 {ratio} Normal 1.1-2.5 [facility] ([place]) Comment on above: Performed By: #### U Myke UAMICAO #### [address] [address] ALP [Catalytic activity/Vol] 83 U/L Normal 40-135 [facility] ([place]) Comment on above: Performed By: #### U A UAMICAO #### [address] [address] ALT [Catalytic activity/Vol] 30 U/L Normal 16-63 [facility] ([place]) Comment on above: Performed By: #### U A, UAMICAO #### [address] [address] AST [Catalytic activity/Vol] 18 U/L Normal 10-40 [facility] ([place]) Comment on above: Performed By: #### U A, UAMICAO #### [address] [address] Bili Total 0.6 mg/dL Normal 0.2-1.0 [facility] ([place]) Comment on above: Result Comment: Use of this assay is not recommended for patients undergoing treatment with eltrombopag due to the potential for falsely elevated results. Performed By: #### U Myke UAMICAO #### [address] [address] BUN/Creatinine Ratio 27 ratio Normal 7-27 [facility] ([place]) Comment on above: Performed By: #### U Myke UAMICAO #### [address] [address] Calcium [Mass/Vol] 9.1 mg/dL Normal 8.4-10.2 [facility] ([place]) Comment on above: Performed By: #### U A UAMICAO #### [address] [address] Chloride [Moles/Vol] 104 mmol/L Normal 98-107 [facility] ([place]) Comment on above: Performed By: #### U A, UAMICAO #### [address] [address] CO2 [Moles/Vol] 26 mmol/L Normal 23-31 [facility] ([place]) Comment on above: Performed By: #### U A, UAMICAO #### [address] [address] Creatinine [Mass/Vol] 1.29 mg/dL Normal 0.70-1.30 [facility] ([place]) Comment on above: Performed By: #### U A, UAMICAO #### [address] [address] Electrolyte Balance 11.0 mEq/L Normal 4.0-15.0 [facility] ([place]) Comment on above: Performed By: #### U A, UAMICAO #### [address] [address] Globulin 3.3 G/dL Normal [facility] ([place]) Comment on above: Performed By: #### U A, UAMICAO #### [address] [address] Glucose [Mass/Vol] 164 mg/dL High 83-110 [facility] ([place]) Comment on above: Performed By: #### U A, UAMICAO #### [address] [address] Potassium [Moles/Vol] 4.8 mmol/L Normal 3.5-5.1 [facility] ([place]) Comment on above: Performed By: #### U A, UAMICAO #### [address] [address] Sodium [Moles/Vol] 141 mmol/L Normal 136-145 [facility] ([place]) Comment on above: Performed By: #### U A, UAMICAO #### [address] [address] Total Protein 7.0 G/dL Normal 6.4-8.2 [facility] ([place]) Comment on above: Performed By: #### U A, UAMICAO #### [address] [address] Urea nitrogen [Mass/Vol] 35 mg/dL High 7-18 [facility] ([place]) Comment on above: Performed By: #### U A, UAMICAO #### [address] [address] LABORATORYOrdered By: SYSTEM SYSTEM on 04-23-2023 Albumin BCP dye [Mass/Vol] 3.7 G/dL Invalid Interpretation Code 3.4 - 4.8 G/dL AO ADM SS Albumin/Globulin [Mass ratio] 1.1 {ratio} Invalid Interpretation Code 1.1 - 2.5 ratio AO ADM SS ALP [Catalytic activity/Vol] 83 U/L Invalid Interpretation Code 40 - 135 U/L AO ADM SS ALT With P-5'-P [Catalytic activity/Vol] 30 U/L Invalid Interpretation Code 16 - 63 U/L AO ADM SS AST With P-5'-P [Catalytic activity/Vol] 18 U/L Invalid Interpretation Code 10 - 40 U/L AO ADM SS Bilirubin [Mass/Vol] 0.6 mg/dL Invalid Interpretation Code 0.2 - 1.0 mg/dL AO ADM SS Comment on above: Interpretive Data: U se of this assay is not recommended for patients undergoing treatment with eltrombopag due to the potential for falsely elevated results. Calcium [Mass/Vol] 9.1 mg/dL Invalid Interpretation Code 8.4 - 10.2 mg/dL AO ADM SS Chloride [Moles/Vol] 104 mmol/L Invalid Interpretation Code 98 - 107 mmol/L AO ADM SS CO2 [Moles/Vol] 26 mmol/L Invalid Interpretation Code 23 - 31 mmol/L AO ADM SS Creatinine [Mass/Vol] 1.29 mg/dL Invalid Interpretation Code 0.70 - 1.30 mg/dL AO ADM SS Electrolyte Balance 11.0 mEq/L Invalid Interpretation Code 4.0 - 15.0 mEq/L AO ADM SS GFR/1.73 sq M.predicted among blacks MDRD (S/P/Bld) [Vol rate/Area] 65 ml/min/1.73sqm Invalid Interpretation Code AO Chemistry S Comment on above: Interpretive Data: GFR Population mean for , Non- Americans Ages 20-29 = 116 mL/min/1.73 sq.m. Ages 30-39 = 107 mL/min/1.73 sq.m. Ages 40-49 = 99 mL/min/1.73 sq.m. Ages 50-59 = 93 mL/min/1.73 sq.m. Ages 60-69 = 85 mL/min/1.73 sq.m. Ages 70+ = 75 mL/min/1.73 sq.m. Chronic Kidney Disease: Less than 60 mL/min/1.73 square meters End Stage Renal Disease: Less than 15 mL/min/1.73 square meters GFR/1.73 sq M.predicted among non-blacks MDRD (S/P/Bld) [Vol rate/Area] 54 ml/min/1.73sqm Invalid Interpretation Code AO Chemistry S Comment on above: Interpretive Data: GFR Population mean for , Non- Americans Ages 20-29 = 116 mL/min/1.73 sq.m. Ages 30-39 = 107 mL/min/1.73 sq.m. Ages 40-49 = 99 mL/min/1.73 sq.m. Ages 50-59 = 93 mL/min/1.73 sq.m. Ages 60-69 = 85 mL/min/1.73 sq.m. Ages 70+ = 75 mL/min/1.73 sq.m. Chronic Kidney Disease: Less than 60 mL/min/1.73 square meters End Stage Renal Disease: Less than 15 mL/min/1.73 square meters Globulin 3.3 G/dL Invalid Interpretation Code AO ADM SS Glucose [Mass/Vol] 164 mg/dL Invalid Interpretation Code 83 - 110 mg/dL AO ADM SS HbA1c (Bld) [Mass fraction] 6.8 % Invalid Interpretation Code 4.3 - 6.4 % AO ADM SS Potassium [Moles/Vol] 4.8 mmol/L Invalid Interpretation Code 3.5 - 5.1 mmol/L AO ADM SS Protein [Mass/Vol] 7.0 G/dL Invalid Interpretation Code 6.4 - 8.2 G/dL AO ADM SS Sodium [Moles/Vol] 141 mmol/L Invalid Interpretation Code 136 - 145 mmol/L AO ADM SS TSH Qn 1.95 m[IU]/L Invalid Interpretation Code 0.36 - 3.74 mcIU/mL AO ADM SS Urea nitrogen [Mass/Vol] 35 mg/dL Invalid Interpretation Code 7 - 18 mg/dL AO ADM SS Urea nitrogen/Creatinin e [Mass ratio] 27 ratio Invalid Interpretation Code 7 - 27 ratio AO ADM SS LABORATORYOrdered By: Avery Whaley on 04-23-2023 Cholesterol [Mass/Vol] 147 mg/dL Invalid Interpretation Code 0 - 200 mg/dL AO ADM SS Comment on above: Interpretive Data: C holesterol Reference Interval: Less than 200 Desirable 200-239 Borderline high risk 240 and above High risk Cholesterol in HDL [Mass/Vol] 35 mg/dL Invalid Interpretation Code 40 - 60 mg/dL AO ADM SS Cholesterol in LDL [Mass/Vol] 67 mg/dL Invalid Interpretation Code 0 - 130 mg/dL AO ADM SS Triglyceride [Mass/Vol] 225 mg/dL Invalid Interpretation Code 0 - 150 mg/dL AO ADM SS Comment on above: Interpretive Data: T riglyceride Reference Interval: Less than 150 Normal 150-199 Borderline high risk 200-499 High risk 500 or higher Very high risk LIPIDon 04-23-2023 Cholesterol [Mass/Vol] 147 mg/dL Normal 0-200 [facility] ([place]) Comment on above: Result Comment: Chol esterol Reference Interval: Less than 200 Desirable 200-239 Borderline high risk 240 and above High risk Performed By: #### C RP, ANEU, MORPH, GFR, TROPHS, MG, CBC, CMP, MDW, ADIFF, TSH #### [address] [address] Cholesterol in HDL [Mass/Vol] 35 mg/dL Low 40-60 [facility] ([place]) Comment on above: Performed By: #### C RP, ANEU, MORPH, GFR, TROPHS, MG, CBC, CMP, MDW, ADIFF, TSH #### [address] [address] Cholesterol in LDL [Mass/Vol] 67 mg/dL Normal 0-130 [facility] ([place]) Comment on above: Performed By: #### C RP, ANEU, MORPH, GFR, TROPHS, MG, CBC, CMP, MDW, ADIFF, TSH #### [address] [address] Triglyceride [Mass/Vol] 225 mg/dL High 0-150 [facility] ([place]) Comment on above: Result Comment: Trig lyceride Reference Interval: Less than 150 Normal 150-199 Borderline high risk 200-499 High risk 500 or higher Very high risk Performed By: #### C RP, ANEU, MORPH, GFR, TROPHS, MG, CBC, CMP, MDW, ADIFF, TSH #### [address] [address] TSHon 04-23-2023 TSH Qn 1.95 m[IU]/L Normal 0.36-3.74 [facility] ([place]) Comment on above: Performed By: #### U CRISTIAN Stringer #### [facility] [address] [place], [place] [address] LABORATORYOrdered By: Marguerite Cortez on 10-10-2022 Albumin DL <= 20 mg/L (U) [Mass/Vol] 3365 mcg/dL Invalid Interpretation Code AO ADM SS Albumin/Creatinine DL <= 20 mg/L (U) [Mass ratio] 29 mcg/mg Invalid Interpretation Code 0 - 30 mcg/mg AO ADM SS Creatinine (U) [Mass/Vol] 115.3 mg/dL Invalid Interpretation Code 39.0 - 259.0 mg/dL AO ADM SS LABORATORYOrdered By: Janell harrell on 08-30-2022 Blood Glucose Testing Reason Routine (08/30/22 11:43 AM) [facility] Work Phone: Glucose [Mass/Vol] 163 mg/dL Invalid Interpretation Code 82 - 115 mg/dL [facility] Work Phone: LABORATORYOrdered By: Roxann sinclair on 08-30-2022 Blood Glucose Testing Reason Routine (08/30/22 8:03 AM) [facility] Work Phone: Glucose [Mass/Vol] 140 mg/dL Invalid Interpretation Code 82 - 115 mg/dL [facility] Work Phone: LABORATORYOrdered By: Mabel Oshea on 08-30-2022 Basophil, Absolute 0.0 103/mcL Invalid Interpretation Code 0.0 - 0.2 10^3/mcL AO Workflow SS Basophils/100 WBC (Bld) 0.1 % Invalid Interpretation Code 0.0 - 2.5 % AO Workflow SS Eosinophil, Absolute 0.0 103/mcL Invalid Interpretation Code 0.0 - 0.4 10^3/mcL AO Workflow SS Eosinophils/100 WBC (Bld) 0.0 % Invalid Interpretation Code 0.0 - 7.0 % AO Workflow SS Erythrocyte distribution width (RBC) [Ratio] 13.0 % Invalid Interpretation Code 11.5 - 14.5 % AO Workflow SS Hematocrit (Bld) [Volume fraction] 36.9 % Invalid Interpretation Code 42.0 - 52.0 % AO Workflow SS Hemoglobin (Bld) [Mass/Vol] 12.6 G/dL Invalid Interpretation Code 14.0 - 18.0 G/dL AO Workflow SS Lymphocyte, Absolute 2.4 103/mcL Invalid Interpretation Code 0.8 - 3.9 10^3/mcL AO Workflow SS Lymphocytes/100 WBC (Bld) 19.1 % Invalid Interpretation Code 10.0 - 50.0 % AO Workflow SS MCH (RBC) [Entitic mass] 31.0 pg Invalid Interpretation Code 27.0 - 31.2 pg AO Workflow SS MCHC 34.2 G/dL Invalid Interpretation Code 31.8 - 35.4 G/dL AO Workflow SS MCV (RBC) [Entitic vol] 90.7 fL Invalid Interpretation Code 80.0 - 94.0 fL AO Workflow SS Monocyte, Absolute 1.2 103/mcL Invalid Interpretation Code 0.2 - 1.0 10^3/mcL AO Workflow SS Monocytes/100 WBC (Bld) 9.5 % Invalid Interpretation Code 1.7 - 13.0 % AO Workflow SS Neutrophil, Absolute 9.1 103/mcL Invalid Interpretation Code 2.9 - 6.2 10^3/mcL AO Workflow SS Neutrophils/100 WBC (Bld) 71.3 % Invalid Interpretation Code 37.0 - 80.0 % AO Workflow SS Platelet mean volume (Bld) [Entitic vol] 8.1 fL Invalid Interpretation Code 7.4 - 10.4 fL AO Workflow SS Platelets (Bld) [#/Vol] 288 103/mcL Invalid Interpretation Code 130 - 400 10^3/mcL AO Workflow SS RBC (Bld) [#/Vol] 4.07 106/mcL Invalid Interpretation Code 4.04 - 6.13 10^6/mcL AO Workflow SS WBC (Bld) [#/Vol] 12.7 103/mcL Invalid Interpretation Code 4.6 - 10.8 10^3/mcL AO Workflow SS LABORATORYOrdered By: SYSTEM SYSTEM on 08-30-2022 Calcium [Mass/Vol] 8.9 mg/dL Invalid Interpretation Code 8.4 - 10.2 mg/dL AO ADM SS Chloride [Moles/Vol] 101 mmol/L Invalid Interpretation Code 98 - 107 mmol/L AO ADM SS CO2 [Moles/Vol] 26 mmol/L Invalid Interpretation Code 23 - 31 mmol/L AO ADM SS Creatinine [Mass/Vol] 1.58 mg/dL Invalid Interpretation Code 0.70 - 1.30 mg/dL AO ADM SS Electrolyte Balance 9.0 mEq/L Invalid Interpretation Code 4.0 - 15.0 mEq/L AO ADM SS GFR 52 ml/min/1.73sqm Invalid Interpretation Code AO Chemistry S GFR Non- 43 ml/min/1.73sqm Invalid Interpretation Code AO Chemistry S Glucose [Mass/Vol] 157 mg/dL Invalid Interpretation Code 83 - 110 mg/dL AO ADM SS Potassium [Moles/Vol] 4.9 mmol/L Invalid Interpretation Code 3.5 - 5.1 mmol/L AO ADM SS Sodium [Moles/Vol] 136 mmol/L Invalid Interpretation Code 136 - 145 mmol/L AO ADM SS Urea nitrogen [Mass/Vol] 34 mg/dL Invalid Interpretation Code 7 - 18 mg/dL AO ADM SS Urea nitrogen/Creatinin e [Mass ratio] 22 ratio Invalid Interpretation Code 7 - 27 ratio AO ADM SS LABORATORYOrdered By: Kayden mAes on 08-29-2022 Blood Glucose Testing Reason Routine (08/29/22 9:36 PM) [facility] Work Phone: Glucose [Mass/Vol] 177 mg/dL Invalid Interpretation Code 82 - 115 mg/dL [facility] Work Phone: LABORATORYOrdered By: Meg Cano on 08-29-2022 ABO/Rh Interp Positive Invalid Interpretation Code AO BB SS Antibody Screen Gel Negative ABSC (08/29/22 8:15 AM) Invalid Interpretation Code AO BB SS LABORATORYOrdered By: SYSTEM SYSTEM on 08-08-2022 Albumin BCP dye [Mass/Vol] 3.6 G/dL Invalid Interpretation Code 3.4 - 4.8 G/dL AO ADM SS Albumin/Globulin [Mass ratio] 1.2 {ratio} Invalid Interpretation Code 1.1 - 2.5 ratio AO ADM SS ALP [Catalytic activity/Vol] 80 U/L Invalid Interpretation Code 40 - 135 U/L AO ADM SS ALT With P-5'-P [Catalytic activity/Vol] 29 U/L Invalid Interpretation Code 16 - 63 U/L AO ADM SS AST With P-5'-P [Catalytic activity/Vol] 23 U/L Invalid Interpretation Code 10 - 40 U/L AO ADM SS Bilirubin [Mass/Vol] 0.8 mg/dL Invalid Interpretation Code 0.2 - 1.0 mg/dL AO ADM SS Calcium [Mass/Vol] 9.4 mg/dL Invalid Interpretation Code 8.4 - 10.2 mg/dL AO ADM SS Chloride [Moles/Vol] 104 mmol/L Invalid Interpretation Code 98 - 107 mmol/L AO ADM SS CO2 [Moles/Vol] 26 mmol/L Invalid Interpretation Code 23 - 31 mmol/L AO ADM SS Creatinine [Mass/Vol] 1.10 mg/dL Invalid Interpretation Code 0.70 - 1.30 mg/dL AO ADM SS Electrolyte Balance 10.0 mEq/L Invalid Interpretation Code 4.0 - 15.0 mEq/L AO ADM SS GFR 79 ml/min/1.73sqm Invalid Interpretation Code AO Chemistry S GFR Non- 65 ml/min/1.73sqm Invalid Interpretation Code AO Chemistry S Globulin 3.1 G/dL Invalid Interpretation Code AO ADM SS Glucose [Mass/Vol] 131 mg/dL Invalid Interpretation Code 83 - 110 mg/dL AO ADM SS HbA1c (Bld) [Mass fraction] 6.8 % Invalid Interpretation Code 4.3 - 6.4 % AO ADM SS Potassium [Moles/Vol] 4.4 mmol/L Invalid Interpretation Code 3.5 - 5.1 mmol/L AO ADM SS Protein [Mass/Vol] 6.7 G/dL Invalid Interpretation Code 6.4 - 8.2 G/dL AO ADM SS Sodium [Moles/Vol] 140 mmol/L Invalid Interpretation Code 136 - 145 mmol/L AO ADM SS Urea nitrogen [Mass/Vol] 20 mg/dL Invalid Interpretation Code 7 - 18 mg/dL AO ADM SS Urea nitrogen/Creatinin e [Mass ratio] 18 ratio Invalid Interpretation Code 7 - 27 ratio AO ADM SS LABORATORYOrdered By: Chacho Starks on 08-08-2022 Basophil, Absolute 0.1 103/mcL Invalid Interpretation Code 0.0 - 0.2 10^3/mcL AO Workflow SS Basophils/100 WBC (Bld) 0.9 % Invalid Interpretation Code 0.0 - 2.5 % AO Workflow SS Eosinophil, Absolute 0.5 103/mcL Invalid Interpretation Code 0.0 - 0.4 10^3/mcL AO Workflow SS Eosinophils/100 WBC (Bld) 5.9 % Invalid Interpretation Code 0.0 - 7.0 % AO Workflow SS Erythrocyte distribution width (RBC) [Ratio] 13.1 % Invalid Interpretation Code 11.5 - 14.5 % AO Workflow SS Hematocrit (Bld) [Volume fraction] 40.8 % Invalid Interpretation Code 42.0 - 52.0 % AO Workflow SS Hemoglobin (Bld) [Mass/Vol] 14.1 G/dL Invalid Interpretation Code 14.0 - 18.0 G/dL AO Workflow SS Lymphocyte, Absolute 2.7 103/mcL Invalid Interpretation Code 0.8 - 3.9 10^3/mcL AO Workflow SS Lymphocytes/100 WBC (Bld) 33.3 % Invalid Interpretation Code 10.0 - 50.0 % AO Workflow SS MCH (RBC) [Entitic mass] 31.3 pg Invalid Interpretation Code 27.0 - 31.2 pg AO Workflow SS MCHC 34.6 G/dL Invalid Interpretation Code 31.8 - 35.4 G/dL AO Workflow SS MCV (RBC) [Entitic vol] 90.6 fL Invalid Interpretation Code 80.0 - 94.0 fL AO Workflow SS Monocyte, Absolute 0.6 103/mcL Invalid Interpretation Code 0.2 - 1.0 10^3/mcL AO Workflow SS Monocytes/100 WBC (Bld) 7.9 % Invalid Interpretation Code 1.7 - 13.0 % AO Workflow SS Neutrophil, Absolute 4.2 103/mcL Invalid Interpretation Code 2.9 - 6.2 10^3/mcL AO Workflow SS Neutrophils/100 WBC (Bld) 52.0 % Invalid Interpretation Code 37.0 - 80.0 % AO Workflow SS Platelet mean volume (Bld) [Entitic vol] 8.0 fL Invalid Interpretation Code 7.4 - 10.4 fL AO Workflow SS Platelets (Bld) [#/Vol] 285 103/mcL Invalid Interpretation Code 130 - 400 10^3/mcL AO Workflow SS RBC (Bld) [#/Vol] 4.50 106/mcL Invalid Interpretation Code 4.04 - 6.13 10^6/mcL AO Workflow SS WBC (Bld) [#/Vol] 8.0 103/mcL Invalid Interpretation Code 4.6 - 10.8 10^3/mcL AO Workflow SS LABORATORYOrdered By: Chacho Starks on 05-12-2021 Albumin BCP dye [Mass/Vol] 3.7 G/dL Invalid Interpretation Code 3.4 - 4.8 G/dL AO ADM SS Albumin/Globulin [Mass ratio] 1.2 {ratio} Invalid Interpretation Code 1.1 - 2.5 ratio AO ADM SS ALP [Catalytic activity/Vol] 101 U/L Invalid Interpretation Code 40 - 135 U/L AO ADM SS ALT With P-5'-P [Catalytic activity/Vol] 28 U/L Invalid Interpretation Code 16 - 63 U/L AO ADM SS AST With P-5'-P [Catalytic activity/Vol] 18 U/L Invalid Interpretation Code 10 - 40 U/L AO ADM SS Bilirubin [Mass/Vol] 0.8 mg/dL Invalid Interpretation Code 0.2 - 1.0 mg/dL AO ADM SS Calcium [Mass/Vol] 9.3 mg/dL Invalid Interpretation Code 8.4 - 10.2 mg/dL AO ADM SS Chloride [Moles/Vol] 104 mmol/L Invalid Interpretation Code 98 - 107 mmol/L AO ADM SS Cholesterol [Mass/Vol] 164 mg/dL Invalid Interpretation Code 0 - 200 mg/dL AO ADM SS Cholesterol in HDL [Mass/Vol] 34 mg/dL Invalid Interpretation Code 40 - 60 mg/dL AO ADM SS Cholesterol in LDL [Mass/Vol] 92 mg/dL Invalid Interpretation Code 0 - 130 mg/dL AO ADM SS CO2 [Moles/Vol] 29 mmol/L Invalid Interpretation Code 23 - 31 mmol/L AO ADM SS Creatinine [Mass/Vol] 1.25 mg/dL Invalid Interpretation Code 0.70 - 1.30 mg/dL AO ADM SS Electrolyte Balance 8.0 mEq/L Invalid Interpretation Code AO ADM SS Globulin 3.1 G/dL Invalid Interpretation Code AO ADM SS Glucose [Mass/Vol] 127 mg/dL Invalid Interpretation Code 83 - 110 mg/dL AO ADM SS Potassium [Moles/Vol] 4.9 mmol/L Invalid Interpretation Code 3.5 - 5.1 mmol/L AO ADM SS Prostate specific Ag [Mass/Vol] 3.31 ng/mL Invalid Interpretation Code 0.00 - 4.00 ng/mL AO ADM SS Protein [Mass/Vol] 6.8 G/dL Invalid Interpretation Code 6.4 - 8.2 G/dL AO ADM SS Sodium [Moles/Vol] 141 mmol/L Invalid Interpretation Code 136 - 145 mmol/L AO ADM SS Triglyceride [Mass/Vol] 192 mg/dL Invalid Interpretation Code 0 - 150 mg/dL AO ADM SS TSH Qn 1.85 m[IU]/L Invalid Interpretation Code 0.36 - 3.74 mcIU/mL AO ADM SS Urea nitrogen [Mass/Vol] 20 mg/dL Invalid Interpretation Code 7 - 18 mg/dL AO ADM SS Urea nitrogen/Creatinin e [Mass ratio] 16 ratio Invalid Interpretation Code 7 - 27 ratio AO ADM SS LABORATORYOrdered By: SYSTEM SYSTEM on 05-12-2021 GFR 68 ml/min/1.73sqm Invalid Interpretation Code AO Chemistry S GFR Non- 56 ml/min/1.73sqm Invalid Interpretation Code AO Chemistry S BMPon 04-01-2021 Anion gap [Moles/Vol] 9 mmol/L Normal 5-16 [facility] Comment on above: Order Comment: Campu s: M Performed By: #### L [id number], L500.44435, L500.06240, L500.72286 #### [facility] [address] [place] [address] Calcium [Mass/Vol] 9.0 mg/dL Normal 8.5-10.5 [facility] Comment on above: Order Comment: Campu s: M Result Comment: NOTE NEW NORMAL RANGE DUE TO REAGENT CHANGE Performed By: #### L 500.83527, L500.14016, L500.81543, L500.14341 #### [facility] [address] [place] [address] Chloride [Moles/Vol] 106 mmol/L Normal 98-107 [facility] Comment on above: Order Comment: Campu s: M Performed By: #### L 500.99920, L500.33985, L500.58612, L500.87763 #### [facility] [place] [address] CO2 [Moles/Vol] 23.0 mmol/L Normal 21-32 [facility] Comment on above: Order Comment: Campu s: M Performed By: #### L 500.12554, L500.11272, L500.65603, L500.66974 #### [facility] [place] [address] Creatinine [Mass/Vol] 0.88 mg/dL Normal 0.5-1.4 [facility] Comment on above: Order Comment: Campu s: M Result Comment: NOTE NEW NORMAL RANGE DUE TO REAGENT CHANGE Patients receiving either N-Acetylcysteine (NAC) or Metamizole prior to venipuncture, may have falsely depressed results. Performed By: #### L 500.56210, L500.25986, L500.10628, L500.99300 #### [facility] [address] [place] [address] Glucose [Mass/Vol] 148 mg/dL High 70-100 [facility] Comment on above: Order Comment: Campu s: M Result Comment: 70-1 00- Normal Fasting; 100-125 Impaired Fasting; greater than 126 on more than one result- Diabetes. ADA guidelines. Results may be falsely elevated after the administration of Sulfapyridine. Results may be falsely depressed after the administration of Sulfasalazine. Performed By: #### L 500.60458, L500.32730, L500.25387, L500.98072 #### [facility] [address] [place] [address] Potassium [Moles/Vol] 3.8 mmol/L Normal 3.5-5.1 [facility] Comment on above: Order Comment: Ronaku s: M Result Comment: Slig ht Hemolysis, Result may be affected. Performed By: #### L 500.75544, L500.11229, L500.40792, L500.54496 #### [facility] [address] [place] [address] Sodium [Moles/Vol] 138 mmol/L Normal 136-145 [facility] Comment on above: Order Comment: Ronaku s: M Performed By: #### L 500.57014, L500.42836, L500.17271, L500.41636 #### [facility] [address] [place] [address] Urea nitrogen [Mass/Vol] 11 mg/dL Normal 7-26 [facility] Comment on above: Order Comment: Campu s: M Performed By: #### L 500.29414, L500.49172, L500.46774, L500.24619 #### [facility] [address] [place] [address] Urea nitrogen/Creatinin e [Mass ratio] 13 mg/mg Low 15-24 [facility] Comment on above: Order Comment: Campu s: M Performed By: #### L 500.87630, L500.70754, L500.41373, L500.66348 #### [facility] [address] [place] [address] CBC W/DIFFon 04-01-2021 BASO ABS 0.00 K/CU MM Normal 0-0.2 [facility] Comment on above: Order Comment: Campu s: M Performed By: #### L 200.31022 #### [facility] [address] [place] [address] Basophils/100 WBC (Bld) 0.2 % Normal 0-2 [facility] Comment on above: Order Comment: Campu s: M Performed By: #### L 200.68041 #### [facility] [address] [place] [address] EOS ABS 0.00 K/CU MM Normal 0-0.5 [facility] Comment on [facility]: Order Comment: Campu s: M Performed By: #### L 200.62901 #### [facility] [address] [place] [address] Eosinophils/100 WBC (Bld) 0.0 % Normal 0-5 [facility] Comment on above: Order Comment: Campu s: M Performed By: #### L 200.22547 #### [facility] [address] [place] [address] Erythrocyte distribution width (RBC) [Ratio] 12.4 % Normal 11-14.5 [facility] Comment on above: Order Comment: Campu s: M Performed By: #### L 200.30356 #### [facility] [address] [place] [address] Hematocrit (Bld) [Volume fraction] 36.6 % Low 41.0-53.0 [facility] Comment on above: Order Comment: Campu s: M Performed By: #### L 200.16155 #### [facility] [address] [place] [address] Hemoglobin (Bld) [Mass/Vol] 11.9 g/dL Low 13.5-17.5 [facility] Comment on above: Order Comment: Campu s: M Performed By: #### L 200.78295 #### [facility] [address] [place] [address] IMMATR GRAN ABS 0.10 K/CU MM Normal Less than 2 [facility] Comment on above: Order Comment: Campu s: M Performed By: #### L 200.95649 #### [facility] [address] [place] [address] IMMATURE GRAN % 0.5 % Normal Less than 2 [facility] Comment on above: Order Comment: Campu s: M Performed By: #### L 200.52114 #### [facility] [address] [place] [address] LYMPH ABS 1.60 K/CU MM Normal 0.9-4.4 [facility] Comment on above: Order Comment: Campu s: M Performed By: #### L 200.64690 #### [facility] [address] [place] [address] Lymphocytes/100 WBC (Bld) 17.1 % Low 20-40 [facility] Comment on above: Order Comment: Campu s: M Performed By: #### L 200.45840 #### [facility] [address] [place] [address] MCHC (RBC) [Mass/Vol] 32.5 g/dL Normal 32.0-36.0 [facility] Comment on above: Order Comment: Campu s: M Performed By: #### L 200.48219 #### [facility] [address] [place] [address] MCV (RBC) [Entitic vol] 95.8 fL Normal 80.0-99.0 [facility] Comment on above: Order Comment: Campu s: M Performed By: #### L 200.38094 #### [facility] [address] [place] [address] MONO ABS 0.80 K/CU MM Normal 0.1-1.1 [facility] Comment on above: Order Comment: Campu s: M Performed By: #### L 200.51171 #### [facility] [address] [place] [address] Monocytes/100 WBC (Bld) 8.2 % Normal 2-10 [facility] Comment on above: Order Comment: Campu s: M Performed By: #### L 200.04377 #### [facility] [address] [place] [address] NEUTROPHIL ABS 7.00 K/CU MM Normal 2.0-8.3 [facility] Comment on above: Order Comment: Campu s: M Performed By: #### L 200.60340 #### [facility] [address] [place] [address] Neutrophils/100 WBC (Bld) 74.0 % Normal 45-75 [facility] Comment on above: Order Comment: Campu s: M Performed By: #### L 200.39752 #### [facility] [address] [place], [place] [id number] Nucleated RBC/100 WBC (Bld) [Ratio] 0.0 % Normal Less than 1 [facility] Comment on above: Order Comment: Campu s: M Performed By: #### L 200.51106 #### [facility] [address] [place] [address] Platelet mean volume (Bld) [Entitic vol] 9.6 fL Normal 9.4-12.4 [facility] Comment on above: Order Comment: Campu s: M Performed By: #### L [id number] #### [facility] [address] [place], [place] [id number] PLT 305 K/CU MM Normal 150-450 [facility] Comment on above: Order Comment: Campu s: M Performed By: #### L 200.70359 #### [facility] [address] [place] [address] RBC 3.82 M/CU MM Low 4.50-6.00 [facility] Comment on above: Order Comment: Campu s: M Performed By: #### L [id number] #### [facility] [address] [place], [place] [address] WBC 9.5 K/CUMM Normal 4.5-11.0 [facility] Comment on above: Order Comment: Campu s: M Performed By: #### L 200.46024 #### [facility] [address] [place], [place] [address] DISCH.SUMon 04-01-2021 DISCH.SUM [facility] Patient Name: JULIO JARRELL [address] [place] [address] Date of : [address] [address] Unit Number: [id number] Discharge Summary Patient Status: DIS IN Attending Doctor: Jerome Brandon MD Service Date: 04/01/21 1623 Discharge Summary Admit Date Admission Date Time: 03/26/21 1532 Anticipated Discharge Date 04/01/21 Final Dx/Problem List 1. Cholecystitis 2. Pancreatitis Acute 3. Elevated LFTs Acute 4. IVONNE (acute kidney injury) Patient Problems Reviewed: Yes Chief Complaint/HPI Abdominal pain, nausea/vomiting Reason for Admission Possible acute cholecystitis, Gallstones, status post cholecystectomy, Choledocholithiasis status post ERCP 03/30/2021 with sphincterotomy and removal of CBD stones/sludge. Hospital Course Patient is 75-year-old male with history of diabetes, hypertension and other medical problems who had intermittent abdominal pain for about 3 weeks, along with nausea/vomiting and chills recently for which he presented to [facility] ER where he had CT abdomen done showing possible acute cholecystitis, cholelithiasis, possible choledocholithiasis and pancreatitis. Labs showed elevated LFTs with total bilirubin 2.1, lipase elevated at 2250 and creatinine elevated at 1.69. He was transferred to [facility] for further management. Please refer to initial HandP for full details. Patient was treated with IV fluids, pain control with analgesics, IV Zosyn and other supportive management. Patient had MRCP showing cholelithiasis, mild gallbladder wall thickening and pericholecystic edema and 5 mm calculus at the distal aspect of the common bile duct. Accordingly patient had ERCP done by GI with sphincterotomy and removal of common bile duct stones/sludge. Input noted. Later patient had cholecystectomy done yesterday. He mentions to feeling much better this morning. General surgery cleared the patient for discharge today and advised outpatient follow-up. No further antibiotics needed. His renal function has already improved after receiving IV fluids. Medications optimized at discharge. He is stable for discharge today. Appropriate instructions provided. Patient advised to follow-up with his PCP (does not remember the name) and surgery as outpatient. Assessment: Possible acute cholecystitis, improved. Gallstones status post cholecystectomy 03/31/2021. Elevated LFTs-improved. Choledocholithiasis status post ERCP 03/30/2021 with sphincterotomy and removal of CBD stones/sludge. Gallstone pancreatitis-improved. Acute kidney injury, improved. Diabetes Hypertension Dyslipidemia Depression GERD Alcohol use Obesity with BMI 35.2 Vital Signs Vital Signs (Last) Result Date Time Pulse Ox 94 04/01 710 B/P 169/73 04/01 710 O2 Delivery NASAL CANNULA 04/01 710 O2 Flow Rate 2 04/01 710 Temp 98.1 04/01 710 Pulse 77 04/01 710 Resp 18 04/01 710 Pertinent Physical Findings GENERAL: [Patient is a obese male lying in bed not in apparent distress.] HEAD: [Atraumatic, normocephalic.] NECK: [Supple.] CARDIOVASCULAR: [S1-S2 audible, no murmurs.] RESPIRAORY: [Bilateral air entry present. No significant rales or wheezing noted.] ABDOMIN: [Soft, no significant tenderness noted at this time without significant guarding or rebound tenderness, laparoscopic scars noted, bowel sounds appreciated.] EXTREMITIES: [No edema, pulses palpable bilaterally.] GLOBAL REGULATORY LEAD: [Patient awake, alert, oriented 3. No focal neurological deficits. ] PSYCHIATRIC: [Normal mood and affect. Patient not in apparent distress.] Consults Gastroenterology, General Surgery Labs/Imaging Lab 72hr (CBC/BMP [facility]) 04/01/21 1133: Whole Bld Glucose 116 04/01/21 0756: Whole Bld Glucose 142 H 04/01/21 0536: [Embedded Image Not Available] Anion Gap 9, Est GFR ( Amer) Greater than 60, Est GFR (Non-Af Amer) Greater than 60 , BUN/Creatinine Ratio 13 L, Glucose 148 H, Total Calcium 9.0, Magnesium 1.7, RBC 3.82 L, MCV 95.8, MCHC 32.5, RDW 12.4, MPV 9.6, Immature Gran % (Auto) 0.5, Abs Immat Gran (auto) 0.10, Seg Neutrophils % 74.0, Lymphocytes % 17.1 L, Monocytes % 8.2, Eosinophils % 0.0, Basophils % 0.2, Neutrophils # 7.00, Lymphocytes # 1.60, Monocytes # 0.80, Eosinophils # 0.00, Basophils # 0.00, Nucleated RBCs 0.0 03/31/219: Whole Bld Glucose 206 H 03/31/21 1716: Whole Bld Glucose 124 03/31/21 1425: Whole Bld Glucose 106 03/31/21 1155: Whole Bld Glucose 104 03/31/21 0810: Whole Bld Glucose 102 03/31/21 0452: [Embedded Image Not Available] Anion Gap 7, Est GFR ( Amer) Greater than 60, Est GFR (Non-Af Amer) Greater than 60 , BUN/Creatinine Ratio 11 L, Glucose 113 H, Total Calcium 8.6, Magnesium 1.5 L, RBC 3.60 L , MCV 92.5, MCHC 33.6, RDW 12.1, MPV 9.6, Immature Gran % (Auto) 0.5, Abs Immat Gran (auto ) 0.00, Seg Neutrophils % 59.5, Lymphocytes % 2 (more content not included)... Normal [facility] GFR ESTon 04-01-2021 IF AMER Greater than 60 Normal [facility] Comment on above: Order Comment: Alexandria s: M Performed By: #### L 500.21996, L500.73996, L500.76370, L500.33162 #### [facility] [address] [place] [address] IF non-AFR AMER Greater than 60 Normal [facility] Comment on above: Order Comment: [place] s: M Performed By: #### L 500.18860, L500.37272, L500.82116, L500.10167 #### [facility] [address] [place] [address] GLUCOSE METERon 04-01-2021 Glucose [Mass/Vol] 116 mg/dL Normal 85-125 [facility] Glucose [Mass/Vol] 142 mg/dL High 85-125 [facility] Glucose [Mass/Vol] 206 mg/dL High 85-125 [facility] MAGNESIUMon 04-01-2021 Magnesium [Mass/Vol] 1.7 mg/dL Normal 1.6-2.6 [facility] Comment on above: Order Comment: Alexandria s: M Performed By: #### L 500.16785, L500.70445, L500.23611, L500.91977 #### [facility] [address] [place] [address] PROG.NOTEshad 04-01-2021 PROG.NOTE [facility] Patient Name: JULIO JARRELL [address] Date of : [address] [place] [address] Unit Number: [id number] Progress Note-Physician Patient Status: ADM IN Attending Doctor: Jerome Brandon MD Service Date: 04/01/21 1033 Subjective S: (2 ROS minimum) No acute events overnight Tolerating clear liquids No problems with abdominal pain Objective (ROS) Nursing Vitals Vital Signs (Last) Result Date Time Pulse Ox 94 04/01 07 B/P 169/73 04/01 07 O2 Delivery NASAL CANNULA 04/01 710 O2 Flow Rate 2 04/01 710 Temp 98.1 04/01 07 Pulse 77 04/01 0710 Resp 18 04/01 07 Physical Exam Physical Examination Notes Abdomen is soft, nondistended, appropriately tender Incisions are clean dry intact Diagnostic Data: Lab 24hr (CBC/BMP [facility]) 04/01/21 0756: Whole Bld Glucose 142 H 04/01/21 0536: [Embedded Image Not Available] Anion Gap 9, Est GFR ( Amer) Greater than 60, Est GFR (Non-Af Amer) Greater than 60 , BUN/Creatinine Ratio 13 L, Glucose 148 H, Total Calcium 9.0, Magnesium 1.7, RBC 3.82 L, MCV 95.8, MCHC 32.5, RDW 12.4, MPV 9.6, Immature Gran % (Auto) 0.5, Abs Immat Gran (auto) 0.10, Seg Neutrophils % 74.0, Lymphocytes % 17.1 L, Monocytes % 8.2, Eosinophils % 0.0, Basophils % 0.2, Neutrophils # 7.00, Lymphocytes # 1.60, Monocytes # 0.80, Eosinophils # 0.00, Basophils # 0.00, Nucleated RBCs 0.0 03/31/21 2129: Whole Bld Glucose 206 H 03/31/21 1716: Whole Bld Glucose 124 03/31/21 1425: Whole Bld Glucose 106 03/31/21 1155: Whole Bld Glucose 104 Assessment and Plan Conclusion 1. Pancreatitis Acute 75-year-old male presenting with gallstone pancreatitis, also possible concurrent choledocholithiasis and possible cholecystitis. -Status post laparoscopic cholecystectomy on March 31 for gallstone pancreatitis and history of choledocholithiasis. -Patient is doing very well postoperatively. -Advance to regular diet. -Hep-Lock. -Discontinue antibiotics. -Okay for discharge from surgical point of view today. Okay for regular diet. Okay to shower. No heavy lifting 20 pounds for 2 weeks. -Follow-up orders been placed in the EMR to follow-up with myself in 2 to 3 weeks. Disclaimer This dictation was created using voice recognition software. Phonetic and/or minor grammatical errors may exist. eSign Date and Time Chapo Arias MD Verified/Reviewed by 04/01/21 1034 Normal [facility] Progress Note-Physician Normal [facility] BMPon 03-31-2021 Anion gap [Moles/Vol] 7 mmol/L Normal 5-16 [facility] Comment on above: Order Comment: Campu s: M Performed By: #### L 500.26146, L500.94377, L500.11174, L500.05119 #### [facility] [address] [place] [address] Calcium [Mass/Vol] 8.6 mg/dL Normal 8.5-10.5 [facility] Comment on above: Order Comment: Campu s: M Result Comment: NOTE NEW NORMAL RANGE DUE TO REAGENT CHANGE Performed By: #### L 500.73692, L500.22113, L500.87823, L500.37020 #### [facility] [place] [id number] Chloride [Moles/Vol] 109 mmol/L High 98-107 [facility] Comment on above: Order Comment: Campu s: M Performed By: #### L 500.29480, L500.77087, L500.82332, L500.90075 #### [facility] [place] [address] CO2 [Moles/Vol] 23.0 mmol/L Normal 21-32 [facility] Comment on above: Order Comment: Campu s: M Performed By: #### L 500.86624, L500.11568, L500.90780, L500.12363 #### [facility] [address] [place] [address] Creatinine [Mass/Vol] 0.92 mg/dL Normal 0.5-1.4 [facility] Comment on above: Order Comment: Campu s: M Result Comment: NOTE NEW NORMAL RANGE DUE TO REAGENT CHANGE Patients receiving either N-Acetylcysteine (NAC) or Metamizole prior to venipuncture, may have falsely depressed results. Performed By: #### L 500.66033, L500.22210, L500.21595, L500.71280 #### [facility] [address] [place] [address] Glucose [Mass/Vol] 113 mg/dL High 70-100 [facility] Comment on above: Order Comment: Campu s: M Result Comment: 70-1 00- Normal Fasting; 100-125 Impaired Fasting; greater than 126 on more than one result- Diabetes. ADA guidelines. Results may be falsely elevated after the administration of Sulfapyridine. Results may be falsely depressed after the administration of Sulfasalazine. Performed By: #### L 500.30942, L500.55202, L500.17939, L500.05015 #### [facility] [address] [place] [address] Potassium [Moles/Vol] 3.9 mmol/L Normal 3.5-5.1 [facility] Comment on above: Order Comment: Campu s: M Performed By: #### L 500.38228, L500.22378, L500.72338, L500.76039 #### [facility] [address] [place] [address] Sodium [Moles/Vol] 139 mmol/L Normal 136-145 [facility] Comment on above: Order Comment: Campu s: M Performed By: #### L 500.17303, L500.84402, L500.31578, L500.18722 #### [facility] [address] [place] [address] Urea nitrogen [Mass/Vol] 10 mg/dL Normal 7-26 [facility] Comment on above: Order Comment: Campu s: M Performed By: #### L 500.25503, L500.36835, L500.73711, L500.52861 #### [facility] [address] [place] [address] Urea nitrogen/Creatinin e [Mass ratio] 11 mg/mg Low 15-24 [facility] Comment on above: Order Comment: Campu s: M Performed By: #### L 500.27034, L500.75798, L500.76845, L500.81406 #### [facility] [address] [place] [address] CBC W/DIFFon 03-31-2021 BASO ABS 0.00 K/CU MM Normal 0-0.2 [facility] Comment on above: Order Comment: Campu s: M Performed By: #### L 500.37908, L500.75048, L500.39042, L500.67841 #### [facility] [address] [place] [address] Basophils/100 WBC (Bld) 0.5 % Normal 0-2 [facility] Comment on above: Order Comment: Campu s: M Performed By: #### L 500.09145, L500.85589, L500.55035, L500.87652 #### [facility] [address] [place] [address] EOS ABS 0.00 K/CU MM Normal 0-0.5 [facility] Comment on above: Order Comment: Campu s: M Performed By: #### L 500.10806, L500.56652, L500.67420, L500.48299 #### [facility] [address] [place] [address] Eosinophils/100 WBC (Bld) 0.4 % Normal 0-5 [facility] Comment on above: Order Comment: Campu s: M Performed By: #### L 500.54383, L500.09445, L500.00185, L500.30169 #### [facility] [address] [place] [address] Erythrocyte distribution width (RBC) [Ratio] 12.1 % Normal 11-14.5 [facility] Comment on above: Order Comment: Campu s: M Performed By: #### L 500.20605, L500.62075, L500.19686, L500.25747 #### [facility] [address] [place] [address] Hematocrit (Bld) [Volume fraction] 33.3 % Low 41.0-53.0 [facility] Comment on above: Order Comment: Campu s: M Performed By: #### L 500.22630, L500.27698, L500.45798, L500.16896 #### [facility] [address] [place] [address] Hemoglobin (Bld) [Mass/Vol] 11.2 g/dL Low 13.5-17.5 [facility] Comment on above: Order Comment: Campu s: M Performed By: #### L 500.82047, L500.41619, L500.41478, L500.29230 #### [facility] [address] [place] [address] IMMATR GRAN ABS 0.00 K/CU MM Normal Less than 2 [facility] Comment on above: Order Comment: Campu s: M Performed By: #### L 500.74505, L500.80259, L500.29068, L500.65927 #### [facility] [address] [place] [address] IMMATURE GRAN % 0.5 % Normal Less than 2 [facility] Comment on above: Order Comment: Campu s: M Performed By: #### L 500.16497, L500.18334, L500.01211, L500.93177 #### [facility] [address] [place] [address] LYMPH ABS 1.70 K/CU MM Normal 0.9-4.4 [facility] Comment on above: Order Comment: Campu s: M Performed By: #### L 500.52229, L500.35315, L500.69918, L500.57461 #### [facility] [address] [place] [address] Lymphocytes/100 WBC (Bld) 29.9 % Normal 20-40 [facility] Comment on above: Order Comment: Campu s: M Performed By: #### L 500.80314, L500.15653, L500.43013, L500.83524 #### [facility] [address] [place] [address] MCHC (RBC) [Mass/Vol] 33.6 g/dL Normal 32.0-36.0 [facility] Comment on above: Order Comment: Campu s: M Performed By: #### L 500.51473, L500.05910, L500.16769, L500.48217 #### [facility] [address] [place] [address] MCV (RBC) [Entitic vol] 92.5 fL Normal 80.0-99.0 [facility] Comment on above: Order Comment: Campu s: M Performed By: #### L 500.73886, L500.96072, L500.55527, L500.51562 #### [facility] [address] [place] [address] MONO ABS 0.50 K/CU MM Normal 0.1-1.1 [facility] Comment on above: Order Comment: Campu s: M Performed By: #### L 500.68443, L500.53464, L500.05700, L500.11157 #### [facility] [address] [place] [address] Monocytes/100 WBC (Bld) 9.2 % Normal 2-10 [facility] Comment on above: Order Comment: Campu s: M Performed By: #### L 500.04695, L500.98574, L500.82546, L500.92856 #### [facility] [address] [place] [address] NEUTROPHIL ABS 3.40 K/CU MM Normal 2.0-8.3 [facility] Comment on above: Order Comment: Campu s: M Performed By: #### L 500.57498, L500.76760, L500.57737, L500.45653 #### [facility] [address] [place] [address] Neutrophils/100 WBC (Bld) 59.5 % Normal 45-75 [facility] Comment on above: Order Comment: Campu s: M Performed By: #### L 500.35403, L500.54291, L500.90871, L500.98715 #### [facility] [address] [place] [address] Nucleated RBC/100 WBC (Bld) [Ratio] 0.0 % Normal Less than 1 [facility] Comment on above: Order Comment: Campu s: M Performed By: #### L 500.24764, L500.04124, L500.61917, L500.90892 #### [facility] [address] [place] [address] Platelet mean volume (Bld) [Entitic vol] 9.6 fL Normal 9.4-12.4 [facility] Comment on above: Order Comment: Campu s: M Performed By: #### L 500.28765, L500.43650, L500.08780, L500.09264 #### [facility] [address] [place] [address] PLT 242 K/CU MM Normal 150-450 [facility] Comment on above: Order Comment: Campu s: M Performed By: #### L 500.88090, L500.96353, L500.34664, L500.31861 #### [facility] [address] [place] [address] RBC 3.60 M/CU MM Low 4.50-6.00 [facility] Comment on above: Order Comment: Campu s: M Performed By: #### L 500.54030, L500.12284, L500.07829, L500.45767 #### [facility] [address] [place] [address] WBC 5.7 K/CUMM Normal 4.5-11.0 [facility] Comment on above: Order Comment: Campu s: M Performed By: #### L 500.05722, L500.09435, L500.67498, L500.99028 #### [facility] [address] [place] [address] GFR ESTon 03-31-2021 IF AMER Greater than 60 Normal [facility] Comment on above: Order Comment: Campu s: M Performed By: #### L 500.19179, L500.15295, L500.16307, L500.43226 #### [facility] [address] [place] [address] IF non-AFR AMER Greater than 60 Normal [facility] Comment on above: Order Comment: Campu s: M Performed By: #### L 500.74301, L500.54332, L500.00015, L500.84153 #### [facility] [address] [place] [address] GLUCOSE METERon 03-31-2021 Glucose [Mass/Vol] 124 mg/dL Normal 85-125 [facility] Glucose [Mass/Vol] 106 mg/dL Normal 85-125 [facility] Glucose [Mass/Vol] 104 mg/dL Normal 85-125 [facility] Glucose [Mass/Vol] 102 mg/dL Normal 85-125 [facility] Glucose [Mass/Vol] 119 mg/dL Normal 85-125 [facility] MAGNESIUMon 03-31-2021 Magnesium [Mass/Vol] 1.5 mg/dL Low 1.6-2.6 [facility] Comment on above: Order Comment: [place] s: M Performed By: #### L 500.81954, L500.56701, L500.66721, L500.28493 #### [facility] [address] [place] [id number] PROG IMS 03-31-2021 PROG [facility] Patient Name: JULIO JARRELL [address] [facility] Date of : [address] [place], [place] [address] Unit Number: [id number] Progress Note-Hospitalist Patient Status: ADM IN Attending Doctor: Jerome Brandon MD Service Date: 03/31/21 1310 Chief Complaint Chief Complaint Abdominal pain, nausea/vomiting Subjective S: (2 ROS minimum) Patient seen and examined. Patient is 75-year-old male with history of diabetes, hypertension and other medical problems who had intermittent abdominal pain for about 3 weeks, along with nausea/vomiting and chills recently for which he presented to [facility] ER where he had CT abdomen done showing possible acute cholecystitis, cholelithiasis, possible choledocholithiasis and pancreatitis. Labs showed elevated LFTs with total bilirubin 2.1, lipase elevated at 2250 and creatinine elevated at 1.69. He was transferred to [facility] for further management. He mentions to feeling better today compared to admission. He had ERCP done yesterday with sphincterotomy and removal of common bile duct stones/sludge. Mentions to having some abdominal pain at this time. Denies fever although he had chills before. Denies current nausea/vomiting. No other events overnight. He is scheduled for cholecystectomy today. Objective (ROS) Nursing Vitals Vital Signs (Last) Result Date Time Pulse Ox 93 03/31 1320 B/P 149/54 03/31 1320 Temp 97.8 03/31 1320 Pulse 54 03/31 1320 Resp 16 03/31 1320 O2 Delivery ROOM AIR 03/31 0703 Physical Exam Physical Examination Notes GENERAL: [Patient is a obese male lying in bed not in apparent distress.] HEAD: [Atraumatic, normocephalic.] NECK: [Supple.] CARDIOVASCULAR: [S1-S2 audible, no murmurs.] RESPIRAORY: [Bilateral air entry present. No significant rales or wheezing noted.] ABDOMIN: [Soft, no significant tenderness noted at this time without significant guarding or rebound tenderness, bowel sounds appreciated.] EXTREMITIES: [No edema, pulses palpable bilaterally.] GLOBAL REGULATORY LEAD: [Patient awake, alert, oriented 3. No focal neurological deficits. ] PSYCHIATRIC: [Normal mood and affect. Patient not in apparent distress.] Diagnostic Data: Lab 24hr (CBC/BMP [facility]) 03/31/21 1155: Whole Bld Glucose 104 03/31/21 0810: Whole Bld Glucose 102 03/31/21 0452: [Embedded Image Not Available] Anion Gap 7, Est GFR ( Amer) Greater than 60, Est GFR (Non-Af Amer) Greater than 60 , BUN/Creatinine Ratio 11 L, Glucose 113 H, Total Calcium 8.6, Magnesium 1.5 L, RBC 3.60 L , MCV 92.5, MCHC 33.6, RDW 12.1, MPV 9.6, Immature Gran % (Auto) 0.5, Abs Immat Gran (auto ) 0.00, Seg Neutrophils % 59.5, Lymphocytes % 29.9, Monocytes % 9.2, Eosinophils % 0.4, Basophils % 0.5, Neutrophils # 3.40, Lymphocytes # 1.70, Monocytes # 0.50, Eosinophils # 0.00, Basophils # 0.00, Nucleated RBCs 0.0 03/30/21 2258: Whole Bld Glucose 119 03/30/21 1631: Whole Bld Glucose 178 H Assessment and Plan Conclusion 1. Cholecystitis 2. Pancreatitis Acute 3. Elevated LFTs Acute 4. IVONNE (acute kidney injury) Possible acute cholecystitis. Gallstones. Elevated LFTs-improved. Choledocholithiasis status post ERCP 03/30/2021 with sphincterotomy and removal of CBD stones/sludge. Gallstone pancreatitis-improving. Acute kidney injury, improved. Diabetes Hypertension Dyslipidemia Depression GERD Alcohol use Obesity with BMI 35.2 -Patient present for intermittent abdominal pain for 3 weeks along with nausea/vomiting and chills and he was admitted for further management. He was thought to have acute cholecystitis, gallstones, possible choledocholithiasis and gallstone pancreatitis based on CT abdomen/pelvis done at other ER. He mentions to feeling better compared to before. He was able to tolerate full liquid diet. He is currently n.p.o. considering scheduled cholecystectomy today. -Pain control as necessary. IV analgesics for severe pain. -Continue IV fluids NS at 100 mL/hr for now. -Continue IV Zosyn for now. -GI consulted. Patient had MRCP showing cholelithiasis, mild gallbladder wall thickening and pericholecystic edema and 5 mm calculus at the distal aspect of the common bile duct. Patient had ERCP done yesterday with sphincterotomy and removal of common bile duct stones /sludge. Input noted. -General surgery consulted. Patient to go for cholecystectomy later today. -Patient had acute kidney injury with creatinine of 1.69 initially but this has improved now. Continue monitoring. -Glipizide is currently on hold. Continue NovoLog sliding scale for now with monitoring of CBGs for history of diabetes. -Lisinopril and HCTZ currently on hold. Continue Toprol for history of hypertension with blood pressure monitoring. -Continue Zocor for history of dyslipidemia. -Magnesium replacement given considering hypomagnesemia. -Continue other medicat (more content not included)... Normal [facility] Progress Note-Hospitalist Normal [facility] PROG.NOTEon 03-31-2021 PROG.NOTE [facility] Patient Name: JULIO JARRELL [address] Date of : [address] [place] [address] Unit Number: [id number] Progress Note-Physician Patient Status: ADM IN Attending Doctor: Jerome Brandon MD Service Date: 03/31/21 1441 Subjective S: (2 ROS minimum) No acute events overnight Objective (ROS) Nursing Vitals Vital Signs (Last) Result Date Time Pulse Ox 93 03/31 1320 B/P 149/54 03/31 1320 Temp 97.8 03/31 1320 Pulse 54 03/31 1320 Resp 16 03/31 1320 O2 Delivery ROOM AIR 03/31 0703 Physical Exam Physical Examination Notes No acute distress, resting in bed Abdomen soft, nondistended, nontender Diagnostic Data: Lab 24hr ([facility] 03/31/21 1155: Whole Bld Glucose 104 03/31/21 0810: Whole Bld Glucose 102 03/31/21 0452: [Embedded Image Not Available] Anion Gap 7, Est GFR ( Amer) Greater than 60, Est GFR (Non-Af Amer) Greater than 60 , BUN/Creatinine Ratio 11 L, Glucose 113 H, Total Calcium 8.6, Magnesium 1.5 L, RBC 3.60 L , MCV 92.5, MCHC 33.6, RDW 12.1, MPV 9.6, Immature Gran % (Auto) 0.5, Abs Immat Gran (auto ) 0.00, Seg Neutrophils % 59.5, Lymphocytes % 29.9, Monocytes % 9.2, Eosinophils % 0.4, Basophils % 0.5, Neutrophils # 3.40, Lymphocytes # 1.70, Monocytes # 0.50, Eosinophils # 0.00, Basophils # 0.00, Nucleated RBCs 0.0 03/30/21 2258: Whole Bld Glucose 119 03/30/21 1631: Whole Bld Glucose 178 H Assessment and Plan Conclusion 1. Pancreatitis Acute 75-year-old male presenting with gallstone pancreatitis, also possible concurrent choledocholithiasis and possible cholecystitis. -Gallstone pancreatitis, choledocholithiasis-status post ERCP. Patient is scheduled for laparoscopic cholecystectomy for afternoon. I discussed risks and benefits of surgery with the patient including risk of bleeding, infection, damage to surrounding organs tissues, as well as potential for conversion to an open technique. The patient understands and wishes to proceed with surgery. Disclaimer This dictation was created using voice recognition software. Phonetic and/or minor grammatical errors may exist. eSign Date and Time Chapo Arias MD Verified/Reviewed by 03/31/21 1442 [facility] Progress Note-Physician Normal [facility] SURG 03-31-2021 SURG -- Patient: JULIO JARRELL -- SPECIMEN: [id number] Collection Date: 03/31/21 Received: 04/01/21 Status: USHA Roca Dr.: Jerome Brandon MD Ph# Othr. Dr.: Chapo Arias MD Othr. Dr.: No Family Physician given Material for Examination: A GALLBLADDER PRE-OP DIAGNOSIS: CHOLECYSTITIS, PANCREATITIS POST-OP DIAGNOSIS: SAME SURGICAL PROCEDURE: LAPAROSCOPIC CHOLECYSTECTOMY DIAGNOSIS A. Gallbladder, laparoscopic cholecystectomy: Chronic cholecystitis with cholelithiasis. One pericystic duct lymph node with reactive changes and lipogranulomas. GROSS DESCRIPTION The specimen is received in formalin and labeled with the patient's name, ID and designated gallbladder, is an 11.5 x 4.8 x 2.6 cm gallbladder with an attached cystic duct. The serosa is yellow with an abundant amount of adherent fat. The neck shows a 0.7 nodule, possibly a lymph node. Opening shows several holes and fragmented brown choleliths ranging from 0.3 cm in greatest dimension to 1.8 x 1.2 cm. There is a small amount of clear to slightly green stained bile. The mucosa is santillan-green and velvety with possibly a small amount of yellow streaking at the fundus. The wall is fatty, measuring up to 1 cm in thickness. Drama Director sections are submitted in cassette A1. BA/radha 04/01/2021 MICROSCOPIC DESCRIPTION One Jin stained slide examined. COPIES TO: Chapo Arias MD No Family Physician given Jerome Brandon MD Signed Verified/Reviewed by ANNABELLA CAMP MD 04/05/21 This dictation was created using voice recognition software. Phonetic and/or minor grammatical errors may exist. -- [facility] NAME: JULIO JARRELL Pathology and Laboratory Medicine UNIT#: [id number] LOC: [address] J2Ee Developer: Genny Lindquist M.D. ROOM/BED: [address], [facility] : 45 AGE/SEX: 75/M ORD.DR. Alonso,Bird Bonner MD END OF REPORT Normal [facility] CBC W/DIFFon 03-30-2021 BASO ABS 0.00 K/CU MM Normal 0-0.2 [facility] Comment on above: Order Comment: Campu s: M Performed By: #### L 500.89080, L500.89579, L500.44327 #### [facility] [address] [place] [address] Basophils/100 WBC (Bld) 0.7 % Normal 0-2 [facility] Comment on above: Order Comment: Campu s: M Performed By: #### L 500.93775, L500.20266, L500.68550 #### [facility] [address] [place] [address] EOS ABS 0.20 K/CU MM Normal 0-0.5 [facility] Comment on above: Order Comment: Campu s: M Performed By: #### L 500.29283, L500.16078, L500.79394 #### [facility] [address] [place] [address] Eosinophils/100 WBC (Bld) 2.5 % Normal 0-5 [facility] Comment on above: Order Comment: Campu s: M Performed By: #### L 500.75386, L500.13222, L500.97615 #### [facility] [address] [place] [address] Erythrocyte distribution width (RBC) [Ratio] 12.2 % Normal 11-14.5 [facility] Comment on above: Order Comment: Campu s: M Performed By: #### L 500.81993, L500.71604, L500.34355 #### [facility] [address] [place] [address] Hematocrit (Bld) [Volume fraction] 33.1 % Low 41.0-53.0 [facility] Comment on above: Order Comment: Campu s: M Performed By: #### L 500.30860, L500.40531, L500.27198 #### [facility] [address] [place] [address] Hemoglobin (Bld) [Mass/Vol] 11.3 g/dL Low 13.5-17.5 [facility] Comment on above: Order Comment: Campu s: M Performed By: #### L 500.17388, L500.85929, L500.35820 #### [facility] [address] [place] [address] IMMATR GRAN ABS 0.00 K/CU MM Normal Less than 2 [facility] Comment on above: Order Comment: Campu s: M Performed By: #### L 500.67996, L500.32567, L500.46996 #### [facility] [address] [place] [address] IMMATURE GRAN % 0.5 % Normal Less than 2 [facility] Comment on above: Order Comment: Campu s: M Performed By: #### L 500.53273, L500.92012, L500.50272 #### [facility] [address] [place] [address] LYMPH ABS 1.90 K/CU MM Normal 0.9-4.4 [facility] Comment on above: Order Comment: Campu s: M Performed By: #### L 500.61459, L500.99193, L500.91216 #### [facility] [address] [place] [address] Lymphocytes/100 WBC (Bld) 32.5 % Normal 20-40 [facility] Comment on above: Order Comment: Campu s: M Performed By: #### L 500.99090, L500.69606, L500.83497 #### [facility] [address] [place] [address] MCHC (RBC) [Mass/Vol] 34.1 g/dL Normal 32.0-36.0 [facility] Comment on above: Order Comment: Campu s: M Performed By: #### L 500.22561, L500.04963, L500.84640 #### [facility] [address] [place] [address] MCV (RBC) [Entitic vol] 92.2 fL Normal 80.0-99.0 [facility] Comment on above: Order Comment: Campu s: M Performed By: #### L 500.21980, L500.98015, L500.85065 #### [facility] [address] [place] [address] MONO ABS 0.60 K/CU MM Normal 0.1-1.1 [facility] Comment on above: Order Comment: Campu s: M Performed By: #### L 500.15546, L500.12227, L500.51409 #### [facility] [address] [place] [address] Monocytes/100 WBC (Bld) 9.7 % Normal 2-10 [facility] Comment on above: Order Comment: Campu s: M Performed By: #### L 500.11733, L500.80580, L500.94012 #### [facility] [address] [place] [address] NEUTROPHIL ABS 3.20 K/CU MM Normal 2.0-8.3 [facility] Comment on above: Order Comment: Campu s: M Performed By: #### L 500.99318, L500.74499, L500.32213 #### [facility] [address] [place] [address] Neutrophils/100 WBC (Bld) 54.1 % Normal 45-75 [facility] Comment on above: Order Comment: Campu s: M Performed By: #### L 500.55835, L500.41167, L500.96309 #### [facility] [address] [place] [address] Nucleated RBC/100 WBC (Bld) [Ratio] 0.0 % Normal Less than 1 [facility] Comment on above: Order Comment: Campu s: M Performed By: #### L 500.49012, L500.71439, L500.85232 #### [facility] [address] [place] [address] Platelet mean volume (Bld) [Entitic vol] 9.4 fL Normal 9.4-12.4 [facility] Comment on above: Order Comment: Campu s: M Performed By: #### L 500.42944, L500.75790, L500.02343 #### [facility] [address] [place] [address] PLT 261 K/CU MM Normal 150-450 [facility] Comment on above: Order Comment: Campu s: M Performed By: #### L 500.98304, L500.19567, L500.08181 #### [facility] [address] [place] [address] RBC 3.59 M/CU MM Low 4.50-6.00 [facility] Comment on above: Order Comment: Campu s: M Performed By: #### L 500.64169, L500.75760, L500.04506 #### [facility] [address] [place] [address] WBC 6.0 K/CUMM Normal 4.5-11.0 [facility] Comment on above: Order Comment: Campu s: M Performed By: #### L 500.42707, L500.87000, L500.38309 #### [facility] [address] [place] [address] CMPon 03-30-2021 Albumin [Mass/Vol] 2.6 g/dL Low 3.2-5.0 [facility] Comment on above: Order Comment: Campu s: M Performed By: #### L 500.18711, L500.08779, L500.51956, L500.22767 #### [facility] [address] [place] [address] Albumin/Globulin [Mass ratio] 0.9 {ratio} Normal 0.8-2.0 [facility] Comment on above: Order Comment: Campu s: M Performed By: #### L 500.83251, L500.58977, L500.96695, L500.91284 #### [facility] [address] [place], [place] [address] ALK PHOS 102 U/L Normal 45-117 [facility] Comment on above: Order Comment: Campu s: M Performed By: #### L 500.60277, L500.76990, L500.10039, L500.41201 #### [facility] [address] [place] [address] ALT [Catalytic activity/Vol] 54 U/L Normal 13-61 [facility] Comment on above: Order Comment: Campu s: M Result Comment: RESU LTS MAY BE FALSELY DEPRESSED AFTER THE ADMINISTRATION OF SULFASALAZINE AND/OR SULFAPYRIDINE. Performed By: #### L 500.62261, L500.82897, L500.88447, L500.58448 #### [facility] [address] [place] [address] Anion gap [Moles/Vol] 7 mmol/L Normal 5-16 [facility] Comment on above: Order Comment: Campu s: M Performed By: #### L 500.09907, L500.05462, L500.42762, L500.21338 #### [facility] [address] [place] [address] AST [Catalytic activity/Vol] 21 U/L Normal 8-34 [facility] Comment on above: Order Comment: Campu s: M Result Comment: RESU LTS MAY BE FALSELY DEPRESSED AFTER THE ADMINISTRATION OF SULFASALAZINE AND/OR SULFAPYRIDINE. Performed By: #### L 500.10983, L500.44782, L500.80173, L500.98806 #### [facility] [address] [place] [address] BILI TOTAL 0.90 MG/DL Normal 0.2-1.0 [facility] Comment on above: Order Comment: Campu s: M Performed By: #### L 500.78501, L500.08427, L500.00451, L500.04842 #### [facility] [address] [place], [place] [address] Calcium [Mass/Vol] 8.7 mg/dL Normal 8.5-10.5 [facility] Comment on above: Order Comment: Campu s: M Result Comment: NOTE NEW NORMAL RANGE DUE TO REAGENT CHANGE Performed By: #### L 500.00328, L500.00076, L500.90501, L500.98043 #### [facility] [place] [address] Chloride [Moles/Vol] 110 mmol/L High 98-107 [facility] Comment on above: Order Comment: Campu s: M Performed By: #### L 500.25835, L500.92412, L500.61024, L500.75446 #### [facility] [address] [place] [address] CO2 [Moles/Vol] 23.0 mmol/L Normal 21-32 [facility] Comment on above: Order Comment: Campu s: M Performed By: #### L 500.42462, L500.83757, L500.28888, L500.67144 #### [facility] [address] [place] [address] Creatinine [Mass/Vol] 0.94 mg/dL Normal 0.5-1.4 [facility] Comment on above: Order Comment: Campu s: M Result Comment: NOTE NEW NORMAL RANGE DUE TO REAGENT CHANGE Patients receiving either N-Acetylcysteine (NAC) or Metamizole prior to venipuncture, may have falsely depressed results. Performed By: #### L 500.84061, L500.62226, L500.99876, L500.14901 #### [facility] [address] [place] [address] Globulin (S) [Mass/Vol] 3.0 g/dL Normal 2.2-4.2 [facility] Comment on above: Order Comment: Campu s: M Performed By: #### L 500.86193, L500.63410, L500.79424, L500.30538 #### [facility] [address] [place], [place] [address] Glucose [Mass/Vol] 120 mg/dL High 70-100 [facility] Comment on above: Order Comment: Campu s: M Result Comment: 70-1 00- Normal Fasting; 100-125 Impaired Fasting; greater than 126 on more than one result- Diabetes. ADA guidelines. Results may be falsely elevated after the administration of Sulfapyridine. Results may be falsely depressed after the administration of Sulfasalazine. Performed By: #### L 500.35033, L500.81648, L500.49642, L500.38593 #### [facility] [address] [place] [address] Potassium [Moles/Vol] 4.0 mmol/L Normal 3.5-5.1 [facility] Comment on above: Order Comment: Campu s: M Performed By: #### L 500.85068, L500.13688, L500.19593, L500.24280 #### [facility] [address] [place] [address] Protein [Mass/Vol] 5.6 g/dL Low 6.0-8.5 [facility] Comment on above: Order Comment: Campu s: M Performed By: #### L 500.88821, L500.39792, L500.00990, L500.65159 #### [facility] [address] [place] [address] Sodium [Moles/Vol] 140 mmol/L Normal 136-145 [facility] Comment on above: Order Comment: Campu s: M Performed By: #### L 500.00801, L500.19307, L500.37753, L500.12068 #### [facility] [address] [place] [address] Urea nitrogen [Mass/Vol] 9 mg/dL Normal 7-26 [facility] Comment on above: Order Comment: Campu s: M Performed By: #### L 500.80415, L500.68156, L500.52736, L500.83224 #### [facility] [address] [place], [place] [address] Urea nitrogen/Creatinin e [Mass ratio] 10 mg/mg Low 15-24 [facility] Comment on above: Order Comment: Campu s: M Performed By: #### L 500.93879, L500.43730, L500.23574, L500.59635 #### [facility] [address] [place], [place] [address] GFR ESTon 03-30-2021 IF AMER Greater than 60 Normal [facility] Comment on above: Order Comment: Campu s: M Performed By: #### L 500.61587, L500.82675, L500.31645, L500.28496 #### [facility] [address] [place] [address] IF non-AFR AMER Greater than 60 Normal [facility] Comment on above: Order Comment: Campu s: M Performed By: #### L 500.67473, L500.54972, L500.44880, L500.78183 #### [facility] [address] [place] [address] GLUCOSE METERon 03-30-2021 Glucose [Mass/Vol] 178 mg/dL High 85-125 [facility] Glucose [Mass/Vol] 157 mg/dL High 85-125 [facility] Glucose [Mass/Vol] 132 mg/dL High 85-125 [facility] Glucose [Mass/Vol] 101 mg/dL Normal 85-125 [facility] 03-30-2021 Magnesium [Mass/Vol] 1.7 mg/dL Normal 1.6-2.6 [facility] Comment on above: Order Comment: Campu s: M Performed By: #### L 500.86055, L500.25711, L500.55653, L500.10202 #### [facility] [address] [place] [address] PROC.NOTEon 03-30-2021 PROC.NOTE [facility] Patient Name: JULIO JARRELL [address] [place] [address] Date of : [address] [place], [place] [address] Unit Number: [id number] Procedure Note Patient Status: ADM IN Attending Doctor: Jerome Brandon MD Service Date: 03/30/2121 Procedure Note Indication for Procedure Gallstone pancreatitis/abnormal MRCP Site of Procedure OR Consent Obtained Yes Procedure Type ERCP/sphincterotomy/duct clearance from stones Description of Procedure Informed consent obtained after explaining the indications, the risks including perforation bleeding phlebitis or medication reaction as well as pancreatitis Medication general anesthesia Olympus video therapeutic side-viewing endoscope advanced under vision to the small bowel there is evidence of some edema of the small bowel. Selective cannulation of the biliary tree was obtained. Cholangiogram revealed multiple filling defects., The biliary tree was dilated at around 12 to 13 mm. Sphincterotomy was performed and extended and subsequently using a 12 to 15 mm balloon the duct was dragged multiple times recovering to stones and large amount of sludge. Duct clearance was assured. Cystic duct was partially opacified. Pancreatic duct was not opacified Complications No immediate complications Estimated Blood Loss 1 cc Pathology Specimens No biopsies obtained. Would recommend to proceed with cholecystectomy per surgery. Will sign off and follow-up as needed Disclaimer This dictation was created using voice recognition software. Phonetic and/or minor grammatical errors may exist. eSign Date and Time Edith Mayers MD Verified/Reviewed by 03/30/21922 [facility] 03-30-2021 [facility]: [facility] Date of : [address] [place] [address] Unit Number: [id number] Progress Note-Hospitalist Patient Status: ADM IN Attending Doctor: Jerome Brandon MD Service Date: 03/30/21 1434 Chief Complaint Chief Complaint Abdominal pain, nausea/vomiting Subjective S: (2 ROS minimum) Patient seen and examined. Patient is 75-year-old male with history of diabetes, hypertension and other medical problems who had intermittent abdominal pain for about 3 weeks, along with nausea/vomiting and chills recently for which he presented to [facility] ER where he had CT abdomen done showing possible acute cholecystitis, cholelithiasis, possible choledocholithiasis and pancreatitis. Labs showed elevated LFTs with total bilirubin 2.1, lipase elevated at 2250 and creatinine elevated at 1.69. He was transferred to [facility] for further management. He mentions to feeling better today compared to admission. He had ERCP done today with sphincterotomy and removal of common bile duct stones/sludge. Mentioned having mild abdominal pain at this time. Denies fever although he had chills before. Denies current nausea/vomiting. No other events overnight. Objective (ROS) Nursing Vitals Vital Signs (Last) Result Date Time Pulse Ox 92 03/30 750 B/P 100/58 03/30 750 Temp 98.2 03/30 750 Pulse 60 03/30 750 Resp 16 03/30 750 Physical Exam Physical Examination Notes GENERAL: [Patient is a obese male lying in bed not in apparent distress.] HEAD: [Atraumatic, normocephalic.] NECK: [Supple.] CARDIOVASCULAR: [S1-S2 audible, no murmurs.] RESPIRAORY: [Bilateral air entry present. No significant rales or wheezing noted.] ABDOMIN: [Soft, no significant tenderness noted at this time without significant guarding or rebound tenderness, bowel sounds appreciated.] EXTREMITIES: [No edema, pulses palpable bilaterally.] GLOBAL REGULATORY LEAD: [Patient awake, alert, oriented 3. No focal neurological deficits. ] PSYCHIATRIC: [Normal mood and affect. Patient not in apparent distress.] Diagnostic Data: Lab 24hr (CBC/BMP [facility]) 03/30/21 1236: Whole Bld Glucose 157 H 03/30/21 1003: Whole Bld Glucose 132 H 03/30/21 0510: [Embedded Image Not Available] Anion Gap 7, Est GFR ( Amer) Greater than 60, Est GFR (Non-Af Amer) Greater than 60 , BUN/Creatinine Ratio 10 L, Glucose 120 H, Total Calcium 8.7, Magnesium 1.7, Total Bilirubin 0.90, AST 21, ALT 54, Alkaline Phosphatase 102, Serum Total Protein 5.6 L, Albumin 2.6 L, Globulin 3.0, Albumin/Globulin Ratio 0.9, RBC 3.59 L, MCV 92.2, MCHC 34.1, RDW 12.2, MPV 9.4, Immature Gran % (Auto) 0.5, Abs Immat Gran (auto) 0.00, Seg Neutrophils % 54.1, Lymphocytes % 32.5, Monocytes % 9.7, Eosinophils % 2.5, Basophils % 0.7, Neutrophils # 3.20, Lymphocytes # 1.90, Monocytes # 0.60, Eosinophils # 0.20, Basophils # 0.00, Nucleated RBCs 0.0 03/29/21 2326: Whole Bld Glucose 101 03/29/21 1631: Whole Bld Glucose 123 ERCP done today: Olympus video therapeutic side-viewing endoscope advanced under vision to the small bowel there is evidence of some edema of the small bowel. Selective cannulation of the biliary tree was obtained. Cholangiogram revealed multiple filling defects., The biliary tree was dilated at around 12 to 13 mm. Sphincterotomy was performed and extended and subsequently using a 12 to 15 mm balloon the duct was dragged multiple times recovering to stones and large amount of sludge. Duct clearance was assured. Cystic duct was partially opacified. Pancreatic duct was not opacified Complications No immediate complications Estimated Blood Loss 1 cc Pathology Specimens No biopsies obtained. Would recommend to proceed with cholecystectomy per surgery. Will sign off and follow-up as needed Assessment and Plan Conclusion 1. Cholecystitis 2. Pancreatitis Acute 3. Elevated LFTs Acute 4. IVONNE (acute kidney injury) Possible acute cholecystitis. Gallstones. Elevated LFTs-improved. Choledocholithiasis status post ERCP 03/30/2021 with sphincterotomy and removal of CBD stones/sludge. Gallstone pancreatitis-improving. Acute kidney injury, improved. Diabetes Hypertension Dyslipidemia Depression GERD Alcohol use Obesity with BMI 35.2 -Patient present for intermittent abdominal pain for 3 weeks along with nausea/vomiting and chills and he was admitted for further management. He was thought to have acute cholecystitis, gallstones, possible choledocholithiasis and gallstone pancreatitis based on CT abdomen/pelvis done at other ER. He mentions to feeling better compared to before. Continue full liquid diet for now. -Pain control as necessary. IV analgesics for severe pain. -Continue IV fluids NS at 100 mL/hr for now. -Continue IV Zosyn for now. -GI consulted. Patient had MRCP showing cholelithiasis, mi (more content not included)... Normal [facility] Progress Note-Hospitalist Normal [facility] PROG.NOTEon 03-30-2021 PROG.NOTE [facility] Patient Name: JULIO JARRELL [address] [facility] Date of : [address] [place] [address] Unit Number: [id number] Progress Note-Physician Patient Status: ADM IN Attending Doctor: Jerome Brandon MD Service Date: 03/30/21 1346 Subjective S: (2 ROS minimum) No acute events Underwent ERCP today. Objective (ROS) Nursing Vitals Vital Signs (Last) Result Date Time Pulse Ox 92 03/30 750 B/P 100/58 03/30 750 Temp 98.2 03/30 750 Pulse 60 03/30 750 Resp 16 03/30 750 Physical Exam Physical Examination Notes No acute distress, resting in bed Normal respiratory effort Abdomen soft, nondistended, nontender Assessment and Plan Conclusion 1. Pancreatitis Acute 75-year-old male presenting with gallstone pancreatitis, also possible concurrent choledocholithiasis and possible cholecystitis. -Gallstone pancreatitis, choledocholithiasis-status post ERCP today. Patient is scheduled for laparoscopic cholecystectomy for tomorrow afternoon. I discussed risks and benefits of surgery with the patient including risk of bleeding, infection, damage to surrounding organs tissues, as well as potential for conversion to an open technique. The patient understands and wishes to proceed with surgery. Disclaimer This dictation was created using voice recognition software. Phonetic and/or minor grammatical errors may exist. eSign Date and Time Chapo Arias MD Verified/Reviewed by 03/30/21 1347 [facility] Progress Note-Physician Normal [facility] BMPon 03-29-2021 Anion gap [Moles/Vol] 6 mmol/L Normal 5-16 [facility] Comment on above: Order Comment: Campu s: M Performed By: #### L 500.31891, L500.02716, L500.47053, L500.07672 #### [facility] [address] [place] [address] Calcium [Mass/Vol] 8.9 mg/dL Normal 8.5-10.5 [facility] Comment on above: Order Comment: Campu s: M Result Comment: NOTE NEW NORMAL RANGE DUE TO REAGENT CHANGE Performed By: #### L 500.86656, L500.47506, L500.32202, L500.51887 #### [facility] [address] [place] [address] Chloride [Moles/Vol] 110 mmol/L High 98-107 [facility] Comment on above: Order Comment: Campu s: M Performed By: #### L 500.70919, L500.05886, L500.25092, L500.48057 #### [facility] [address] [place] [address] CO2 [Moles/Vol] 24.0 mmol/L Normal 21-32 [facility] Comment on above: Order Comment: Campu s: M Performed By: #### L 500.51864, L500.46448, L500.13846, L500.93664 #### [facility] [address] [place] [address] Creatinine [Mass/Vol] 0.96 mg/dL Normal 0.5-1.4 [facility] Comment on above: Order Comment: Campu s: M Result Comment: NOTE NEW NORMAL RANGE DUE TO REAGENT CHANGE Patients receiving either N-Acetylcysteine (NAC) or Metamizole prior to venipuncture, may have falsely depressed results. Performed By: #### L 500.47265, L500.74951, L500.58572, L500.07273 #### [facility] [address] [place] [address] Glucose [Mass/Vol] 115 mg/dL High 70-100 [facility] Comment on above: Order Comment: Campu s: M Result Comment: 70-1 00- Normal Fasting; 100-125 Impaired Fasting; greater than 126 on more than one result- Diabetes. ADA guidelines. Results may be falsely elevated after the administration of Sulfapyridine. Results may be falsely depressed after the administration of Sulfasalazine. Performed By: #### L 500.16527, L500.08037, L500.67348, L500.34752 #### [facility] [address] [place] [address] Potassium [Moles/Vol] 4.2 mmol/L Normal 3.5-5.1 [facility] Comment on above: Order Comment: Campu s: M Result Comment: Slig ht Hemolysis, Result may be affected. Performed By: #### L 500.42024, L500.83486, L500.49361, L500.81486 #### [facility] [address] [place] [address] Sodium [Moles/Vol] 140 mmol/L Normal 136-145 [facility] Comment on above: Order Comment: Campu s: M Performed By: #### L 500.11873, L500.68811, L500.59738, L500.23998 #### [facility] [address] [place] [address] Urea nitrogen [Mass/Vol] 13 mg/dL Normal 7-26 [facility] Comment on above: Order Comment: Campu s: M Performed By: #### L 500.47194, L500.22432, L500.85960, L500.62777 #### [facility] [address] [place] [address] Urea nitrogen/Creatinin e [Mass ratio] 14 mg/mg Low 15-24 [facility] Comment on above: Order Comment: Campu s: M Performed By: #### L 500.67371, L500.17070, L500.74833, L500.69908 #### [facility] [address] [place] [address] GFR ESTon 03-29-2021 IF AMER Greater than 60 Normal [facility] Comment on above: Order Comment: Campu s: M Performed By: #### L 500.05302, L500.54020, L500.37222, L500.18732 #### [facility] [address] [place] [address] IF non-AFR AMER Greater than 60 Normal [facility] Comment on above: Order Comment: Campu s: M Performed By: #### L 500.90660, L500.86102, L500.66576, L500.00622 #### [facility] [place] [address] GLUCOSE METERon 03-29-2021 Glucose [Mass/Vol] 123 mg/dL Normal 85-125 [facility] Glucose [Mass/Vol] 120 mg/dL Normal 85-125 [facility] Glucose [Mass/Vol] 128 mg/dL High 85-125 [facility] Glucose [Mass/Vol] 98 mg/dL Normal 85-125 [facility] LIVERon 03-29-2021 Albumin [Mass/Vol] 2.7 g/dL Low 3.2-5.0 [facility] Comment on above: Order Comment: Campu s: M Performed By: #### L 500.13599, L500.07888, L500.83044, L500.49897 #### [facility] [address] [place], [place] [address] Albumin/Globulin [Mass ratio] 0.9 {ratio} Normal 0.8-2.0 [facility] Comment on above: Order Comment: Campu s: M Performed By: #### L 500.90035, L500.04861, L500.08917, L500.87558 #### [facility] [address] [place], [place] [address] ALK PHOS 109 U/L Normal 45-117 [facility] Comment on above: Order Comment: Campu s: M Performed By: #### L 500.40645, L500.91271, L500.56953, L500.80155 #### [facility] [address] [place] [address] ALT [Catalytic activity/Vol] 65 U/L High 13-61 [facility] Comment on above: Order Comment: Campu s: M Result Comment: RESU LTS MAY BE FALSELY DEPRESSED AFTER THE ADMINISTRATION OF SULFASALAZINE AND/OR SULFAPYRIDINE. Performed By: #### L 500.93654, L500.07964, L500.05785, L500.62696 #### [facility] [address] [place] [address] AST [Catalytic activity/Vol] 27 U/L Normal 8-34 [facility] Comment on above: Order Comment: Campu s: M Result Comment: RESU LTS MAY BE FALSELY DEPRESSED AFTER THE ADMINISTRATION OF SULFASALAZINE AND/OR SULFAPYRIDINE. Performed By: #### L 500.20431, L500.26485, L500.58803, L500.64678 #### [facility] [address] [place] [address] BILI DIRECT 0.4 MG/DL High 0.00-0.36 [facility] Comment on above: Order Comment: Campu s: M Result Comment: NOTE NEW NORMAL RANGE DUE TO REAGENT CHANGE Performed By: #### L 500.97831, L500.63741, L500.44562, L500.57288 #### [facility] [address] [place] [address] BILI TOTAL 0.90 MG/DL Normal 0.2-1.0 [facility] Comment on above: Order Comment: Campu s: M Performed By: #### L 500.89869, L500.59587, L500.14002, L500.82446 #### [facility] [address] [place] [address] Globulin (S) [Mass/Vol] 2.9 g/dL Normal 2.2-4.2 [facility] Comment on above: Order Comment: Campu s: M Performed By: #### L 500.62219, L500.43356, L500.14539, L500.85543 #### [facility] [address] [place] [address] Protein [Mass/Vol] 5.6 g/dL Low 6.0-8.5 [facility] Comment on above: Order Comment: Campu s: M Performed By: #### L 500.76355, L500.59413, L500.32693, L500.71345 #### [facility] [address] [place] [address] MAGNESIUMon 03-29-2021 Magnesium [Mass/Vol] 1.7 mg/dL Normal 1.6-2.6 [facility] Comment on above: Order Comment: Campu s: M Performed By: #### L 500.63498, L500.78910, L500.82081, L500.79888 #### [facility] [address] [place] [address] PROG IMS 03-29-2021 PROG [facility] Patient Name: JULIO JARRELL [address] [place] [address] Date of : [address] [address] Unit Number: [id number] Progress Note-Hospitalist Patient Status: ADM IN Attending Doctor: Jerome Brandon MD Service Date: 03/29/21 1409 Chief Complaint Chief Complaint Abdominal pain, nausea/vomiting Subjective S: (2 ROS minimum) Patient seen and examined. Patient is 75-year-old male with history of diabetes, hypertension and other medical problems who had intermittent abdominal pain for about 3 weeks, along with nausea/vomiting and chills recently for which he presented to [facility] ER where he had CT abdomen done showing possible acute cholecystitis, cholelithiasis, possible choledocholithiasis and pancreatitis. Labs showed elevated LFTs with total bilirubin 2.1, lipase elevated at 2250 and creatinine elevated at 1.69. He was transferred to [facility] for further management. He mentions to feeling better today compared to admission. Denies current abdominal pain. Denies fever although he had chills before. Denies current nausea/vomiting. No other events overnight. Objective (ROS) Nursing Vitals Vital Signs (Last) Result Date Time Pulse Ox 94 03/29 710 B/P 137/58 03/29 710 Temp 99.0 03/29 710 Pulse 61 03/29 710 Resp 18 03/29 710 Physical Exam Physical Examination Notes GENERAL: [Patient is a obese male lying in bed not in apparent distress.] HEAD: [Atraumatic, normocephalic.] NECK: [Supple.] CARDIOVASCULAR: [S1-S2 audible, no murmurs.] RESPIRAORY: [Bilateral air entry present. No significant rales or wheezing noted.] ABDOMIN: [Soft, no significant tenderness noted at this time without significant guarding or rebound tenderness, bowel sounds appreciated.] EXTREMITIES: [No edema, pulses palpable bilaterally.] GLOBAL REGULATORY LEAD: [Patient awake, alert, oriented 3. No focal neurological deficits. ] PSYCHIATRIC: [Normal mood and affect. Patient not in apparent distress.] Diagnostic Data: Laboratory Tests 03/29 03/29 03/29 03/28 03/28 1114 0856 0525 2132 1644 Chemistry Sodium (136 - 145 MMOL/L) 140 Potassium (3.5 - 5.1 MMOL/L) 4.2 Chloride (98 - 107 MMOL/L) 110 H Carbon Dioxide (21 - 32 MMOL/L) 24.0 Anion Gap (5 - 16 MMOL/L) 6 BUN (7 - 26 MG/DL) 13 Creatinine (0.5 - 1.4 MG/DL) 0.96 Est GFR ( Amer) Greater than 60 Est GFR (Non-Af Amer) Greater than 60 BUN/Creatinine Ratio (15 - 24) 14 L Glucose (70 - 100 MG/DL) 115 H Whole Bld Glucose (85 - 125 MG/DL) 120 128 H 98 104 Total Calcium (8.5 - 10.5 MG/DL) 8.9 Magnesium (1.6 - 2.6 MG/DL) 1.7 Total Bilirubin (0.2 - 1.0 MG/DL) 0.90 Direct Bilirubin (0.00 - 0.36 MG/DL) 0.4 H AST (8 - 34 U/L) 27 ALT (13 - 61 U/L) 65 H Alkaline Phosphatase (45 - 117 U/L) 109 Serum Total Protein (6.0 - 8.5 GM/DL) 5.6 L Albumin (3.2 - 5.0 GM/DL) 2.7 L Globulin (2.2 - 4.2 GM/DL) 2.9 Albumin/Globulin Ratio (0.8 - 2.0) 0.9 Recent Impressions MAGNETIC [facility]ONANCE IMAGING - MRI CHOLANGIOGRAPHY (GB and CHAYO) 03/29 08 Report Impression - Status: SIGNED Entered: 03/29/2021900 IMPRESSION: 1. Cholelithiasis. There is mild gallbladder wall thickening and pericholecystic edema. 2. 5 mm calculus at the distal aspect of the common bile duct. Impression By: JU JULES M.D. Assessment and Plan Conclusion 1. Cholecystitis 2. Pancreatitis Acute 3. Elevated LFTs Acute 4. IVONNE (acute kidney injury) Possible acute cholecystitis. Gallstones. Elevated LFTs-improved. Choledocholithiasis. Gallstone pancreatitis. Acute kidney injury, improved. Diabetes Hypertension Dyslipidemia Depression GERD Alcohol use Obesity with BMI 35.2 -Patient present for intermittent abdominal pain for 3 weeks along with nausea/vomiting and chills and he was admitted for further management. He was thought to have acute cholecystitis, gallstones, possible choledocholithiasis and gallstone pancreatitis based on CT abdomen/pelvis done at other ER. He mentions to feeling better this morning. Continue clear liquid diet. -Pain control as necessary. IV analgesics for severe pain. -Continue IV fluids NS at 100 mL/hr for now. -Continue IV Zosyn for now. -GI consulted. Patient had MRCP done this morning showing cholelithiasis, mild gallbladder wall thickening and pericholecystic edema and 5 mm calculus at the distal aspect of the common bile duct. GI is planning for ERCP tomorrow. -General surgery consulted. Patient to go for cholecystectomy after the ERCP. -Patient had acute kidney injury with creatinine of 1.69 initially but this has improved now. Continue monitoring. -Glipizide is currently on hold. Continue NovoLog sliding scale for now with monitoring of CBGs for history of diabetes. -Lisinopril and HCTZ currently on hold. Contin (more content not included)... Normal [facility] Progress Note-Hospitalist Normal [facility] PROG.NOTEon 03-29-2021 PROG.NOTE [facility] Patient Name: JULIO JARRELL [address] Date of : [address] [id number] Unit Number: [id number] Progress Note-Physician Patient Status: ADM IN Attending Doctor: Jerome Brandon MD Service Date: 03/29/21 1459 Subjective S: (2 ROS minimum) No acute events overnight Denies abdominal pain nausea or vomiting Tolerating clear liquids MRCP demonstrates choledocholithiasis Objective (ROS) Nursing Vitals Vital Signs (Last) Result Date Time Pulse Ox 94 03/29 710 B/P 137/58 03/29 710 Temp 99.0 03/29 710 Pulse 61 03/29 710 Resp 18 03/29 710 Physical Exam Physical Examination Notes No acute distress, resting in bed Abdomen soft, nondistended, nontender Diagnostic Data: Lab 24hr (CBC/BMP [facility]) 03/29/21 1114: Whole Bld Glucose 120 03/29/21 0856: Whole Bld Glucose 128 H 03/29/21 0525: [Embedded Image Not Available] Anion Gap 6, Est GFR ( Amer) Greater than 60, Est GFR (Non-Af Amer) Greater than 60 , BUN/Creatinine Ratio 14 L, Glucose 115 H, Total Calcium 8.9, Magnesium 1.7, Total Bilirubin 0.90, Direct Bilirubin 0.4 H, AST 27, ALT 65 H, Alkaline Phosphatase 109, Serum Total Protein 5.6 L, Albumin 2.7 L, Globulin 2.9, Albumin/Globulin Ratio 0.9 03/28/21 2132: Whole Bld Glucose 98 03/28/21 1644: Whole Bld Glucose 104 Assessment and Plan Conclusion 1. Pancreatitis Acute 75-year-old male presenting with gallstone pancreatitis, also possible concurrent choledocholithiasis and possible cholecystitis. -Gallstone pancreatitis, choledocholithiasis-ERCP plan for tomorrow with GI. Okay for clear liquids. We will plan for laparoscopic cholecystectomy on . Disclaimer This dictation was created using voice recognition software. Phonetic and/or minor grammatical errors may exist. eSign Date and Time Chapo Arias MD Verified/Reviewed by 03/29/21 1500 [facility] Progress Note-Physician [facility] PROG.NOTE [facility] Patient Name: JULIO JARRELL [address] Date of : [address] [address] Unit Number: [id number] Progress Note-Physician Patient Status: ADM IN Attending Doctor: Jerome Brandon MD Service Date: 03/29/21 1337 Subjective S: (2 ROS minimum) No change clinically, discussed with the patient as well MRCP positive for common bile duct stone. Objective (ROS) Nursing Vitals Vital Signs (Last) Result Date Time Pulse Ox 94 03/29 710 B/P 137/58 03/29 710 Temp 99.0 03/29 710 Pulse 61 03/29 710 Resp 18 03/29 710 HEENT normal Neck supple Abdomen soft mild epigastric and upper right upper quadrant tenderness. Assessment and Plan Conclusion 1. Pancreatitis Acute Clinically improving most likely gallstone pancreatitis with retained common bile duct stone as per MRCP On Suna Mar 28, 2021 EDITH MAYERS wrote Clinically improving, patient continues to endorse abdominal discomfort but denies nausea or vomiting.? Related to gallstone pancreatitis, especially with his elevated LFTs, awaiting MRCP, discussed with nursing this could not be done today due to holiday and should be done tomorrow morning. I discussed with the patient that if positive for choledocholithiasis we will proceed with ERCP he does understand the pros and cons Improved 2. Elevated LFTs Acute Related to above with choledocholithiasis, proceed with ERCP tomorrow discussed with the patient the pros and cons of the procedure she does understand and consents On SunMar 28, 2021 EDITH MAYERS wrote ? Related to above? Treated pancreatitis versus choledocholithiasis, with MRCP results Improved DC Disposition Plan ERCP in a.m. Disclaimer This dictation was created using voice recognition software. Phonetic and/or minor grammatical errors may exist. eSign Date and Time Edith Mayers MD Verified/Reviewed by 03/29/21 1339 [facility] Progress Note-Physician [facility] CBC W/DIFFon 03-28-2021 BASO ABS 0.00 K/CU MM Normal 0-0.2 [facility] Comment on above: Order Comment: Campu s: M Performed By: #### L 500.61492, L500.32934, L500.65622, L500.06011 #### [facility] [address] [place] [address] Basophils/100 WBC (Bld) 0.5 % Normal 0-2 [facility] Comment on above: Order Comment: Campu s: M Performed By: #### L 500.82540, L500.65952, L500.72073, L500.28422 #### [facility] [address] [place] [address] EOS ABS 0.10 K/CU MM Normal 0-0.5 [facility] Comment on above: Order Comment: Campu s: M Performed By: #### L 500.12071, L500.16503, L500.95204, L500.11898 #### [facility] [address] [place] [address] Eosinophils/100 WBC (Bld) 2.1 % Normal 0-5 [facility] Comment on above: Order Comment: Campu s: M Performed By: #### L 500.91314, L500.24092, L500.41746, L500.63029 #### [facility] [address] [place] [address] Erythrocyte distribution width (RBC) [Ratio] 12.4 % Normal 11-14.5 [facility] Comment on above: Order Comment: Campu s: M Performed By: #### L 500.73880, L500.90649, L500.77509, L500.23334 #### [facility] [address] [place] [address] Hematocrit (Bld) [Volume fraction] 32.2 % Low 41.0-53.0 [facility] Comment on above: Order Comment: Campu s: M Performed By: #### L 500.69596, L500.69708, L500.99345, L500.45279 #### [facility] [address] [place] [address] Hemoglobin (Bld) [Mass/Vol] 10.5 g/dL Low 13.5-17.5 [facility] Comment on above: Order Comment: Campu s: M Performed By: #### L 500.61999, L500.31013, L500.43913, L500.23356 #### [facility] [address] [place] [address] IMMATR GRAN ABS 0.00 K/CU MM Normal Less than 2 [facility] Comment on above: Order Comment: Campu s: M Performed By: #### L 500.46895, L500.87867, L500.95980, L500.47632 #### [facility] [address] [place] [address] IMMATURE GRAN % 0.4 % Normal Less than 2 [facility] Comment on above: Order Comment: Campu s: M Performed By: #### L 500.79843, L500.12500, L500.41930, L500.31021 #### [facility] [address] [place] [address] LYMPH ABS 1.70 K/CU MM Normal 0.9-4.4 [facility] Comment on above: Order Comment: Campu s: M Performed By: #### L 500.88782, L500.51165, L500.66534, L500.84891 #### [facility] [address] [place] [address] Lymphocytes/100 WBC (Bld) 29.5 % Normal 20-40 [facility] Comment on above: Order Comment: Campu s: M Performed By: #### L 500.32713, L500.02395, L500.25008, L500.31043 #### [facility] [address] [place] [address] MCHC (RBC) [Mass/Vol] 32.6 g/dL Normal 32.0-36.0 [facility] Comment on above: Order Comment: Campu s: M Performed By: #### L 500.30842, L500.61398, L500.93169, L500.42634 #### [facility] [address] [place] [address] MCV (RBC) [Entitic vol] 95.8 fL Normal 80.0-99.0 [facility] Comment on above: Order Comment: Campu s: M Performed By: #### L 500.48202, L500.90201, L500.59542, L500.50238 #### [facility] [address] [place] [address] MONO ABS 0.50 K/CU MM Normal 0.1-1.1 [facility] Comment on above: Order Comment: Campu s: M Performed By: #### L 500.55938, L500.03792, L500.13461, L500.15794 #### [facility] [address] [place] [address] Monocytes/100 WBC (Bld) 8.8 % Normal 2-10 [facility] Comment on above: Order Comment: Campu s: M Performed By: #### L 500.94194, L500.61280, L500.60074, L500.10013 #### [facility] [address] [place] [address] NEUTROPHIL ABS 3.30 K/CU MM Normal 2.0-8.3 [facility] Comment on above: Order Comment: Campu s: M Performed By: #### L 500.75526, L500.59304, L500.36327, L500.98736 #### [facility] [address] [place] [address] Neutrophils/100 WBC (Bld) 58.7 % Normal 45-75 [facility] Comment on above: Order Comment: Campu s: M Performed By: #### L 500.53555, L500.32340, L500.45722, L500.09852 #### [facility] [address] [place] [address] Nucleated RBC/100 WBC (Bld) [Ratio] 0.0 % Normal Less than 1 [facility] Comment on above: Order Comment: Campu s: M Performed By: #### L 500.82490, L500.09959, L500.47610, L500.67710 #### [facility] [address] [place] [address] Platelet mean volume (Bld) [Entitic vol] 9.6 fL Normal 9.4-12.4 [facility] Comment on above: Order Comment: Campu s: M Performed By: #### L 500.27423, L500.10093, L500.80795, L500.74313 #### [facility] [address] [place] [address] PLT 223 K/CU MM Normal 150-450 [facility] Comment on above: Order Comment: Campu s: M Performed By: #### L 500.16552, L500.88780, L500.13922, L500.07299 #### [facility] [address] [place] [address] RBC 3.36 M/CU MM Low 4.50-6.00 [facility] Comment on above: Order Comment: Campu s: M Performed By: #### L 500.97727, L500.28555, L500.37155, L500.75594 #### [facility] [address] [place] [address] WBC 5.7 K/CUMM Normal 4.5-11.0 [facility] Comment on above: Order Comment: Campu s: M Performed By: #### L 500.09431, L500.45982, L500.21833, L500.73036 #### [facility] [address] [place] [address] CMPon 03-28-2021 Albumin [Mass/Vol] 2.5 g/dL Low 3.2-5.0 [facility] Comment on above: Order Comment: Campu s: M Performed By: #### L 500.26531, L500.91245, L500.61165 #### [facility] [address] [place] [address] Albumin/Globulin [Mass ratio] 0.9 {ratio} Normal 0.8-2.0 [facility] Comment on above: Order Comment: Campu s: M Performed By: #### L 500.99157, L500.18706, L500.58717 #### [facility] [address] [place] [address] ALK PHOS 115 U/L Normal 45-117 [facility] Comment on above: Order Comment: Campu s: M Performed By: #### L 500.10337, L500.48153, L500.09090 #### [facility] [address] [place] [address] ALT [Catalytic activity/Vol] 77 U/L High 13-61 [facility] Comment on above: Order Comment: Campu s: M Result Comment: RESU LTS MAY BE FALSELY DEPRESSED AFTER THE ADMINISTRATION OF SULFASALAZINE AND/OR SULFAPYRIDINE. Performed By: #### L 500.26943, L500.01687, L500.51813 #### [facility] [address] [place], [place] [address] Anion gap [Moles/Vol] 6 mmol/L Normal 5-16 [facility] Comment on above: Order Comment: Campu s: M Performed By: #### L 500.13270, L500.32658, L500.50564 #### [facility] [address] [place], [place] [address] AST [Catalytic activity/Vol] 20 U/L Normal 8-34 [facility] Comment on above: Order Comment: Campu s: M Result Comment: RESU LTS MAY BE FALSELY DEPRESSED AFTER THE ADMINISTRATION OF SULFASALAZINE AND/OR SULFAPYRIDINE. Performed By: #### L 500.21615, L500.50835, L500.51832 #### [facility] [address] [place] [address] BILI TOTAL 0.90 MG/DL Normal 0.2-1.0 [facility] Comment on above: Order Comment: Campu s: M Performed By: #### L 500.20307, L500.35455, L500.01994 #### [facility] [address] [place] [address] Calcium [Mass/Vol] 8.6 mg/dL Normal 8.5-10.5 [facility] Comment on above: Order Comment: Campu s: M Result Comment: NOTE NEW NORMAL RANGE DUE TO REAGENT CHANGE Performed By: #### L 500.48028, L500.90217, L500.00340 #### [facility] [address] [place] [address] Chloride [Moles/Vol] 108 mmol/L High 98-107 [facility] Comment on above: Order Comment: Campu s: M Performed By: #### L 500.38803, L500.92906, L500.91389 #### [facility] [address] [place], [place] [address] CO2 [Moles/Vol] 24.0 mmol/L Normal 21-32 [facility] Comment on above: Order Comment: Campu s: M Performed By: #### L 500.32083, L500.81984, L500.24821 #### [facility] [address] [place], [place] [address] Creatinine [Mass/Vol] 0.95 mg/dL Normal 0.5-1.4 [facility] Comment on above: Order Comment: Campu s: M Result Comment: NOTE NEW NORMAL RANGE DUE TO REAGENT CHANGE Patients receiving either N-Acetylcysteine (NAC) or Metamizole prior to venipuncture, may have falsely depressed results. Performed By: #### L 500.64935, L500.77956, L500.95648 #### [facility] [address] [place] [address] Globulin (S) [Mass/Vol] 2.8 g/dL Normal 2.2-4.2 [facility] Comment on above: Order Comment: Campu s: M Performed By: #### L 500.53790, L500.44407, L500.92051 #### [facility] [address] [place] [address] Glucose [Mass/Vol] 173 mg/dL High 70-100 [facility] Comment on above: Order Comment: Campu s: M Result Comment: 70-1 00- Normal Fasting; 100-125 Impaired Fasting; greater than 126 on more than one result- Diabetes. ADA guidelines. Results may be falsely elevated after the administration of Sulfapyridine. Results may be falsely depressed after the administration of Sulfasalazine. Performed By: #### L 500.36601, L500.82786, L500.11316 #### [facility] [address] [place], [place] [address] Potassium [Moles/Vol] 3.6 mmol/L Normal 3.5-5.1 [facility] Comment on above: Order Comment: Campu s: M Performed By: #### L 500.33437, L500.21939, L500.58729 #### [facility] [address] [place] [address] Protein [Mass/Vol] 5.3 g/dL Low 6.0-8.5 [facility] Comment on above: Order Comment: Campu s: M Performed By: #### L 500.22139, L500.47790, L500.69215 #### [facility] [address] [place] [address] Sodium [Moles/Vol] 138 mmol/L Normal 136-145 [facility] Comment on above: Order Comment: Campu s: M Performed By: #### L 500.24623, L500.88535, L500.13465 #### [facility] [address] [place] [address] Urea nitrogen [Mass/Vol] 20 mg/dL Normal 7-26 [facility] Comment on above: Order Comment: Campu s: M Performed By: #### L 500.13034, L500.02831, L500.03801 #### [facility] [address] [place] [address] Urea nitrogen/Creatinin e [Mass ratio] 21 mg/mg Normal 15-24 [facility] Comment on above: Order Comment: Campu s: M Performed By: #### L 500.74395, L500.02041, L500.09594 #### [facility] [address] [place], [place] [address] GFR ESTon 03-28-2021 IF AMER Greater than 60 Normal [facility] Comment on above: Order Comment: Campu s: M Performed By: #### L 500.28545, L500.28810, L500.80632 #### [facility] [address] [place], [place] [address] IF non-AFR AMER Greater than 60 Normal [facility] Comment on above: Order Comment: Campu s: M Performed By: #### L 500.25825, L500.74883, L500.80251 #### [facility] [address] [place] [address] GLUCOSE METERon 03-28-2021 Glucose [Mass/Vol] 104 mg/dL Normal 85-125 [facility] Glucose [Mass/Vol] 133 mg/dL High 85-125 [facility] Glucose [Mass/Vol] 110 mg/dL Normal 85-125 [facility] Glucose [Mass/Vol] 119 mg/dL Normal 85-125 [facility]-28-2021 Magnesium [Mass/Vol] 1.6 mg/dL Normal 1.6-2.6 [facility] Comment on above: Order Comment: Alexandria s: M Performed By: #### L 500.63430, L500.21736, L500.45488 #### [facility] [address]# [phone] PROG [facility] 03-28-2021 PROG [facility] Patient Name: JULIO JARRELL [address] [facility] Date of : [address] [address] Unit Number: [id number] Progress Note-Hospitalist Patient Status: ADM IN Attending Doctor: Jerome Brandon MD Service Date: 03/28/21 1527 Chief Complaint Chief Complaint Abdominal pain, nausea/vomiting Subjective S: (2 ROS minimum) Patient seen and examined. Patient is 75-year-old male with history of diabetes, hypertension and other medical problems who had intermittent abdominal pain for about 3 weeks, along with nausea/vomiting and chills recently for which he presented to [facility] ER where he had CT abdomen done showing possible acute cholecystitis, cholelithiasis, possible choledocholithiasis and pancreatitis. Labs showed elevated LFTs with total bilirubin 2.1, lipase elevated at 2250 and creatinine elevated at 1.69. He was transferred to [facility] for further management. He mentions to feeling better today compared to admission. Denies current abdominal pain. Denies fever although he had chills before. Denies current nausea/vomiting. No other events overnight. Objective (ROS) Nursing Vitals Vital Signs (Last) Result Date Time Pulse Ox 95 03/28 700 B/P 114/46 03/28 700 Temp 98.3 03/28 700 Pulse 68 03/28 0700 Resp 18 09/06 0700 Physical Exam Physical Examination Notes GENERAL: [Patient is a obese male lying in bed not in apparent distress.] HEAD: [Atraumatic, normocephalic.] NECK: [Supple.] CARDIOVASCULAR: [S1-S2 audible, no murmurs.] RESPIRAORY: [Bilateral air entry present. No significant rales or wheezing noted.] ABDOMIN: [Soft, no significant tenderness noted at this time without significant guarding or rebound tenderness, bowel sounds appreciated.] EXTREMITIES: [No edema, pulses palpable bilaterally.] GLOBAL REGULATORY LEAD: [Patient awake, alert, oriented 3. No focal neurological deficits. ] PSYCHIATRIC: [Normal mood and affect. Patient not in apparent distress.] Diagnostic Data: Lab 24hr (CBC/BMP [facility]) 03/28/21 1205: Whole Bld Glucose 133 H 03/28/21 1049: [Embedded Image Not Available] Anion Gap 6, Est GFR ( Amer) Greater than 60, Est GFR (Non-Af Amer) Greater than 60 , BUN/Creatinine Ratio 21, Glucose 173 H, Total Calcium 8.6, Magnesium 1.6, Total Bilirubin 0.90, AST 20, ALT 77 H, Alkaline Phosphatase 115, Serum Total Protein 5.3 L, Albumin 2.5 L, Globulin 2.8, Albumin/Globulin Ratio 0.9, INR 0.96, PT Normal Mean Secs 10.3, APTT 25.1, RBC 3.36 L, MCV 95.8, MCHC 32.6, RDW 12.4, MPV 9.6, Immature Gran % (Auto ) 0.4, Abs Immat Gran (auto) 0.00, Seg Neutrophils % 58.7, Lymphocytes % 29.5, Monocytes % 8.8, Eosinophils % 2.1, Basophils % 0.5, Neutrophils # 3.30, Lymphocytes # 1.70, Monocytes # 0.50, Eosinophils # 0.10, Basophils # 0.00, Nucleated RBCs 0.0 03/28/21 0751: Whole Bld Glucose 110 03/27/21 2140: Whole Bld Glucose 119 03/27/21 1710: Whole Bld Glucose 141 H Assessment and Plan Conclusion 1. Cholecystitis 2. Pancreatitis Acute 3. Elevated LFTs Acute 4. IVONNE (acute kidney injury) Possible acute cholecystitis. Gallstones. Elevated LFTs-improved. Possible choledocholithiasis. Gallstone pancreatitis. Acute kidney injury, improved. Diabetes Hypertension Dyslipidemia Depression GERD Alcohol use Obesity with BMI 35.2 -Patient present for intermittent abdominal pain for 3 weeks along with nausea/vomiting and chills and he was admitted for further management. He was thought to have acute cholecystitis, gallstones, possible choledocholithiasis and gallstone pancreatitis based on CT abdomen/pelvis done at other ER. He mentions to feeling better this morning. Continue clear liquid diet. -Pain control as necessary. IV analgesics for severe pain. -Continue IV fluids NS at 100 mL/hr for now. -Continue IV Zosyn for now. -GI consulted. Patient is planned for MRCP which is scheduled for tomorrow. Follow-up results. -General surgery consulted. Follow input. -Patient had acute kidney injury with creatinine of 1.69 initially but this has improved now. Continue monitoring. -Glipizide is currently on hold. Continue NovoLog sliding scale for now with monitoring of CBGs for history of diabetes. -Lisinopril and HCTZ currently on hold. Continue Toprol for history of hypertension with blood pressure monitoring. -Continue Zocor for history of dyslipidemia. -Continue other medications as ordered and supportive care. Disclaimer This dictation was created using voice recognition software. Phonetic and/or minor grammatical errors may exist. eSign Date and Time Bird Alonso Verified/Reviewed by 03/28/21 1530 [facility] Progress Note-Hospitalist [facility] PROG.NOTEon 03-28-2021 PROG.NOTE [facility] Patient Name: JULIO JARRELL [address] Date of : [address] [address] Unit Number: [id number] Progress Note-Physician Patient Status: ADM IN Attending Doctor: Jerome Brandon MD Service Date: 03/28/21 1012 Subjective S: (2 ROS minimum) Patient seen, chart reviewed, patient sitting comfortably in bed, states that his abdominal pain is improved, denies any nausea or vomiting, awaiting MRI/MRCP to be done. Objective (ROS) Nursing Vitals Vital Signs (Last) Result Date Time Pulse Ox 95 03/28 700 B/P 114/46 03/28 0700 Temp 98.3 03/28 0700 Pulse 68 03/28 0700 Resp 18 03/28 700 HEENT normal Neck supple no mass Abdomen soft there is epigastric and right upper quadrant tenderness no rebound no guarding, bowel sounds are positive. Lower extremities no edema Assessment and Plan Conclusion 1. Pancreatitis Acute Clinically improving, patient continues to endorse abdominal discomfort but denies nausea or vomiting.? Related to gallstone pancreatitis, especially with his elevated LFTs, awaiting MRCP, discussed with nursing this could not be done today due to holiday and should be done tomorrow morning. I discussed with the patient that if positive for choledocholithiasis we will proceed with ERCP he does understand the pros and cons Improved 2. Elevated LFTs Acute ? Related to above? Treated pancreatitis versus choledocholithiasis, with MRCP results Improved DC Disposition Plan Continue to monitor Disclaimer This dictation was created using voice recognition software. Phonetic and/or minor grammatical errors may exist. eSign Date and Time Edith Mayers MD Verified/Reviewed by 03/28/21 1014 [facility] Progress Note-Physician [facility] PROG.SURGon 03-28-2021 PROG.SURG [facility] Patient Name: JULIO JARRELL [address] Date of : [address] [address] Unit Number: [id number] Progress Note-Surgery Patient Status: ADM IN Attending Doctor: Jerome Brandon MD Service Date: 03/28/21 1005 Progress Note - Surgery Subjective S: (2 ROS minimum) No reported events overnight. Patient has no complaints or concerns. Denies pain. Awaiting MRI which is scheduled for tomorrow. Objective Nursing Vitals Vital Signs (Last) Result Date Time Pulse Ox 95 03/28 700 B/P 114/46 03/28 700 Temp 98.3 03/28 0700 Pulse 68 03/28 0700 Resp 18 03/28 700 Physical Exam No acute distress, alert and oriented No respiratory distress on room air Regular rate and rhythm Abdomen soft nontender nondistended Diagnostic Data Lab 24hr (CBC/BMP [facility]) 03/28/21 0751: Whole Bld Glucose 110 03/27/21 2140: Whole Bld Glucose 119 03/27/21 1710: Whole Bld Glucose 141 H 03/27/21 1517: Sodium Cancelled, Potassium Cancelled, Chloride Cancelled, Carbon Dioxide Cancelled, Anion Gap Cancelled, BUN Cancelled, Creatinine Cancelled, BUN/Creatinine Ratio Cancelled, Glucose Cancelled, Total Calcium Cancelled 03/27/21 1150: Whole Bld Glucose 128 H Assessment/Plan Conclusion 1. Upper abdominal pain 75-year-old gentleman with suspected choledocholithiasis, gallstone pancreatitis Management per primary team Awaiting MRI GI to decide regarding ERCP based on MRI We will follow Disclaimer This dictation was created using voice recognition software. Phonetic and/or minor grammatical errors may exist. eSign Date and Time Thiago Louis MD Verified/Reviewed by 03/28/21 1006 Normal [facility] Progress Note-Surgery Normal [facility] PTon 03-28-2021 INR Coag (PPP) [Relative time] 0.96 {INR} Normal 0.9-1.1 [facility] Comment on above: Order Comment: Alexandria fleming: Winifred Result Comment: Travis mmended PT INR therapeutic range for penitentiary and prophylactic therapy is 2.0 - 3.0. For heart valve and shunt patients the range is 2.5 - 3.5. Performed By: #### L 500.54609, L500.73016, L500.78206 #### [facility] [address] [place] [address] PTS 10.3 SECONDS Normal 9.5-12.0 [facility] Comment on above: Order Comment: Alexandria Vitale Performed By: #### L 500.94200, L500.62424, L500.58929 #### [facility] [address] [place] [address] PTTon 03-28-2021 aPTT Coag (Bld) [Time] 25.1 s Normal 22.0-31.5 [facility] Comment on above: Order Comment: Alexandria fleming: Winifred Result Comment: Ther apeutic Heparin Reference Range: High Dose: 46-75 seconds (DVT/PE) Low Dose: 39-60 seconds (Acute Coronary Syndrome) For low molecular weight heparin or danaparoid, monitoring is often NOT necessary, but the heparin assay, Xa inhibition assay (send-out) may be used in certain circumstances, as the PTT is generally insensitive to the effect of these agents. Direct thrombin inhibitors are becoming more widely utilized and these drugs are often monitored using the PTT. Performed By: #### L 500.08175, L500.31260, L500.66221 #### [facility] [address] [place] [address] BMPon 03-27-2021 Anion gap [Moles/Vol] 11 mmol/L Normal 5-16 [facility] Comment on above: Order Comment: Campu s: M Performed By: #### L 500.60390, L500.82339, L500.50828, L500.25641 #### [facility] [address] [place] [address] Calcium [Mass/Vol] 9.0 mg/dL Normal 8.5-10.5 [facility] Comment on above: Order Comment: Campu s: M Result Comment: NOTE NEW NORMAL RANGE DUE TO REAGENT CHANGE Performed By: #### L 500.29745, L500.92518, L500.57650, L500.25709 #### [facility] [address] [place] [address] Chloride [Moles/Vol] 108 mmol/L High 98-107 [facility] Comment on above: Order Comment: Campu s: M Performed By: #### L 500.31026, L500.32210, L500.90342, L500.04963 #### [facility] [address] [place], [place] [address] CO2 [Moles/Vol] 20.0 mmol/L Low 21-32 [facility] Comment on above: Order Comment: Campu s: M Performed By: #### L 500.63212, L500.05465, L500.48089, L500.64367 #### [facility] [address] [place] [address] Creatinine [Mass/Vol] 1.12 mg/dL Normal 0.5-1.4 [facility] Comment on above: Order Comment: Alexandria s: M Result Comment: NOTE NEW NORMAL RANGE DUE TO REAGENT CHANGE Patients receiving either N-Acetylcysteine (NAC) or Metamizole prior to venipuncture, may have falsely depressed results. Performed By: #### L 500.40622, L500.20035, L500.96402, L500.45170 #### [facility] [address] [place] [address] Glucose [Mass/Vol] 157 mg/dL High 70-100 [facility] Comment on above: Order Comment: Alexandria s: M Result Comment: 70-1 00- Normal Fasting; 100-125 Impaired Fasting; greater than 126 on more than one result- Diabetes. ADA guidelines. Results may be falsely elevated after the administration of Sulfapyridine. Results may be falsely depressed after the administration of Sulfasalazine. Performed By: #### L 500.76140, L500.25286, L500.39170, L500.98199 #### [facility] [address] [place] [address] Potassium [Moles/Vol] 4.0 mmol/L Normal 3.5-5.1 [facility] Comment on above: Order Comment: Alexandria s: M Result Comment: Slig ht Hemolysis, Result may be affected. Performed By: #### L 500.32621, L500.13706, L500.21523, L500.44083 #### [facility] [place] [address] Sodium [Moles/Vol] 139 mmol/L Normal 136-145 [facility] Comment on above: Order Comment: Alexandria s: M Performed By: #### L 500.87102, L500.00094, L500.06044, L500.15998 #### [facility] [address] [place] [address] Urea nitrogen [Mass/Vol] 26 mg/dL Normal 7-26 [facility] Comment on above: Order Comment: Campu s: M Result Comment: Slig ht Hemolysis, Result may be affected. Performed By: #### L 500.39593, L500.28975, L500.99712, L500.29319 #### [facility] [address] [place] [address] Urea nitrogen/Creatinin e [Mass ratio] 23 mg/mg Normal 15-24 [facility] Comment on above: Order Comment: Campu s: M Performed By: #### L 500.40134, L500.67347, L500.44616, L500.14068 #### [facility] [address] [place] [address] CBC W/DIFFon 03-27-2021 BASO ABS 0.00 K/CU MM Normal 0-0.2 [facility] Comment on above: Order Comment: Campu s: M Performed By: #### L 500.93924, L500.69564, L500.03727, L500.42057 #### [facility] [address] [place] [address] Basophils/100 WBC (Bld) 0.5 % Normal 0-2 [facility] Comment on above: Order Comment: Campu s: M Performed By: #### L 500.45158, L500.82272, L500.28477, L500.52103 #### [facility] [address] [place] [address] EOS ABS 0.10 K/CU MM Normal 0-0.5 [facility] Comment on above: Order Comment: Campu s: M Performed By: #### L 500.44724, L500.23460, L500.76042, L500.05195 #### [facility] [address] [place] [address] Eosinophils/100 WBC (Bld) 1.2 % Normal 0-5 [facility] Comment on above: Order Comment: Campu s: M Performed By: #### L 500.90212, L500.18975, L500.87219, L500.38057 #### [facility] [address] [place] [address] Erythrocyte distribution width (RBC) [Ratio] 12.8 % Normal 11-14.5 [facility] Comment on above: Order Comment: Campu s: M Performed By: #### L 500.71656, L500.49807, L500.76688, L500.48040 #### [facility] [address] [place] [address] Hematocrit (Bld) [Volume fraction] 37.4 % Low 41.0-53.0 [facility] Comment on above: Order Comment: Campu s: M Performed By: #### L 500.27305, L500.64067, L500.69494, L500.72009 #### [facility] [address] [place] [address] Hemoglobin (Bld) [Mass/Vol] 12.6 g/dL Low 13.5-17.5 [facility] Comment on above: Order Comment: Campu s: M Performed By: #### L 500.96643, L500.46606, L500.41852, L500.95599 #### [facility] [address] [place] [address] IMMATR GRAN ABS 0.00 K/CU MM Normal Less than 2 [facility] Comment on above: Order Comment: Campu s: M Performed By: #### L 500.81237, L500.67031, L500.24854, L500.97986 #### [facility] [address] [place] [address] IMMATURE GRAN % 0.5 % Normal Less than 2 [facility] Comment on above: Order Comment: Campu s: M Performed By: #### L 500.89060, L500.65545, L500.55518, L500.87131 #### [facility] [address] [place] [address] LYMPH ABS 2.00 K/CU MM Normal 0.9-4.4 [facility] Comment on above: Order Comment: Campu s: M Performed By: #### L 500.66165, L500.93239, L500.21860, L500.09162 #### [facility] [address] [place] [address] Lymphocytes/100 WBC (Bld) 24.5 % Normal 20-40 [facility] Comment on above: Order Comment: Campu s: M Performed By: #### L 500.11054, L500.19723, L500.41437, L500.90365 #### [facility] [address] [place] [address] MCHC (RBC) [Mass/Vol] 33.7 g/dL Normal 32.0-36.0 [facility] Comment on above: Order Comment: Campu s: M Performed By: #### L 500.25400, L500.55718, L500.45738, L500.09697 #### [facility] [address] [place] [address] MCV (RBC) [Entitic vol] 92.8 fL Normal 80.0-99.0 [facility] Comment on above: Order Comment: Campu s: M Performed By: #### L 500.74006, L500.88406, L500.44989, L500.30654 #### [facility] [address] [place] [address] MONO ABS 0.60 K/CU MM Normal 0.1-1.1 [facility] Comment on above: Order Comment: Campu s: M Performed By: #### L 500.99698, L500.06987, L500.26298, L500.41204 #### [facility] [address] [place] [address] Monocytes/100 WBC (Bld) 7.4 % Normal 2-10 [facility] Comment on above: Order Comment: Campu s: M Performed By: #### L 500.61729, L500.04902, L500.97193, L500.33784 #### [facility] [address] [place] [address] NEUTROPHIL ABS 5.50 K/CU MM Normal 2.0-8.3 [facility] Comment on above: Order Comment: Campu s: M Performed By: #### L 500.52384, L500.76865, L500.07820, L500.07023 #### [facility] [address] [place] [address] Neutrophils/100 WBC (Bld) 65.9 % Normal 45-75 [facility] Comment on above: Order Comment: Campu s: M Performed By: #### L 500.55045, L500.39002, L500.93208, L500.55548 #### [facility] [address] [place] [address] Nucleated RBC/100 WBC (Bld) [Ratio] 0.0 % Normal Less than 1 [facility] Comment on above: Order Comment: Campu s: M Performed By: #### L 500.91905, L500.32071, L500.67420, L500.71744 #### [facility] [address] [place] [address] Platelet mean volume (Bld) [Entitic vol] 9.8 fL Normal 9.4-12.4 [facility] Comment on above: Order Comment: Campu s: M Performed By: #### L 500.63664, L500.08372, L500.81538, L500.67915 #### [facility] [address] [place], [place] [address] PLT 281 K/CU MM Normal 150-450 [facility] Comment on above: Order Comment: Campu s: M Performed By: #### L 500.45975, L500.05417, L500.87017, L500.48968 #### [facility] [address] [place], [place] [address] RBC 4.03 M/CU MM Low 4.50-6.00 [facility] Comment on above: Order Comment: Campu s: M Performed By: #### L 500.77592, L500.99203, L500.70115, L500.28603 #### [facility] [address] [place] [address] WBC 8.3 K/CUMM Normal 4.5-11.0 [facility] Comment on above: Order Comment: Campu s: M Performed By: #### L 500.41845, L500.23955, L500.53963, L500.97086 #### [facility] [address] [place] [address] CONS.GIon 03-27-2021 CONS.GI [facility] Patient Name: JULIO JARRELL [address] [place] [address] Date of : [address] [address] Unit Number: [id number] Consultation-GI Patient Status: ADM IN Attending Doctor: Jerome Brandon MD Service Date: 03/27/21 1009 Consultation-GI History of Present Illness Julio is a 75-year-old gentleman with known history of hypertension, dyslipidemia, diabetes, depression and COPD who presented with 1 day history of epigastric postprandial sharp abdominal pain associated with nausea and vomiting that has resolved. Patient had 3 similar episodes over the past 3 weeks which happened postprandially lasting few hours and resolved with vomiting. Work-up in the other hospital revealed evidence of cholelithiasis and cannot rule out pancreatitis, cholecystitis or choledocholithiasis. Will schedule elevated liver enzymes and lipase. Prior to this patient denied any GI complaints. No previous GI work-up. Denies NSAID. Not on PPI. Denies smoking, drinking or drug use. Review of Systems Denies any chest pain, shortness of breath, fever or genitourinary symptoms. Social History Denies smoking or drug use. Drinks occasionally. Allergies Coded Allergies: NO KNOWN ALLERGENS (03/27/21) Home Medications glipiZIDE* (Glucotrol Tab*) 5 MG UDTAB 5 MG PO QDAY.30AC, Ref 0 (Reported) Entered as Reported by LOLIS VERDIN on 03/26/212029 Last Action: Held on 03/26/212042 by JEISON TROY Hydrochlorothiazide* (hydroDIURIL 25 MG TAB*) 25 MG TABLET 25 MG PO QDAYWM, Ref 0 ( Reported) Entered as Reported by LOLIS VERDIN on 03/26/212029 Last Action: Held on 03/26/212042 by JEISON TROY Lisinopril* (Prinivil Tab*) 5 MG UDTAB 5 MG PO QDAY, Ref 0 (Reported) Take one (1) tablet by mouth once a day. Entered as Reported by LOLIS VERDIN on 03/26/212028 Last Action: Held on 03/26/212042 by JEISON TROY Loratadine* (Claritin 10MG Tab*) 10 MG TABLET 10 MG PO QDAYAC, Ref 0 (Reported) Entered as Reported by LOLIS VERDIN on 03/26/212030 Last Action: Held on 03/26/212042 by JEISON TROY metoprolol SUCCINATE* (Toprol XL 100MG Tab SA*) 100 MG TAB.ER.24H 100 MG PO QDAY, Ref 0 (Reported) Entered as Reported by LOLIS VERDIN on 03/26/212030 Last Action: Continued on 03/27/21838 by BIRD ALONSO Multivitamin* (Multiple Vitamins Daily Tab*) 1 EACH TABLET 1 UDTAB PO QDAY, Ref 0 ( Reported) Entered as Reported by LOLIS VERDIN on 03/26/212031 Last Action: Continued on 03/27/21838 by BIRD ALONSO Simvastatin (Zocor 10MG Tab) 10 MG TABLET 10 MG PO QHS, Ref 0 (Reported) Entered as Reported by LOLIS VERDIN on 03/26/212029 Last Action: Continued on 03/27/21 08 by BIRD ALONSO Physical Exam Physical Exam Summary HEENT: Within normal limits Chest and lung: Clear to auscultation. Heart: Normal S1-S2. Abdomen: Soft, positive bowel sounds with no tenderness or distention. Extremities: No edema, pulses intact. Back: No CVS tenderness Joints: No deformity Musculoskeletal: No fracture Neurologically: Grossly intact no lateralization. Skin: No ecchymosis, icterus or rash. Conclusion 1. Pancreatitis 1 day history of abdominal pain nausea and vomiting. Similar episodes over the past 3 weeks. Currently asymptomatic. Elevated liver enzymes and lipase with evidence of gallstones or consistent with gallstone pancreatitis. Okay for liquid diet. Obtain MRCP. ERCP if evidence of choledocholithiasis. Endoscopic evaluation will be arranged as an outpatient. Disclaimer This dictation was created using voice recognition software. Phonetic and/or minor grammatical errors may exist. eSign Date and Time Sulema Acuna MD Verified/Reviewed by 03/27/21 1013 Normal [facility] Consultation-GI Normal [facility] GFR ESTon 03-27-2021 IF AMER Greater than 60 [facility] Comment on above: Order Comment: Ronaku s: M Performed By: #### L 500.77135, L500.09679, L500.99837, L500.91088 #### [facility] [place] [address] IF non-AFR AMER Greater than 60 [facility] Comment on above: Order Comment: Ronaku s: M Performed By: #### L 500.03912, L500.28622, L500.57315, L500.34682 #### [facility] [place] [address] GLUCOSE METERon 03-27-2021 Glucose [Mass/Vol] 141 mg/dL High 85-125 [facility] Glucose [Mass/Vol] 128 mg/dL High 85-125 [facility] Glucose [Mass/Vol] 141 mg/dL High 85-125 [facility] Glucose [Mass/Vol] 130 mg/dL High 85-125 [facility] HP.Hugo 03-27-2021 CONSULTATION-H&P Normal [facility] HP.IMS.[facility] Patient Name: JULIO JARRELL [address] Date of : [address] [place] [address] Unit Number: [id number] CONSULTATION-HandP Patient Status: ADM IN Attending Doctor: Jerome Brandon MD Service Date: 03/27/21957 History of Present Illness History of Present Illness 75-year-old male presenting for several week history of intermittent epigastric abdominal pain that is been progressively worsening. He describes symptoms as intermittent in nature. Pain is located in the midepigastric region. Also complains of associated nausea and vomiting with these episodes. CT scan performed at outside hospital demonstrated evidence of pancreatitis, possible choledocholithiasis, possible cholecystitis. Lipase was elevated. LFTs are elevated as well. On exam this morning patient denies any abdominal pain nausea or vomiting. He states his symptoms are completely resolved. Past Medical/Surgical Hx Past Medical History Past Medical History DM2, GERD, HLD, HTN, depression Past Surgical History varicose vein ligation Past Surgical History Past Medical History DM2, GERD, HLD, HTN, depression Past Surgical History varicose vein ligation Family/Social History Substances Reports use of: Alcohol. Denies use of: Tobacco, Recreational Drugs. Allergies/Home Medications Allergies Coded Allergies: NO KNOWN ALLERGENS (03/27/21) Home Medications glipiZIDE* (Glucotrol Tab*) 5 MG UDTAB 5 MG PO QDAY.30AC, Ref 0 (Reported) Entered as Reported by LOLIS VERDIN on 03/26/212029 Last Action: Held on 03/26/212042 by JEISON TROY Hydrochlorothiazide* (hydroDIURIL 25 MG TAB*) 25 MG TABLET 25 MG PO QDAYWM, Ref 0 ( Reported) Entered as Reported by LOLIS VERDIN on 03/26/212029 Last Action: Held on 03/26/212042 by JEISON TROY Lisinopril* (Prinivil Tab*) 5 MG UDTAB 5 MG PO QDAY, Ref 0 (Reported) Take one (1) tablet by mouth once a day. Entered as Reported by LOLIS VERDIN on 03/26/212028 Last Action: Held on 03/26/212042 by JEISON TROY Loratadine* (Claritin 10MG Tab*) 10 MG TABLET 10 MG PO QDAYAC, Ref 0 (Reported) Entered as Reported by LOLIS VERDIN on 03/26/212030 Last Action: Held on 03/26/212042 by JEISON TROY metoprolol SUCCINATE* (Toprol XL 100MG Tab SA*) 100 MG TAB.ER.24H 100 MG PO QDAY, Ref 0 (Reported) Entered as Reported by LOLIS VERDIN on 03/26/212030 Last Action: Continued on 03/27/21 0839 by BIRD ALONSO Multivitamin* (Multiple Vitamins Daily Tab*) 1 EACH TABLET 1 UDTAB PO QDAY, Ref 0 ( Reported) Entered as Reported by LOLIS VERDIN on 03/26/212031 Last Action: Continued on 03/27/21 0839 by BIRD ALONSO Simvastatin (Zocor 10MG Tab) 10 MG TABLET 10 MG PO QHS, Ref 0 (Reported) Entered as Reported by LOLIS VERDIN on 03/26/212029 Last Action: Continued on 03/27/21 0839 by BIRD ALONSO Review of Systems Constitutional Denies: Fever, Fatigue. EENT Denies: Vision Change, Vision Problems. Cardiovascular Denies: Chest Pain, Pain on Exertion. Pulmonary Denies: Pleuritic Chest Pain, Dyspnea. Gastrointestinal Reports: Abdominal Pain, Nausea, Vomiting. Genitourinary Denies: Dysuria, Hematuria. Musculoskeletal Denies: Joint Pain, Joint Swelling. Skin Denies: Extremity Pain, Calf Pain. Lymphatic Denies: Ankle Swelling, Enlarged Lymph Nodes. Endocrine Denies: Cold Intolerance, Heat Intolerance. Neuro Denies: Headache, Syncope. Psychiatric Denies: Depression, Anxiety. Physical Exam Vital Signs Vital Signs (Last) Result Date Time Pulse Ox 95 09/05 0725 B/P 144/71 03/27 725 Temp 98.6 03/27 725 Pulse 75 03/27 725 Resp 20 03/27 725 Appearance - PE Appears well, Awake Neck - PE Normal inspection, No JVD HEENT - PE Head atraumatic, Eyes normal inspection Respiratory - PE Lungs sound clear, Respirations non-labored Cardiovascular - PE Rate WNL, Rhythm regular Neurological - PE Alert, Oriented x 3 Abdomen - PE Bowel sounds present, Abdomen soft, Non-tender Extremity - PE Normal appearance, Full ROM Skin - PE Color normal, Skin warm, dry Conclusion / Plan Conclusion 1. Pancreatitis 75-year-old male presenting with gallstone pancreatitis, also possible concurrent choledocholithiasis and possible cholecystitis. -Gallstone pancreatitis, possible choledocholithiasis-LFTs remain elevated but are slightly downtrending. Will order MRCP to evaluate for choledocholithiasis. If choledocholithiasis is present patient would require ERCP prior to any surgical intervention. We will tentatively plan for laparoscopic cholecystectomy to be performed on Sunday due to diagnosis of gallstone pancreatitis. -Okay for patient to be on clear liquids from surgical point of view after MRI or if MRI is not able to be completed today. Disclaimer This dictation was created using voice recognition software. P (more content not included)... Normal [facility] 03-27-2021 Albumin [Mass/Vol] 3.1 g/dL Low 3.2-5.0 [facility] Comment on above: Order Comment: Campu s: M Performed By: #### L 500.57226, L500.96598, L500.15155, L500.72197 #### [facility] [address] [place] [address] Albumin/Globulin [Mass ratio] 0.9 {ratio} Normal 0.8-2.0 [facility] Comment on above: Order Comment: Campu s: M Performed By: #### L 500.69802, L500.13306, L500.41858, L500.88713 #### [facility] [place] [address] ALK PHOS 157 U/L High 45-117 [facility] Comment on above: Order Comment: Campu s: M Performed By: #### L 500.87248, L500.37287, L500.56936, L500.93467 #### [facility] [address] [place] [address] ALT [Catalytic activity/Vol] 139 U/L High 13-61 [facility] Comment on above: Order Comment: Campu s: M Result Comment: RESU LTS MAY BE FALSELY DEPRESSED AFTER THE ADMINISTRATION OF SULFASALAZINE AND/OR SULFAPYRIDINE. Performed By: #### L 500.13602, L500.86681, L500.16051, L500.39390 #### [facility] [address] [place] [address] AST [Catalytic activity/Vol] 57 U/L High 8-34 [facility] Comment on above: Order Comment: Campu s: M Result Comment: RESU LTS MAY BE FALSELY DEPRESSED AFTER THE ADMINISTRATION OF SULFASALAZINE AND/OR SULFAPYRIDINE. Performed By: #### L 500.54681, L500.14136, L500.89237, L500.63237 #### [facility] [address] [place] [address] BILI DIRECT 0.6 MG/DL High 0.00-0.36 [facility] Comment on above: Order Comment: Campu s: M Result Comment: NOTE NEW NORMAL RANGE DUE TO REAGENT CHANGE Performed By: #### L 500.89273, L500.78111, L500.46326, L500.36340 #### [facility] [address] [place] [address] BILI TOTAL 1.30 MG/DL High 0.2-1.0 [facility] Comment on above: Order Comment: Campu s: M Performed By: #### L 500.74788, L500.83050, L500.75167, L500.34832 #### [facility] [address] [place] [address] Globulin (S) [Mass/Vol] 3.3 g/dL Normal 2.2-4.2 [facility] Comment on above: Order Comment: Campu s: M Performed By: #### L 500.98485, L500.18017, L500.21274, L500.16730 #### [facility] [address] [place] [address] Protein [Mass/Vol] 6.4 g/dL Normal 6.0-8.5 [facility] Comment on above: Order Comment: Campu s: M Performed By: #### L 500.41382, L500.78916, L500.73926, L500.73797 #### [facility] [address] [place] [address] PROG [facility] 03-27-2021 [facility] Patient Name: JULIO JARRELL [address] [place] [address] Date of : [address] [place] [address] Unit Number: [id number] Progress Note-Hospitalist Patient Status: ADM IN Attending Doctor: Jerome Brandon MD Service Date: 03/27/21 165 Chief Complaint Chief Complaint Abdominal pain, nausea/vomiting Subjective S: (2 ROS minimum) Patient seen and examined. Patient is 75-year-old male with history of diabetes, hypertension and other medical problems who had intermittent abdominal pain for about 3 weeks, along with nausea/vomiting and chills recently for which he presented to [facility] ER where he had CT abdomen done showing possible acute cholecystitis, cholelithiasis, possible choledocholithiasis and pancreatitis. Labs showed elevated LFTs with total bilirubin 2.1, lipase elevated at 2250 and creatinine elevated at 1.69. He was transferred to [facility] for further management. He mentions to feeling better today compared to admission. Denies current abdominal pain. Denies fever although he had chills before. Denies current nausea/vomiting. No other events overnight. Objective (ROS) Nursing Vitals Vital Signs (Last) Result Date Time Pulse Ox 94 03/27 1535 B/P 137/69 03/27 1535 Temp 98.4 03/27 1535 Pulse 67 03/27 1535 Resp 19 03/27 1535 Physical Exam Physical Examination Notes GENERAL: [Patient is a obese male lying in bed not in apparent distress.] HEAD: [Atraumatic, normocephalic.] NECK: [Supple, no lymphadenopathy.] CARDIOVASCULAR: [S1-S2 audible, no murmurs.] RESPIRAORY: [Bilateral air entry present. No significant rales or wheezing noted.] ABDOMIN: [Soft, no significant tenderness noted at this time without significant guarding or rebound tenderness, bowel sounds appreciated.] EXTREMITIES: [No edema, pulses palpable bilaterally.] SKIN: [Clear, no evidence of bleeding.] GLOBAL REGULATORY LEAD: [Patient awake, alert, oriented 3. No focal neurological deficits. ] PSYCHIATRIC: [Normal mood and affect. Patient not in apparent distress.] Diagnostic Data: Lab 24hr (CBC/BMP [facility]) 03/27/21 1517: Sodium Cancelled, Potassium Cancelled, Chloride Cancelled, Carbon Dioxide Cancelled, Anion Gap Cancelled, BUN Cancelled, Creatinine Cancelled, BUN/Creatinine Ratio Cancelled, Glucose Cancelled, Total Calcium Cancelled 03/27/21 1150: Whole Bld Glucose 128 H 03/27/21 0813: [Embedded Image Not Available] Anion Gap 11, Est GFR ( Amer) Greater than 60, Est GFR (Non-Af Amer) Greater than 60, BUN/Creatinine Ratio 23, Glucose 157 H, Total Calcium 9.0 03/27/21 0813: [Embedded Image Not Available] Total Bilirubin 1.30 H, Direct Bilirubin 0.6 H, AST 57 H, ALT 139 H, Alkaline Phosphatase 157 H, Serum Total Protein 6.4, Albumin 3.1 L, Globulin 3.3, Albumin/Globulin Ratio 0.9, RBC 4.03 L, MCV 92.8, MCHC 33.7, RDW 12.8, MPV 9.8, Immature Gran % (Auto) 0.5, Abs Immat Gran (auto) 0.00, Seg Neutrophils % 65.9, Lymphocytes % 24.5, Monocytes % 7.4, Eosinophils % 1.2, Basophils % 0.5, Neutrophils # 5.50, Lymphocytes # 2.00, Monocytes # 0.60, Eosinophils # 0.10, Basophils # 0.00, Nucleated RBCs 0.0 03/27/21 0808: Whole Bld Glucose 141 H 03/26/21 2212: Whole Bld Glucose 130 H 03/26/21 1852: Whole Bld Glucose 170 H Assessment and Plan Conclusion 1. Cholecystitis 2. Pancreatitis 3. Elevated LFTs 4. IVONNE (acute kidney injury) Possible acute cholecystitis. Gallstones. Elevated LFTs-for evaluation. Possible choledocholithiasis. Gallstone pancreatitis. Acute kidney injury, improved. Diabetes Hypertension Dyslipidemia Depression GERD Alcohol use Obesity with BMI 35.2 -Patient present for intermittent abdominal pain for 3 weeks along with nausea/vomiting and chills and he was admitted for further management. He was thought to have acute cholecystitis, gallstones, possible choledocholithiasis and gallstone pancreatitis based on CT abdomen/pelvis done at other ER. He mentions to feeling better this morning. Start on clear liquid diet. -Pain control as necessary. IV analgesics for severe pain. -Continue IV fluids NS at 150 mL/hr for now. -Continue IV Zosyn for now. -GI consulted. Patient is planned for MRCP. Follow-up results. -General surgery consulted. Follow input. -Patient had acute kidney injury with creatinine of 1.69 initially but this has improved to 1.12 today. Continue monitoring. -Glipizide is currently on hold. Continue NovoLog sliding scale for now with monitoring of CBGs for history of diabetes. -Lisinopril and HCTZ currently on hold. Continue Toprol for history of hypertension with blood pressure monitoring. -Continue Zocor for history of dyslipidemia. -Continue other medications as ordered and supportive care. Disclaimer This dictation was created using voice recognition software. Phonetic and/or minor grammatical errors may exist. eSign Edy (more content not included)... Normal [facility] Progress Note-Hospitalist Normal [facility] CBC W/DIFFon 03-26-2021 BASO ABS 0.00 K/CU MM Normal 0-0.2 [facility] Comment on above: Order Comment: [place] s: M Performed By: #### L 500.35349, L500.82216, L500.81631, L500.43853 #### [facility] [address] [place] [address] Basophils/100 WBC (Bld) 0.2 % Normal 0-2 [facility] Comment on above: Order Comment: Campu s: M Performed By: #### L 500.82246, L500.42438, L500.67688, L500.99498 #### [facility] [address] [place] [address] EOS ABS 0.00 K/CU MM Normal 0-0.5 [facility] Comment on above: Order Comment: Campu s: M Performed By: #### L 500.15638, L500.77430, L500.48139, L500.42554 #### [facility] [address] [place] [address] Eosinophils/100 WBC (Bld) 0.1 % Normal 0-5 [facility] Comment on above: Order Comment: Campu s: M Performed By: #### L 500.58373, L500.47704, L500.82437, L500.24820 #### [facility] [address] [place] [address] Erythrocyte distribution width (RBC) [Ratio] 12.7 % Normal 11-14.5 [facility] Comment on above: Order Comment: Campu s: M Performed By: #### L 500.02014, L500.73425, L500.19722, L500.30088 #### [facility] [address] [place] [address] Hematocrit (Bld) [Volume fraction] 37.3 % Low 41.0-53.0 [facility] Comment on above: Order Comment: Campu s: M Performed By: #### L 500.15724, L500.57890, L500.62165, L500.70244 #### [facility] [address] [place] [address] Hemoglobin (Bld) [Mass/Vol] 12.5 g/dL Low 13.5-17.5 [facility] Comment on above: Order Comment: Campu s: M Performed By: #### L 500.71981, L500.87032, L500.48902, L500.20824 #### [facility] [address] [place] [address] IMMATR GRAN ABS 0.10 K/CU MM Normal Less than 2 [facility] Comment on above: Order Comment: Campu s: M Performed By: #### L 500.78511, L500.83903, L500.87373, L500.80752 #### [facility] [address] [place] [address] IMMATURE GRAN % 0.5 % Normal Less than 2 [facility] Comment on above: Order Comment: Campu s: M Performed By: #### L 500.45844, L500.39090, L500.83260, L500.96743 #### [facility] [address] [place] [address] LYMPH ABS 1.10 K/CU MM Normal 0.9-4.4 [facility] Comment on above: Order Comment: Campu s: M Performed By: #### L 500.23454, L500.78547, L500.07820, L500.42815 #### [facility] [address] [place] [address] Lymphocytes/100 WBC (Bld) 10.2 % Low 20-40 [facility] Comment on above: Order Comment: Campu s: M Performed By: #### L 500.75298, L500.84975, L500.86659, L500.35339 #### [facility] [address] [place] [address] MCHC (RBC) [Mass/Vol] 33.5 g/dL Normal 32.0-36.0 [facility] Comment on above: Order Comment: Campu s: M Performed By: #### L 500.44840, L500.19179, L500.39298, L500.26788 #### [facility] [address] [place] [address] MCV (RBC) [Entitic vol] 93.0 fL Normal 80.0-99.0 [facility] Comment on above: Order Comment: Campu s: M Performed By: #### L 500.49896, L500.51237, L500.49820, L500.95360 #### [facility] [address] [place] [address] MONO ABS 0.60 K/CU MM Normal 0.1-1.1 [facility] Comment on above: Order Comment: Campu s: M Performed By: #### L 500.22159, L500.28768, L500.10350, L500.74907 #### [facility] [address] [place] [address] Monocytes/100 WBC (Bld) 6.1 % Normal 2-10 [facility] Comment on above: Order Comment: Campu s: M Performed By: #### L 500.27390, L500.95995, L500.90328, L500.56785 #### [facility] [address] [place] [address] NEUTROPHIL ABS 8.70 K/CU MM High 2.0-8.3 [facility] Comment on above: Order Comment: Campu s: M Performed By: #### L 500.15597, L500.29522, L500.31279, L500.00948 #### [facility] [address] [place] [address] Neutrophils/100 WBC (Bld) 82.9 % High 45-75 [facility] Comment on above: Order Comment: Campu s: M Performed By: #### L 500.86676, L500.90376, L500.21766, L500.98002 #### [facility] [address] [place] [address] Nucleated RBC/100 WBC (Bld) [Ratio] 0.0 % Normal Less than 1 [facility] Comment on above: Order Comment: Campu s: M Performed By: #### L 500.91567, L500.37957, L500.31589, L500.27485 #### [facility] [address] [place] [address] Platelet mean volume (Bld) [Entitic vol] 9.9 fL Normal 9.4-12.4 [facility] Comment on above: Order Comment: Campu s: M Performed By: #### L 500.49786, L500.36996, L500.30796, L500.01069 #### [facility] [address] [place] [address] PLT 279 K/CU MM Normal 150-450 [facility] Comment on above: Order Comment: Campu s: M Performed By: #### L 500.37924, L500.39018, L500.30746, L500.92754 #### [facility] [address] [place] [address] RBC 4.01 M/CU MM Low 4.50-6.00 [facility] Comment on above: Order Comment: Campu s: M Performed By: #### L 500.82022, L500.85479, L500.34912, L500.35869 #### [facility] [address] [place] [address] WBC 10.5 K/CUMM Normal 4.5-11.0 [facility] Comment on above: Order Comment: Campu s: M Performed By: #### L 500.45162, L500.16321, L500.45345, L500.06465 #### [facility] [address] [place] [address] CMPon 03-26-2021 Albumin [Mass/Vol] 3.0 g/dL Low 3.2-5.0 [facility] Comment on above: Order Comment: Campu s: M Performed By: #### L 500.04716, L500.75828 #### [facility] [address] [place], [place] [address] Albumin/Globulin [Mass ratio] 1.0 {ratio} Normal 0.8-2.0 [facility] Comment on above: Order Comment: Campu s: M Performed By: #### L 500.39073, L500.91250 #### [facility] [address] [place] [address] ALK PHOS 174 U/L High 45-117 [facility] Comment on above: Order Comment: Campu s: M Performed By: #### L 500.30360, L500.17618 #### [facility] [address] [place] [address] ALT [Catalytic activity/Vol] 177 U/L High 13-61 [facility] Comment on above: Order Comment: Campu s: M Result Comment: RESU LTS MAY BE FALSELY DEPRESSED AFTER THE ADMINISTRATION OF SULFASALAZINE AND/OR SULFAPYRIDINE. Performed By: #### L 500.82847, L500.35874 #### [facility] [address] [place] [address] Anion gap [Moles/Vol] 7 mmol/L Normal 5-16 [facility] Comment on above: Order Comment: Campu s: M Performed By: #### L 500.19051, L500.54138 #### [facility] [address] [place] [address] AST [Catalytic activity/Vol] 90 U/L High 8-34 [facility] Comment on above: Order Comment: Campu s: M Result Comment: RESU LTS MAY BE FALSELY DEPRESSED AFTER THE ADMINISTRATION OF SULFASALAZINE AND/OR SULFAPYRIDINE. Performed By: #### L 500.73608, L500.42448 #### [facility] [address] [place] [address] BILI TOTAL 2.00 MG/DL High 0.2-1.0 [facility] Comment on above: Order Comment: Campu s: M Performed By: #### L 500.83547, L500.74983 #### [facility] [address] [place] [address] Calcium [Mass/Vol] 9.0 mg/dL Normal 8.5-10.5 [facility] Comment on above: Order Comment: Campu s: M Result Comment: NOTE NEW NORMAL RANGE DUE TO REAGENT CHANGE Performed By: #### L 500.24132, L500.82902 #### [facility] [address] [place] [address] Chloride [Moles/Vol] 104 mmol/L Normal 98-107 [facility] Comment on above: Order Comment: Campu s: M Performed By: #### L 500.97392, L500.28795 #### [facility] [address] [place] [address] CO2 [Moles/Vol] 26.0 mmol/L Normal 21-32 [facility] Comment on above: Order Comment: Campu s: M Performed By: #### L 500.02507, L500.26864 #### [facility] [address] [place] [address] Creatinine [Mass/Vol] 1.34 mg/dL Normal 0.5-1.4 [facility] Comment on above: Order Comment: Campu s: M Result Comment: NOTE NEW NORMAL RANGE DUE TO REAGENT CHANGE Patients receiving either N-Acetylcysteine (NAC) or Metamizole prior to venipuncture, may have falsely depressed results. Performed By: #### L 500.10308, L500.74146 #### [facility] [address] [place] [address] Globulin (S) [Mass/Vol] 3.1 g/dL Normal 2.2-4.2 [facility] Comment on above: Order Comment: Campu s: M Performed By: #### L 500.47636, L500.44438 #### [facility] [address] [place] [address] Glucose [Mass/Vol] 242 mg/dL High 70-100 [facility] Comment on above: Order Comment: Campu s: M Result Comment: 70-1 00- Normal Fasting; 100-125 Impaired Fasting; greater than 126 on more than one result- Diabetes. ADA guidelines. Results may be falsely elevated after the administration of Sulfapyridine. Results may be falsely depressed after the administration of Sulfasalazine. Performed By: #### L 500.86138, L500.22823 #### [facility] [address] [place] [address] Potassium [Moles/Vol] 4.5 mmol/L Normal 3.5-5.1 [facility] Comment on above: Order Comment: Campu s: M Performed By: #### L 500.78577, L500.65281 #### [facility] [address] [place] [address] Protein [Mass/Vol] 6.1 g/dL Normal 6.0-8.5 [facility] Comment on above: Order Comment: Campu s: M Performed By: #### L [id number], [id number] #### [facility] [address] [place] [id number] Sodium [Moles/Vol] 137 mmol/L Normal 136-145 [facility] Comment on above: Order Comment: Campu s: M Performed By: #### L 500.16001, L500.53562 #### [facility] [address] [place], [place] [id number] Urea nitrogen [Mass/Vol] 26 mg/dL Normal 7-26 [facility] Comment on above: Order Comment: Campu s: M Performed By: #### L 500.41159, L500.74392 #### [facility] [address] [place] [address] Urea nitrogen/Creatinin e [Mass ratio] 19 mg/mg Normal 15-24 [facility] Comment on above: Order Comment: Campu s: M Performed By: #### L 500.58947, L500.38732 #### [facility] [address] [place] [address] ERC BILIARYon 03-26-2021 ERC BILIARY REMOVAL STONE BILIAR Y DCT PERC, ERC BILIARY Ordering Physician: Edith Mayers MD 03/30/2021 9:24 AM FLUOROSCOPY FOR ENDOSCOPIC RETROGRADE CHOLANGIOGRAM: Clinical Statement: Common bile duct stone. REPORT: 59.3 seconds of fluoroscopy time was utilized by Dr. Moy during an endoscopic retrograde cholangiogram. 4 fluoroscopic images were acquired during the procedure and saved to PACS for documentation. A sphincterotomy was documented as having been performed, followed by a balloon sweep of the common bile duct with stone removal. Further details can be found on the procedural note. IMPRESSION: Endoscopic retrograde cholangiogram and common bile duct stone removal performed with Dr. Moy. This report was electronically signed by Jerome De Guzman MD 03/30/2021 10:54 AM Reported By: JEROME DE GUZMAN M.D. Signed By: JEROME DE GUZMAN M.D. [facility] GFR ESTon 03-26-2021 IF AMER Greater than 60 [facility] Comment on above: Order Comment: Campu s: M Performed By: #### L 500.80326, L500.45042 #### [facility] [place] [address] IF non-AFR AMER 52 [facility] Comment on above: Order Comment: Campu s: M Performed By: #### L 500.50777, L500.03474 #### [facility] [address] [place] [address] GLUCOSE METERon 03-26-2021 Glucose [Mass/Vol] 170 mg/dL High 85-125 [facility] HP.IMS.ADMon 03-26-2021 Admission-H&P Normal [facility] HP.IMS.ADM [facility] Patient Name: JULIO JARRELL [address] [facility] [address] Date of : [address] [address] Unit Number: [id number] Admission-HandP Patient Status: ADM IN Attending Doctor: Jerome Brandon MD Service Date: 03/26/21 1509 History of Present Illness Source of Information Patient Chief Complaint/Present Illness: abdominal pain Living Situation Home - Independent History of Present Illness 35-year-old male with a past medical history of hypertension, diabetes, hyperlipidemia presents to the hospital with ongoing abdominal pain for a week. He states that this has come in 3 different episodes that lead to worsening abdominal pain until he throws up. Emesis has helped relieve the pain. He has had associated chills and sweats. He denies having a fever. Last food he ate was 3 pieces of pizza last night when he last had symptoms. He was seen at [facility] for this and work-up showed white blood cell count of 14.5, urinalysis not suggestive of urinary tract infection. Glucose was 248. Potassium of 3.4. BUN of 24 creatinine of 1.69. Total bilirubin was elevated at 2.1. Alkaline phosphatase was elevated 210, AST of 92, ALT of 204, LDH of 153. Lipase was elevated at 2250. Lactic acid was elevated at 3.9. CT abdomen pelvis showed cholelithiasis as well as cholecystitis and pancreatitis as well as choledocholithiasis. Patient would be transferred to [facility] for further management of cholecystitis, choledocholithiasis, gallstone pancreatitis. When I had seen the patient, he states that he is not having any abdominal pain. He had no associated dyspnea, chest pain, palpitations, lightheadedness, diarrhea. Past Medical/Surgical Hx Past Medical History DM2, GERD, HLD, HTN, depression Past Surgical History varicose vein ligation Family/Social History Family Hx Other/Comment Mom: CVA, hypertension Substances Reports use of: Alcohol (2-3 beers per day). Denies use of: Tobacco, Recreational Drugs. Social Hx Patient lives at home with his . He uses a cane to walk as he has bad knees. Advance Directives Advance Directives Full Code Allergies/Home Medications Inpatient Medications Medications Current Sig/Bhavana Start time Last Medication Dose Route Stop Time Status Admin Al Hydrox/Mg Hydrox/ 30 ML Q6HPRN PRN 03/26 1530 AC Simethicone PO (MAALOX (ALAMAG)PLUS ORAL LIQ) Benzocaine/Menthol 1 YANIQUE Q2HPRN PRN 03/26 1530 AC (CEPACOL LOZENGE) MM Bisacodyl 10 MG QDAYPRN PRN 03/26 1530 AC (DULCOLAX RECT) RC Guaifenesin/ 10 ML Q4HPRN PRN 03/26 1530 AC Dextromethorphan PO (ROBITUSSIN-DM ORAL LIQ) Heparin Sodium 5,000 UNIT Q8H 03/26 1600 AC (Porcine) SC (HEPARIN D.SYR) Hypromellose 1 GTT Q2HPRN PRN 03/26 1530 AC (ISOPTO TEARS 0.5% OU OPTH DROP) Magnesium Hydroxide 30 ML S39AOAU PRN 03/26 1530 AC (MILK OF MAGNESIA PO ORAL LIQ) Melatonin 5 MG QHSPRN PRN / 1530 AC (MELATONIN TAB) PO Morphine Sulfate 2 MG Q4HPRN PRN 03/26 1530 AC (MORPHINE D.SYR) IV Ondansetron HCl 4 MG Q6HPRN PRN 03/26 1530 AC (ZOFRAN VIAL) IV Sodium Chloride 1,000 ML CONT 03/26 1530 AC (Sodium Chloride IV 0.9%) Sodium Phosphate 133 ML ONCALL PRN 03/26 1530 AC (FLEET ADULT ENEMA) RC Review of Systems All other systems reviewed andnot significant to current visit Yes Physical Exam Vital Signs Vital Signs (Last) Result Date Time Pulse Ox 94 03/26 1450 B/P 114/49 03/26 1450 Temp 98.9 03/26 1450 Pulse 77 03/26 1450 Resp 20 03/26 1450 Physical Exam Summary General: Patient is alert and oriented x3 and is in no acute respiratory distress HEENT: Normal cephalic, atraumatic, PERRLA, TM's normal, Nose clear, Mouth normal Neck: Negative hepatojugular reflux or jugular venous distention, negative carotid bruit. Lungs: Clear to auscultation, no wheezing, rales, or rhonchi. Cardiac: Regular rhythm and rate, S1-S2 within normal limits, no murmurs, gallops were appreciated, no rubs. Abdomen: Obese, soft, tender to palpation of epigastrium, nondistended, no HSM detected, bowel sounds are active. Extremities: No edema, cyanosis, or clubbing. Skin: No rashes or breakdown. Musculoskeletal: Normal MS exam, moves all extremities, DTR's normal Lymphatic: Negative cervical, supra-clavicular, groin lymphadenopathy. Neurologic: Cranial nerves from II-XII intact grossly, no focal deficits. Psychiatry: Normal affect. Additional Laboratory Tests 03/26 1604 Chemistry Sodium (136 - 145 MMOL/L) 137 Potassium (3.5 - 5.1 MMOL/L) 4.5 Chloride (98 - 107 MMOL/L) 104 Carbon Dioxide (21 - 32 MMOL/L) 26.0 Anion Gap (5 - 16 MMOL/L) 7 BUN (7 - 26 MG/DL) 26 Creatinine (0.5 - 1.4 MG/DL) 1.34 Est GFR ( Amer) Greater than 60 Es (more content not included)... Normal [facility] MRI CHOLANGIOGRAPHY (GB AND CHAYO)on 03-26-2021 MRI CHOLANGIOGRAPHY (GB AND CHAYO) MRI CHOLANGIOGRAPHY (GB CHAYO) Ordering Physician: Chapo Arias MD 03/27/2021 9:19 AM MRCP Clinical Statement: Pancreatitis, elevated liver function tests, abdominal pain TECHNIQUE: An MRCP was performed. This study was correlated with a CT study from [facility] dated 03/26/2021 FINDINGS: There is cholelithiasis. There is mild gallbladder wall thickening and pericholecystic edema. This can be seen with acute cholecystitis although there is no abnormal gallbladder distention. There is no intrahepatic ductal dilatation. There is a 5 mm calculus at the distal aspect of the common bile duct. The common bile duct measures up to 7 mm in diameter. There is no pancreatic ductal dilatation. The mild peripancreatic edema shown on the CT study is improved. The spleen shows no acute abnormalities. There are no upper abdominal fluid collections. There is no bowel obstruction. IMPRESSION: 1. Cholelithiasis. There is mild gallbladder wall thickening and pericholecystic edema. 2. 5 mm calculus at the distal aspect of the common bile duct. This report was electronically signed by Anderson Jules MD 03/29/2021 8:58 AM Reported By: ANDERSON JULES M.D. Signed By: ANDERSON JULES M.D. [facility] ORon 03-26-2021 OPERATIVE REPORT [facility] OR DATE OF SERVICE: 03/2021 PREOPERATIVE DIAGNOSIS: Gallstone pancreatitis and chronic cholecystitis. POSTOPERATIVE DIAGNOSIS: Gallstone pancreatitis and chronic cholecystitis. OPERATION: Laparoscopic cholecystectomy. SURGEON: Chapo Arias MD ANESTHESIA: General. INDICATION FOR PROCEDURE: The patient is a 75-year-old male presenting with gallstone pancreatitis and choledocholithiasis, as well as chronic cholecystitis. Laparoscopic cholecystectomy is recommended for above. PREOPERATIVE ANTIBIOTIC: Zosyn. ESTIMATED BLOOD LOSS: 10 mL. DESCRIPTION OF PROCEDURE: The patient was transferred to the operating room and identified by medical record and name. The patient was transferred to the operating room table and all bony prominences were appropriately padded. After induction of anesthesia, the patient was prepped and draped in standard surgical [facility] PATIENT NAME: JULIO JARRELL [address] [facility] [address] Ortiz MEDICAL REC #: [id number] [place] [address] ADMIT DATE: 03/26/21 DISCHARGE DATE: 04/01/21 OPERATIVE REPORT ATTENDING PHY: Jerome Brandon MD technique. A formal timeout was performed. Patient was already on scheduled antibiotics. I began the procedure by making a 5-mm incision in the left upper quadrant at Lino's point. Using a Veress needle, I then obtained insufflation of the abdominal cavity. Once insufflation was achieved, I entered the abdominal cavity under direct visualization using a 5-mm camera attached to a 5-mm optical trocar. Once inside the abdominal cavity, an additional 12-mm trocar was placed above the umbilicus under direct visualization. Two 5-mm trocars were placed in the right upper quadrant under direct visualization. The patient was placed in reverse Trendelenburg positioning. The gallbladder was grasped and retracted appropriately. There was evidence of significant chronic inflammation with thickened and edematous tissue planes. Using [place] dissection, as well as L-hook electrocautery, I was able to dissect the peritoneum and fat overlying the gallbladder, and infundibulum and cystic duct junction. After careful dissection, I was able to identify a critical view of safety, in which I was able to identify only 2 structures entering the gallbladder, [facility] PATIENT NAME: JULIO JARRELL [address] [facility] [address] Ortiz MEDICAL REC #: [id number] [place] [address] ADMIT DATE: 03/26/21 DISCHARGE DATE: 04/01/21 OPERATIVE REPORT ATTENDING PHY: Jerome Brandon MD as well as visualization of the liver bed posterior to these structures. With the critical view of safety achieved, I placed Hem-o-Eliud clips, first on the cystic duct and then the cystic artery. These structures were then transected with scissors. The gallbladder was removed from the liver bed using L-hook electrocautery. The gallbladder was removed from the abdominal cavity using an Endo Catch bag. Site was irrigated and everything appeared hemostatic. Gallbladder was sent to Pathology as a specimen. The 12-mm fascial incision was then closed using two separate 0 Vicryl sutures, using a suture passer device. Skin incisions were injected with local anesthetic and instruments and trocars were removed, and the abdomen was desufflated. Skin incisions were closed using 4-0 Monocryl suture, followed by Dermabond skin glue. The patient was awoken from anesthesia and transferred to the recovery area in good condition. He tolerated the procedure well. MD SHARLA [id number] [facility] PATIENT NAME: ANDREWJULIO Dr. MEDICAL REC #: [id number] [place] [address] ADMIT DATE: 03/26/21 DISCHARGE DATE: 04/01/21 OPERATIVE REPORT ATTENDING PHY: Jerome Brandon MD SSI File#: [id number] END OF DOCUMENT / CHANGE LOG FOLLOWS Last Edited By Elec. Signed By Chapo Arias MD #[email or web address] Chapo Arias MD #[email or web address] on 04/01/2021 14:41 ET on 04/01/2021 14:41 ET Revision Number - 2 Verified/Reviewed by 04/01/21 1441 MARIA R1 [facility] PATIENT NAME: JULIO JARRELL[address] [facility] [address] MEDICAL REC #: [id number] [place] [address] ADMIT DATE: 03/26/21 DISCHARGE DATE: 04/01/21 OPERATIVE REPORT ATTENDING PHY: [facility] D[facility] PE RCon 03-26-2021 REMOVAL STONE BILIARY DCT PERC REMOVAL STONE BILIARY DCT PERC, ERC BILIARY Ordering Physician: Edith Mayers MD 03/30/2021 9:24 AM FLUOROSCOPY FOR ENDOSCOPIC RETROGRADE CHOLANGIOGRAM: Clinical Statement: Common bile duct stone. REPORT: 59.3 seconds of fluoroscopy time was utilized by Dr. Moy during an endoscopic retrograde cholangiogram. 4 fluoroscopic images were acquired during the procedure and saved to PACS for documentation. A sphincterotomy was documented as having been performed, followed by a balloon sweep of the common bile duct with stone removal. Further details can be found on the procedural note. IMPRESSION: Endoscopic retrograde cholangiogram and common bile duct stone removal performed with Dr. Moy. This report was electronically signed by Jerome De Guzman MD 03/30/2021 10:54 AM Reported By: JEROME DE GUZMAN M.D. Signed By: JEROME DE GUZMAN M.D. [facility] Vital Signs Date Time Vital Sign Value Performing Clinician Kyara orozco 01-28-2024 15:22-0400 Diastolic Blood Pressure Non-Invasive 72 mm[Hg] ANDERSON LINDO MD [facility] 01-28-2024 15:22-0400 Heart rate 74 /min ANDERSON LINDO MD [facility] 01-28-2024 15:22-0400 Respiratory rate 20 /min ANDERSON LINDO MD [facility] 01-28-2024 15:22-0400 Systolic Blood Pressure Non-Invasive 126 mm[Hg] ANDERSON LINDO MD [facility] 01-28-2024 13:52-0400 Diastolic Blood Pressure Non-Invasive 66 mm[Hg] ANDERSON LINDO MD [facility] 01-28-2024 13:52-0400 Heart rate 77 /min ANDERSON LINDO MD [facility] 01-28-2024 13:52-0400 Respiratory rate 16 /min ANDERSON LINDO MD [facility] 01-28-2024 13:52-0400 Systolic Blood Pressure Non-Invasive 128 mm[Hg] ANDERSON LINDO MD [facility] 01-28-2024 11:42-0400 Body height 172.7 cm ANDERSON LINDO MD [facility] 01-28-2024 11:42-0400 Body temperature 97.88 [degF] ANDERSON LINDO MD [facility] 01-28-2024 11:42-0400 Body weight 100 kg ANDERSON LINDO MD [facility] 01-28-2024 11:42-0400 Diastolic Blood Pressure Non-Invasive 62 mm[Hg] ANDERSON LINDO MD [facility] 01-28-2024 11:42-0400 Heart rate 60 /min ANDERSON LINDO MD [facility] 01-28-2024 11:42-0400 Respiratory rate 18 /min ANDERSON LINDO MD [facility] 01-28-2024 11:42-0400 Systolic Blood Pressure Non-Invasive 99 mm[Hg] ANDERSON LINDO MD [facility] 12-01-2023 16:54-0400 Diastolic Blood Pressure Non-Invasive 78 mm[Hg] BLESSING THOMAS MD [facility] 12-01-2023 16:54-0400 Heart rate 82 /min BLESSING THOMAS MD [facility] 12-01-2023 16:54-0400 Respiratory rate 18 /min BLESSING THOMAS MD [facility] 12-01-2023 16:54-0400 Systolic Blood Pressure Non-Invasive 148 mm[Hg] BLESSING THOMAS MD [facility] 12-01-2023 14:51-0400 Diastolic Blood Pressure Non-Invasive 63 mm[Hg] BLESSING THOMAS MD [facility] 12-01-2023 14:51-0400 Heart rate 76 /min BLESSING THOMAS MD [facility] 12-01-2023 14:51-0400 Reason For Taking VItal Signs BLESSING THOMAS MD [facility] 12-01-2023 14:51-0400 Respiratory rate 18 /min BLESSING THOMAS MD [facility] 12-01-2023 14:51-0400 Systolic Blood Pressure Non-Invasive 154 mm[Hg] BLESSING THOMAS MD [facility] 12-01-2023 14:13-0400 Diastolic Blood Pressure Non-Invasive 95 mm[Hg] BLESSING THOMAS MD [facility] 12-01-2023 14:13-0400 Heart rate 77 /min BLESSING THOMAS MD [facility] 12-01-2023 14:13-0400 Mean blood pressure 107 mm[Hg] BLESSING THOMAS MD [facility] 12-01-2023 14:13-0400 Respiratory rate 20 /min BLESSING THOMAS MD [facility] 12-01-2023 14:13-0400 Systolic Blood Pressure Non-Invasive 127 mm[Hg] BLESSING THOMAS MD [facility] 12-01-2023 12:29-0400 Body temperature 98.96 [degF] BLESSING THOMAS MD [facility] 12-01-2023 12:29-0400 Heart rate 69 /min BLESSING THOMAS MD [facility] 09-01-2023 10:28-0500 Body temperature 97.52 [degF] DR LINCOLN WYATT MD [facility] 09-01-2023 10:28-0500 Diastolic Blood Pressure Non-Invasive 57 mm[Hg] DR LINCOLN WYATT MD [facility] 09-01-2023 10:28-0500 Heart rate 64 /min DR LINCOLN WYATT MD [facility] 09-01-2023 10:28-0500 Respiratory rate 18 /min DR LINCOLN WYATT MD [facility] 09-01-2023 10:28-0500 Systolic Blood Pressure Non-Invasive 114 mm[Hg] DR LINCOLN WYATT MD [facility] 09-01-2023 09:19-0500 Heart rate 61 /min DR LINCOLN WYATT MD [facility] 09-01-2023 08:06-0500 Heart rate 67 /min DR LINCOLN WYATT MD [facility] 09-01-2023 06:55-0500 Body temperature 98.06 [degF] DR LINCOLN WYATT MD [facility] 09-01-2023 06:55-0500 Diastolic Blood Pressure Non-Invasive 63 mm[Hg] DR LINCOLN WYATT MD [facility] 09-01-2023 06:55-0500 Heart rate 74 /min DR LINCOLN WYATT MD [facility] 09-01-2023 06:55-0500 Respiratory rate 16 /min DR LINCOLN WYATT MD [facility] 09-01-2023 06:55-0500 Systolic Blood Pressure Non-Invasive 121 mm[Hg] DR LINCOLN WYATT MD [facility] 09-01-2023 04:00-0500 Body temperature 98.24 [degF] DR LINCOLN WYATT MD [facility] 09-01-2023 04:00-0500 Diastolic Blood Pressure Non-Invasive 59 mm[Hg] DR LINCOLN WYATT MD [facility] 09-01-2023 04:00-0500 Heart rate 75 /min DR LINCOLN WYATT MD [facility] 09-01-2023 04:00-0500 Systolic Blood Pressure Non-Invasive 111 mm[Hg] DR LINCOLN WYATT MD [facility] 08-31-2023 18:32-0500 Body height 172.[address] LINCOLN WYATT MD [facility] 08-31-2023 18:32-0500 Body weight [address] LINCOLN WYATT MD [facility] 08-31-2023 18:32-0500 Body weight 36.88 kg/m2 DR LINCOLN WYATT MD [facility] 08-31-2023 18:21-0500 Heart rate 87 /min DR LINCOLN WYATT MD [facility] 08-31-2023 17:39-0500 Heart rate 87 /min DR LINCOLN WYATT MD [facility] 08-31-2023 17:00-0500 Heart rate 90 /min DR LINCOLN WYATT MD [facility] 08-31-2023 17:00-0500 Heart rate 75 /min DR LINCOLN WYATT MD [facility] 08-31-2023 16:10-0500 Body temperature 97.7 [degF] DR LINCOLN WYATT MD [facility] 08-31-2023 16:00-0500 Respiratory Rate - Anes 7 br/min DR LINCOLN WYATT MD [facility] 08-31-2023 15:55-0500 Respiratory Rate - Anes 18 br/min DR LINCOLN WYATT MD [facility] 08-31-2023 15:50-0500 Respiratory Rate - Anes 10 br/min DR LINCOLN WYATT MD [facility] 08-31-2023 15:45-0500 Body temperature 96.8 [degF] DR LINCOLN WYATT MD [facility] 08-31-2023 15:30-0500 Body temperature 96.8 [degF] DR LINCOLN WYATT MD [facility] 08-31-2023 12:28-0500 Body height 172.[address] LINCOLN WYATT MD [facility] 08-31-2023 12:28-0500 Body temperature 98.06 [degF] DR LINCOLN WYATT MD [facility] 08-31-2023 12:28-0500 Body weight [address] LINCOLN WYATT MD [facility] 08-21-2023 13:09-[address] LINCOLN WYATT MD [facility] 08-21-2023 13:09-0500 Body height 172.[address] LINCOLN WYATT MD [facility] 08-21-2023 13:09-0500 Body weight 118.[address] LINCOLN WYATT MD [facility] 08-21-2023 13:09-0500 Body weight 39.63 kg/m2 DR LINCOLN WYATT MD [facility] 08-21-2023 13:09-0500 Diastolic Blood Pressure Non-Invasive 58 mm[Hg] DR LINCOLN WYATT MD [facility] 08-21-2023 13:09-0500 Heart rate 60 /min DR LINCOLN WYATT MD [facility] 08-21-2023 13:09-0500 Respiratory rate 20 /min DR LINCOLN WYATT MD [facility] 08-21-2023 13:09-0500 Systolic Blood Pressure Non-Invasive 114 mm[Hg] DR LINCOLN WYATT MD [facility] 08-30-2022 11:51-0500 Body temperature 97.88 [degF] DR EVELYNE GONZALEZ MD [facility] 08-30-2022 11:51-0500 Diastolic Blood Pressure Non-Invasive [address] EVELYNE GONZALEZ MD [facility] 08-30-2022 11:51-0500 Heart rate 60 /min DR EVELYNE GONZALEZ MD [facility] 08-30-2022 11:51-0500 Reason For Taking VItal Signs DR EVELYNE GONZALEZ MD [facility] 08-30-2022 11:51-0500 Respiratory rate 18 /min DR EVELYNE GONZALEZ MD [facility] 08-30-2022 11:51-0500 Systolic Blood Pressure Non-Invasive [address] EVELYNE GONZALEZ MD [facility] 08-30-2022 08:21-0500 Heart rate 64 /min DR EVELYNE GONZALEZ MD [facility] 08-30-2022 07:45-0500 Body temperature 97.52 [degF] DR EVELYNE GONZALEZ MD [facility] 08-30-2022 07:45-0500 Diastolic Blood Pressure Non-Invasive [address] EVELYNE GONZALEZ MD [facility] 08-30-2022 07:45-0500 Heart rate 64 /min DR EVELYNE GONZALEZ MD [facility] 08-30-2022 07:45-0500 Reason For Taking VItal Signs DR EVELYNE GONZALEZ MD [facility] 08-30-2022 07:45-0500 Respiratory rate 18 /min DR EVELYNE GONZALEZ MD [facility] 08-30-2022 07:45-0500 Systolic Blood Pressure Non-Invasive [address] EVELYNE GONZALEZ MD [facility] 08-30-2022 04:38-0500 Body temperature 97.34 [degF] DR EVELYNE GONZALEZ MD [facility] 08-30-2022 04:38-0500 Diastolic Blood Pressure Non-Invasive [address] EVELYNE GONZALEZ MD [facility] 08-30-2022 04:38-0500 Heart rate 59 /min DR EVELYNE GONZALEZ MD [facility] 08-30-2022 04:38-0500 Reason For Taking VItal Signs DR EVELYNE GONZALEZ MD [facility] 08-30-2022 04:38-0500 Respiratory rate 18 /min DR EVELYNE GONZALEZ MD [facility] 08-30-2022 04:38-0500 Systolic Blood Pressure Non-Invasive [address] EVELYNE GONZALEZ MD [facility] 08-30-2022 00:37-0500 Heart rate 77 /min DR EVELYNE GONZALEZ MD [facility] 08-29-2022 17:00-0500 Heart rate 72 /min DR EVELYNE GONZALEZ MD [facility] 08-29-2022 12:23-0500 Body temperature 96.8 [degF] DR EVELYNE GONZALEZ MD [facility] 08-29-2022 12:22-0500 Body height 172.[address] EVELYNE GONZALEZ MD [facility] 08-29-2022 12:22-0500 Body weight 113.[address] EVELYNE GONZALEZ MD [facility] 08-29-2022 12:22-0500 Body weight 38.09 kg/m2 DR EVELYNE GONZALEZ MD [facility] 08-29-2022 11:02-0500 Body temperature 96.44 [degF] DR EVELYNE GONZALEZ MD [facility] 08-29-2022 10:55-0500 Respiratory Rate - Anes 0 br/min DR EVELYNE GONZALEZ MD [facility] 08-29-2022 10:50-0500 Respiratory Rate - Anes 4 br/min DR EVELYNE GONZALEZ MD [facility] 08-29-2022 10:45-0500 Respiratory Rate - Anes 15 br/min DR EVELYNE GONZALEZ MD [facility] 08-29-2022 07:47-0500 Blood Pressure Cuff Size DR EVELYNE GONZALEZ MD [facility] 08-29-2022 07:47-[address] EVELYNE GONZALEZ MD [facility] 08-29-2022 07:47-[address] EVELYNE Adrian [facility] 08-29-2022 07:47-0500 Body height 172.[address] EVELYNE GONZALEZ MD [facility] 08-29-2022 07:47-0500 Body temperature 97.52 [degF] DR EVELYNE GONZALEZ MD [facility] 08-29-2022 07:47-0500 Body weight 113.[address] EVELYNE GONZALEZ MD [facility] 08-29-2022 07:47-0500 Body weight 38.09 kg/m2 DR EVELYNE GONZALEZ MD [facility] 08-14-2022 10:05-[address] EVELYNE GONZALEZ MD [facility] 08-14-2022 10:05-[address] EVELYNE Adrian [facility] 08-14-2022 10:05-0500 Body height 172.[address] EVELYNE GONZALEZ MD [facility] 08-14-2022 10:05-0500 Body weight 117.[address] EVELYNE GONZALEZ MD [facility] 08-14-2022 10:05-0500 Body weight 39.3 kg/m2 DR EVELYNE GONZALEZ MD [facility] 08-14-2022 10:05-0500 Diastolic Blood Pressure Non-Invasive [address] EVELYNE GONZALEZ MD [facility] 08-14-2022 10:05-0500 Heart rate 66 /min DR EVELYNE GONZALEZ MD [facility] 08-14-2022 10:05-0500 Respiratory rate 18 /min DR EVELYNE GONZALEZ MD [facility] 08-14-2022 10:05-0500 Systolic Blood Pressure Non-Invasive [address] EVELYNE GONZALEZ MD [facility] Encounters Encounter Date Encounter Type Care Provider Facility Start: 04-03-2024 End: 04-03-2024 Emergency department patient visit SINA FELIZ Facility:[facility] Start: 01-28-2024 End: 01-28-2024 Emergency department patient visit ANDERSON LINDO MD [facility] Start: 12-01-2023 End: 12-01-2023 Emergency department patient visit BLESSING THOMAS MD [facility] Start: 09-20-2023 ambulatory AAMIR LEVIN DO Facil ity:A Start: 09-20-2023 ambulatory AAMIR LEVIN DO Facil ity:A Start: 09-05-2023 End: 09-09-2023 ambulatory AAMIR LEVIN DO Facility:B Start: 09-05-2023 End: 09-09-2023 Outreach Lab AAMIR LEVIN DO [facility] Start: 08-31-2023 End: 09-01-[address] LINCOLN WYATT MD Facility:B Start: 08-31-2023 End: 09-01-[address] LINCOLN WYATT MD [facility] Start: 08-21-2023 End: 08-21-[address] LINCOLN WYATT MD [facility] Start: 08-21-2023 End: 08-21-[address] LINCOLN WYATT MD Facility:B Start: 08-08-2023 End: 08-08-2023 ambulatory JASMINA TRAN TESTER REGULATOR Facility:B Start: 08-08-2023 End: 08-08-2023 Patient encounter procedure JASMINA TRAN TESTER REGULATOR [facility] Start: 08-02-2023 End: 08-02-2023 ambulatory AAMIR LEVIN DO Facility:B Start: 08-02-2023 End: 08-02-2023 Patient encounter procedure JASMINA TRAN TESTER REGULATOR [facility] Start: 07-20-2023 End: 07-20-2023 Emergency department patient visit BO SCHULER MD Facility:B Start: 05-09-2023 ambulatory AAMIR LEVIN DO Facil ity:B Start: 05-09-2023 End: 05-13-2023 Outreach Lab AAMIR LEVIN DO [facility] Start: 04-23-2023 End: 04-23-2023 ambulatory AAMIR OLLIE DO Facility:B Start: 04-23-2023 End: 04-23-2023 Patient encounter procedure AAMIR Vitale OLLIE DO [facility] Start: 10-10-2022 End: 10-14-2022 Outreach Lab AAMIR Vitale OLLIE DO [facility] Start: 08-29-2022 End: 08-30-[address] EVELYNE GONZALEZ MD [facility] Start: 08-23-2022 End: 08-23-2022 Patient encounter procedure TROY LIRA MAGAZINE EDITOR-TESTER REGULATOR [facility] Start: 08-14-2022 End: 08-14-[address] EVELYNE GONZALEZ MD [facility] Start: 08-14-2022 End: 08-14-[address] EVELYNE GONZALEZ MD [facility] Start: 08-08-2022 End: 08-08-2022 Patient encounter procedure AAMIR LEVIN DO [facility] Start: 05-12-2021 End: 05-12-2021 Patient encounter procedure AAMIR Winifred LEVIN DO [facility] Procedures Date Procedure Procedure Detail Performing Clinician Start: 08-31-2023 Cystoscopy and biops y of bladder AAMIR OLLIE DO Start: 08-29-[address] EVELYNE GONZALEZ MD Comment on above: LEFT Start: 03-30-2021 Cholecystectomy AAMIR LEVIN DO Varicose vein ligati on and stripping AAMIR OLLIE DO Comment on above: left leg Immunizations Immunization Date Immunization Notes Care Provider [facility] 05-09-2023 influenza, high dose seasonal, preservative-free; Translations: [Fluad Quadrivalent PF ] AAMIR LEVIN DO [facility] 04-25-2022 influenza, high dose seasonal, preservative-free AAMIR LEVIN DO [facility] 06-28-2021 COVID-19, mRNA, LNP- S, PF, 100 mcg or 50 mcg dose; Translations: [Moderna COVID-19 Vaccine] AAMIR OLLIE DO [facility] 04-22-2021 influenza, high dose seasonal, preservative-free; Translations: [Fluad Quadrivalent PF ] AAMIR LEVIN DO [facility] 12-23-2020 SARS-CoV-2 (COVID-19 ) mRNA-1273 vaccine AAMIR LEVIN DO [facility] Comment on above: Result Comment: 2020: [id number] 11-25-2020 SARS-CoV-2 (COVID-19 ) mRNA-1273 vaccine AAMIR OLLIE DO [facility] Comment on above: Result Comment: 2020: [id number] 04-22-2020 influenza, injectabl e, quadrivalent, preservative free; Translations: [Fluarix PF Quadrivalent ] AAMIR OLLIE DO [facility] 04-22-2019 influenza, injectabl e, quadrivalent, preservative free; Translations: [Fluarix PF Quadrivalent ] AAMIR LEVIN DO [facility] 04-23-2018 influenza virus vacc ine, unspecified formulation AAMIR OLLIE DO [facility] 10-18-2017 pneumococcal conjuga te vaccine, 13 valent AAMIR OLLIE DO [facility] 07-19-2017 influenza virus vacc ine, unspecified formulation AAMIR JOSEPHY DO [facility] 03-30-2016 influenza virus vacc ine, unspecified formulation AAMIR LEVIN DO [facility] 07-26-2015 influenza virus vacc ine, unspecified formulation AAMIR ONEILLAY DO [facility] 04-18-2013 pneumococcal polysaccharide vaccine, 23 valent AAMIR LEVIN DO [facility] 07-28-2008 tetanus toxoid, redu lety diphtheria toxoid, and acellular pertussis vaccine, adsorbed AAMIR LEVIN DO [facility] Payers Date Payer Category Payer Unknown [id number] 1945 Unknown [id number] 2.16.8 [id number] 1945 Unknown [id number] 2.16.8 [id number] 1945 Unknown [id number] 2.16.8 [id number] 1945 Unknown [id number] 2.16.8 [id number] 1945 Unknown [id number] 2.16.8 [id number] 1945 Unknown [id number] 2.16.8 [id number] 1945 Unknown [id number] 2.16.8 [id number] 1945 Unknown [id number] 2.16.8 [id number] 1945 Unknown [id number] 2.16.8 [id number] 1945 Unknown [id number] 2.16.8 [id number] 1945 Unknown [id number] 2.16.8 [id number] 1945 Unknown [id number] 2.16.8 [id number] 1945 Unknown [id number] 2.16.8 [id number] Social History Date Type Detail Facility Start: 08-26-2019 End: 12-01-2023 Ex-smoker (finding) [facility] Sex Assigned At [facility] Functional Status Date Assessment Result Facility 01-28-2024 Functional Status [facility] Status Standard Safet y ID band on, Call device within reach, Bed in low position, Wheels locked, Upper/Half-Length side-rails up, Safety level maintained [facility] 12-01-2023 Functional Status Assistive Device None [facility] 12-01-2023 Functional Status Standard Safet y ID band on, Call device within reach, Bed in low position, Wheels locked, Bedside Cart Locked, Visitor at bedside, Safety level maintained [facility] 12-01-2023 Functional Status Gustavo Yuan [facility] 09-01-2023 Functional Status Other: 7am-1130am [facility] 09-01-2023 Functional Status 80 Gustavo Yuan [facility] 09-01-2023 Functional Status Door open, Non-Slip footwear, Room check performed [facility] 09-01-2023 Functional Status Gustavo Yuan [facility] 09-01-2023 Functional Status Gustavo Yuan [facility] 08-31-2023 Functional Status bilateral knee high tawny lied/on [facility] 08-31-2023 Functional Status Gustavo Yuan [facility] 08-31-2023 Functional Status Independent Gustavo Yuan [facility] 08-31-2023 Functional Status Less than 8 hours [facility] 08-21-2023 Functional Status Sensory Deficits None [facility] 08-30-2022 Functional Status Door open, Room check performed [facility] 08-30-2022 Functional Status Gustavo Yuan [facility] 08-30-2022 Functional Status Independent Gustavo Yuan [facility] 08-30-2022 [facility] Functional Status 100 Gustavo [facility] 08-29-2022 Functional Status Gust[facility] 08-29-2022 Functional Status Mobile home Gustavo [facility] 08-29-2022 [facility] 08-29-2022 Functional Status Demonstrates C orrect Call Light Use Yes [facility] 08-29-2022 [facility] Functional Status Sensory Deficits None [facility] Mental Status Date Assessment Result Facility 01-28-2024 Mental Status Orientation Oriented x 4 [facility] 01-28-2024 Mental Status [facility] 12-01-2023 Mental Status Orientation Oriented x 4 [facility] 12-01-2023 Mental Status [facility] 09-01-2023 Mental Status Oriented x 4 [facility] 08-31-2023 Mental Status [facility] 08-30-2022 Mental Status Oriented x 4 [facility] 08-30-2022 Mental Status Oriented x 4 [facility] 08-30-2022 Mental Status [facility] 08-29-2022 Mental Status [facility] Clinical Notes 03-30-2021 to 01-28-2024 RadiologyRadiologyRadiology Note Date & Type Note Facility 01-28-2024 Hospital Discharge instructions Patient Education 01/28/2024 15:04:02 Benign Paroxysmal Positional Vertigo Benign Paroxysmal Positional Vertigo Benign paroxysmal positional vertigo is a common condition. You feel as if the room is spinning after changing position, moving your head quickly, or even just rolling over in bed. Vertigo is a false feeling of motion plus disorientation that makes it seem as though the room is spinning. A vertigo attack may cause sudden nausea, vomiting, and heavy sweating. Severe vertigo causes a loss of balance. You may even fall down. Vertigo is caused by a problem with the inner ear. The inner ear is located behind the middle ear. It is a part of the balance center of the body. It contains small calcium particles within fluid-filled canals (semi-circular canals). These particles can move out of position. This may happen as a result of aging, head injury, or disease of the inner ear. Once that happens, moving your head in certain ways may cause the particles to stimulate the inner ear. This creates the feeling of vertigo. An episode of vertigo may last seconds, minutes, or hours. Once you are over the first episode of vertigo, it may never return. Sometimes symptoms return off and on for several weeks or longer. Home care Follow these guidelines when caring for yourself at home: Rest quietly in bed if your symptoms are severe. Change position slowly. There is usually 1 position that will feel best. This might be lying on 1 side or lying on your back with your head slightly raised on pillows. Until you have no symptoms, you are at a higher risk of falling. Let someone help you when you get up. Get rid of home hazards such as loose electrical cords and throw rugs. Don t walk in unfamiliar areas that are not lighted. Use night lights in bathrooms and kitchen areas. Do not drive or work with dangerous machinery for 1 week after symptoms go away. This is in case symptoms return suddenly. Take medicine as prescribed to relieve your symptoms. Unless another medicine was prescribed for nausea, vomiting, and vertigo, you may use [id number] motion sickness medicine. Examples of this include meclizine and dimenhydrinate. Follow-up care Follow up with your healthcare provider, or as directed. Tell your provider about any ringing in your ear or hearing loss. If you had a CT or MRI scan, a specialist will review it. You will be told of any new findings that may affect your care. When to seek medical advice Call your healthcare provider right away if any of these occur: Vertigo gets worse even after taking prescribed medicine Repeated vomiting even after taking prescribed medicine Weakness that gets worse Fainting Severe headache or unusual drowsiness or confusion Weakness of an arm or leg or 1 side of the face Trouble walking Trouble with speech or vision Seizure Trouble hearing Fever of 100.4 F (38 C) or higher, or as directed by your healthcare provider Fast heart rate Chest pain [id number] [employer]. [address] [place] [address], [place] [address]. All rights reserved. This information is not intended as a substitute for professional medical care. Always follow your healthcare professional's instructions. Follow Up Care 01/28/2024 11:22:34 With:AAMIR LEVIN DO Address: [address] [place] [phone] When:2-4 days [facility] 01-28-2024 Emergency department Discharge summary Discharge Instructions Thank you for allowing [facility] to assist you with your healthcare needs. The following is important discharge information regarding your hospital visit. Diagnosis from Today's Visit Fluid retention Shortness of breath Vertigo What to Do Next Instructions from Your Care Team Please follow-up with your primary care physician later this week for recheck of lab work. No qualifying data available. Post Acute Orders No qualifying data available. You Need to Schedule the Following Appointments Follow Up with AAMIR LEVIN DO When:Within 2-4 days Where:[address] [place] [id number] [phone] Allergies NKA Medications Please ask your primary doctor or pharmacist before taking any other medication not listed, including over the counter drugs, herbal medications, vitamins and or supplements as they may interact with your home medications. What How Much When Why Instructions Last Dose New furosemide (Lasix 20 mg oral tablet) 1 tab(s) by mouth Every day Duration: 3 Days Printed Prescription New meclizine (meclizine 12.5 mg oral tablet) 1 tab(s) by mouth Three (3) times a day as needed for as needed for dizziness Duration: 5 Days Printed Prescription Unchanged cholecalciferol (Vitamin D3 10 mcg (400 intl units) oral tablet) 1 tab(s) by mouth Once a day (in the evening) Unchanged docusate (Colace 100 mg oral capsule) 1 cap by mouth Two (2) times a day Constipation Unchanged fenofibrate (fenofibrate 145 mg oral tablet) 1 tab(s) by mouth Once a day Hyperlipidemia Type 2 diabetes mellitus with hyperlipidemia Unchanged hydroCHLOROthiazide (hydroCHLOROthiazide 25 mg oral tablet) 1 tab(s) by mouth Once a day Hypertension Hypertension associated with type 2 diabetes mellitus TAKE 1 TABLET BY MOUTH EVERY DAY Please cancel glipizide prescription Unchanged lisinopril (Zestril 5 mg oral tablet) 1 tab(s) by mouth Once a day (in the evening) Hypertension associated with type 2 diabetes mellitus Unchanged metoprolol (Metoprolol Tartrate 100 mg oral tablet) 1 tab(s) by mouth Two (2) times a day Hypertension TAKE 1 TABLET BY MOUTH TWICE A DAY Unchanged multivitamin (Multivitamin) 1 tab(s) by mouth Once a day (in the evening) Unchanged simvastatin (simvastatin 10 mg oral tablet) 1 tab(s) by mouth Daily at bedtime Hyperlipidemia Type 2 diabetes mellitus with hyperlipidemia TAKE 1 TABLET IN THE EVENING Please take this list to your next doctor s visit. Bring all medications you take, including over the counter medications, herbals and other supplements with you to your doctor s visit. Patients and families are reminded to discard old lists and to update any records with all medication providers or retail pharmacies. Education Materials Benign Paroxysmal Positional Vertigo Benign paroxysmal positional vertigo is a common condition. You feel as if the room is spinning after changing position, moving your head quickly, or even just rolling over in bed. Vertigo is a false feeling of motion plus disorientation that makes it seem as though the room is spinning. A vertigo attack may cause sudden nausea, vomiting, and heavy sweating. Severe vertigo causes a loss of balance. You may even fall down. Vertigo is caused by a problem with the inner ear. The inner ear is located behind the middle ear. It is a part of the balance center of the body. It contains small calcium particles within fluid-filled canals (semi-circular canals). These particles can move out of position. This may happen as a result of aging, head injury, or disease of the inner ear. Once that happens, moving your head in certain ways may cause the particles to stimulate the inner ear. This creates the feeling of vertigo. An episode of vertigo may last seconds, minutes, or hours. Once you are over the first episode of vertigo, it may never return. Sometimes symptoms return off and on for several weeks or longer. Home care Follow these guidelines when caring for yourself at home: Rest quietly in bed if your symptoms are severe. Change position slowly. There is usually 1 position that will feel best. This might be lying on 1 side or lying on your back with your head slightly raised on pillows. Until you have no symptoms, you are at a higher risk of falling. Let someone help you when you get up. Get rid of home hazards such as loose electrical cords and throw rugs. Don t walk in unfamiliar areas that are not lighted. Use night lights in bathrooms and kitchen areas. Do not drive or work with dangerous machinery for 1 week after symptoms go away. This is in case symptoms return suddenly. Take medicine as prescribed to relieve your symptoms. Unless another medicine was prescribed for nausea, vomiting, and vertigo, you may use yzfi-yve-kbkowel motion sickness medicine. Examples of this include meclizine and dimenhydrinate. Follow-up care Follow up with your healthcare provider, or as directed. Tell your provider about any ringing in your ear or hearing loss. If you had a CT or MRI scan, a specialist will review it. You will be told of any new findings that may affect your care. When to seek medical advice Call your healthcare provider right away if any of these occur: Vertigo gets worse even after taking prescribed medicine Repeated vomiting even after taking prescribed medicine Weakness that gets worse Fainting Severe headache or unusual drowsiness or confusion Weakness of an arm or leg or 1 side of the face Trouble walking Trouble with speech or vision Seizure Trouble hearing Fever of 100.4 F (38 C) or higher, or as directed by your healthcare provider Fast heart rate Chest pain [id number] [employer]. [address] [place] [address], [place] [address]. All rights reserved. This information is not intended as a substitute for professional medical care. Always follow your healthcare professional's instructions. Additional Information VACCINATE! IT SAVES LIVES! Members of the community who have not yet received the COVID-19 vaccine and would like to receive it can visit one of [facility] vaccine clinics. There are many vaccine clinic locations within the [facility]. For locations and available times, please visit [email or web address] It is important to note that some COVID mobile vaccine clinics are held outdoors and may be canceled in rainy or stormy conditions. To learn more about pediatric vaccinations (ages 5-11), we invite you to visit the [facility] webpage. [email or web address] [email or web address] To learn more about the COVID-19 vaccine, we invite you to visit the CDC website for a list of frequently asked questions. https://www.cdc.gov/coronavirus/2 019-ncov/vaccines/faq.html [facility] Patient Portal Access Instructions: Stay connected with your healthcare team and access your personal medical information anytime with the [facility] Patient Portal. If you would like a full copy of your medical records please contact the [facility] Medical Records Department Sunday through Sunday between 8a.m. and 4:30p.m. Please follow the directions below to access the portal: 1.Access the email account you provided upon registration to the [facility] [address].2.Look for an invitation email from [facility].3.Open the email and access the invitation link: Accept Invitation to [facility].Fill in the required rodriguez to create your account. Sign into [email or web address] with your username and password that you [...] you will allow to register on the [facility] Patient Portal for access to your information. You can also access the [facility] Patient Portal on the [employer]. Simply click on Health Records under Health Data and then click on the [email or web address] logo. HOW TO SAFELY DISPOSE OF PRESCRIPTION [...] Call your local pharmacy or go to [email or web address] to find one close to you.3.Make use of household items: Use cat litter or old coffee grounds to dispose medications if other options are not available. Mix your drugs with these household products, seal them in an airtight container and throw it into the garbage. Call [facility]: [phone] to be sure your drugs can be disposed of in this way. Some medicines may require a different approach.4.Never flush your medications down the toilet. IF YOU HAVE BEEN PRESCRIBED AN OPIOIDS FOR PAIN If you have been prescribed [...] have withdrawal symptoms when a medication is stopped ? this can develop within a few days. KNOW [...] children, family, friends and visitors). The last page(s) of this document has been signed and retained as a CHART COPY Signatures Patient Education Materials Benign Paroxysmal Positional Vertigo Medication Leaflets My discharge plan and instructions have been reviewed and explained to me and IANDREW GEORGE J understand my current condition and have read and understand these discharge instructions. I have received a written copy of the plan/instructions. If I have questions, I am aware that I should contact my doctor. Patient/Drama Director Signature: Date/Time: Relationship to Patient: ____ Witness Name/Signature: Date/Time: [facility] 01-28-2024 Note ORIGINAL HISTORY: Mental status changes. COMPARISON: No TECHNIQUE: CT angiogram of the neck following uncomplicated administration of intravenous contrast, with 3-D post acquisition processing and with results displayed in source images, rotational reconstructions centered on the carotid bifurcations and in maximum intensity projection. Percent stenosis is calculated using NASCET criteria. This exam was performed according to our departmental dose optimization program, and includes the following measures where applicable: automated exposure control, adjustment of the mAs and/or kVp according to patient size and/or exam, and an iterative reconstruction algorithm. FINDINGS: There are atherosclerotic changes to the right distal common and proximal internal carotid artery, mainly calcified plaque. There is no hemodynamically significant stenosis of the right internal carotid artery. There are atherosclerotic changes to the left distal common and proximal internal carotid artery, a combination of calcified and noncalcified plaque. There is no hemodynamically significant stenosis of the left internal carotid artery. The left vertebral artery is dominant. Both vertebral arteries are visualized from origin through skull base. IMPRESSION: No hemodynamically significant stenosis of either internal carotid artery. Interpreted by: Chapo Carrera MD Preliminary Report By: Chapo Carrera MD Electronically signed By Chapo Carrera MD Dictated Date: 01/28/2024 2:39:00 PM Prelim Date: 01/28/2024 2:41:51 PM Sign Date: 01/28/2024 2:41:51 PM Ordering Provider: ANGELA MORALES [facility] 01-28-2024 Note ORIGINAL HISTORY: Stroke COMPARISON: No TECHNIQUE: Routine noncontrast head CT, with sagittal and coronal reconstructions. This exam was performed according to our departmental dose optimization program, and includes the following measures where applicable: automated exposure control, adjustment of the mAs and/or kVp according to patient size and/or exam, and an iterative reconstruction algorithm. FINDINGS: The study is of fair technical quality. Of note, partial images of the neck are included but not evaluated here. There are atherosclerotic changes to the cavernous internal carotid arteries, possibly with mild stenosis. The internal carotid arteries and their major branches are otherwise patent without occlusion or aneurysm. The major vessels of the posterior circulation are unremarkable in appearance. There is a circulatory pattern on the left. IMPRESSION: No large vessel occlusion. Preliminary report: No large vessel occlusion Interpreted by: Chapo Carrera MD Preliminary Report By: Chapo Carrera MD Electronically signed By Chapo Carrera MD Dictated Date: 01/28/2024 2:42:32 PM Prelim Date: 01/28/2024 2:45:47 PM Sign Date: 01/28/2024 4:31:30 PM Ordering Provider: [facility] 01-28-2024 Note ORIGINAL HISTORY: Change in mental status COMPARISON: 01 Dec 2023 TECHNIQUE: Routine noncontrast head CT, with sagittal and coronal reconstructions. This exam was performed according to our departmental dose optimization program, and includes the following measures where applicable: automated exposure control, adjustment of the mAs and/or kVp according to patient size and/or exam, and an iterative reconstruction algorithm. FINDINGS: The ventricles and sulci are mildly enlarged. There are no abnormal intra or extra-axial fluid collections. There is mild irregular decreased attenuation in the cerebral white matter. Ricci-white matter differentiation is maintained. The calvaria and the bones of the base of the skull are intact. IMPRESSION: Mild volume loss and small vessel ischemic disease. Interpreted by: Chapo Carrera MD Preliminary Report By: Chapo Carrera MD Electronically signed By Chapo Carrera MD Dictated Date: 01/28/2024 2:36:53 PM Prelim Date: 01/28/2024 2:38:50 PM Sign Date: 01/28/2024 2:38:50 PM Ordering Provider: [facility] 01-28-2024 Note ORIGINAL EXAMINATION: ONE XRAY VIEW OF THE CHEST01/28/2024 12:56 pm COMPARISON: 08/14/2022. HISTORY: ORDERING SYSTEM PROVIDED HISTORY: Reason for Exam: chest pain/SOB FINDINGS: The heart size and pulmonary vascularity are within normal limits. There is no pleural effusion or pneumothorax. There is a 1.5 cm nodular density at the left lung base. Advanced degenerative changes are noted in the right shoulder. IMPRESSION: 1.5 cm nodular density at the left lung base. Follow-up chest CT is recommended. Interpreted by: Kurtis Luis Preliminary Report By: Kurtis Luis Electronically signed By Kurtis Luis Dictated Date: 01/28/2024 1:58:58 PM Prelim Date: 01/28/2024 2:02:15 PM Sign Date: 01/28/2024 2:02:15 PM Ordering Provider: ANGELA MORALES [facility] 01-28-2024 Note Sinus rhythm Prolonged UT interval Anteroseptal infarct, age indeterminate Electronic Signature: ANDERSON LINDO MD 01/28/2024 13:42:47 [facility] 12-01-2023 Hospital Discharge instructions Patient Education 12/01/2023 16:28:36 Weakness (Uncertain Cause) Weakness with Uncertain Cause Based on your exam today, the exact cause of your weakness is not certain. But your weakness does not seem to be a sign of a serious illness at this time. Keep an eye on your symptoms and get medical advice as instructed below. Home care Rest at home today. Don't over-exert yourself. Take any medicine as prescribed. For the next few days, drink extra fluids (unless your healthcare provider wants you to restrict fluids for other reasons). Don't skip meals. Unless otherwise directed, continue to take any prescription medicines. Contact your healthcare provider if you have any questions or concerns. Follow-up care Follow up with your healthcare provider, or as advised. When to seek medical advice Call your healthcare provider right away for any of the following: Symptoms get worse Symptoms don't start getting better within 2 days Fever of 100.4 F (38 C) or higher, or as directed by your healthcare provider Call 911 Call 911 for any of these: Chest, arm, neck, jaw, or upper back pain Trouble breathing Numbness or weakness of the face, one arm, or one leg Slurred speech, confusion, or trouble speaking, walking, or seeing Blood in vomit or stool (black or red color) Loss of consciousness Severe headache [id number] [employer]. [address] [place] [address]. All rights reserved. This information is not intended as a substitute for professional medical care. Always follow your healthcare professional's instructions. 12/01/2023 16:28:33 Renal Insufficiency Renal Insufficiency Your kidneys remove waste products and extra water from your body. When your kidneys don t work as they should, waste products build up in your blood. The early stage of this process is called renal insufficiency. If renal insufficiency gets worse, you can develop chronic renal failure. This allows extra water, waste, and toxic substances to build up in your body. This can become life threatening. You may need dialysis or a kidney transplant. The most serious form of renal insufficiency is end-stage renal disease. Diabetes is the main cause of renal insufficiency. Other causes include: High blood pressure Hardening of the arteries Lupus Inflammation of the blood vessels (vasculitis) Viral or bacterial infection Some wmwr-gma-faqssxx (OTC) pain medicines can cause renal failure if you take them for a long time. These include aspirin, ibuprofen, naproxen, and other nonsteroidal anti-inflammatory drugs (NSAIDs). Home care Follow these tips when caring for yourself at home: If you have diabetes, talk with your healthcare provider about controlling your blood sugar. Ask if you need to make any changes to your diet, lifestyle, or medicines. If you have high blood pressure: oTake your prescribed medicine. Your goal is to lower your blood pressure to less than 130/80, or as recommended by your provider. oStart a regular exercise program that you enjoy. Check with your healthcare provider to be sure your planned exercise program is right for you. oCut back on the amount of salt (sodium) you eat. Your healthcare provider can tell you how much salt each day is safe for you. If you are overweight, talk with your healthcare provider about a weight loss plan. If you smoke, quit. Smoking makes kidney disease worse. Talk with your healthcare provider about ways to help you quit. For more information, visit: [place].gov/sites/default/file s/pdf/fqtrzbgs-djc-kgp-accessible .pdf owww.smokefree.gov owww.cancer.org/healthy/stayawayf romtobacco/guidetoquittingsmoking / Talk with your healthcare provider about any restrictions you should make in your diet. In general, you should limit the amount of protein, salt, potassium, and phosphorus. Don t drink too many fluids. Don t add salt at the table, and stay away from salty foods. You may need a calcium supplement to help prevent osteoporosis. Talk with your healthcare provider about any medicines you are taking to find out if they need to be reduced or stopped. Don t take the following OTC medicines, or talk with your healthcare provider before you take them: oAspirin, ibuprofen, naproxen, and other NSAIDs. You may be able to use these for a short time to help with fever or pain. oLaxatives and antacids with magnesium or aluminum oPhospho soda enemas with phosphorus oCertain stomach acid-blocking medicine such as cimetidine or ranitidine oDecongestants with pseudoephedrine oHerbal supplements Follow-up care Follow up with your healthcare provider, or as advised. Contact one of the following for more information: [place] [employer], www.aakp.org National Kidney Foundation, www.kidney.org [employer] [employer], www.kidneyfund.org National Kidney Disease Education Program, www.nkdep.nih.gov Call 911 Call 911 if any of the following occur: Severe weakness, dizziness, fainting, drowsiness, or confusion Chest pain or shortness of breath Heart beating fast, slowly, or irregularly When to seek medical advice Call your healthcare provider right away if any of these occur: Nausea or vomiting Fever of 100.4 F (38 C) or higher, or as directed by your healthcare provider Unexpected weight gain or swelling in the legs, ankles, or around your eyes You don t urinate as much as normal, or you aren t able to urinate [id number] [employer]. [address] [place] [address]. All rights reserved. This information is not intended as a substitute for professional medical care. Always follow your healthcare professional's instructions. 12/01/2023 16:28:27 Diverticulitis Diverticulitis Some people get pouches along the wall of the colon as they get older. The pouches, called diverticuli, usually cause no symptoms. If the pouches become blocked, you can get an infection. This infection is called diverticulitis. It causes pain in your lower abdomen and fever. If not treated, it can become a serious condition, causing an abscess to form inside the pouch. The abscess may block the intestinal tract even or rupture, spreading infection throughout the abdomen. When treatment is started early, oral antibiotics alone may be enough to cure diverticulitis. This method is tried first. But, if you don't improve or if your condition gets worse while using oral antibiotics, you may need to be admitted to the hospital for IV antibiotics. Severe cases may require surgery. Home care The following guidelines will help you care for yourself at home: During the acute illness, rest and follow your healthcare provider's instructions about diet. Sometimes you will need to follow a clear liquid diet to rest your bowel. Once your symptoms are better, you may be told to follow a low-fiber diet for some time. Include foods like: oFlake cereal, mashed potatoes, pancakes, waffles, pasta, white bread, rice, applesauce, bananas, eggs, fish, poultry, tofu, and cooked soft vegetables Take antibiotics exactly as instructed. Don't miss any doses or stop taking the medication, even if you feel better. Monitor your temperature and tell your healthcare provider if you have rising temperatures. Preventing future attacks Once you have an episode of diverticulitis, you are at risk for having it again. After you have recovered from this episode, you may be able to lower your risk by eating a high-fiber diet (20 gm/day to 35 gm/day of fiber). This cleans out the colon pouches that already exist and may prevent new ones from forming. Foods high in fiber include fresh fruits and edible peelings, raw or lightly cooked vegetables, whole grain cereals and breads, dried beans and peas, and bran. Other steps that can help prevent future attacks include: Take your medicines, such as antibiotics, as your healthcare provider says. Drink 6 to 8 glasses of water every day, unless told otherwise. Use a heating pad or hot water bottle to help abdominal cramping or pain. Begin an exercise program. Ask your healthcare provider how to get started. You can benefit from simple activities such as walking or gardening. Treat diarrhea with a bland diet. Start with liquids only; then slowly add fiber over time. Watch for changes in your bowel movements (constipation to diarrhea). Avoid constipation by eating a high fiber diet and taking a stool softener if needed. Get plenty of rest and sleep. Follow-up care Follow up with your healthcare provider as advised or sooner if you are not getting better in the next 2 days. When to seek medical advice Call your healthcare provider right away if any of these occur: Fever of 100.4 F (38 C) or higher, or as directed by your healthcare provider Repeated vomiting or swelling of the abdomen Weakness, dizziness, light-headedness Pain in your abdomen that gets worse, severe, or spreads to your back Pain that moves to the right lower abdomen Rectal bleeding (stools that are red, black or maroon color) Unexpected vaginal bleeding [id number] [employer]. [address] [place] [address]. All rights reserved. This information is not intended as a substitute for professional medical care. Always follow your healthcare professional's instructions. 12/01/2023 16:28:25 Anemia Anemia Anemia is a condition that occurs when your body does not have enough healthy red blood cells (RBCs). RBCs are the parts of your blood that carry oxygen throughout your body. A protein called hemoglobin allows your RBCs to absorb and release oxygen. Without enough RBCs or hemoglobin, your body doesn't get enough oxygen. Symptoms of anemia may then occur. What are the symptoms of anemia? Some people with anemia have no symptoms. But most people have symptoms that range from mild to severe. These can include: Tiredness (fatigue) Weakness Pale skin Shortness of breath Dizziness or fainting Rapid heartbeat Trouble doing normal amounts of activity Jaundice (yellowing of your eyes, skin, or mouth; dark urine) What causes anemia? Anemia can occur when your body: Loses too much blood Does not make enough RBCs Destroys your RBCs at a faster rate than it can replace them Does not make a normal amount of hemoglobin in your RBCs These problems can occur for many reasons, including: A condition that you are born with (congenital or inherited), such as sickle cell disease or thalassemia Heavy bleeding for any reason, including injury, surgery, childbirth, or even heavy menstrual periods Being low in certain nutrients, such as iron, folate, or vitamin B12, possibly from a poor diet or a condition like celiac disease or Crohn's disease Certain chronic conditions like diabetes, arthritis, or kidney disease Certain chronic infections like tuberculosis or HIV Exposure to certain medicines, such as those used for chemotherapy There are different types of anemia. Your healthcare provider can tell you more about the type of anemia you have and what may have caused it. How is anemia diagnosed? To diagnose anemia, your healthcare provider orders blood tests. These can include: Complete blood cell count (CBC). This test measures the amounts of the different types of blood cells. Blood smear. This test checks the size and shape of your blood cells. To do the test, a drop of your blood is viewed under a microscope. A stain is used to make the blood cells easier to see. Iron studies. These tests measure the amount of iron in your blood. Your body needs iron to make hemoglobin in your RBCs. Vitamin B12 and folate studies. These tests check for some of the components that help give RBCs a normal size and shape. Reticulocyte count. This test measures the amount of new RBCs that your bone marrow makes. Hemoglobin electrophoresis. This test checks for problems with your hemoglobin in RBCs. How is anemia treated? Treatment for anemia is based on the type of anemia, its cause, and the severity of your symptoms. Treatments may include: Diet changes. This involves increasing the amount of certain nutrients in your diet, such as iron, vitamin B12, or folate. Your healthcare provider may also prescribe nutrient supplements. Medicines. Certain medicines treat the cause of your anemia. Others help build new RBCs or relieve symptoms. If a medicine is the cause of your anemia, you may need to stop or change it. Blood transfusions. Replacing some of your blood can increase the number of healthy RBCs in your body. Surgery. In some cases, your doctor may do surgery to treat the underlying cause of anemia. If you need surgery, your healthcare provider will explain the procedure and outline the risks and benefits for you. What are the long-term concerns? If you have a certain type of anemia, you can expect a full recovery after treatment. If you have other types of anemia (especially a type you're born with), you will need to manage it for life. Your doctor can tell you more. [phone] [employer]. [address] [place] [address]. All rights reserved. This information is not intended as a substitute for professional medical care. Always follow your healthcare professional's instructions. Follow Up Care 12/01/2023 12:29:17 With:JUJU WESLEY Address: [address] [address] [phone] Business (1) When:2-4 days Comments:Schedule appointment as soon as possibleReturn to ED if symptoms worsenFollow-up for colonoscopy as soon as possible With:Your layout mechanic Address:Unknown When:2-4 days Comments:Schedule appointment as soon as possibleReturn to ED if symptoms worsenTake 2 Benefiber or 2 Metamucil tabs 2 times per dayTake 100 mg Colace dailyIncrease fluidsSit to stand precautionsFollow-up for colonoscopy With:AAMIR LEVIN Address: [address] [place] [phone]- [phone] Business (1) When:2-4 days Comments:Schedule appointment as soon as possibleReturn to ED if symptoms worsenSee instructions under GIReturn if worse or symptoms as describedIncrease fluidsSit to stand precautions [facility] 12-01-2023 Emergency department Discharge summary Discharge Instructions Thank you for allowing [facility] to assist you with your healthcare needs. The following is important discharge information regarding your hospital visit. Diagnosis from Today's Visit Anemia Diverticulitis Dizziness Renal insufficiency Weakness Weakness or fatigue What to Do Next Instructions from Your Care Team No qualifying data available. Post Acute Orders No qualifying data available. You Need to Schedule the Following Appointments Follow Up with Your layout mechanic When Within 2-4 days Why: Schedule appointment as soon as possible Return to ED if symptoms worsen Take 2 Benefiber or 2 Metamucil tabs 2 times per day Take 100 mg Colace daily Increase fluids Sit to stand precautions Follow-up for colonoscopy Follow Up with AAMIR LEVIN When Within 2-4 days Why: Schedule appointment as soon as possible Return to ED if symptoms worsen See instructions under GI Return if worse or symptoms as described Increase fluids Sit to stand precautions Where: [address] [place] [phone] Business (1) Allergies NKA Medications Please ask your primary doctor or pharmacist before taking any other medication not listed, including over the counter drugs, herbal medications, vitamins and or supplements as they may interact with your home medications. What How Much When Why Instructions Last Dose New amoxicillin-clavulanate (amoxicillin-clavulanate 500 mg-125 mg oral tablet) 1 tab(s) by mouth Every 8 hours Duration: 14 Days Printed Prescription Unchanged cholecalciferol (Vitamin D3 10 mcg (400 intl units) oral tablet) 1 tab(s) by mouth Once a day (in the evening) Unchanged fenofibrate (fenofibrate 145 mg oral tablet) 1 tab(s) by mouth Once a day Hyperlipidemia Type 2 diabetes mellitus with hyperlipidemia Unchanged glipiZIDE (glipiZIDE 2.5 mg oral tablet, extended release) 1 tab(s) by mouth Once a day Diabetes mellitus Unchanged hydroCHLOROthiazide (hydroCHLOROthiazide 25 mg oral tablet) 1 tab(s) by mouth Once a day Hypertension Hypertension associated with type 2 diabetes mellitus TAKE 1 TABLET BY MOUTH EVERY DAY Unchanged lisinopril (Zestril 5 mg oral tablet) 1 tab(s) by mouth Once a day (in the evening) Hypertension associated with type 2 diabetes mellitus Unchanged metoprolol (Metoprolol Tartrate 100 mg oral tablet) 1 tab(s) by mouth Two (2) times a day Hypertension TAKE 1 TABLET BY MOUTH TWICE A DAY Unchanged multivitamin (Multivitamin) 1 tab(s) by mouth Once a day (in the evening) Unchanged simvastatin (simvastatin 10 mg oral tablet) 1 tab(s) by mouth Daily at bedtime Hyperlipidemia Type 2 diabetes mellitus with hyperlipidemia TAKE 1 TABLET IN THE EVENING Please take this list to your next doctor s visit. Bring all medications you take, including over the counter medications, herbals and other supplements with you to your doctor s visit. Patients and families are reminded to discard old lists and to update any records with all medication providers or retail pharmacies. Education Materials Weakness with Uncertain Cause Based on your exam today, the exact cause of your weakness is not certain. But your weakness does not seem to be a sign of a serious illness at this time. Keep an eye on your symptoms and get medical advice as instructed below. Home care Rest at home today. Don't over-exert yourself. Take any medicine as prescribed. For the next few days, drink extra fluids (unless your healthcare provider wants you to restrict fluids for other reasons). Don't skip meals. Unless otherwise directed, continue to take any prescription medicines. Contact your healthcare provider if you have any questions or concerns. Follow-up care Follow up with your healthcare provider, or as advised. When to seek medical advice Call your healthcare provider right away for any of the following: Symptoms get worse Symptoms don't start getting better within 2 days Fever of 100.4 F (38 C) or higher, or as directed by your healthcare provider Call 911 Call 911 for any of these: Chest, arm, neck, jaw, or upper back pain Trouble breathing Numbness or weakness of the face, one arm, or one leg Slurred speech, confusion, or trouble speaking, walking, or seeing Blood in vomit or stool (black or red color) Loss of consciousness Severe headache [id number] [employer]. [address] [place] [address]. All rights reserved. This information is not intended as a substitute for professional medical care. Always follow your healthcare professional's instructions. Renal Insufficiency Your kidneys remove waste products and extra water from your body. When your kidneys don t work as they should, waste products build up in your blood. The early stage of this process is called renal insufficiency. If renal insufficiency gets worse, you can develop chronic renal failure. This allows extra water, waste, and toxic substances to build up in your body. This can become life threatening. You may need dialysis or a kidney transplant. The most serious form of renal insufficiency is end-stage renal disease. Diabetes is the main cause of renal insufficiency. Other causes include: High blood pressure Hardening of the arteries Lupus Inflammation of the blood vessels (vasculitis) Viral or bacterial infection Some wdiv-wtc-ylljtms (OTC) pain medicines can cause renal failure if you take them for a long time. These include aspirin, ibuprofen, naproxen, and other nonsteroidal anti-inflammatory drugs (NSAIDs). Home care Follow these tips when caring for yourself at home: If you have diabetes, talk with your healthcare provider about controlling your blood sugar. Ask if you need to make any changes to your diet, lifestyle, or medicines. If you have high blood pressure: oTake your prescribed medicine. Your goal is to lower your blood pressure to less than 130/80, or as recommended by your provider. oStart a regular exercise program that you enjoy. Check with your healthcare provider to be sure your planned exercise program is right for you. oCut back on the amount of salt (sodium) you eat. Your healthcare provider can tell you how much salt each day is safe for you. If you are overweight, talk with your healthcare provider about a weight loss plan. If you smoke, quit. Smoking makes kidney disease worse. Talk with your healthcare provider about ways to help you quit. For more information, visit: Balayafr.gov/sites/default/file s/pdf/odyzmuqm-zbm-tls-accessible .pdf owww.smokefree.gov owww.cancer.org/healthy/stayawayf romtobacco/guidetoquittingsmoking / Talk with your healthcare provider about any restrictions you should make in your diet. In general, you should limit the amount of protein, salt, potassium, and phosphorus. Don t drink too many fluids. Don t add salt at the table, and stay away from salty foods. You may need a calcium supplement to help prevent osteoporosis. Talk with your healthcare provider about any medicines you are taking to find out if they need to be reduced or stopped. Don t take the following OTC medicines, or talk with your healthcare provider before you take them: oAspirin, ibuprofen, naproxen, and other NSAIDs. You may be able to use these for a short time to help with fever or pain. oLaxatives and antacids with magnesium or aluminum oPhospho soda enemas with phosphorus oCertain stomach acid-blocking medicine such as cimetidine or ranitidine oDecongestants with pseudoephedrine oHerbal supplements Follow-up care Follow up with your healthcare provider, or as advised. Contact one of the following for more information: [place] [employer], www.aakp.org National Kidney Foundation, www.kidney.org [place] [employer], www.kidneyfund.org National Kidney Disease Education Program, www.nkdep.nih.gov Call 911 Call 911 if any of the following occur: Severe weakness, dizziness, fainting, drowsiness, or confusion Chest pain or shortness of breath Heart beating fast, slowly, or irregularly When to seek medical advice Call your healthcare provider right away if any of these occur: Nausea or vomiting Fever of 100.4 F (38 C) or higher, or as directed by your healthcare provider Unexpected weight gain or swelling in the legs, ankles, or around your eyes You don t urinate as much as normal, or you aren t able to urinate [id number] [employer]. [address] [place] [address], [place] [address]. All rights reserved. This information is not intended as a substitute for professional medical care. Always follow your healthcare professional's instructions. Diverticulitis Some people get pouches along the wall of the colon as they get older. The pouches, called diverticuli, usually cause no symptoms. If the pouches become blocked, you can get an infection. This infection is called diverticulitis. It causes pain in your lower abdomen and fever. If not treated, it can become a serious condition, causing an abscess to form inside the pouch. The abscess may block the intestinal tract even or rupture, spreading infection throughout the abdomen. When treatment is started early, oral antibiotics alone may be enough to cure diverticulitis. This method is tried first. But, if you don't improve or if your condition gets worse while using oral antibiotics, you may need to be admitted to the hospital for IV antibiotics. Severe cases may require surgery. Home care The following guidelines will help you care for yourself at home: During the acute illness, rest and follow your healthcare provider's instructions about diet. Sometimes you will need to follow a clear liquid diet to rest your bowel. Once your symptoms are better, you may be told to follow a low-fiber diet for some time. Include foods like: oFlake cereal, mashed potatoes, pancakes, waffles, pasta, white bread, rice, applesauce, bananas, eggs, fish, poultry, tofu, and cooked soft vegetables Take antibiotics exactly as instructed. Don't miss any doses or stop taking the medication, even if you feel better. Monitor your temperature and tell your healthcare provider if you have rising temperatures. Preventing future attacks Once you have an episode of diverticulitis, you are at risk for having it again. After you have recovered from this episode, you may be able to lower your risk by eating a high-fiber diet (20 gm/day to 35 gm/day of fiber). This cleans out the colon pouches that already exist and may prevent new ones from forming. Foods high in fiber include fresh fruits and edible peelings, raw or lightly cooked vegetables, whole grain cereals and breads, dried beans and peas, and bran. Other steps that can help prevent future attacks include: Take your medicines, such as antibiotics, as your healthcare provider says. Drink 6 to 8 glasses of water every day, unless told otherwise. Use a heating pad or hot water bottle to help abdominal cramping or pain. Begin an exercise program. Ask your healthcare provider how to get started. You can benefit from simple activities such as walking or gardening. Treat diarrhea with a bland diet. Start with liquids only; then slowly add fiber over time. Watch for changes in your bowel movements (constipation to diarrhea). Avoid constipation by eating a high fiber diet and taking a stool softener if needed. Get plenty of rest and sleep. Follow-up care Follow up with your healthcare provider as advised or sooner if you are not getting better in the next 2 days. When to seek medical advice Call your healthcare provider right away if any of these occur: Fever of 100.4 F (38 C) or higher, or as directed by your healthcare provider Repeated vomiting or swelling of the abdomen Weakness, dizziness, light-headedness Pain in your abdomen that gets worse, severe, or spreads to your back Pain that moves to the right lower abdomen Rectal bleeding (stools that are red, black or maroon color) Unexpected vaginal bleeding [id number] [employer]. [address] [place] [address]. All rights reserved. This information is not intended as a substitute for professional medical care. Always follow your healthcare professional's instructions. Anemia Anemia is a condition that occurs when your body does not have enough healthy red blood cells (RBCs). RBCs are the parts of your blood that carry oxygen throughout your body. A protein called hemoglobin allows your RBCs to absorb and release oxygen. Without enough RBCs or hemoglobin, your body doesn't get enough oxygen. Symptoms of anemia may then occur. What are the symptoms of anemia? Some people with anemia have no symptoms. But most people have symptoms that range from mild to severe. These can include: Tiredness (fatigue) Weakness Pale skin Shortness of breath Dizziness or fainting Rapid heartbeat Trouble doing normal amounts of activity Jaundice (yellowing of your eyes, skin, or mouth; dark urine) What causes anemia? Anemia can occur when your body: Loses too much blood Does not make enough RBCs Destroys your RBCs at a faster rate than it can replace them Does not make a normal amount of hemoglobin in your RBCs These problems can occur for many reasons, including: A condition that you are born with (congenital or inherited), such as sickle cell disease or thalassemia Heavy bleeding for any reason, including injury, surgery, childbirth, or even heavy menstrual periods Being low in certain nutrients, such as iron, folate, or vitamin B12, possibly from a poor diet or a condition like celiac disease or Crohn's disease Certain chronic conditions like diabetes, arthritis, or kidney disease Certain chronic infections like tuberculosis or HIV Exposure to certain medicines, such as those used for chemotherapy There are different types of anemia. Your healthcare provider can tell you more about the type of anemia you have and what may have caused it. How is anemia diagnosed? To diagnose anemia, your healthcare provider orders blood tests. These can include: Complete blood cell count (CBC). This test measures the amounts of the different types of blood cells. Blood smear. This test checks the size and shape of your blood cells. To do the test, a drop of your blood is viewed under a microscope. A stain is used to make the blood cells easier to see. Iron studies. These tests measure the amount of iron in your blood. Your body needs iron to make hemoglobin in your RBCs. Vitamin B12 and folate studies. These tests check for some of the components that help give RBCs a normal size and shape. Reticulocyte count. This test measures the amount of new RBCs that your bone marrow makes. Hemoglobin electrophoresis. This test checks for problems with your hemoglobin in RBCs. How is anemia treated? Treatment for anemia is based on the type of anemia, its cause, and the severity of your symptoms. Treatments may include: Diet changes. This involves increasing the amount of certain nutrients in your diet, such as iron, vitamin B12, or folate. Your healthcare provider may also prescribe nutrient supplements. Medicines. Certain medicines treat the cause of your anemia. Others help build new RBCs or relieve symptoms. If a medicine is the cause of your anemia, you may need to stop or change it. Blood transfusions. Replacing some of your blood can increase the number of healthy RBCs in your body. Surgery. In some cases, your doctor may do surgery to treat the underlying cause of anemia. If you need surgery, your healthcare provider will explain the procedure and outline the risks and benefits for you. What are the long-term concerns? If you have a certain type of anemia, you can expect a full recovery after treatment. If you have other types of anemia (especially a type you're born with), you will need to manage it for life. Your doctor can tell you more. [phone] [employer]. [address] [place] [address], [place] [address]. All rights reserved. This information is not intended as a substitute for professional medical care. Always follow your healthcare professional's instructions. Additional Information VACCINATE! IT SAVES LIVES! Members of the community who have not yet received the Phanfare-19 vaccine and would like to receive it can visit one of [facility] vaccine clinics. There are many vaccine clinic locations within the [facility]. For locations and available times, please visit www.gettheshot.coronavirus.[place].g ov/. It is important to note that some COVID mobile vaccine clinics are held outdoors and may be canceled in rainy or stormy conditions. To learn more about pediatric vaccinations (ages 5-11), we invite you to visit the [facility] webpage. https://www.SolarGreens.org/pa ges/2696-Mwlrr-Qfrlfebcidl-Freque esjc-Ihdev-Zzurhwajx.html To learn more about the COVID-19 vaccine, we invite you to visit the CDC website for a list of frequently asked questions. https://www.cdc.gov/coronavirus/2 019-ncov/vaccines/faq.html [facility] Patient Portal Access Instructions: Stay connected with your healthcare team and access your personal medical information anytime with the [facility] Patient Portal. If you would like a full copy of your medical records please contact the [facility] Medical Records Department Sunday through Sunday between 8a.m. and 4:30p.m. Please follow the directions below to access the portal: 1.Access the email account you provided upon registration to the hospital.2.Look for an invitation email from [facility].3.Open the email and access the invitation link: Accept Invitation to [facility]4.Fill in the required rodriguez to create your account. Sign into [email or web address] with your username and password that you [...] you will allow to register on the [facility] Patient Portal for access to your information. You can also access the [facility] Patient Portal on the [employer] tawny. Simply click on Health Records under Health Data and then click on the [facility] logo. HOW TO SAFELY DISPOSE OF PRESCRIPTION [...] Call your local pharmacy or go to [email or web address] to find one close to you.3.Make use of household items: Use cat litter or old coffee grounds to dispose medications if other options are not available. Mix your drugs with these household products, seal them in an airtight container and throw it into the garbage. Call [facility]: [phone] to be sure your drugs can be disposed of in this way. Some medicines may require a different approach.4.Never flush your medications down the toilet. IF YOU HAVE BEEN PRESCRIBED AN OPIOIDS FOR PAIN If you have been prescribed [...] have withdrawal symptoms when a medication is stopped ? this can develop within a few days. KNOW [...] children, family, friends and visitors). The last page(s) of this document has been signed and retained as a CHART COPY Signatures Patient Education Materials Weakness (Uncertain Cause) Renal Insufficiency Diverticulitis Anemia Medication Leaflets My discharge plan and instructions have been reviewed and explained to me and I,JULIO JARRELL understand my current condition and have read and understand these discharge instructions. I have received a written copy of the plan/instructions. If I have questions, I am aware that I should contact my doctor. Patient/Drama Director Signature: Date/Time: Relationship to Patient: ____ Witness Name/Signature: Date/Time: [facility] 12-01-2023 Note ORIGINAL EXAMINATION: CT OF THE HEAD WITHOUT CONTRAST 12/01/2023 3:21 pm TECHNIQUE: CT of the head was performed without the administration of intravenous contrast. Automated exposure control, iterative reconstruction, and/or weight based adjustment of the mA/kV was utilized to reduce the radiation dose to as low as reasonably achievable. COMPARISON: None. HISTORY: ORDERING SYSTEM PROVIDED HISTORY: Reason for Exam: dizziness FINDINGS: Examination compromised by motion artifact, particularly the posterior fossa. There is no acute intracranial hemorrhage, mass effect, or abnormal extra-axial fluid collection. There is no CT evidence of acute infarct. The density in the larger dural venous sinuses is grossly normal. 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 Atherosclerotic calcifications are present in the cavernous carotid arteries bilaterally. There is proportionate enlargement of the ventricular system and cortical sulci compatible with parenchymal volume loss. No acute bony findings. Partially opacified left maxillary sinus. Otherwise grossly clear paranasal sinuses and mastoid air cells. IMPRESSION: No acute intracranial abnormality identified. I have reviewed this report and agree with the resident findings and interpretation. Interpreted by: Chapo Carrera MD Preliminary Report By: Blessing Lamb Electronically signed By Chapo Carrera MD Dictated Date: 12/01/2023 3:31:02 PM Prelim Date: 12/01/2023 3:35:52 PM Sign Date: 12/01/2023 3:39:12 PM Ordering Provider: BLESSING THOMAS [facility] 12-01-2023 Note ORIGINAL HISTORY: Pain COMPARISON: 08 August 2023 TECHNIQUE: CT of the Abdomen and Pelvis following uncomplicated administration of intravenous contrast, with sagittal and coronal reconstructions. This exam was performed according to our departmental dose optimization program, and includes the following measures where applicable: automated exposure control, adjustment of the mAs and/or kVp according to patient size and/or exam, and an iterative reconstruction algorithm. FINDINGS: There is a cholecystectomy. The remaining abdominal organs are unremarkable in appearance. Bowel is poorly evaluated in the absence of oral contrast. There is mild infiltration in the lower pelvis, mainly around the mid sigmoid colon, which is not well distinguished from the infiltration. There is underlying diverticulosis. A normal appendix is identified. There is no free fluid. IMPRESSION: Acute diverticulitis. Interpreted by: Chapo Carrera MD Preliminary Report By: Chapo Carrera MD Electronically signed By Chapo Carrera MD Dictated Date: 12/01/2023 2:09:59 PM Prelim Date: 12/01/2023 2:13:00 PM Sign Date: 12/01/2023 2:13:00 PM Ordering Provider: BLESSING THOMAS [facility] 12-01-2023 Note Sinus or ectopic atr ial rhythm Ventricular premature complex Prolonged UT interval Probable anteroseptal infarct, old SEE DICTATION Electronic Signature: BLESSING THOMAS MD 12/01/2023 12:59:16 [facility] 09-01-2023 Hospital Discharge instructions Patient Education 09/01/2023 [...] to absorb moisture and to keep your skin tanner. SEEK MEDICAL CARE IF: Your urine is [...] Document Reviewed: 07/10/2014 ExitCare Patient Information 2015 [employer]. This information is not intended to replace [...] Follow these instructions at home: Medicines Take blvc-eex-murlgzo and prescription medicines only as told by [...] actions to prevent or treat constipation: ?Take ywxj-puo-scqjpcd or prescription medicines. ?Eat foods that are [...] and pain in your lower abdomen. Take lkno-nbn-hzhorss and prescription medicines only as told by [...] 06/19/2016 Document Revised: 02/06/2019 Document Reviewed: 02/06/2019 BaseKit Patient Education 2020 [employer]. 09/01/2023 09:25:27 Indwelling Urinary Catheter Care, Adult, Mdgo-ok-Eofm Indwelling Urinary Catheter Care, Adult An indwelling [...] not have soap and water, use hand cell tester. Always make sure there are no twists [...] 11/03/2013 Document Revised: 10/31/2019 Document Reviewed: 02/22/2018 [employer]Kit Patient Education 2020 [employer]. 09/01/2023 09:25:19 6- FAQ about Catheter-Associated UTI [...] Up Care 08/17/2023 08:20:22 With:LINCOLN WYATT Address: [address] [place] [phone] Business (1) When: Unknown Comments:Dr. Wyatt's office will call you with a follow-up appointment. If you do not hear from them, call into the office early next week. [facility] 09-01-2023 Note Discharge Instructions Thank you for allowing [facility] to assist you with your healthcare needs. The following is important discharge information regarding your hospital visit. Your Care Team [facility] Your Diagnosis Bladder cancer Diabetes mellitus Hyperlipidemia Hypertension Hypertension associated with type 2 diabetes mellitus Type 2 diabetes mellitus with hyperlipidemia What to do next Scheduled Follow-Up Appointments Appointment Type When With Where Contact InformationPC OV 09/05/2023 09:00 AM [facility] [address] [phone] Follow Up Appointments Follow Up with LINCOLN WYATT When Why: Dr. Wyatt's office will call you with a follow-up appointment. If you do not hear from them, call into the office early next week. Where: [address] [place] [phone] [facility] (1) The Following Activity and Diet [...] days after discharge, please call [facility] at [phone]. Post Acute Orders No qualifying data available. [...] Infection Prevention Duration: 10 Days Pickup at [facility]/pharmacy #[id number] START TODAY None New oxyCODONE (oxyCODONE 5 mg oral tablet ( IMMEDIATE release )) 2 tab(s) by mouth Every 6 hours as needed for for pain Bladder cancer Duration: 7 Days Pickup at [facility]/pharmacy #[id number] None Changed cholecalciferol (Vitamin D3 10 mcg [...] TABLET IN THE EVENING 08/31/23 Pharmacy Information [facility]/pharmacy #[id number]: [address], [place] [phone] Please take this list to your next [...] to absorb moisture and to keep your skin tanner. SEEK MEDICAL CARE IF: Your urine is [...] Document Reviewed: 07/10/2014 ExitCare Patient Information 2015 [employer], [facility]. This information is not intended to replace [...] Follow these instructions at home: Medicines Take xkob-hah-aakxopa and prescription medicines only as told by [...] to prevent or treat constipation: ? Take nyzm-ycs-mjxwvot or prescription medicines. ? Eat foods that [...] and pain in your lower abdomen. Take sagf-byu-ngwybun and prescription medicines only as told by [...] 06/19/2016 Document Revised: 02/06/2019 Document Reviewed: 02/06/2019 [employer]Kit Patient Education 2020 [employer]. Indwelling Urinary Catheter Care, Adult An [...] not have soap and water, use hand cell tester. Always make sure there are no twists [...] 11/03/2013 Document Revised: 10/31/2019 Document Reviewed: 02/22/2018 ElseAg[employer]ome Patient Education 2019 [employer]ens. FAQs (frequently asked questions) about Catheter-Associated Urinary [...] to receive it can visit one of [facility] vaccine clinics. There are many vaccine clinic locations within the [facility]. For locations and available times, please visit https://gettheshot.[email or web address].[place].gov/. It is important to note that some COVID mobile vaccine clinics are held outdoors and may be canceled in rainy or stormy conditions. To learn more about pediatric vaccinations (ages 5-11), we invite you to visit the [facility] webpage. https://www.SolarGreens.org/pa ges/0521-Zhptt-Qqtairpivce-Freque edqq-Hkvpl-Gzbqfaidi.html To learn more about the COVID-19 vaccine, we invite you to visit the CDC website for a list of frequently asked questions.https://www.cdc.gov/cor onavirus/2019-ncov/vaccines/faq.h tml [facility] Patient Portal Access Instructions: Stay connected with your healthcare team and access your personal medical information anytime with the [facility] Patient Portal. Please follow the directions below to create your [facility] account: 1.Access the email account you provided upon registration to the hospital/physician office.2.Look for an invitation email from [facility].3.Open the email and access the invitation link: Accept Invitation to [facility].4.Fill in the required rodriguez to create your account. To access your account, visit [email or web address]. Click the blue button labeled Access Patient [...] you will allow to register on the [facility] Patient Portal for access to your information. You can also access the [facility] Patient Portal on the [facility] [employer] tawny. Simply click on Patient Portal and then log into your account. If you would like to receive a full copy of your medical records, please contact the [facility] Medical Records Department by calling [phone], Sunday through Sunday between 8 a.m. and [...] Call your local pharmacy or go to [email or web address] to find one close to you.3.Make use of household items: Use cat litter or old coffee grounds to dispose medications if other options are not available. Mix your drugs with these household products, seal them in an airtight container and throw it into the garbage. Call [facility]: [phone] to be sure your drugs can be [...] Care After Indwelling Urinary Catheter Care, Adult, Rqro-ll-Lwkj 6- FAQ about Catheter-Associated UTI (10/01 IC)(CUSTOM) Medication Leaflets My discharge plan and instructions have been reviewed and explained to me and I,JULIO JARRELL understand my current condition and have read and understand these discharge instructions. I have received a written copy of the plan/instructions. If I have questions, I am aware that I should contact my doctor. Patient/Drama Director Signature: Date/Time: Relationship to Patient: ____ Witness Name/Signature: Date/Time: [facility] 08-31-2023 Anesthesiology Consult note Patient: JULIO JARRELL Age: 77 years Sex: Male : 1945 Associated Diagnoses: None Author: MARYSE HART APRN-WHANAU SUPPORT WORKER Assessment Postanesthesia assessment Vitals: Vital signs from [...] by MARYSE HART on 08/31/2023 07:22 PM [facility] 08-31-2023 Anesthesiology Consult note Patient: JULIO JARRELL Age: 77 years Sex: Male : 1945 Associated Diagnoses: None Author: MARYSE HART Preoperative Information Time of last solid food intake: 08/31/2023 08:00:00 Time of last clear liquid intake: 08/31/2023 08:00:00 small bite of a wolof - discussed this at length regarding story. [...] Problem list: Medical Hematuria / SNOMED CT 897861179 / Confirmed BMI 39.0-39.9,adult / SNOMED CT 035312707 / Confirmed BMI 38.0-38.9,adult / SNOMED CT 346640567 / Confirmed BMI 37.0-37.9, adult / SNOMED CT 658300379 / Confirmed Chronic kidney disease, stage III (moderate) / SNOMED CT 5046364376 / Confirmed COPD without exacerbation / SNOMED CT 46049829 / Confirmed Diabetes mellitus / SNOMED CT [id number] / Confirmed Shortness of breath on exertion / SNOMED CT 379238189 / Confirmed Former cigarette smoker / SNOMED CT 484224806 / Confirmed GERD without esophagitis / SNOMED CT 9378649660 / Confirmed Hyperlipidemia / SNOMED CT 00033539 / Confirmed Hypertension / SNOMED CT 72781052 / Confirmed Hypertension associated with type 2 diabetes mellitus / SNOMED CT 9168762731 / Confirmed Has received influenza vaccination in current influenza season / SNOMED CT 097191958 / Confirmed Mild depression / SNOMED CT 986138807 / Confirmed Morbid obesity / SNOMED CT 389544694 / Confirmed Need for influenza vaccination / SNOMED CT 390962308 / Confirmed Obesity due to excess calories / SNOMED CT 9203528155 / Confirmed Left knee pain / SNOMED CT 2136560873 / Confirmed Screening for prostate cancer / SNOMED CT 703492195 / Confirmed Screening for colon cancer / SNOMED CT 141534295 / Confirmed Medicare annual wellness visit, subsequent / SNOMED CT 223484545 / Confirmed Screening for ischemic heart disease / SNOMED CT 090591928 / Confirmed Screening for diabetes mellitus / SNOMED CT 799988470 / Confirmed Risk and functional assessment / SNOMED CT 184321525 / Confirmed Preop examination / SNOMED CT 682227415 / Confirmed Peripheral vascular disease / SNOMED CT 3000787966 / Confirmed Type 2 diabetes mellitus with hyperlipidemia / SNOMED CT 219716452 / Confirmed Type 2 diabetes with stage 3 chronic kidney disease GFR 30-59 / SNOMED CT 484337655 / Confirmed Type 2 diabetes mellitus with peripheral vascular disease / SNOMED CT 877219154 / Confirmed UTI (urinary tract infection) / SNOMED CT 297122243 / Confirmed Need for hepatitis C screening test / SNOMED CT 170436601 / Confirmed, Active Problems (33) BMI 37.0-37.9, [...] Diabetes Mother Sister Procedure history: Knee arthroplasty ([id number]) on 08/29/2022 at 76 Years. Comments: 08/29/2022 11:07 EST - RYLAND Cooley LEFT Cholecystectomy ([id number]) on 03/30/2021 at 75 Years. Varicose vein ligation and stripping ([id number]). Comments: 04/22/2019 8:04 Jessi Levin LPN left leg Social History Social & Psychosocial Habits Alcohol 4Risk Assessment: No Risk 08/31/2023 Use: Current Frequency: 1-2 times per month Substance Abuse 08/31/2023 Use: Never 4Risk Assessment: No Risk Tobacco 08/31/2023isk Assessment: No Risk 08/31/2023 Tobacco Use: Former smoker, quit more Type: Cigarettes Number of years: 10 Stopped at age: 22 Years Exposure to Tobacco Smoke Lives in non-smoking home Home/Environment 08/31/2023 Living situation: Home/Independent Domestic Concerns None Primary Senior Materials Planner: Self Lives In Single level home Current [...] LOW Vital Signs(last 24 hrs) Last Charted WWG034 mmHg (AUG 31 12:28) DBPL 59mmHg (AUG 31 12:28) Measurements from flowsheet : Measurements 08/31/2023 12:28 EST Height 172.7 cm Height in inches 68 inch(es) Admission Weight 110 kg Weight Lbs 242 lb Weight Method Stated [place] Body Weight 68.38 kg Admission Body Mass [...] Surgeon SN - CAt - Role Performed Strategy Analyst 1 SN - CAt - Role Performed WHANAU SUPPORT WORKER SN - CAt - Role Performed Scrub 1 SN - CAt - Role Performed Clinical Program Manager 1 08/31/2023 13:28 EST SN - Preop [...] Weight Lbs 242 lb Weight Method Stated [place] Body Weight 68.38 kg Admission Body Mass [...] with difficulties Skin Temperature Warm Skin Description [place] Skin Integrity Intact Skin Moisture General Dry IV Present Present Extremity Movement Equal Characteristics of Speech Clear Level of Consciousness Alert AZIZA Yes Strength All Extremities Strong Affect/Behavior Appropriate, Calm, Cooperative Orientation Oriented x 4 Allergies Yes Anesthesia Extension Set Applied Yes Collar Shaper Operator On Yes Consent Form Signed Yes Patient [...] #1 We May Share PHI Patsy Jarrell [phone] Designated Person #1 Relationship Spouse Designated Person #2 We May Share PHI Maddie Henderson [phone] Designated Person #2 Relationship Daughter Privacy Restrictions [...] Method Explanation, Printed materials Preferred Spoken Language Belarusian Preferred Written Language Belarusian Teaching Evaluation No further teaching needed Safety Brochure Information Reviewed Unable to complete [facility] Weljose daniel Video Viewed No Information Given by Patient [...] Day Patient History . Assessment and Plan [place] Society of Anesthesiologists (ASA) physical status classification: Class III. Anesthetic Preoperative Plan Anesthetic technique: General. Informed consent: signed by patient. Digitally Signed by MARYSE HART on 08/31/2023 01:50 PM [facility] 08-08-2023 Note ORIGINAL EXAMINATION: CT UROGRAM 08/08/2023 [...] 08/08/2023 11:27:32 AM Ordering Provider: JASMINA TRAN [facility] 07-21-2023 Note . MICRO - Microbiology PROCEDURE: Urine Culture [*1] SOURCE: Urine, Clean Catch BODY SITE: COLLECTED DATE/TIME: 07/20/2023 11:00 EST RECEIVED DATE/TIME: 07/20/2023 15:54 EST START DATE/TIME: 07/20/2023 15:54 EST FREE TEXT SOURCE: FINAL REPORTS Final Report [] Verified Date/Time/Personnel: 07/21/2023 14:00 EST 10,000 - 50,000 cfu/ml Mixed growth consistent with normal urogenital jeff. Performing Locations *1: This test was performed at: [address] ([place]) 05-10-2023 Note . MICRO - Microbiology PROCEDURE: Urine Culture [*1] SOURCE: Urine, Clean Catch BODY SITE: COLLECTED DATE/TIME: 05/09/2023 15:06 EDT RECEIVED DATE/TIME: 05/09/2023 19:12 EDT START DATE/TIME: 05/09/2023 19:13 EDT FREE TEXT SOURCE: FINAL REPORTS Final Report [] Verified Date/Time/Personnel: 05/10/2023 13:55 EDT <10,000 cfu/ml. No Significant growth. Sensitivity not indicated. Performing Locations *1: This test was performed at: [address] ([place]) 08-30-2022 Note Discharge Instructions Thank you for allowing [facility] to assist you with your healthcare needs. The following is important discharge information regarding your hospital visit. Your Care Team Dr Carlos Hardin APRN Your Diagnosis Osteoarthritis S/P total knee arthroplasty Hypertension Hyperlipidemia COPD without exacerbation Diabetes mellitus What to do next Scheduled Follow-Up Appointments Appointment Type When With Where Contact InformationPT Outpatient Evaluation 08/31/2022 09:00 AM EST [facility] OV 10/10/2022 08:00 AM AAMIR LEBLANC DO [facility] [address] [place] [address] Follow Up Appointments Follow Up with AUGUST PORTILLO PA-C, Orthopedic When 09/11/2022 09:45 AM EST Why: This is your post-op appointment. Follow-up as scheduled. Where: [facility] [address] [place] [id number]- Follow Up with [facility] When 08/31/2022 09:00 AM EST Why: This is your first physical therapy appointment. Follow-up as scheduled. Where: [address] [place] [phone] The Following Activity and Diet Have Been [...] to exceed 3000 mg/ day Pickup at [facility]/pharmacy #3648 08/30/22 at 0821 New aspirin (aspirin 81 mg oral delayed release tablet) 1 tab(s) by mouth Two (2) times a day Duration: 30 Days Take 81 mg aspirin twice daily with food for 4 weeks postoperatively for DVT prophylaxis. Pickup at [facility]/pharmacy #4605 08/30/22 at 0821 New docusate-senna (Senokot S 50 mg-8.6 mg oral tablet) 2 tab(s) by mouth Two (2) times a day Duration: 3 Days Take until first bowel movement, then as needed Pickup at [facility]/pharmacy #4605 08/30/22 at 0821 New famotidine (Pepcid 20 mg oral tablet) 1 tab(s) by mouth Once a day Pickup at [facility]/pharmacy #4605 08/30/22 at 0821 New meloxicam (Mobic 7.5 mg oral tablet) 1 tab(s) by mouth Twice daily with meals Duration: 30 Days Do not take any other nonsteroidal anti-inflammatories while on meloxicam/ Mobic Pickup at [facility]/pharmacy #4605 start tomorrow New oxyCODONE (oxyCODONE 5 mg oral tablet ( IMMEDIATE release )) See instructions S/P total knee arthroplasty 1-2 tab(s) Oral q4h Pickup at [facility]/pharmacy #4605 08/30/22 at 0821 Changed cholecalciferol (Vitamin [...] IN THE EVENING none today Pharmacy Information [facility]/pharmacy #4605: [address], [place] [id number] [phone] Please take this list to your next [...] FOR SIGNS OF INFECTION: call the office ([phone]) if experencing any of the following: (Usually [...] on your follow up instructions. Form: 338A (05337) R: 11/26 Additional Information VACCINATE! IT SAVES LIVES! Members of the community who have not yet received the COVID-19 vaccine and would like to receive it can visit one of [facility] vaccine clinics. There are many vaccine clinic locations within the [facility]. For locations and available times, please visit [email or web address] It is important to note that some COVID mobile vaccine clinics are held outdoors and may be canceled in rainy or stormy conditions. To learn more about pediatric vaccinations (ages 5-11), we invite you to visit the [facility] webpage. [email or web address] [email or web address].html To learn more about the COVID-19 vaccine, we invite you to visit the [facility] website for a list of frequently asked questions. [email or web address] ya-[email or web address]-[email or web address]/[email or web address]-[email or web address]-Hju quently_[email or web address]-Questions.pdf [facility] Patient Portal Access Instructions: Stay connected with your healthcare team and access your personal medical information anytime with the [facility] Patient Portal.If you would like a full copy of your medical records, please contact the [facility] Medical Records Department, Sunday through Sunday between 8a.m. and 4:30p.m. Please follow the directions below to access the portal: 1.Access the email account you provided upon registration to the [facility].2.Look for an invitation email from [facility].3.Open the email and access the invitation link: Accept Invitation to [facility]4.Fill in the required rodriguez to create your account. Sign into [email or web address].[email or web address] with your username and password that you [...] you will allow to register on the [facility] [employer] Patient Portal for access to your information. You can also access the [facility] Patient Portal on the [employer] tawny. Simply click on Health Records under Health Data and then click on the [facility] logo. HOW TO SAFELY DISPOSE OF PRESCRIPTION [...] Call your local pharmacy or go to http://bit.sones/7H5Xc1m to find one close to you.3.Make use of household items: Use cat litter or old coffee grounds to dispose medications if other options are not available. Mix your drugs with these household products, seal them in an airtight container and throw it into the garbage. Call [facility]: [phone] to be sure your drugs can be [...] a CHART COPY. Signatures Patient Education Materials Cintia Jean Post-op Instruction 02/2017 (56771) Medication Leaflets My discharge plan and instructions have been reviewed and explained to me and I,JULIO JARRELL understand my current condition and have read and understand these discharge instructions. I have received a written copy of the plan/instructions. If I have questions, I am aware that I should contact my doctor. Patient/Drama Director Signature: Date/Time: Relationship to Patient: ____ Witness Name/Signature: Date/Time: [facility] Gustavojavid Brooks 08-30-2022 Note Date of Service 08/30/2022 Subjective [...] by VIKY HARDIN on 08/30/2022 11:32 AM [facility] 08-30-2022 Hospital Discharge instructions Patient Education 08/30/2022 08:02:05 5 - [facility] Post-op Instruction 02/2017 (92762) [facility] Post-operative Instructions PLEASE FOLLOW [facility] POST-OP INSTRUCTIONS GIVEN WATCH FOR SIGNS OF INFECTION: call the office ([phone]) if experencing any of the following: (Usually [...] on your follow up instructions. Form: 338A (38557) R: 11/26 Follow Up Care 06/08/2022 12:56:29 With:[facility] Address: [address] [place] [address] [phone] When:08/31/2022 09:00:00 Comments:This is your first physical therapy appointment. Follow-up as scheduled. With:AUGUST PORTILLO PA-C, Orthopedic Address: [facility] [address] [place] [address]- When:09/11/2022 09:45:00 Comments:This is your post-op appointment. Follow-up as scheduled. [facility] 08-30-2022 Note Date of Service August 30, [...] would like his prescriptions E scribed to [facility] in [facility]. He will follow-up per postop instructions. He has outpatient physical therapy established. Upon discharge he will contact her office with any concerns or questions. I have reviewed the [place] Automated Rx Reporting System (OARRS) report for [...] AUGUST PORTILLO PA-C on 08/30/2022 08:01 AM [facility] 08-29-2022 Note Date of Service 08/29/2022 Reason for Consultation Medical management Referring Physician Dr. Gonzalez History of Present Illness 76-year-old male with past medical history significant for hypertension, hyperlipidemia, COPD, type 2 diabetes mellitus, GERD, depression, PVD. Patient presents to [facility] on 08/29/2022 for elective left total knee [...] unit (07/28/08) Digitally Signed by VIKY HARDIN on 08/29/2022 03:36 PM [facility] 08-29-2022 Note ORIGINAL EXAMINATION: TWO XRAY VIEWS [...] Sign Date: 08/29/2022 12:10:26 PM Ordering Provider: EVELYNE GONZALEZ [facility] 08-29-2022 Note ORIGINAL EXAMINATION: TWO XRAY VIEWS [...] Sign Date: 08/29/2022 12:10:26 PM Ordering Provider: EVELYNE GONZALEZ [facility] 08-29-2022 Anesthesiology Consult note Patient: JULIO JARRELL Age: 76 years Sex: Male : 1945 Associated Diagnoses: None Author: JOSE ALFREDO LÓPEZ Preoperative Information Time of last food or [...] list: Medical BMI 39.0-39.9,adult / SNOMED CT 682796634 / Confirmed BMI 38.0-38.9,adult / SNOMED CT 141378236 / Confirmed COPD without exacerbation / SNOMED CT 39287161 / Confirmed Diabetes mellitus / SNOMED CT 351485118 / Confirmed Shortness of breath on exertion / SNOMED CT 671030829 / Confirmed Former cigarette smoker / SNOMED CT 696176917 / Confirmed GERD without esophagitis / SNOMED CT 7845473796 / Confirmed Hyperlipidemia / SNOMED CT 72877057 / Confirmed Hypertension / SNOMED CT 73391305 / Confirmed Has received influenza vaccination in current influenza season / SNOMED CT 434810785 / Confirmed Mild depression / SNOMED CT 961465337 / Confirmed Need for influenza vaccination / SNOMED CT 099170342 / Confirmed Obesity due to excess calories / SNOMED CT 1602384683 / Confirmed Left knee pain / SNOMED CT 2624332880 / Confirmed Screening for prostate cancer / SNOMED CT 037700684 / Confirmed Screening for colon cancer / SNOMED CT 471195169 / Confirmed Medicare annual wellness visit, subsequent / SNOMED CT 764309122 / Confirmed Screening for ischemic heart disease / SNOMED CT 278602769 / Confirmed Screening for diabetes mellitus / SNOMED CT 722588913 / Confirmed Risk and functional assessment / SNOMED CT 931887150 / Confirmed Preop examination / SNOMED CT 706980716 / Confirmed Peripheral vascular disease / SNOMED CT 5601131050 / Confirmed Need for hepatitis C screening test / SNOMED CT 988806199 / Confirmed, Active Problems (23) BMI 38.0-38.9,adult [...] Mother Diabetes Mother Sister Procedure history: Cholecystectomy (55630619) on 03/30/2021 at 75 Years. Varicose vein ligation and stripping (877398469). Comments: 04/22/2019 8:04 Jessi Levin LPN left leg Social History Social & Psychosocial Habits Alcohol 1Risk Assessment: No Risk 08/14/2022 Use: Current Frequency: Daily Substance Abuse 04/22/2019 Use: Never 1Risk Assessment: No Risk Tobacco 08/26/2019 Tobacco Use: Former smoker, quit more Exposure to Tobacco Smoke Lives in non-smoking home 1Risk Assessment: No Risk Home/Environment 08/14/2022 Domestic Concerns [...] Resp Rate 18 br/min (AUG 29 07:47) ZWE063 mmHg (AUG 29:47) DBPL 55mmHg (AUG 29:47) BMI38.09 (AUG 29:47) Measurements from flowsheet : Measurements 08/29/2022 7:47 EST Height 172.7 cm Admission Weight 113.6 kg Weight Method Stated [place] Body Weight 68.38 kg Body Mass Index [...] Person #1 We May Share MADYSON STACK [phone] Designated Person #1 Relationship Spouse Privacy Restrictions Requested None Height 172.7 cm Admission Weight 113.6 kg Weight Method Stated [place] Body Weight 68.38 kg Body Mass Index [...] Safety Brochure Information Reviewed Unable to complete [facility] Video Viewed No Barriers to Learning None evident Teaching Method Explanation, Printed materials Teaching Evaluation Verbalizes/Nonverbally indicates understanding Preferred Written Language Belarusian Preferred Spoken Language Belarusian Information Given by Patient Patient's Current Physicians [...] Day Patient History . Assessment and Plan [place] Society of Anesthesiologists (ASA) physical status classification: Class III. Anesthetic Preoperative Plan Premedication: intravenous. Anesthetic technique: Spinal. Induction: intravenously. Maintenance airway: 40% FM. Postoperative pain management: Per surgeon. Informed consent: signed by patient. Digitally Signed by JOSE ALFREDO LÓPEZWHANAU SUPPORT WORKER on 08/29/2022 08:10 AM [facility] 08-23-2022 Note ORIGINAL NM MYOCARDIAL SPECT STRESS/REST [...] patient had similar perfusion Interpreted By: Joselito Shaw Preliminary Report By: Joselito Shaw Electronically Signed By: oJselito Shaw Dictated Date: 08/23/2022 12:06:22 PM Prelim Date: 08/23/2022 12:06:22 PM Sign Date: 08/23/2022 12:11:00 PM Ordering Provider:[facility] 08-23-2022 Note ORIGINAL NM MYOCARDIAL SPECT STRESS/REST [...] patient had similar perfusion Interpreted By: Joselito Shaw Preliminary Report By: Joselito Shaw Electronically Signed By: Joselito Shaw Dictated Date: 08/23/2022 12:06:22 PM Prelim Date: 08/23/2022 12:06:22 PM Sign Date: 08/23/2022 12:11:00 PM Ordering Provider:[facility] 08-23-2022 Note Lexiscan nuclear stress test Patient [...] suggest holter monitor Digitally Signed by JOSELITO SHAW MD on 08/23/2022 08:42 AM [facility] 08-14-2022 Note ORIGINAL EXAMINATION: CT OF THE [...] Date: 08/14/2022 11:44:52 AM Ordering Provider: EVELYNE CARLOS [facility] 08-14-2022 Note ORIGINAL EXAMINATION: CT OF THE [...] 08/14/2022 11:44:52 AM Ordering Provider: EVELYNE GONZALEZ [facility] 04-01-2021 Note [facility] 03-30-2021 Note [facility] Evaluation + Plan note Future Appointments Appointment Date:06/24/2021 08:00:00 AM Scheduled Provider:AAMIR LEVIN DO Location:[facility] Appointment Type:PC OV Future Scheduled TestsXR Chest 2 Views (PA & Lateral) 08/27/20 [facility] Evaluation + Plan note Future Appointments Appointment Date:08/14/2022 11:00:00 AM Scheduled Provider: Location:[facility] Appointment Type:CT Knee w/o Contrast Left Appointment Date:10/10/2022 08:00:00 AM Scheduled Provider:AAMIR LEVIN DO Location:[facility] Appointment Type:PC OV Future Scheduled TestsCT Knee w/o Contrast Left 08/14/22 [facility] Evaluation + Plan note Future Appointments Appointment Date:08/16/2022 02:00:00 PM Scheduled Provider:TROY LIRA Location:[facility] Appointment Type:CV FAST FOOD SUPERVISOR Appointment Date:08/31/2022 09:00:00 AM Scheduled Provider: Location:[facility] Appointment Type:PT Outpatient Evaluation Appointment Date:10/10/2022 08:00:00 AM Scheduled Provider:AAMIR LEVIN DO Location:[facility] Appointment Type:[facility] Evaluation + Plan note Future Appointments Appointment Date:08/31/2022 09:00:00 AM Scheduled Provider: Location:[facility] Appointment Type:PT Outpatient Evaluation Appointment Date:10/10/2022 08:00:00 AM Scheduled Provider:AAMIR LEVIN DO Location:[facility] Appointment Type:[facility] Evaluation + Plan note Future Appointments Appointment Date:02/06/2023 09:00:00 AM Scheduled Provider:AAMIR LEVIN DO Location:[facility] Appointment Type:[facility] Evaluation + Plan note Future Appointments Appointment Date:05/09/2023 08:30:00 AM Scheduled Provider:AAMIR LEVIN DO Location:[facility] Appointment Type:PC Wellness Medicare [facility] Evaluation + Plan note Future Appointments Appointment Date:09/05/2023 09:00:00 AM Scheduled Provider:AAMIR LEVIN DO Location:[facility] Appointment Type:[facility] Evaluation + Plan note Future Appointments Appointment Date:08/08/2023 10:30:00 AM Scheduled Provider: Location:[facility] Appointment Type:CT Abd/Pelvis w/ IV Contrast Only Appointment Date:09/05/2023 09:00:00 AM Scheduled Provider:AAMIR LEVIN DO Location:[facility] Appointment Type:PC OV Future Scheduled TestsCT Abd/Pelvis w/ IV Contrast Only 08/08/23 [facility] Evaluation + Plan note Future Appointments Appointment Date:09/05/2023 09:00:00 AM Scheduled Provider:AAMIR LEVIN DO Location:[facility] Appointment Type:[facility] Evaluation + Plan note Future Appointments Appointment Date:12/26/2023 10:00:00 AM Scheduled Provider:AAMIR LEVIN DO Location:[facility] Appointment Type:PC OV [facility] Evaluation + Plan note Future Appointments Appointment Date:04/24/2024 11:00:00 AM Scheduled Provider:AAMIR LEVIN DO Location:[facility] Appointment Type:PC OV [facility] Hospital course Narrative No data available for this section [facility] Hospital Discharge instructions No data available for this section [facility] Progress note No data available for this section [facility] Summary Purpose Family History No Family History [...] for this section No Family History Records FoundNo Family History Records Found Advance Directives No Advanced Directives Records FoundNo Advanced Directives Records FoundNo Advanced Directives Records Found Additional Source Comments (unrecognized sect ion and content) No Status Records FoundNo Status Records FoundNo Status Records Found INFORMATION SOURCE (unrecogn ized section and content) DATE CREATED AUTHOR 09/12/2021 [facility] Vanessa Tomlinson DATE CREATED AUTHOR AUTHOR'S ORGANIZ ATION 02/10/2024 [facility] ([place]) DATE CREATED AUTHOR AUTHOR'S ORGANIZ ATION 04/11/2024 [facility] Care Team (unrecognized sect ion and content) Care Team Personnel Name: AAMIR LEVIN DO Position: P4 Physician - Primary Care Member Role: Primary Care Physician Address: Address: [address] [place] [address] [facility] [place], [place] [address] Name: ADRYAN ESCALONA MD Member Role: Project Development Coordinator Address: Address: [address] [place] [id number] Name: EVELYNE GONZALEZ MD Position: P3 Physician - Orthopedics Member Role: Orthopaedist Address: Address: [address] [place] [address] [address] [facility]- Care Team Related Persons Name: PATSY JARRELL Address: Home [address] [phone] Care Team Personnel Name: AAMIR LEVIN DO Position: P4 Physician - Primary Care Member Role: Primary Care Physician Address: Address: [address] [place] [address] Name: ADRYAN ESCALONA MD Member Role: Project Development Coordinator Address: Address: [address] [place] [address] Name: EVELYNE GONZALEZ MD Position: P3 Physician - Orthopedics Member Role: Orthopaedist Address: Address: [address] [place] [address] [address] [facility] [place] [id number]- Care Team Related Persons Name: PATSY JARRELL Address: Home [address] [place] [phone] Care Team Personnel Name: AAMIR LEVIN DO Position: P4 Physician - Primary Care Member Role: Primary Care Physician Address: Address: [address] [place] [address] Name: ADRYAN ESCALONA MD Member Role: Project Development Coordinator Address: Address: [address] [place] [address] Name: EVELYNE GONZALEZ MD Position: P3 Physician - Orthopedics Member Role: Orthopaedist Address: Address: [address] [place] [address] [address] [facility] [place] [address]- Care Team Related Persons Name: PATSY JARRELL Address: Home [address], [phone] Care Team Personnel Name: AAMIR LEVIN DO Position: P4 Physician - Primary Care Member Role: Primary Care Physician Address: Address: [address] [place] [address] Name: ADRYAN ESCALONA MD Member Role: Project Development Coordinator Address: Address: [address] [place], [place] [id number] Name: EVELYNE GONZALEZ MD Position: P3 Physician - Orthopedics Member Role: Orthopaedist Address: Address: [address] [place] [address] 2 [facility] [address] Care Team Related Persons Name: PATSY JARRELL Address: Home [address] [place] [phone] Care Team Personnel Name: AAMIR LEVIN DO Position: P4 Physician - Primary Care Member Role: Primary Care Physician Address: Address: [address] [place] [address] Name: ADRYAN ESCALONA MD Member Role: Project Development Coordinator Address: Address: [address] [place] [address] Name: EVELYNE GONZALEZ MD Position: P3 Physician - Orthopedics Member Role: Orthopaedist Address: Address: [address] [place] [address] [facility] [address] Care Team Related Persons Name: PATSY JARRELL Address: Home [address] [phone] Patient Care team informatio n (unrecognized section and content) Care Team Personnel Name: AAMIR LEVIN DO Position: P4 Physician - Primary Care Member Role: Primary Care Physician Address: Address: [address] [place] [address] Name: ADRYAN ESCALONA MD Member Role: Project Development Coordinator Address: Address: [address] [place], [place] [id number] Name: EVELYNE GONZALEZ MD Position: P3 Physician - Orthopedics Member Role: Orthopaedist Address: Address: [address] [place] [address] 2 [facility] [address] Care Team Related Persons Name: PATSY JARRELL Address: Home [address] [facility] [address] [place] [phone] Care Team Personnel Name: AAMIR LEVIN DO Position: P4 Physician - Primary Care Member Role: Primary Care Physician Address: Address: [address] [place] [address] Name: ADRYAN ESCALONA MD Member Role: Project Development Coordinator Address: Address: [address] [place] [id number] Name: EVELYNE GONZALEZ MD Position: P3 Physician - Orthopedics Member Role: Orthopaedist Address: Address: [address] [place] [address] [address] [facility] [place] [address]- Care Team Related Persons Name: PATSY JARRELL Address: Home [address] [place] [address] [phone] Care Team Personnel Name: AAMIR LEVIN DO Position: P4 Physician - Primary Care Member Role: Primary Care Physician Address: Address: [address] [place] [address] Name: ADRYAN ESCALONA MD Member Role: Project Development Coordinator Address: Address: [address] [place], [place] [id number] Name: EVELYNE GONZALEZ MD Position: P3 Physician - Orthopedics Member Role: Orthopaedist Address: Address: [address] [place] [address] [address] [facility] [place] [id number]- Care Team Related Persons Name: PATSY JARRELL Address: Home [address] [facility] [address] [place] [phone] Care Team Personnel Name: AAMIR LEVIN DO Position: P4 Physician - Primary Care Member Role: Primary Care Physician Address: Address: [address] [place] [address] Name: ADRYAN ESCALONA MD Member Role: Project Development Coordinator Address: Address: [address] [place], [place] [id number] [place] Name: EVELYNE GONZALEZ MD Position: P3 Physician - Orthopedics Member Role: Orthopaedist Address: Address: [address] [place] [address] [address] [facility] [place] [address]- Care Team Related Persons Name: PATSY JARRELL Address: Home [address], [place] [phone] Care Team Personnel Name: AAMIR LEVIN DO Position: P4 Physician - Primary Care Member Role: Primary Care Physician Address: Address: [address] [place] [address] [place] [address]- Name: ADRYAN ESCALONA MD Member Role: Project Development Coordinator Address: Address: [address] [place], [place] [id number] [place] Name: EVELYNE GONZALEZ MD Position: P3 Physician - Orthopedics Member Role: Orthopaedist Address: Address: [address] [place] [address] [address] [facility] [place] [id number]- Care Team Related Persons Name: PATSY JARRELL Address: Home [address] [place] [phone] Care Team Personnel Name: AAMIR LEVIN DO Position: P4 Physician - Primary Care Member Role: Primary Care Physician Address: Address: [address] [place] [address]- Name: ADRYAN ESCALONA MD Member Role: Project Development Coordinator Address: Address: [address] [place], [place] [id number] [place] Name: EVELYNE GONZALEZ MD Position: P3 Physician - Orthopedics Member Role: Orthopaedist Address: Address: [address] [place] [address] 2 [facility] [place], [facility]- Care Team Related Persons Name: PATSY JARRELL Address: Home [address] [phone] Care Team Personnel Name: AAMIR LEVIN DO Position: P4 Physician - Primary Care Member Role: Primary Care Physician Address: Address: [address] [place] [address]- Name: ADRYAN ESCALONA MD Member Role: Project Development Coordinator Address: Address: [address] [place], [place] [id number] [place] Name: EVELYNE GONZALEZ MD Position: P3 Physician - Orthopedics Member Role: Orthopaedist Address: Address: [address] [place] [address] 2 [facility] [place]- [place] Care Team Related Persons Name: PATSY JARRELL Address: Home [address] [facility] [address] [place] [phone] Care Team Personnel Name: AAMIR LEVIN DO Position: P4 Physician - Primary Care Member Role: Primary Care Physician Address: Address: [address] [place] [address]- Name: ADRYAN ESCALONA MD Member Role: Project Development Coordinator Address: Address: [address] [place] [phone] Name: EVELYNE GONZALEZ MD Position: P3 Physician - Orthopedics Member Role: Orthopaedist Address: Address: [address] [place] [address] [address] [facility] [place] [id number]- Care Team Related Persons Name: PATSY JARRELL Address: Home [address], [place] [phone] Care Team Personnel Name: AAMIR LEVIN DO Position: P4 Physician - Primary Care Member Role: Primary Care Physician Address: Address: [address] [place] [address] Name: ADRYAN ESCALONA MD Member Role: Project Development Coordinator Address: Address: [address] [place] [address] [place] Name: EVELYNE GONZALEZ MD Position: P3 Physician - Orthopedics Member Role: Orthopaedist Address: Address: [address] [place] [address] [address] [facility] [place] [id number]- Care Team Related Persons Name: PATSY JARRELL Address: Home [address] [place] [phone] Care Team Personnel Name: AAMIR LEVIN DO Position: P4 Physician - Primary Care Member Role: Primary Care Physician Address: Address: [address] [place] [address] Name: ADRYAN ESCALONA MD Member Role: Project Development Coordinator Address: Address: [address] [place], [place] [address] [place] Name: EVELYNE GONZALEZ MD Position: P3 Physician - Orthopedics Member Role: Orthopaedist Address: Address: [address] [place] [address] [address] [facility] [place] [id number]- Care Team Related Persons Name: PATSY JARRELL Address: Home [address], [place] [phone] FOR RECORDS PERTAINING TO PATIENTS WHO ARE [...] BE BASED ON THE PRIMARY CLINICAL RECORDS. [facility] provides no warranty or guarantee of the accuracy or completeness of information in this document.
[2024-05-16 08:09] LABS: CREATININE FINGERSTICK 1.3 mg/dL (0.70-1.30)
[2024-05-16] MEDS: 0.9 % NaCl (Sterile) Posiflush 10 mL IV (08:30)
[2024-05-16] MEDS: 0.9% Saline Lock 10 ML Syringe IV (08:40)
== END | disposition home or self-care (01) ==
PROVIDERS: PCP Family Medicine; Referring Provider Internal Medicine Medical Oncology; Visit Provider Internal Medicine Medical Oncology
DX: C67.8 Malignant neoplasm of overlapping sites of bladder (principal)
CPT/HCPCS: 71260; 74177; Q9967; A4216

== ENCOUNTER 2024-07-05 10:27 | Emergency (ER) | payer MEDICARE, SELFPAY ==
[2024-07-05] VITALS (17 sets, daily range): BP systolic 119–188; BP diastolic 55–115; PULSE 65–85; RESP 14–24; TEMP -17.7–36.6; O2SAT 93–98; BMI 34.0
--- NOTE | 2024-07-05 10:17 | EKG12_ITS ---
Test Reason : NEURO Blood Pressure : */* mmHG Vent. Rate : 64 BPM Atrial Rate : 64 BPM P-R Int : 284 ms QRS Dur : 100 ms QT Int : 432 ms P-R-T Axes : 77 56 76 degrees QTcB Int : 445 ms Sinus rhythm with 1st degree A-V block Otherwise normal ECG Confirmed by CHRISTIAN MARIANO, ERIC ([id number]), assignment editor STEPHY FONTAINE ([id number]) on 07/09/2024 1:36:53 P M Referred By: Confirmed By: ERIC GONZALES MD
--- NOTE | 2024-07-05 10:17 | CT_ITS ---
EXAM: CT HEAD WITHOUT INTRAVENOUS CONTRAST CLINICAL INDICATION: Neuro deficit, acute, stroke suspected TECHNIQUE: Multiple axial images were obtained of the head without intravenous contrast. This CT exam was performed using one or more of the following dose reduction techniques: automated exposure control, adjustment of the mA and/or kV according to patient size, and/or use of iterative reconstruction technique. RADIATION DOSE: CTDIvol = 44.99 mGy, DLP = 863.60 mGy-cm COMPARISON: Whole body PET/CT fusion scan 05/27/2024. FINDINGS: BRAIN AND EXTRA-AXIAL SPACES: 1.9 cm hypodense mass with cystic necrosis in the right lateral occipitotemporal gyrus with surrounding vasogenic edema and smaller mass with surrounding vasogenic edema in the right precentral gyrus are brain metastatic masses until proven otherwise. No intracranial bleeding. No midline shift. No evidence of acute infarct. There is preservation of the benson/white matter interface. Posterior fossa structures are unremarkable. Ventricles are appropriate for age. No hydrocephalus. Basal cisterns are patent. BONES/JOINTS: Unremarkable. No discrete lytic or blastic abnormalities. SINUSES: Unremarkable as visualized. Clear. MASTOID AIR CELLS: Unremarkable. Clear. ORBITS: Visualized globes, extraocular muscles, optic nerves and retrobulbar fat appear unremarkable. CT/STROKE Brain/Head without Cont IMPRESSION: 1. 1.9 cm hypodense mass with cystic necrosis in the right lateral occipital temporal gyrus with surrounding vasogenic edema and smaller low-attenuation mass with surrounding vasogenic edema in the right precentral gyrus. They are brain metastatic masses until proven otherwise. MRI brain with and without contrast will help determine the extent of brain metastases. 2. No CT evidence of intracranial bleeding, acute ischemic infarct or acute intracranial abnormality. 3. Total ASPECTS score: 10/10. N.B. : The above Results were Read Back by Sukh Juárez MD to Vimal Kovacs MD, and understanding confirmed on 07/05/2024 10:31:44 (ET). Electronically Signed: Sukh Juárez MD at 10:34 EST ,
--- NOTE | 2024-07-05 10:18 | CT_ITS ---
STUDY: CTA HEAD AND NECK WITH CONTRAST REASON FOR EXAM: Male, 78 years old. Neuro deficit, acute, stroke suspected. History of bladder cancer RADIATION DOSAGE (If Supplied By Facility): CTDIvol = ( 21.25 ) mGy, DLP = ( 1150.16 ) mGycm TECHNIQUE: CT angiography was performed with a multi-detector CT scanner. Data acquisition was obtained from the skull base through the vertex following intravenous administration of IV 100mL Isovue-370. MIP images were reconstructed from the axial data set. Post-processing of the angiographic images was performed, with multiplanar reformation and 3D reconstruction. Individualized dose optimization techniques were used for this CT. The protocol utilizes one or more of the following dose reduction techniques: automated exposure control, adjustment of mA and/or kV according to patient size, and/or use of iterative reconstruction technique. COMPARISON: No relevant priors. FINDINGS: Normal bilateral petrous carotid arteries. Normal right cavernous carotid artery with a normal supraclinoid bifurcation. Normal left cavernous carotid artery with a normal supraclinoid bifurcation. Normal right A1 segment of the anterior cerebral artery. Normal left A1 segment of the anterior cerebral artery. Normal intact anterior communicating artery (ACOM). Normal bilateral A2 segments of the anterior cerebral arteries. Normal right M1 and M2 segments of the middle cerebral arteries, with a normal M1 bifurcation. Normal left M1 and M2 segments of the middle cerebral arteries, with a normal M1 bifurcation. No visible right posterior communicating artery (PCOM). No visible left posterior communicating artery (PCOM). Normal bilateral vertebral arteries. Normal basilar artery with a normal basilar bifurcation. The visualized bilateral superior cerebellar (SCA) arteries are normal. Normal bilateral P1, P2 and visualized P3 segments of the posterior cerebral arteries. There is no demonstrated aneurysm of the [place]. There is no demonstrated abnormality of the visualized brain. AORTIC ARCH: Normal visualized aortic arch. Normal origins of the brachiocephalic, left common carotid, and left subclavian arteries. RIGHT CAROTID ARTERIES: Normal right common carotid artery (CCA). Nonocclusive calcified plaques in the right carotid bulb. Widely patent origin of the right internal carotid (ICA) artery and proximal internal carotid artery. Normal remaining visualized cervical portion of the right internal carotid artery. Nonocclusive calcified plaques at the widely patent origin of the right external carotid artery (ECA). LEFT CAROTID ARTERIES: Normal left common carotid artery (CCA). Nonocclusive calcified plaques in the left carotid bulb. Widely patent origin of the left internal carotid (ICA) artery and right proximal internal artery. Normal remaining visualized cervical portion of the left internal carotid artery. Normal origin of the left external carotid artery (ECA). VERTEBRAL ARTERIES: Normal bilateral vertebral arteries. The left vertebral artery is dominant. CT/STROKE CTA Head AND Neck W/Con IMPRESSION: 1. No CTA evidence any suspicious vaso-occlusive disease of the anterior and posterior intracranial circulation. 2. No CTA evidence of aneurysm or AVM. 3. 1.9 cm brain metastatic mass with extensive surrounding vasogenic edema in the right lateral occipitotemporal gyrus and smaller brain metastatic mass with minimal surrounding vasogenic edema in the right precentral gyrus. Unfortunately, this is a CTA Head rather than routine contrast CT head scan. This limits visualization of contrast enhancement of brain metastases. MRI brain with and without contrast will be very helpful for further evaluation. 4. Widely patent bilateral cervical carotid arteries and vertebral arteries. 5. Normal aortic arch and origins of the great vessels. 6. Grade 1 degenerative anterolisthesis of T1 on T2 and T2 on T3. 7. Pronounced degenerative disc space height narrowing with endplate sclerosis at C4-C5, C5-C6 and C6-C7 disc space levels. N.B. : The above Results were Read Back by Sukh Juárez MD to Vimal Kovacs MD, and understanding confirmed on 07/05/2024 10:58:10 (ET). Electronically Signed: Sukh Juárez MD at 10:58 EST ,
--- NOTE | 2024-07-05 10:19 | EDS_ITS ---
HPI History of Present Illness Chief Complaint: Stroke Alert Detail of Chief Complaint: Mute Informant: EMS Onset/Context/Timing Onset: Today (Last known well 399) Context: - (Unknown) Timing: Continuous (Presumed) Quality and Location: Positive for Expressive Aphasia Onset: Last known well 399 Current Severity: Severe Maximum Severity: Severe Worsened by: Nothing Relieved by: Nothing Associated Symptoms Associated Symptoms: Positive for - (When patient returns from scan we will determine if he is able to write his answers.) Narrative Narrative: Patient is 78-year-old male. He has history of pulmonary embolus on anticoagulant, bladder cancer, hypertension, hypercholesterolemia. Who presents because of inability to speak. Squad states he answered 3 to all questions. He has no answer any questions when asked in the osteopathic neurologist area. Patient was taken straight to scan. He does not appear to have motor or sensory deficit. He does recognize things. When I pointed to my watch he looked at his watch. Dr. Jonathan Talley's note authored June 23 was reviewed. Patient had a CT urogram on August 08, 2023 at [facility] it showed asymmetric irregular wall thickening along the right posterior lateral bladder wall measuring 4.7 x 2.2 x 2.2 cm with no evidence of metastasis. He underwent TURP on August 31, 2023. There is a 6 cm bladder tumor noted. 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 Patient's was diagnosed with NE yesterday admitted to the hospital. He was last seen by family. Son called at 4 AM. He was speaking at that time. He was checked on this morning and was noted to be wandering the house unable to speak. Per paramedics his only response to questions asked was 3. Presently he is not speaking. In my opinion he was last known well at 0400. Prior similar symptoms: No Recent Illness/Hospitalization: No PFSH COUNT INCLUDES THE [facility] Medical History Pulmonary embolism Diverticulitis Elevated BUN Hypokalemia Encounter for chemotherapy management Wears glasses Arthritis High cholesterol Seasonal allergies Gastric reflux Former smoker Shortness of breath on exertion History of edema History of echocardiogram History of stress test History of atrial fibrillation Encounter for education Type 2 diabetes mellitus Secondary hypertension Painful micturition Nocturia Hematuria Frequency of micturition Dysuria Neoplasm of uncertain behavior of bladder Gross hematuria Home Medications ?Medication ?Instructions ?Recorded ?Last Taken ?Type cholecalciferol (vitamin D3) 50 50 mcg PO DAILY 09/18/23 10/22/23 History mcg (2,000 unit) capsule diphenhydramine HCl 25 mg capsule 25 mg PO QHS PRN allergy symptoms 09/18/23 Unknown History (Allergy (diphenhydramine)) fenofibrate nanocrystallized 145 145 mg PO DAILY 09/18/23 10/22/23 History mg tablet hydrochlorothiazide 25 mg tablet 25 mg PO DAILY 09/18/23 10/22/23 History lisinopril 5 mg tablet 5 mg PO DAILY 09/18/23 10/23/23 08:30 History metoprolol tartrate 100 mg tablet 100 mg PO BID 09/18/23 10/23/23 08:30 History multivitamin 1 tab PO DAILY 09/18/23 10/22/23 History simvastatin 10 mg tablet 10 mg PO DAILY 09/18/23 10/22/23 History ondansetron 8 mg disintegrating 8 mg PO Q8H PRN nausea and 10/22/23 Unknown Rx tablet vomiting #30 tabs docusate sodium 100 mg capsule 100 mg PO DAILY 12/05/23 Unknown History (Colace) apixaban 2.5 mg tablet (Eliquis) 2.5 mg PO BID #60 tabs 05/20/24 Unknown Rx lidocaine-prilocaine 2.5 %-2.5 % 1 applic topical ONCE PRN port 06/11/24 Unknown Rx topical cream access 30 days #30 grams Allergy/AdvReac Type Severity Reaction Status Date / Time No Known Drug Allergies Allergy unknown Verified 07/05/24 10:37 Surgical History H/O left knee surgery History of transurethral resection of bladder tumor (TURBT) H/O cystoscopy History of cholecystectomy Social History household members: spouse Smoking Status: Former smoker alcohol intake: current ROS ROS ED Review of Systems ROS Unobtainable: other Details: Mute EXAM Physical Exam Const Vital Signs: 07/05/24 10:17 07/05/24 10:33 07/05/24 10:56 Temperature 0 F L Temperature Source Oral Pulse Rate 65 66 Respiratory Rate 18 15 Blood Pressure 158/80 H 171/96 H Blood Pressure Mean 106 121 Pulse Ox 98 93 97 Oxygen Delivery Method Room Air Room Air Room Air Oxygen Flow Rate (L/min) 07/05/24 11:17 07/05/24 12:16 07/05/24 12:35 Temperature 97.8 F Temperature Source Temporal Pulse Rate 77 77 78 Respiratory Rate 15 19 H 18 Blood Pressure 187/84 H 188/82 H 155/84 H Blood Pressure Mean 118 117 107 Pulse Ox 93 96 96 Oxygen Delivery Method Nasal Cannula Nasal Cannula Nasal Cannula Oxygen Flow Rate (L/min) 3 3 3 07/05/24 14:00 07/05/24 15:00 Temperature 97.2 F L Temperature Source Temporal Pulse Rate 74 72 Respiratory Rate 19 H 16 Blood Pressure 132/56 H 126/56 H Blood Pressure Mean 81 79 Pulse Ox 95 95 Oxygen Delivery Method Room Air Room Air Oxygen Flow Rate (L/min) 3 Positive well nourished and well developed General Appearance ED: well developed and NAD HEENT Reports moist mucous membranes atraumatic Nose: other Other Details: Grossly unremarkable Eyes PERRL and EOMs intact bilaterally Eyes Narrative: There is no nystagmus. General Eye ED: Negative for pale conjunctiva or scleral icterus Neck no lymphadenopathy, supple and no JVD Resp normal respiratory effort and clear to auscultation bilaterally Cardio no murmurs Rate: regular rate Rhythm: regular rhythm GI normal to inspection, nondistended, normoactive bowel sounds, soft to palpation, non-tender, non-distended and no masses Extremity normal to inspection General Extremety ED: Negative for deformity or edema General Extremity: Negative for deformity or edema Neuro Neuro Narrative: Patient is mute. In my opinion he has no motor or sensory deficit. There is no cranial nerve deficit. Yadi Coma Scale: document GCS findings Spontaneous Obeys Commands None 11 Sensorium / Orientation: alert Psych mental status grossly normal Skin General Skin Exam: Negative for jaundice Lesions: no lesions Rashes: no rashes NIHSS NIHSS Initial: 1a Level of Consciousness: 1 1b LOC Questions (Score 2 if aphasic/stupor): 2 1c LOC Commands (Only score 1st attempt): 0 2 Best Gaze (If aphasic, use reflexive mvmts.): 0 3 Visual: 0 4 Facial Palsy: 1 5 Motor Arm Right (UN = amputation/fusion): 0 5 Motor Arm Left: 0 6 Motor Leg Right: 0 6 Motor Leg Left: 0 7 Limb ataxia (Only + if out of proportion): 0 8 Sensory (Aphasia/stupor=0 or 1, coma=2): 0 9 Best Language: 2 10 Dysarthria (mute, coma=2, intubated=UN): 2 11 Extinction and Inattention (only scored if +): 0 Total Score: 8 MDM MDM MDM Narrative Medical decision making narrative: Differential diagnosis includes intracranial bleed since he is on anticoagulant, nonischemic stroke involving Broca's area 41/42. Transient global amnesia, doubt metabolic or infectious cause. Stroke alert was called. Patient is not a candidate for thrombolytics since last known well was 6 hours ago and he is on anticoagulant i.e. apixaban 2.5 mg twice daily for history/prior PE. History & Record Review Additional record(s) reviewed:: Prior inpatient record, Prior outpatient record (Office note authored by Dr. Jonathan Nunez June 23, 2024, Dr. Oscar Ta's note for management of vascular access also reviewed urology outpatient correspondence from September 17. Patient had a PET scan in May which revealed lesion in the left hilum, left pelvis.), Prior ED visit and Prior labs Lab Data Attestation: I reviewed the patient's lab results. Lab results narrative: CBC is unremarkable. Coags are unremarkable. Electrolyte panel is unremarkable. Sodium BUN slightly up at 22. Glucose elevated to 61 with a normal CO2 anion gap. Suspect this will rise due to the fact that he received Decadron for his vasogenic edema. Labs: Laboratory Results - last 24 hr 07/05/24 10:19 WBC 5.0 RBC 4.45 L Hgb 13.4 Hct 41.0 MCV 92.1 MCH 30.1 MCHC 32.7 RDW Std Deviation 45.7 H RDW Coeff of Chen 13.7 Plt Count 317 MPV 9.8 Immature Gran % (Auto) 0.800 Neut % (Auto) 58.8 Lymph % (Auto) 23.9 [place] % (Auto) 8.7 Eos % (Auto) 6.8 H Baso % (Auto) 1.0 Absolute Neuts (auto) 3.0 Absolute Lymphs (auto) 1.20 Nucleated RBC % 0 PT 14.0 INR 1.1 APTT 28.2 Sodium 135 L Potassium 3.6 Chloride 101 Carbon Dioxide 26.0 Anion Gap 8 BUN 22 H Creatinine 1.23 Estim Creat Clear Calc 60.77 Est GFR (MDRD) Af Amer 73 Est GFR (MDRD) Non-Af 60 BUN/Creatinine Ratio 17.9 Glucose 261 H Calcium 9.6 Troponin I High Sens 17 Radiography Chest X-Ray - ED: 1 View and Read by ED Physician (Interpreted by me at 1058. Patient has a port noted right subclavian. There is no evidence of pneumothorax, effusion or any significant acute parenchymal changes. Cardiac silhouette and size normal. Hilum is unremarkable. Osseous structures are unremarkable.) Diagnostic Testing: Clinical Impression(s) from Imaging Studies Brain CT 07/05/24 10:17 IMPRESSION: 1. 1.9 cm hypodense mass with cystic necrosis in the right lateral occipital temporal gyrus with surrounding vasogenic edema and smaller low-attenuation mass with surrounding vasogenic edema in the right precentral gyrus. They are brain metastatic masses until proven otherwise. MRI brain with and without contrast will help determine the extent of brain metastases. 2. No CT evidence of intracranial bleeding, acute ischemic infarct or acute intracranial abnormality. 3. Total ASPECTS score: 1010. N.B. : The above Results were Read Back by Sukh Juárez MD to Vimal Kovacs MD, and understanding confirmed on 07/05/2024 10:31:44 (ET). Electronically Signed: Sukh Juárez MD at 10:34 EST Reading Location ID and State: [address] [place] [address] , Service support , ADDENDUM: 07/05/24 1041 IMPRESSION: 1. 1.9 cm hypodense mass with cystic necrosis in the right lateral occipital temporal gyrus with surrounding vasogenic edema and smaller low-attenuation mass with surrounding vasogenic edema in the right precentral gyrus. They are brain metastatic masses until proven otherwise. MRI brain with and without contrast will help determine the extent of brain metastases. 2. No CT evidence of intracranial bleeding, acute ischemic infarct or acute intracranial abnormality. 3. Total ASPECTS score: 1010. N.B. : The above Results were Read Back by Sukh Juárez MD to Vimal Kovacs MD, and understanding confirmed on 07/05/2024 10:31:44 (ET). Electronically Signed: Sukh Juárez MD at 10:34 EST , Head/Neck CTA 07/05/24 10:18 IMPRESSION: 1. No CTA evidence any suspicious vaso-occlusive disease of the anterior and posterior intracranial circulation. 2. No CTA evidence of aneurysm or AVM. 3. 1.9 cm brain metastatic mass with extensive surrounding vasogenic edema in the right lateral occipitotemporal gyrus and smaller brain metastatic mass with minimal surrounding vasogenic edema in the right precentral gyrus. Unfortunately, this is a CTA Head rather than routine contrast CT head scan. This limits visualization of contrast enhancement of brain metastases. MRI brain with and without contrast will be very helpful for further evaluation. 4. Widely patent bilateral cervical carotid arteries and vertebral arteries. 5. Normal aortic arch and origins of the great vessels. 6. Grade 1 degenerative anterolisthesis of T1 on T2 and T2 on T3. 7. Pronounced degenerative disc space height narrowing with endplate sclerosis at C4-C5, C5-C6 and C6-C7 disc space levels. N.B. : The above Results were Read Back by Sukh Juárez MD to Vimal Kovacs MD, and understanding confirmed on 07/05/2024 10:58:10 (ET). Electronically Signed: Sukh Juárez MD at 10:58 EST , ADDENDUM: 07/05/24 1105 IMPRESSION: 1. No CTA evidence any suspicious vaso-occlusive disease of the anterior and posterior intracranial circulation. 2. No CTA evidence of aneurysm or AVM. 3. 1.9 cm brain metastatic mass with extensive surrounding vasogenic edema in the right lateral occipitotemporal gyrus and smaller brain metastatic mass with minimal surrounding vasogenic edema in the right precentral gyrus. Unfortunately, this is a CTA Head rather than routine contrast CT head scan. This limits visualization of contrast enhancement of brain metastases. MRI brain with and without contrast will be very helpful for further evaluation. 4. Widely patent bilateral cervical carotid arteries and vertebral arteries. 5. Normal aortic arch and origins of the great vessels. 6. Grade 1 degenerative anterolisthesis of T1 on T2 and T2 on T3. 7. Pronounced degenerative disc space height narrowing with endplate sclerosis at C4-C5, C5-C6 and C6-C7 disc space levels. N.B. : The above Results were Read Back by Sukh Juárez MD to Vimal Kovacs MD, and understanding confirmed on 07/05/2024 10:58:10 (ET). Electronically Signed: Sukh Juárez MD at 10:58 EST , Chest X-Ray 07/05/24 10:57 IMPRESSION: 1. No acute findings in the chest. 2. 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 3. No interval change. Electronically Signed: Sukh Juárez MD at 11:11 EST , CT of the head was independent reviewed by me. Unenhanced scan reveals evidence of vasogenic edema and metastasis to the brain. Awaiting formal read by radiologist. This was reviewed by me at 1026. Rhythm Strip Rhythm Strip: Sinus Rhythm Rate: 66 (Complexes are narrow.) Ectopy: None EKG Initial EKG: Attestation: I personally reviewed and interpreted this EKG as follows: Interpretation: Sinus Rhythm (Rate is 64 with a first-degree AV block. NC interval is 284 ms. QRS duration 100 ms. QT duration 432 ms. [place] is normal. Other than the first-degree block there is no acute abnormalities.) Management Discussion w/another healthcare provider: Hospitalist (Spoke with hospitalist at [facility] Dr. Werner. The hospitalist made aware that neurosurgery did review images and would follow patient. He did accept patient. He did request administering IV Keppra. Asked if he would like patient loaded with 70 mg/kg. He requested 1 g. This is essentia), Radiologist and Other (Spoke with Dr. Ischarus' on-call for Dr. Jonathan Nunez to inform him of patient's history, physical, findings and reason for transfer) Treatment and Re-Evaluation Narrative: Daughter was at bedside was informed of the CAT scan results. She requested transfer to [place] where her mother has. Mother was diagnosed with a glioblastoma March of this year and apparently was admitted last evening for myocardial infarction. Son Cruz informing that 1 week ago his father told him that he was confused. Daughter states he called her at 1030. Stated he had trouble driving. His speech was initially normal then became garbled and unrecognizable. lead technologist in cytogenetics was instructed to send images to [facility]. These were available for the neurosurgeon to review. I was informed that patient is complaining of headache. Verbal order was given for Dilaudid. The afternoon physician was made aware of the patient in the event that he deteriorated or needed to intervene. Disposition has been made. Awaiting for bed assignment at accepting hospital. Stroke Documentation Questions Stroke Team Activated: Yes Reviewed Inclusion/Exclusion criteria: Yes IV Thrombolytic Administered: No (Patient is on apixaban 2.5 mg twice daily.) No contraindications from thrombolytic administration: No Critical Care Time Critical Care Time: Yes Critical care time (excluding procedures): 30-74 minutes (32), Including time spent: (History, physical, documentation, review of prior records, independent rotation of laboratory results, CAT scan and treatment for vasogenic edema due to metastatic lesions to the brain), Discussing w/Patient &/or Family/Manager Of Disaster Recovery (Discussion with daughter who is at bedside. She was made aware of findings. She requested patient be transferred to [facility] where her mother was admitted last evening. 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, Malignant neoplasm of bladder metastatic to intra-abdominal lymph node, Hyponatremia, Anticoagulant long-term use Prescriptions: No Action hydrochlorothiazide 25 mg tablet 25 mg PO DAILY cholecalciferol (vitamin D3) 50 mcg (2,000 unit) capsule 50 mcg PO DAILY diphenhydramine HCl [Allergy (diphenhydramine)] 25 mg capsule 25 mg PO QHS PRN (Reason: allergy symptoms) fenofibrate nanocrystallized 145 mg tablet 145 mg PO DAILY lisinopril 5 mg tablet 5 mg PO DAILY metoprolol tartrate 100 mg tablet 100 mg PO BID multivitamin Tablet 1 tab PO DAILY simvastatin 10 mg tablet 10 mg PO DAILY ondansetron 8 mg tablet,disintegrating 8 mg PO Q8H PRN (Reason: nausea and vomiting) Qty: 30 2RF Patient Comments: HAVE NOT PICKED UP AT PHARMACY YET docusate sodium [Colace] 100 mg capsule 100 mg PO DAILY Eliquis 2.5 mg tablet 2.5 mg PO BID Qty: 60 3RF lidocaine-prilocaine 2.5-2.5 % cream 1 applic topical ONCE PRN (Reason: port access) 30 Days Qty: 30 2RF Patient Comments: HAVE NOT STARTED YET Primary Care Provider: Prua Rodriguez Referrals: Pura Rodriguez DO [Primary Care Provider] - Print Language: Armenian Disposition Disposition: Acute Care Hospital Discharge Location: [facility]
[2024-07-05 10:24] LABS: Basophil# 0.05 X10^3/uL; Eosinophil# 0.34 X10^3/uL; Eosinophils% 6.8 % (0-5); Hemoglobin 13.4 g/dL (13.0-16.5); Lymphocyte % 23.9 % (19-41); Mean Corp Hgb Conc 32.7 g/dL (32-36); Mean Corpuscular Hgb 30.1 pg (27.0-32.0); Mean Corpuscular Volume 92.1 fL (80-94); Mean Platelet Vol. 9.8 fl (6.2-12.0); Monocyte# 0.44 X10^3/uL; Monocyte% 8.7 % (0-10); NRBC Flagged by Analyzer 0 % (0-5); Neutrophil # 2.96 X10^3/uL (2.7-7.7); Neutrophil % 58.8 % (47-70); Platelet Count 317 K/mm3 (150-450); RBC Distribution Width CV 13.7 % (11.6-14.6); RBC Distribution Width SD 45.7 fl (35.1-43.9); Red Blood Count 4.45 M/mm3 (4.6-6.2)
[2024-07-05 10:32] LABS: International Normalized Ratio 1.1
[2024-07-05 10:33] LABS: Partial Thromboplast Time 28.2 Seconds (24.1-36.2)
--- NOTE | 2024-07-05 10:35 | CM.ED ---
Social Work: Date of referral: 07/05/2024 Reason for Referral: Stroke Alert picking table worker provided comfort and emotional support to daughter of patient, Maddie of [place] was was very tearful. Maddie stated her mother just had a heart attack last night and is at [facility] where Maddie stayed at until roughly 3 or 4 am. Maddie stated patient called her this morning on his way to visit his and was presenting with slurred speech and stated he couldn't remember things, and turned around to go home. Maddie called 911 and drove over to patient's house. Maddie stated she is very overwhelmed, stated she has two brothers but stated everything falls on her. Maddie stated both of her parents got cancer at the same time, patient had been in remission and now has suspected cancer again. Patient is said to have refused confirmation of current cancer diagnosis however is getting treatment anyway. Patient's lives in a SNF and is said to have aggressive, inoperable brain cancer. Maddie denied the need for any additional support at this time. Angelina Almodovar, [employer], RN UROLOGY
[2024-07-05] MEDS: dexAMETHasone 10 MG/ML Vial IV (10:41)
[2024-07-05 10:42] LABS: Anion Gap 8 (5-15); BUN 22 mg/dL (7-18); BUN/Creat Ratio 17.9 RATIO (10-20); Calcium,Total 9.6 mg/dL (8.5-10.1); Chloride 101 mmol/L (98-107); Creatinine, Serum 1.23 mg/dL (0.70-1.30); EST Glomerular Filtration Rate 60 mL/min (>60); Est Glom Filt Rate - Afr Amer 73 mL/min (>60); Estimated Creatinine Clearance 60.77 ml/min; Glucose 261 mg/dL (74-106); Potassium 3.6 mmol/L (3.5-5.1); Sodium Level 135 mmol/L (136-145); Troponin-I HS 17 pg/mL (3.0-78.0)
--- NOTE | 2024-07-05 10:57 | RAD_ITS ---
EXAM: XR CHEST, 1 VIEW CLINICAL INDICATION: Neuro deficit, acute, stroke suspected TECHNIQUE: Frontal view of the chest. COMPARISON: 03/27/2024. FINDINGS: LUNGS AND PLEURAL SPACES: Unremarkable. No pneumothorax. No effusion. No suspicious infiltrates, consolidation or edema. HEART: Unremarkable. Cardiac silhouette not enlarged. MEDIASTINUM: Central airways and mediastinal contour are unremarkable. 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 No acute fracture. SOFT TISSUES: Unremarkable. TUBES, LINES AND DEVICES: Right IJ approach [id number] tip remains in the distal SVC. RAD/Chest 1 View IMPRESSION: 1. No acute findings in the chest. 2. 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 3. No interval change. Electronically Signed: Sukh Juárez MD at 11:11 EST ,
[2024-07-05] MEDS: levETIRAcetam IV 1,000 MG/100 ML BAG 400 MG IV (12:34)
[2024-07-05] MEDS: HYDROmorphone 1 MG/ML Syringe 0.5 MG IV (15:21)
--- NOTE | 2024-07-05 20:14 | ED.RN ---
Spoke to Maddie, family member listed in patient's contacts, about transfer hospital and currently waiting on a bed assignment for pt. Questions/concerns answered
== END 2024-07-05 22:24 | disposition short-term general hospital (02) ==
PROVIDERS: Emergency Provider Emergency Medicine; PCP Family Medicine; Visit Provider Emergency Medicine
DX: C61 Malignant neoplasm of prostate (principal); C79.40 Secondary malignant neoplasm of unspecified part of nervous system; C79.89 Secondary malignant neoplasm of other specified sites; C77.2 Secondary and unspecified malignant neoplasm of intra-abdominal lymph nodes; C67.9 Malignant neoplasm of bladder, unspecified; I26.99 Other pulmonary embolism without acute cor pulmonale; E11.9 Type 2 diabetes mellitus without complications; E78.00 Pure hypercholesterolemia, unspecified; I10 Essential (primary) hypertension; R47.01 Aphasia; Z87.891 Personal history of nicotine dependence; Z79.01 Long term (current) use of anticoagulants; Z86.711 Personal history of pulmonary embolism
CPT/HCPCS: 70450; 70496; 70498; 71045; 80048; 84484; 85025; 85610; 85730; 93005; 96365; 96375; 99285; Q9967; A4216